=== PATIENT | female | born 1935 ===

== ENCOUNTER 2016-10-26 18:49 | Inpatient (IN) | payer MEDICARE, MEDICAID ==
[2016-10-26 18:56] VITALS: BMI 35.2
--- NOTE | 2016-10-26 19:22 | ED PDOC ---
HPI: Chest Pain Time Seen by Provider: 10/26/16 18:57 Chief Complaint (Nursing): Headache History Per: Patient, Family Onset/Duration Of Symptoms: Days (10 days), Gradual Current Symptoms Are (Timing): Still Present Severity: Moderate Quality: Dull Associated Symptoms: denies: Nausea, Dyspnea, Diaphoresis, Syncope Modifying Factors: None Exacerbating Factors: None Alleviating Factors: Other (nitro) Additional History Per: Patient, Family Additional Complaint(s): patient stating she has had headache for over 10 days. Son states they checked BP tonight and it was elevated 185/95 and pulse 112. Patient has taken motrin and tylenol, last doses unknown. also intermittent cp with relief with nitro. no sob. pmd abiodun no head trauma no bv or dv. Past Medical History Reviewed: Historical Data, Nursing Documentation, Vital Signs Vital Signs: Last Vital Signs Temp 99.9 F H 10/26/16 19:02 Pulse 80 10/26/16 19:02 Resp 18 10/26/16 19:02 BP 180/95 H 10/26/16 19:02 Pulse Ox 95 10/26/16 20:01 - Medical History PMH: Anemia, Anxiety, Arthritis, CHF, Depression, Diabetes, Diverticulitis, HTN , Hypercholesterolemia, Osteoporosis, TIA Denies: Chronic Kidney Disease - Family History Family History: States: No Known Family Hx - Living Arrangements Living Arrangements: With Family - Social History Current smoker - smoking cessation education provided: No Alcohol: None - Home Medications Home Medications: Ambulatory Orders Medication Instructions Recorded Alprazolam [Xanax] 0.5 mg PO BID 05/28/14 Atorvastatin [Lipitor] 10 mg PO HS 05/28/14 Meclizine HCl [Antivert] 25 mg PO BID 05/28/14 Metoprolol Tartrate 25 mg PO DAILY 05/28/14 Sitagliptin Phosphate [Januvia] 100 mg PO DAILY 05/28/14 Ferrous Sulfate [Feosol] 324 mg PO BID #0 ect 06/03/14 oxyCODONE/Acetaminophen [Percocet 1 tab PO Q6 PRN #0 tab 06/03/14 5/325 mg Tab] Patient's Own Medication 200 mg PO BID 06/07/14 [Patient's Own Medication] - Allergies Allergies/Adverse Reactions: Allergies Allergy/AdvReac Type Severity Reaction Status Date / Time iodine Allergy RASH Verified 10/26/16 18:55 Review of Systems ROS Statement: Except As Marked, All Systems Reviewed And Found Negative Constitutional: Negative for: Fever, Chills Cardiovascular: Positive for: Chest Pain. Negative for: Palpitations, Edema, Light Headedness Respiratory: Negative for: Cough, Shortness of Breath Gastrointestinal: Negative for: Nausea, Vomiting, Abdominal Pain, Diarrhea Musculoskeletal: Negative for: Neck Pain Skin: Negative for: Rash Neurological: Positive for: Headache. Negative for: Weakness, Numbness, Confusion, Seizures, Altered Mental Status, Dizziness Physical Exam - Reviewed Nursing Documentation Reviewed: Yes Vital Signs Reviewed: Yes - Physical Exam Appears: Positive for: Uncomfortable. Negative for: In Acute Distress Head Exam: Positive for: ATRAUMATIC, NORMAL INSPECTION, NORMOCEPHALIC Eye Exam: Positive for: EOMI, PERRL, Other (small sub conj hemea on the right ) . Negative for: Periorbital swelling, Periorbital tenderness, Conjunctival injection, Scleral icterus Neck: Positive for: Normal, Painless ROM, Supple Cardiovascular/Chest: Positive for: Regular Rate, Rhythm. Negative for: Chest Non Tender, Edema, Gallop, Murmur, Bradycardia, Tachycardia Respiratory: Positive for: Normal Breath Sounds. Negative for: Decreased Breath Sounds, Accessory Muscle Use, Crackles, Rales, Rhonchi, Stridor, Wheezing Gastrointestinal/Abdominal: Positive for: Normal Exam, Bowel Sounds, Soft. Negative for: Tenderness Back: Positive for: Normal Inspection. Negative for: L CVA Tenderness, R CVA Tenderness Extremity: Positive for: Normal ROM. Negative for: Tenderness, Pedal Edema - Laboratory Results Result Diagrams: 10/26/16 19:52 10/26/16 19:52 - ECG ECG: Positive for: Interpreted By Me ECG Rhythm: Positive for: Normal QRS, Normal ST Segment, Sinus Rhythm. Negative for: ST/T Changes Interpretation Of Abn EKG: rate of 61, no evidence of ischemia O2 Sat by Pulse Oximetry: 95 Pulse Ox Interpretation: Normal - Radiology X-Ray: Interpreted by Me X-Ray Interpretation: No Acute Disease - Progress ED Course And Treament: per dr rascon will admit to tele obs. ct head is neg. Re-evaluation Time: 21:37 Condition: Improved Disposition - Clinical Impression Clinical Impression: Acute headache, Chest pain - Patient ED Disposition Is Patient to be Admitted: Yes Counseled Patient/Family Regarding: Studies Performed, Diagnosis - Disposition Disposition Time: 21:37 Condition: GOOD - Pt Status Changed To: Hospital Disposition Of: Observation - POA Present On Arrival: None
[2016-10-26 20:13] LABS: BASO % 0.6 % (0.0-2.0); EOS # 0.1 K/uL (0.0-0.7); HEMATOCRIT 38.4 % (34.0-47.0); LYMPH # 0.9 K/uL (1.0-4.3); LYMPH % 15.6 % (20.0-40.0); MEAN CELL VOLUME 90.8 fl (81.0-99.0); MEAN CORPUSCULAR HEMOGLOBIN 29.1 pg (27.0-31.0); MEAN PLATELET VOLUME 8.4 fl (7.2-11.7); MONO # 0.5 K/uL (0.0-0.8); MONO % 8.8 % (0.0-10.0); NEUT # 4.4 K/uL (1.8-7.0); NRBC % 0.1 % (0.0-0.0); RED CELL DISTRIBUTION WIDTH 14.1 % (11.5-14.5)
[2016-10-26 20:25] LABS: ALKALINE PHOSPHATASE 72 U/L (38-126); ALT/SGPT 28 U/L (9-52); AST/SGOT 37 U/L (14-36); BILIRUBIN,TOTAL 0.6 mg/dl (0.2-1.3); BLOOD UREA NITROGEN 8 mg/dl (7-17); CALCIUM 8.9 mg/dL (8.4-10.2); CARBON DIOXIDE 28 mmol/L (22-30); CHLORIDE 102 mmol/L (98-107); GFR AFRICAN-AMERICAN > 60; GLUCOSE,RANDOM 97 mg/dL (65-105); POTASSIUM 3.4 MMOL/L (3.6-5.0); SODIUM 144 mmol/l (132-148); TOTAL PROTEIN 7.4 G/DL (6.3-8.2)
[2016-10-26 20:39] LABS: PARTIAL THROMBOPLASTIN TIME 29.6 SECONDS (23.3-32.5)
--- NOTE | 2016-10-26 21:12 | CT ---
EXAM: CT Head Without Intravenous Contrast CLINICAL HISTORY: 81 years old, female; Pain; Headache; Headache not specified; Additional info: LNY for 10 days TECHNIQUE: Axial computed tomography images of the head/brain without intravenous contrast. This CT exam was performed using one or more of the following dose reduction techniques: automated exposure control, adjustment of the mA and/or kV according to patient size, and/or use of iterative reconstruction technique. Coronal and sagittal reformatted images were created and reviewed. COMPARISON: No relevant prior studies available. FINDINGS: Brain: [id number] atrophy. No intracranial hemorrhage. No mass. Minimal decreased attenuation within periventricular white matter. No definite edema. Ventricles: No hydrocephalus. Bones/joints: No acute fracture. Soft tissues: Unremarkable. Vasculature: Minimal atherosclerotic disease of intracranial arteries. Sinuses: No acute sinusitis. Mastoid air cells: No mastoid effusion. Orbits: Unremarkable as visualized. IMPRESSION: 1. Nonspecific white matter changes. Acute infarction may be CT occult within first 24 hours. If a focal deficit persists, consider followup CT or MRI for further evaluation. 2. Incidental/non-acute findings are described above.
[2016-10-27 07:11] LABS: BASO # 0.1 K/uL (0.0-0.2); BASO % 0.9 % (0.0-2.0); EOS # 0.1 K/uL (0.0-0.7); EOS % 1.2 % (0.0-4.0); HEMATOCRIT 40.7 % (34.0-47.0); LYMPH # 1.2 K/uL (1.0-4.3); LYMPH % 16.7 % (20.0-40.0); MEAN CELL VOLUME 90.6 fl (81.0-99.0); MEAN CORPUSCULAR HEMOGLOBIN 29.2 pg (27.0-31.0); MEAN CORPUSCULAR HGB CONC 32.3 g/dL (33.0-37.0); MEAN PLATELET VOLUME 8.4 fl (7.2-11.7); MONO # 0.7 K/uL (0.0-0.8); MONO % 9.6 % (0.0-10.0); NEUT # 5.2 K/uL (1.8-7.0); NEUT % 71.6 % (50.0-75.0); WHITE BLOOD COUNT 7.3 K/uL (4.8-10.8)
[2016-10-27 07:18] LABS: ALKALINE PHOSPHATASE 79 U/L (38-126); ALT/SGPT 31 U/L (9-52); AST/SGOT 45 U/L (14-36); BILIRUBIN,TOTAL 0.8 mg/dl (0.2-1.3); BLOOD UREA NITROGEN 8 mg/dl (7-17); CALCIUM 9.1 mg/dL (8.4-10.2); CARBON DIOXIDE 34 mmol/L (22-30); CHLORIDE 100 mmol/L (98-107); CHOLESTEROL 225 mg/dL (0-199); GFR AFRICAN-AMERICAN > 60; GLUCOSE,RANDOM 114 mg/dL (65-105); POTASSIUM 3.3 MMOL/L (3.6-5.0); SODIUM 146 mmol/l (132-148); TOTAL PROTEIN 8.1 G/DL (6.3-8.2)
[2016-10-27 07:48] LABS: THYROID STIMULATING HORMONE 1.91 mIU/ML (0.46-4.68)
[2016-10-27 08:13] LABS: T4 10.4 ug/dl (5.5-11.0)
[2016-10-27] MEDS: Acetaminophen-Codeine 300/30 mg Tab PO PRN ×2 (08:16→23:56)
[2016-10-27] MEDS: Enoxaparin 40 mg Syringe SC SCH (08:16)
[2016-10-27] MEDS: Potassium Chloride 20 mEq ER Tab PO ONE ×2 (10:00)
--- NOTE | 2016-10-27 12:32 | RAD ---
HISTORY: Chest pain COMPARISON: 06/01/2014 FINDINGS: LUNGS: The lungs are well inflated. There is moderate pulmonary venous congestion. PLEURA: No significant pleural effusion identified, no pneumothorax apparent. CARDIOVASCULAR: There is persistent moderate cardiomegaly. OSSEOUS STRUCTURES: No significant abnormalities. VISUALIZED UPPER ABDOMEN: Normal. OTHER FINDINGS: None. IMPRESSION: Moderate cardiomegaly and pulmonary venous congestion. No active pulmonary disease.
--- NOTE | 2016-10-27 14:17 | CP.PCM.HP ---
History of Present Illness - History of Present Illness History of Present Illness: CC: Headache. 81 y/o F brought to ER [facility] to be evaluated for intractable Headache, onset 2 days COATER SLATE. taking Motrin, Tylenol with non relief. Pt came to ED c/o of increased headache on DOA, pain of dull quality, moderated intensity 4:10 associated to Chest pain left side,, pressure type, intermittent relief with NTG, dizziness. Worsening symptoms: Increased BP 180/95 TMAx: 99.9 HR: 80. Pt denied: Diaphoresis, LOC, change in mental status, syncope, head trauma, legs edema, numbness, focal weakness, chills, abdominal pain, n/v/d, urinary symptoms, SOB, cough, sick contact, recent travel. PMHx: HTN, Dyslipidemia, DMII, O/A Knees, Chronic back pain (Upper and lower back), CHF, COPD, dizziness, Osteoporosis, Diverticulitis, Depression, Anxiety, Insomnia, Hx TIA, Hx CVA, PNA. CT head: Negative, suggested MRI or CT if focal deficit persist. CXR: Cardiomegaly, Pulmonary venous congestion, no active pulmonary disease. Present on Admission - Present on Admission Any Indicators Present on Admission: No Review of Systems - Constitutional Constitutional: Fever (Low grade), Headache - EENT Eyes: Other (negative) Ears: Other (negative) Nose/Mouth/Throat: Other (negative) - Cardiovascular Cardiovascular: Chest Pain - Respiratory Respiratory: Other (negative) - Gastrointestinal Gastrointestinal: Other (negative) - Genitourinary Genitourinary: Other (negative) - Musculoskeletal Musculoskeletal: Arthralgias, Back Pain Additional comments: knees pain - Integumentary Integumentary: Other (negative) - Neurological Neurological: Dizziness, Headaches - Psychiatric Psychiatric: Abnormal Sleep Pattern, Anxiety, Depression - Endocrine Endocrine: Other (negative) - Hematologic/Lymphatic Hematologic: Other (negative) Past Patient History - Infectious Disease Hx of Infectious Diseases: None - Tetanus Immunizations Tetanus Immunization: Unknown - Past Medical History & Family History Past Medical History?: Yes Pertinent Family History: Unknown - Past Social History Smoking Status: Former Smoker Alcohol: None Drugs: Denies Home Situation {Lives}: With Family - CARDIAC Hx Cardiac Disorders: Yes Hx Congestive Heart Failure: Yes Hx Hypertension: Yes - PULMONARY Hx Respiratory Disorders: Yes Hx Chronic Obstructive Pulmonary Disease (COPD): Yes - NEUROLOGICAL Hx Neurological Disorder: Yes Hx Dizziness: Yes Hx Transient Ischemic Attacks (TIA): Yes - HEENT Hx HEENT Problems: No - RENAL Hx Chronic Kidney Disease: No - ENDOCRINE/METABOLIC Hx Endocrine Disorders: Yes Hx Diabetes Mellitus Type 2: Yes - HEMATOLOGICAL/ONCOLOGICAL Hx Blood Disorders: Yes Hx Anemia: Yes - INTEGUMENTARY Hx Dermatological Problems: No - MUSCULOSKELETAL/RHEUMATOLOGICAL Hx Musculoskeletal Disorders: Yes Hx Arthritis: Yes Hx Back Pain: Yes Hx Falls: No Hx Osteoarthritis: Yes - GASTROINTESTINAL Hx Gastrointestinal Disorders: Yes Hx Diverticulitis: Yes - GENITOURINARY/GYNECOLOGICAL Hx Genitourinary Disorders: No - PSYCHIATRIC Hx Psychophysiologic Disorder: Yes Hx Anxiety: Yes Hx Depression: Yes Hx Substance Use: No - SURGICAL HISTORY Hx Surgeries: Yes Hx Herniorrhaphy: Yes - ANESTHESIA Hx Anesthesia: Yes Hx Anesthesia Reactions: No Hx Malignant Hyperthermia: No Meds Home Medications: Home Medication List Medication Instructions Recorded Confirmed Type Aspirin [Adult Low Dose Aspirin EC] 81 mg PO DAILY #30 tablet.dr 10/28/16 Rx Atorvastatin [Lipitor] 20 mg PO DAILY #30 tab 10/28/16 Rx Allergies/Adverse Reactions: Allergies Allergy/AdvReac Type Severity Reaction Status Date / Time iodine Allergy RASH Verified 10/26/16 18:55 Physical Exam - Constitutional Appears: No Acute Distress, Chronically Ill - Head Exam Head Exam: NORMAL INSPECTION - Eye Exam Eye Exam: PERRL - ENT Exam ENT Exam: Normal Oropharynx - Neck Exam Neck exam: Positive for: Normal Inspection - Respiratory Exam Respiratory Exam: NORMAL BREATHING PATTERN - Cardiovascular Exam Cardiovascular Exam: REGULAR RHYTHM, Systolic Murmur (1/6 LSB Ao) Additional comments: Tenderness over pressure lower LSB - GI/Abdominal Exam GI & Abdominal Exam: Normal Bowel Sounds, Soft - Extremities Exam Extremities exam: Positive for: tenderness ( L > R knee). Negative for: pedal edema - Back Exam Back exam: tenderness (L-S) - Neurological Exam Neurological exam: Alert, Oriented x3 Additional comments: Follows commands. - Psychiatric Exam Psychiatric exam: Anxious, Depressed - Skin Skin Exam: Warm Results - Vital Signs Recent Vital Signs: Last Vital Signs Temp 98.5 F 10/27/16 12:37 Pulse 73 10/27/16 12:37 Resp 18 10/27/16 12:37 BP 134/74 10/27/16 12:37 Pulse Ox 96 10/27/16 12:37 reviewed Bharti - Labs Result Diagrams: 10/27/16 06:30 10/27/16 06:30 Labs: Laboratory Results - last 24 hr 10/27/16 10/27/16 06:30 11:06 WBC 7.3 RBC 4.49 Hgb 13.1 Hct 40.7 MCV 90.6 MCH 29.2 MCHC 32.3 L RDW 14.0 Plt Count 166 MPV 8.4 Neut % (Auto) 71.6 Lymph % (Auto) 16.7 L [place] % (Auto) 9.6 Eos % (Auto) 1.2 Baso % (Auto) 0.9 Neut # 5.2 Lymph # 1.2 [place] # 0.7 Eos # 0.1 Baso # 0.1 Sodium 146 Potassium 3.3 L Chloride 100 Carbon Dioxide 34 H Anion Gap 15 BUN 8 Creatinine 0.5 L Est GFR ( Amer) > 60 Est GFR (Non-Af Amer) > 60 POC Glucose (mg/dL) 98 Random Glucose 114 H Calcium 9.1 Total Bilirubin 0.8 AST 45 H D ALT 31 Alkaline Phosphatase 79 Troponin I < 0.0120 Total Protein 8.1 Albumin 4.0 Globulin 4.1 H Albumin/Globulin Ratio 1.0 Triglycerides 131 Cholesterol 225 H LDL Cholesterol Direct 131 H HDL Cholesterol 57 Thyroxine (T4) 10.4 TSH 3rd Generation 1.91 reviewed Bharti - Imaging and Cardiology Chest x-ray Status: Report reviewed by me (Bharti) CT scan - head Status: Report reviewed by me (Bharti) Assessment & Plan (1) Acute headache Status: Acute (2) Chest pain Status: Acute (3) Hypertension Status: Chronic Priority: Medium (4) Type 2 diabetes mellitus Status: Chronic Priority: Medium (5) Osteoarthritis Status: Chronic Priority: High (6) Dyslipidemia Status: Acute (7) Anxiety Status: Chronic Priority: Medium (8) Depression Status: Chronic Priority: Medium (9) History of CVA (cerebrovascular accident) Status: Chronic Priority: Low (10) Hx of TIA (transient ischemic attack) and stroke Status: Chronic Priority: Low (11) Generalized weakness Status: Chronic Priority: Medium - Assessment and Plan (Free Text) Plan: Continue Lovenox. Antivert, Lopressor, Lipitor, Tylenol with Co, f/u Echo, Cardiology consult. - Date & Time Date: 10/27/16 Time: 12:00
--- NOTE | 2016-10-27 17:14 | CARD ---
APPROVED REPORT EXAM: Two-dimensional and M-mode echocardiogram with Doppler and color Doppler. Other Information Quality : AverageRhythm : Atrial Fibrillation INDICATION Chest Pain 2D DIMENSIONS IVSd0.99 (0.7-1.1cm)LVDd4.09 (3.9-5.9cm) LVOT Diameter2.12 (1.8-2.4cm)PWd0.85 (0.7-1.1cm) IVSs1.84 (0.8-1.2cm)LVDs2.35 (2.5-4.0cm) FS (%) 42.6 %PWs1.37 (0.8-1.2cm) M-Mode DIMENSIONS Left Atrium (MM)4.05 (2.5-4.0cm)Aortic Root2.38 (2.2-3.7cm) Aortic Cusp Exc.1.50 (1.5-2.0cm) Mitral Valve MV E Snrqrzsf345.5cm/sMV DECEL [id number] A Yizqsfnj726.4cm/s MV TVZ94jeN/A ratio1.2MVA (PHT)2.98cm2 TDI E/Lateral E'0.0E/Medial E'0.0 Tricuspid Valve TR Peak [id number]/sRAP [id number] Peak Gr.41mmHg [id number] LEFT VENTRICLE The left ventricle is normal size. There is normal left ventricular wall thickness. The left ventricular function is normal. The left ventricular ejection fraction is - 70%. There is normal LV segmental wall motion. The left ventricular diastolic function is normal. No left ventricle thrombus noted on this study. There is no ventricular septal defect visualized. There is no left ventricular aneurysm. There is no mass noted in the left ventricle. RIGHT VENTRICLE The right ventricle is normal size. There is normal right ventricular wall thickness. The right ventricular systolic function is normal. ATRIA The left atrium is mildly dilated. There is no thrombus suspected in the left atrium. The right atrium size is normal. The interatrial septum is intact with no evidence for an atrial septal defect. AORTIC VALVE The aortic valve is normal in structure and function. No aortic regurgitation is present. There is no aortic valvular stenosis. MITRAL VALVE Mitral annular calcification is moderate. The mitral valve leaflets are thickened. There is no evidence of mitral valve prolapse. There is no mitral valve stenosis. Mitral regurgitation is mild to moderate. There is diastolic turbulance accross the MV. TRICUSPID VALVE The tricuspid valve is normal in structure and function. There is moderate tricuspid regurgitation. Right ventricular systolic pressure is estimated at 52 mmHg. There is no tricuspid valve prolapse or vegetation. There is no tricuspid valve stenosis. PULMONIC VALVE The pulmonic valve is not well visualized. There is no pulmonic valvular regurgitation. GREAT VESSELS The aortic root is normal in size. The IVC was not well visualized. PERICARDIAL EFFUSION small anterior echo free space There is no pleural effusion. <Conclusion> The left ventricle is normal in size and wall thickness. The left ventricular function is normal. The left ventricular ejection fraction is - 70%. The left atrium is mildly dilated. The mitral valve is thickened but not stenotic and the is moderate MAC. The aortic and tricuspid valves are normal. The is mild to moderate mitral regurgitation and moderate tricuspid regurgitation.
--- NOTE | 2016-10-27 18:29 | CARD ---
APPROVED REPORT EKG Measurement Heart [id number] <Conclusion> Sinus rhythm with premature supraventricular complexes Otherwise normal ECG
--- NOTE | 2016-10-27 18:35 | CARD ---
APPROVED REPORT EKG Measurement Heart [id number] <Conclusion> Sinus rhythm with premature atrial contractions Nonspecific ST and T wave abnormality Prolonged QT Abnormal ECG artefact present
--- NOTE | 2016-10-27 18:56 | CP.PCM.CON ---
History of Present Illness - History of Present Illness History of Present Illness: I was asked to see patient by Dr. Granado. Patient is a 81 year old female with a history of HTN, hypercholesterolemia, who presents with headache. The patient states symptoms began about 2 days ago. She was noted to have elevated blood pressure. At rest she developed chest pain which is left sided. She denies dyspnea. She walks with a cane. Review of Systems - Constitutional Constitutional: absent: As Per HPI, Anorexia, Chills, Daytime Sleepiness, Excessive Sweating, Fatigue, Fever, Frequent Falls, Headache, Increased Appetite , Lethargy, Malaise, Night Sweats, Snoring, Sleep Apnea, Weight Gain, Weight Loss, Weakness, Other - EENT Eyes: absent: As Per HPI, Blind Spots, Blurred Vision, Change in Vision, Decreased Night Vision, Diplopia, Discharge, Dry Eye, Exophthalmos, Floaters, Irritation, Itchy Eyes, Loss of Peripheral Vision, Pain, Photophobia, Requires Corrective Lenses, Sees Flashes, Spots in Vision, Tunnel Vision, Other Visual Disturbances, Loss of Vision, Other Nose/Mouth/Throat: absent: As Per HPI, Epistaxis, Nasal Congestion, Nasal Discharge, Nasal Obstruction, Nasal Trauma, Nose Pain, Post Nasal Drip, Sinus Pain, Sinus Pressure, Bleeding Gums, Change in Voice, Dental Pain, Dry Mouth, Dysphagia, Halitosis, Hoarsness, Lip Swelling, Mouth Lesions, Mouth Pain, Odynophagia, Sore Throat, Throat Swelling, Tongue Swelling, Facial Pain, Neck Pain, Neck Mass, Other - Cardiovascular Cardiovascular: Chest Pain - Respiratory Respiratory: absent: As Per HPI, Cough, Dyspnea, Hemoptysis, Dyspnea on Exertion , Wheezing, Snoring, Stridor, Pain on Inspiration, Chest Congestion, Excessive Mucous Production, Change in Mucous Color, Pain with Coughing, Other - Gastrointestinal Gastrointestinal: absent: As Per HPI, Abdominal Pain, Belching, Bloating, Change in Bowel Habits, Change in Stool Character, Coffee Ground Emesis, Constipation, Cramping, Diarrhea, Dyspepsia, Dysphagia, Early Satiety, Excessive Flatus, Fecal Incontinence, Heartburn, Hematemesis, Hematochezia, Loose Stools, Melena, Nausea, Odynophagia, Temesmus, Vomiting, Other - Genitourinary Genitourinary: absent: As Per HPI, Change in Urinary Stream, Difficulty Urinating, Dysuria, Flank Pain, Hematuria, Pyuria, Nocturia, Urinary Incontinence, Urinary Frequency, Urinary Hesitance, Urinary Urgency, Voiding Freq/Small Amts, Freq UTI, Hx Renal/Bladder Calculi, Hx /Renal Surgery, Bladder Distension, Other - Musculoskeletal Musculoskeletal: absent: As Per HPI, Abnormal Gait, Arthralgias, Atrophy, Back Pain, Deformity, Joint Swelling, Limited Range of Motion, Loss of Height, Muscle Cramps, Muscle Weakness, Myalgias, Neck Pain, Numbness, Radiating Pain into Limb, Stiffness, Tingling, Other - Integumentary Integumentary: absent: As Per HPI, Acne, Alopecia, Bleeding Lesions, Change in Hair, Change in Nails, Change in Pigmentation, Changing Lesions, Dry Skin, Erythema, Furuncle, Hirsutism, Lesions, New Lesions, Non-Healing Lesions, Photosensitivity, Pruritus, Rash, Skin Pain, Skin Ulcer, Sores, Striae, Swelling , Unusual Bruising, Wounds, Jaundice, Other - Neurological Neurological: absent: As Per HPI, Abnormal Gait, Abnormal Hearing, Abnormal Movements, Abnormal Speech, Behavioral Changes, Burning Sensations, Confusion, Convulsions, Disequilibrium, Dizziness, Numbness, Focal Weakness, Frequent Falls , Headaches, Lack of Coordination, Loss of Vision, Memory Loss, Paresthesias, Radicular Pain, Restless Legs, Sensory Deficit, Syncope, Tingling, Tremor, Vertigo, Weakness, Other Visual Disturbances, Other - Psychiatric Psychiatric: absent: As Per HPI, Abnormal Sleep Pattern, Anhedonia, Anxiety, Auditory Hallucinations, Behavioral Changes, Change in Appetite, Change in Libido, Confusion, Depression, Difficulty Concentrating, Hallucinations, Homicidal Ideation, Hopelessness, Irritability, Memory Loss, Mood Swings, Panic Attacks, Paranoia, Suicidal Ideation, Visual Hallucinations, Tactile Hallucinations, Other - Endocrine Endocrine: absent: As Per HPI, Change in Body Appearance, Change in Libido, Cold Intolorance, Deepening of Voice, Excessive Sweating, Fatigue, Flushing, Heat Intolorance, Increase in Ring/Shoe/Hat Size, Palpitations, Polydipsia, Polyphagia, Polyuria, Other - Hematologic/Lymphatic Hematologic: absent: As Per HPI, Easy Bleeding, Easy Bruising, Lymphadenopathy, Other Past Patient History - Infectious Disease Hx of Infectious Diseases: None - Tetanus Immunizations Tetanus Immunization: Unknown - Past Medical History & Family History Past Medical History?: Yes - Past Social History Smoking Status: Former Smoker Alcohol: None Drugs: Denies Home Situation {Lives}: With Family - CARDIAC Hx Cardiac Disorders: Yes Hx Congestive Heart Failure: Yes Hx Hypertension: Yes - PULMONARY Hx Respiratory Disorders: Yes Hx Chronic Obstructive Pulmonary Disease (COPD): Yes - NEUROLOGICAL Hx Neurological Disorder: Yes Hx Dizziness: Yes Hx Transient Ischemic Attacks (TIA): Yes - HEENT Hx HEENT Problems: No - RENAL Hx Chronic Kidney Disease: No - ENDOCRINE/METABOLIC Hx Endocrine Disorders: Yes Hx Diabetes Mellitus Type 2: Yes - HEMATOLOGICAL/ONCOLOGICAL Hx Blood Disorders: Yes Hx Anemia: Yes - INTEGUMENTARY Hx Dermatological Problems: No - MUSCULOSKELETAL/RHEUMATOLOGICAL Hx Musculoskeletal Disorders: Yes Hx Arthritis: Yes Hx Back Pain: Yes Hx Falls: No Hx Osteoarthritis: Yes - GASTROINTESTINAL Hx Gastrointestinal Disorders: Yes Hx Diverticulitis: Yes - GENITOURINARY/GYNECOLOGICAL Hx Genitourinary Disorders: No - PSYCHIATRIC Hx Psychophysiologic Disorder: Yes Hx Anxiety: Yes Hx Depression: Yes Hx Substance Use: No - SURGICAL HISTORY Hx Surgeries: Yes Hx Herniorrhaphy: Yes - ANESTHESIA Hx Anesthesia: Yes Hx Anesthesia Reactions: No Hx Malignant Hyperthermia: No Meds Allergies/Adverse Reactions: Allergies Allergy/AdvReac Type Severity Reaction Status Date / Time iodine Allergy RASH Verified 10/26/16 18:55 - Medications Medications: Current Medications Acetaminophen/Codeine Phosphate (Tylenol/Codeine 300 Mg/30 Mg) 1 tab PO Q4 PRN PRN Reason: Pain, moderate (4-7) Last Admin: 10/27/16 08:16 Dose: 1 tab Alprazolam (Xanax) 0.25 mg PO [facility] Stop: 11/03/16 22:01 Amlodipine Besylate (Norvasc) 10 mg PO DAILY [facility] Atorvastatin Calcium (Lipitor) 10 mg PO HS [facility] Enoxaparin Sodium (Lovenox) 40 mg SC DAILY [facility] PRN Reason: Protocol Last Admin: 10/27/16 08:16 Dose: 40 mg Ferrous Sulfate (Feosol) 325 mg PO BID [facility] Last Admin: 10/27/16 17:30 Dose: 325 mg Meclizine HCl (Antivert) 25 mg PO BID [facility] Last Admin: 10/27/16 17:30 Dose: 25 mg Metoprolol Tartrate (Lopressor) 25 mg PO DAILY [facility] Last Admin: 10/27/16 08:08 Dose: 25 mg Ondansetron HCl (Zofran Inj) 4 mg IVP Q4 PRN PRN Reason: Nausea/Vomiting Last Admin: 10/27/16 10:13 Dose: 4 mg Sitagliptin Phosphate (Januvia) 100 mg PO DAILY [facility] Last Admin: 10/27/16 09:40 Dose: 100 mg Physical Exam - Constitutional Appears: Non-toxic - Head Exam Head Exam: NORMAL INSPECTION - Eye Exam Eye Exam: Normal appearance - ENT Exam ENT Exam: Mucous Membranes Moist - Neck Exam Neck exam: Positive for: Full Rom - Respiratory Exam Respiratory Exam: NORMAL BREATHING PATTERN - Cardiovascular Exam Cardiovascular Exam: REGULAR RHYTHM - GI/Abdominal Exam GI & Abdominal Exam: Normal Bowel Sounds - Rectal Exam Rectal Exam: Deferred - Extremities Exam Extremities exam: Negative for: pedal edema - Back Exam Back exam: NORMAL INSPECTION - Neurological Exam Neurological exam: Alert, Oriented x3 - Psychiatric Exam Psychiatric exam: Normal Affect - Skin Skin Exam: Normal Color Results - Vital Signs Recent Vital Signs: Last Vital Signs Temp 98.2 F 10/27/16 16:00 Pulse 75 10/27/16 16:00 Resp 20 10/27/16 16:00 BP 121/62 10/27/16 16:00 Pulse Ox 98 10/27/16 16:00 - Labs Result Diagrams: 10/27/16 06:30 10/27/16 06:30 Labs: Laboratory Results - last 24 hr 10/27/16 16:14 POC Glucose (mg/dL) 89 - EKG Data EKG Interpreted by: Myself EKG shows normal: Sinus rhythm Assessment & Plan (1) Chest pain Assessment and Plan: I recommend serial cardiac enzymes. I reviewed the echocardiogram. There is normal left ventricular function and no evidence of wall motion abnormalities. Patient will benefit from conitnued therapy. add aspirin. If enzymes negative will recommend outpatient stress test. Status: Acute (2) Hypertension Assessment and Plan: blood pressure control Status: Chronic Priority: Medium
[2016-10-28] MEDS: Enoxaparin 40 mg Syringe SC SCH (09:50)
[2016-10-28] MEDS: Acetaminophen-Codeine 300/30 mg Tab PO PRN (10:27)
[2016-10-28 11:56] VITALS: RESP 18
--- NOTE | 2016-10-28 14:41 | CP.PCM.PN ---
Subjective - Date & Time of Evaluation Date of Evaluation: 10/28/16 Time of Evaluation: 11:30 - Subjective Subjective: F/U Acute Headache/ CP. Pt doing well, no CP, no SOB. Objective - Vital Signs/Intake and Output Vital Signs (last 24 hours): Temp Pulse Resp BP Pulse Ox 98.4 F 72 18 109/58 L 96 10/28/16 11:55 10/28/16 11:55 10/28/16 11:55 10/28/16 11:55 10/28/16 11:55 - Medications Medications: Current Medications Acetaminophen/Codeine Phosphate (Tylenol/Codeine 300 Mg/30 Mg) 1 tab PO Q4 PRN PRN Reason: Pain, moderate (4-7) Last Admin: 10/28/16 10:27 Dose: 1 tab Alprazolam (Xanax) 0.25 mg PO HS [facility] Stop: 11/03/16 22:01 Atorvastatin Calcium (Lipitor) 10 mg PO [facility] Last Admin: 10/27/16 21:49 Dose: 10 mg Enoxaparin Sodium (Lovenox) 40 mg SC DAILY [facility] PRN Reason: Protocol Last Admin: 10/28/16 09:50 Dose: 40 mg Ferrous Sulfate (Feosol) 325 mg PO BID [facility] Last Admin: 10/28/16 09:50 Dose: 325 mg Meclizine HCl (Antivert) 25 mg PO BID [facility] Last Admin: 10/28/16 09:50 Dose: 25 mg Metoprolol Tartrate (Lopressor) 25 mg PO DAILY [facility] Last Admin: 10/28/16 09:50 Dose: 25 mg Ondansetron HCl (Zofran Inj) 4 mg IVP Q4 PRN PRN Reason: Nausea/Vomiting Last Admin: 10/27/16 10:13 Dose: 4 mg Sitagliptin Phosphate (Januvia) 100 mg PO DAILY [facility] Last Admin: 10/28/16 09:50 Dose: 100 mg - Labs Labs: PT 12.0 SECONDS (9.6-11.2) H 10/26/16 19:52 INR 1.15 (0.92-1.08) H 10/26/16 19:52 APTT 29.6 SECONDS (23.3-32.5) 10/26/16 19:52 - Constitutional Appears: No Acute Distress, Chronically Ill - Head Exam Head Exam: NORMAL INSPECTION - Eye Exam Eye Exam: PERRL - ENT Exam ENT Exam: Normal Oropharynx - Neck Exam Neck Exam: Normal Inspection - Respiratory Exam Respiratory Exam: NORMAL BREATHING PATTERN - Cardiovascular Exam Cardiovascular Exam: REGULAR RHYTHM, Murmur (systolic 1/6 LSB Ao) - GI/Abdominal Exam GI & Abdominal Exam: Soft, Normal Bowel Sounds - Extremities Exam Extremities Exam: Tenderness (L>R knee). absent: Pedal Edema - Back Exam Back Exam: tenderness (L-S) - Neurological Exam Neurological Exam: Alert, Oriented x3 - Psychiatric Exam Psychiatric exam: Anxious, Depressed - Skin Skin Exam: Warm Assessment and Plan (1) Acute headache Status: Acute (2) Chest pain Assessment & Plan: Non Cardiac. Status: Acute (3) Hypertension Status: Chronic (4) Type 2 diabetes mellitus Status: Chronic (5) Osteoarthritis Status: Chronic (6) Dyslipidemia Status: Acute (7) Anxiety Status: Chronic (8) Depression Status: Chronic (9) History of CVA (cerebrovascular accident) Status: Chronic (10) Hx of TIA (transient ischemic attack) and stroke Status: Chronic (11) Generalized weakness Status: Chronic - Assessment and Plan (Free Text) Plan: BP stable, Cardiology consult appreciated, suggested stress test as out-patient , Pt improved and stable to be discharged, see instruction medication sheet, f/ u in my office in one week,.
--- NOTE | 2016-10-28 14:56 | PQF GENQUE ---
Dr. Granado, Etiology of the Chest Pain: if known? OR: Unable to determine? Cardiology consult: presents with headache. The patient states symptoms began about 2 days ago. She was noted to have elevated blood pressure. At rest she developed chest pain which is left sided. Impression: Chest pain: I recommend serial cardiac enzymes. I reviewed the echocardiogram. There is normal left ventricular function and no evidence of wall motion abnormalities. Patient will benefit from continued therapy. add aspirin. If enzymes negative will recommend outpatient stress test. Status: Acute trop x 4: negative This form is a permanent part of the medical record Clarification of your documentation is requested to better reflect the severity of illness and intensity of treatment of your patient. Indicators present [] Specify: [] [] Specify: [] [] Specify: [] [] Specify: [] Location in the medical record that reflects the above clinical findings: [] Treatment Provided: [] PHYSICIAN'S RESPONSE Based on your medical judgment of the clinical indicators outlined above please clarify the following: [] Practitioner response [] If unable to determine, please check the box, sign and date. Present On Admission (POA) Indicator: [] Present at the time of admission [] Not present at the time of admission [] Clinically Undetermined In responding to this query, please exercise your independent professional judgment. The fact that a question is asked does not imply that any particular answer is desired or expected. Thank you for your clarification on this documentation. If you have any questions please call. * Thank you, Melissa Louis RN BSN ext. #[phone] MTDD
[2016-10-28 16:16] VITALS: BP 148/77; PULSE 93; TEMP 98.1; O2SAT 98
== END 2016-10-28 18:40 | disposition home or self-care (01) | DRG 103 ==
LOC: H.ER 18:49 → H.ERHOLD 22:22 → H.TEL 10-27 03:17 → OBSVTOIN 10-27 15:01
PROVIDERS: ADMIT Internal Medicine Pulmonary Disease; ATTEND Internal Medicine Pulmonary Disease
DX: R51 Headache (principal); K57.92 Diverticulitis of intestine, part unspecified, without perforation or abscess without bleeding; R07.89 Other chest pain; I11.0 Hypertensive heart disease with heart failure; I50.9 Heart failure, unspecified; J44.9 Chronic obstructive pulmonary disease, unspecified; E11.9 Type 2 diabetes mellitus without complications; D64.9 Anemia, unspecified; F32.9 Major depressive disorder, single episode, unspecified; M17.0 Bilateral primary osteoarthritis of knee; G89.29 Other chronic pain; M54.5 Low back pain; M81.0 Age-related osteoporosis without current pathological fracture; E78.5 Hyperlipidemia, unspecified; F41.8 Other specified anxiety disorders; E78.00 Pure hypercholesterolemia, unspecified; G47.00 Insomnia, unspecified; Z79.82 Long term (current) use of aspirin; Z86.73 Personal history of transient ischemic attack (TIA), and cerebral infarction without residual deficits; Z87.891 Personal history of nicotine dependence; Z91.041 Radiographic dye allergy status

== ENCOUNTER 2016-12-15 22:03 | Inpatient (IN) | payer MEDICARE, MEDICAID ==
[2016-12-15 22:04] VITALS: BMI 35.2
[2016-12-15 22:56] LABS: BASO # 0.1 K/uL (0.0-0.2); BASO % 0.7 % (0.0-2.0); EOS # 0.1 K/uL (0.0-0.7); EOS % 1.3 % (0.0-4.0); HEMATOCRIT 29.9 % (34.0-47.0); LYMPH # 1.4 K/uL (1.0-4.3); LYMPH % 20.4 % (20.0-40.0); MEAN CELL VOLUME 89.7 fl (81.0-99.0); MEAN CORPUSCULAR HEMOGLOBIN 30.1 pg (27.0-31.0); MEAN CORPUSCULAR HGB CONC 33.6 g/dL (33.0-37.0); MEAN PLATELET VOLUME 9.3 fl (7.2-11.7); MONO # 0.7 K/uL (0.0-0.8); MONO % 9.8 % (0.0-10.0); NEUT # 4.6 K/uL (1.8-7.0); NEUT % 67.8 % (50.0-75.0); NRBC % 0.1 % (0.0-0.0); RED CELL DISTRIBUTION WIDTH 14.5 % (11.5-14.5); WHITE BLOOD COUNT 6.9 K/uL (4.8-10.8)
--- NOTE | 2016-12-15 23:09 | ED PDOC ---
HPI: General Adult Time Seen by Provider: 12/15/16 22:25 Chief Complaint (Nursing): Abnormal Skin Integrity Chief Complaint (Provider): black stools History Per: Patient, Family (son ) History/Exam Limitations: no limitations Onset/Duration Of Symptoms: Days (3) Have you had recent travel within the past 21 days to any of the following countries: [place], [place], [place] or [place]?: No Current Symptoms Are (Timing): Still Present Additional Complaint(s): 81yo female with PMHx including GI bleed and HTN (on aspirin according to son) presents to the ED with c/o black stools x 3 days. Patient did not tell son until today and when he heard he brought patient to ED. Denies abdominal pain, chest pain, SOB, weakness, or any other medical complaints. Past Medical History Reviewed: Historical Data, Nursing Documentation, Vital Signs Vital Signs: Last Vital Signs Temp 99.9 F H 12/15/16 22:08 Pulse 114 H 12/15/16 22:08 Resp 20 12/15/16 22:08 BP 141/73 12/15/16 22:08 Pulse Ox 96 12/15/16 23:14 - Medical History PMH: Anemia, Anxiety, Arthritis, CHF, COPD, Depression, Diabetes, Diverticulitis , HTN, Hypercholesterolemia, Osteoporosis, TIA Denies: Chronic Kidney Disease Other PMH: GI bleed - Surgical History Surgical History: No Surg Hx - Family History Family History: States: No Known Family Hx - Home Medications Home Medications: Ambulatory Orders Medication Instructions Recorded Meclizine HCl [Antivert] 25 mg PO BID 05/28/14 Metoprolol Tartrate 25 mg PO DAILY 05/28/14 Sitagliptin Phosphate [Januvia] 100 mg PO DAILY 05/28/14 Ferrous Sulfate [Feosol] 324 mg PO BID #0 ect 06/03/14 Patient's Own Medication 200 mg PO BID 06/07/14 Alprazolam [Xanax] 0.5 mg PO HS 10/26/16 Acetaminophen with Codeine 1 tab PO HS 10/27/16 [Tylenol with Codeine #3 Tablet] Aspirin [Adult Low Dose Aspirin EC] 81 mg PO DAILY #30 tablet. 10/28/16 Atorvastatin [Lipitor] 20 mg PO DAILY #30 tab 10/28/16 - Allergies Allergies/Adverse Reactions: Allergies Allergy/AdvReac Type Severity Reaction Status Date / Time iodine Allergy RASH Verified 10/26/16 18:55 Review of Systems ROS Statement: Except As Marked, All Systems Reviewed And Found Negative Constitutional: Negative for: Weakness Cardiovascular: Negative for: Chest Pain Respiratory: Negative for: Shortness of Breath Gastrointestinal: Positive for: Other (black stools ). Negative for: Abdominal Pain Physical Exam - Reviewed Nursing Documentation Reviewed: Yes Vital Signs Reviewed: Yes - Physical Exam Appears: Positive for: Well, No Acute Distress Head Exam: Positive for: ATRAUMATIC, NORMAL INSPECTION, NORMOCEPHALIC Skin: Positive for: Normal Color, Warm, Dry Eye Exam: Positive for: Normal appearance, EOMI, PERRL ENT: Positive for: Normal ENT Inspection Neck: Positive for: Normal, Painless ROM, Supple Cardiovascular/Chest: Positive for: Regular Rate, Rhythm. Negative for: Murmur , Tachycardia Respiratory: Positive for: Normal Breath Sounds. Negative for: Wheezing, Respiratory Distress Gastrointestinal/Abdominal: Positive for: Normal Exam, Soft. Negative for: Tenderness Back: Positive for: Normal Inspection. Negative for: L CVA Tenderness, R CVA Tenderness Rectal: Positive for: Other (chaperoned by YOBANI Stein, black tarry stool streaked with red blood ) Extremity: Positive for: Normal ROM. Negative for: Deformity, Swelling Neurologic/Psych: Positive for: Alert, Oriented. Negative for: Motor/Sensory Deficits - Laboratory Results Result Diagrams: 12/15/16 22:52 12/15/16 22:52 - ECG O2 Sat by Pulse Oximetry: 96 Pulse Ox Interpretation: Normal (RA) Medical Decision Making Medical Decision Makin: Impression: GI bleed Plan: Type and screen CMP, CBC, Lipase CXR Protonix 40mg IVP UA reassess 2330: Spoke with Dr. Granado who agrees with admission. Will admit to [facility] for GIB. Scribe Attestation: Documented by Sharlene Thompson acting as a scribe for Reid Brown MD. Provider Scribe Attestation: All medical record entries made by the Scribe were at my direction and personally dictated by me. I have reviewed the chart and agree that the record accurately reflects my personal performance of the history, physical exam, medical decision making, and the department course for this patient. I have also personally directed, reviewed, and agree with the discharge instructions and disposition. Disposition - Clinical Impression Clinical Impression: GI bleed - Patient ED Disposition Is Patient to be Admitted: Yes Discussed With : Jesús Granado - Disposition Disposition Time: 23:40 Condition: STABLE
[2016-12-15 23:21] LABS: ALB/GLOB RATIO 1.2 (1.0-2.1); ALKALINE PHOSPHATASE 71 U/L (38-126); ALT/SGPT 25 U/L (9-52); AST/SGOT 36 U/L (14-36); BILIRUBIN,TOTAL 0.3 mg/dl (0.2-1.3); BLOOD UREA NITROGEN 16 mg/dl (7-17); CALCIUM 9.2 mg/dL (8.4-10.2); CARBON DIOXIDE 27 mmol/L (22-30); CHLORIDE 105 mmol/L (98-107); GFR AFRICAN-AMERICAN > 60; GLUCOSE,RANDOM 140 mg/dL (65-105); LIPASE 89 U/L (23-300); POTASSIUM 3.1 MMOL/L (3.6-5.0); SODIUM 143 mmol/l (132-148); TOTAL PROTEIN 7.4 G/DL (6.3-8.2)
[2016-12-15] MEDS ORDERED: Potassium Chloride 20 mEq ER Tab PO ONE (23:37)
[2016-12-15 23:44] LABS: RBC URINE 6 /hpf (0-3); URINE BACTERIA RARE (<OCC); URINE BILIRUBIN NEGATIVE (NEGATIVE); URINE BLOOD MODERATE (NEGATIVE); URINE COLOR YELLOW (YELLOW); URINE GLUCOSE (UA) NEG (Normal); URINE KETONE NEGATIVE (NEGATIVE); URINE LEUKOCYTE ESTERASE TRACE Leu/uL (Negative); URINE PROTEIN NEGATIVE (NEGATIVE); URINE UROBILINOGEN 0.2-1.0 mg/dL (0.2-1.0); WBC URINE 2 /hpf (0-5)
[2016-12-16] MEDS ORDERED: Potassium Chloride 20 mEq ER Tab PO ONE (00:25)
[2016-12-16 06:50] LABS: MEAN CELL VOLUME 89.3 fl (81.0-99.0); MEAN CORPUSCULAR HEMOGLOBIN 29.6 pg (27.0-31.0); MEAN CORPUSCULAR HGB CONC 33.1 g/dL (33.0-37.0); RED CELL DISTRIBUTION WIDTH 14.7 % (11.5-14.5); WHITE BLOOD COUNT 5.3 K/uL (4.8-10.8)
[2016-12-16 06:56] LABS: IRON 20 ug/dL (37-170)
[2016-12-16 06:58] LABS: ALB/GLOB RATIO 1.2 (1.0-2.1); ALKALINE PHOSPHATASE 58 U/L (38-126); ALT/SGPT 25 U/L (9-52); AST/SGOT 28 U/L (14-36); BILIRUBIN,TOTAL 0.2 mg/dl (0.2-1.3); BLOOD UREA NITROGEN 16 mg/dl (7-17); CALCIUM 8.7 mg/dL (8.4-10.2); CARBON DIOXIDE 29 mmol/L (22-30); CHLORIDE 108 mmol/L (98-107); CHOLESTEROL 133 mg/dL (0-199); GFR AFRICAN-AMERICAN > 60; GLUCOSE,RANDOM 103 mg/dL (65-105); POTASSIUM 3.6 MMOL/L (3.6-5.0); SODIUM 146 mmol/l (132-148); TOTAL PROTEIN 6.2 G/DL (6.3-8.2)
[2016-12-16] MEDS: Dextrose 5%/0.45% NS 1,000 ML IV SCH ×3 (06:58→21:29)
[2016-12-16] MEDS: Insulin Regular 100 units/ml SC SCH ×4 (07:00→23:01)
[2016-12-16 07:08] LABS: T4 8.99 ug/dl (5.5-11.0)
[2016-12-16 07:22] LABS: THYROID STIMULATING HORMONE 1.18 mIU/ML (0.46-4.68)
[2016-12-16 08:44] LABS: RETIC% 1.5 % (0.5-1.5)
--- NOTE | 2016-12-16 13:50 | RAD ---
PROCEDURE: CHEST RADIOGRAPH, 1 VIEW HISTORY: gi bleed COMPARISON: None available. FINDINGS: LUNGS: Clear. PLEURA: No pneumothorax or pleural fluid seen. CARDIOVASCULAR: Normal. OSSEOUS STRUCTURES: No significant abnormalities. VISUALIZED UPPER ABDOMEN: Normal. OTHER FINDINGS: None. IMPRESSION: No active disease.
[2016-12-16] MEDS ORDERED: Potassium Chloride 20 mEq/15 ml LIQ UD PO ONE (14:28)
--- NOTE | 2016-12-16 18:58 | CP.PCM.HP ---
History of Present Illness - History of Present Illness History of Present Illness: CC: Melanotic stool. 81 y/o F, brought to [facility] [place] to be evaluated for Melanotic stool that begins 3 days [employer] with no relief. Pt is well known from my office and states that was taking 2 Advil at night every day for 2 yrs without telling me. She mention that due to increased L-S, R-L knee pain 4 days prior to admission she took Ibuprofen high doses from her daughter. Hx of admission on 05/28/14 for GI bleeding, CT Abd/Pelv showed: Nodular liver, fatty infiltration and probable Hepatic Cirrhosis, on 05/29/14 Pt had Endoscopy and Colonoscopy showing: Gastritis, Duodenitis, Colon Polyps, Internal and external hemorrhoids. Pt denied: Fever, chills, n/v/d, abdominal pain, bright red blood from rectum, weakness, CP, SOB, sick contact, recent travel. PMHx: Diverticulitis, COPD, CHF, HTN, DMII, Dyslipidemia, Chronic back pain, Osteoporosis, Depression, Anxiety, Insomnia, Hx TIA, CVA, PNA. CXR shows: No active disease. Present on Admission - Present on Admission Any Indicators Present on Admission: No Review of Systems - Constitutional Constitutional: Other (negative) - EENT Eyes: Other (negative) Ears: Other (negative) Nose/Mouth/Throat: Other (negative) - Cardiovascular Cardiovascular: Other (negative) - Respiratory Respiratory: Other (negative) - Gastrointestinal Gastrointestinal: Melena - Genitourinary Genitourinary: Other (negative) - Musculoskeletal Musculoskeletal: Arthralgias, Back Pain, Other (knees pain) - Integumentary Integumentary: Other (negative) - Neurological Neurological: Other (negative) - Psychiatric Psychiatric: Anxiety, Depression - Endocrine Endocrine: Other (negative) - Hematologic/Lymphatic Hematologic: Other (negative) Past Patient History - Infectious Disease Hx of Infectious Diseases: None - Tetanus Immunizations Tetanus Immunization: Unknown - Past Medical History & Family History Past Medical History?: Yes Pertinent Family History: Unknown - Past Social History Smoking Status: Former Smoker Alcohol: None Drugs: Denies Home Situation {Lives}: With Family - CARDIAC Hx Cardiac Disorders: Yes Hx Congestive Heart Failure: Yes Hx Hypertension: Yes Hx Pacemaker: No - PULMONARY Hx Respiratory Disorders: Yes Hx Chronic Obstructive Pulmonary Disease (COPD): Yes - NEUROLOGICAL Hx Neurological Disorder: Yes Hx Transient Ischemic Attacks (TIA): Yes - HEENT Hx HEENT Problems: No - RENAL Hx Chronic Kidney Disease: No - ENDOCRINE/METABOLIC Hx Endocrine Disorders: Yes Hx Diabetes Mellitus Type 2: Yes - HEMATOLOGICAL/ONCOLOGICAL Hx Blood Disorders: Yes Hx AIDS: No Hx Anemia: Yes Hx Human Immunodeficiency Virus (HIV): No - INTEGUMENTARY Hx Dermatological Problems: No - MUSCULOSKELETAL/RHEUMATOLOGICAL Hx Musculoskeletal Disorders: Yes Hx Arthritis: Yes Hx Back Pain: Yes Hx Falls: No Hx Osteoporosis: Yes - GASTROINTESTINAL Hx Gastrointestinal Disorders: Yes Hx Diverticulitis: Yes - GENITOURINARY/GYNECOLOGICAL Hx Genitourinary Disorders: No - PSYCHIATRIC Hx Psychophysiologic Disorder: Yes Hx Anxiety: Yes Hx Depression: Yes Hx Substance Use: No - SURGICAL HISTORY Hx Surgeries: Yes Hx Herniorrhaphy: Yes - ANESTHESIA Hx Anesthesia: Yes Hx Anesthesia Reactions: No Hx Malignant Hyperthermia: No Meds Allergies/Adverse Reactions: Allergies Allergy/AdvReac Type Severity Reaction Status Date / Time iodine Allergy RASH Verified 10/26/16 18:55 Physical Exam - Constitutional Appears: No Acute Distress, Chronically Ill - Head Exam Head Exam: NORMAL INSPECTION - Eye Exam Eye Exam: PERRL - ENT Exam ENT Exam: Normal Oropharynx - Neck Exam Neck exam: Positive for: Normal Inspection - Respiratory Exam Respiratory Exam: NORMAL BREATHING PATTERN - Cardiovascular Exam Cardiovascular Exam: REGULAR RHYTHM, Systolic Murmur (1/6 LSB Ao) - GI/Abdominal Exam GI & Abdominal Exam: Normal Bowel Sounds, Soft. absent: Guarding, Rebound - Extremities Exam Extremities exam: Positive for: tenderness (R-L knee) - Back Exam Back exam: tenderness (L-S) - Neurological Exam Neurological exam: Alert, Oriented x3 Additional comments: No focal motor sensory deficit. - Psychiatric Exam Psychiatric exam: Anxious, Depressed - Skin Skin Exam: Warm Results - Vital Signs Recent Vital Signs: Last Vital Signs Temp 97.5 F L 12/16/16 17:00 Pulse 72 12/16/16 17:15 Resp 20 12/16/16 17:00 BP 154/73 H 12/16/16 17:15 Pulse Ox 99 12/16/16 17:00 reviewed Bharti - Labs Result Diagrams: 12/16/16 06:10 12/16/16 06:10 Labs: Laboratory Results - last 24 hr 12/16/16 16:59 POC Glucose (mg/dL) 98 reviewed J.P. - Imaging and Cardiology Chest x-ray Status: Report reviewed by me (Bharti) Assessment & Plan (1) GI bleed Status: Acute Priority: High (2) Hypertension Status: Chronic Priority: Medium (3) Type 2 diabetes mellitus Status: Chronic Priority: Medium (4) Lumbago Status: Chronic Priority: Medium (5) Dyslipidemia Status: Chronic (6) Depression Status: Chronic Priority: Medium (7) Anxiety Status: Chronic Priority: Medium (8) Knee osteoarthritis Status: Chronic Priority: Medium - Assessment and Plan (Free Text) Plan: Protonic IV, transfuse 1 PRBC, F/U GI consult, EGD in AM. - Date & Time Date: 12/16/16 Time: 11:30
[2016-12-16] MEDS ORDERED: HYDROmorphone 0.5 mg/0.5 ml ISec IVP PRN (22:16)
[2016-12-17] MEDS: Insulin Regular 100 units/ml SC SCH ×4 (06:20→22:17)
[2016-12-17 06:27] LABS: HEMATOCRIT 31.2 % (34.0-47.0); MEAN CELL VOLUME 90.1 fl (81.0-99.0); MEAN CORPUSCULAR HEMOGLOBIN 29.1 pg (27.0-31.0); MEAN CORPUSCULAR HGB CONC 32.3 g/dL (33.0-37.0); RED CELL DISTRIBUTION WIDTH 15.4 % (11.5-14.5); WHITE BLOOD COUNT 7.7 K/uL (4.8-10.8)
[2016-12-17 06:47] LABS: BLOOD UREA NITROGEN 11 mg/dl (7-17); CALCIUM 8.8 mg/dL (8.4-10.2); CARBON DIOXIDE 30 mmol/L (22-30); CHLORIDE 104 mmol/L (98-107); GFR AFRICAN-AMERICAN > 60; GLUCOSE,RANDOM 129 mg/dL (65-105); SODIUM 142 mmol/l (132-148)
--- NOTE | 2016-12-17 08:55 | PQF GENQUE ---
This form is a permanent part of the medical record 12/17/16 Dr. Granado Would you please clarify if there is an associated diagnosis to go along with the low H&H. A patient who is on ferrous sulfate at home is admitted with melanotic stools. Taking advil at night for 2 years. H&H 05/22.9-> 8.6/. Iron low 20, % saturation low 6, Ferritin 8.7 ( female >50yrs old should be 11.1-264.). Received 1 unit of PRBC. Normal findings: Retic count, MCV, MCH, TIBC, B12. Clarification of your documentation is requested to better reflect the severity of illness and intensity of treatment of your patient. PHYSICIAN'S RESPONSE Based on your medical judgment of the clinical indicators outlined above please clarify the following: [] Practitioner response [] If unable to determine, please check the box, sign and date. Present On Admission (POA) Indicator: [] Present at the time of admission [] Not present at the time of admission [] Clinically Undetermined In responding to this query, please exercise your independent professional judgment. The fact that a question is asked does not imply that any particular answer is desired or expected. Thank you for your clarification on this documentation. If you have any questions please call:extension [phone] * Thank you, Chrissy Sanon RN CD[facility]
--- NOTE | 2016-12-17 09:06 | PQF CHF ---
This form is a permanent part of the medical record 12/17/16 , Documentation in the H&P that the patient has a history of CHF. Medication includes Lopressor. Would you please clarify the TYPE of CHF if known . Clarification of your documentation is requested to better reflect the severity of illness and intensity of treatment of your patient. Indicators present [x] Diagnosis of history of CHF [] BNP > 200 [] Imaging Finding of Pulmonary Edema /Pleural Effusions [] Fluid/Volume Overload [] Pitting edema [] Ejection Fraction < 40% (Indicative of Systolic Heart Failure) [x] Ejection Fraction > 40% (Indicative of Diastolic Heart Failure) Echo 10/27/16 [] Dyspnea / Orthopenea / Paroxysmal Nocturnal Dyspnea [] Other: Location in the medical record that reflects the above clinical findings: [] Treatment Provided: [x] Lopressor PHYSICIAN'S RESPONSE Based on your medical judgment of the clinical indicators outlined above, are you treating this patient for a known or suspected: [] Acute CHF [] Systolic [] Diastolic [] Combined [] Chronic CHF [] Systolic [] Diastolic [] Combined [] Acute on Chronic CHF []Systolic [] Diastolic [] Combined [] CHF due hypertension [] Acute systolic []Chronic systolic [] Acute/ chronic systolic [] Other, please indicate: [] [] If Unable to Determine, please check the box, sign and date. Present On Admission (POA) Indicator: [] Present at the time of admission [] Not present at the time of admission [] Clinically Undetermined In responding to this query, please exercise your independent professional judgment. The fact that a question is asked does not imply that any particular answer is desired or expected. Thank you for your clarification on this documentation. If you have any questions please call:extension [phone] or [phone] Medical Records Dept * Thank you, Chrissy Sanon RN CDMP [facility]
[2016-12-17] MEDS ORDERED: Lactated Ringer's 500 ML IV ONE (12:37)
[2016-12-17] MEDS ORDERED: Propofol 10 mg/ml Inj (20 ML) ONE (13:06)
--- NOTE | 2016-12-17 14:07 | CON ---
DATE: 12/17/2016 REFERRING PHYSICIAN: Dr. Granado. REASON FOR CONSULTATION: Melena, anemia. HISTORY OF PRESENT ILLNESS: This is a very kit 81-year-old female with history of COPD, diverticu litis, CHF, hypertension, diabetes, hyperlipidemia, ____ insomnia, TIA, CVA, pneumonia who comes in with melenic stools for the past couple of days. Has been taking Advil and ibuprofen for the past cou ple of weeks daily for some knee pain. Currently, the patient is lying in bed, comfortable, no appar ent distress. PAST MEDICAL HISTORY: As above. PAST SURGICAL HISTORY: As above. MEDICATIONS: Have been reviewed. REVIEW OF SYSTEMS: All systems have been reviewed and negative apart from the HPI. PHYSICAL EXAMINATION: VITAL SIGNS: Here in the hospital are grossly unremarkable. GENERAL: Pleasant elderly-appearing female lying in bed, comfortable, no apparent distress. HEAD: Normocephalic, atraumatic. EYES: Pupils equally reactive bilaterally. No conjunctival pallor or icterus. NECK: Supple, normal range of motion, no lymphadenopathy. LUNGS: Coarse breath sounds bilaterally. HEART: S1, S2, regular rhythm, no murmurs. ABDOMEN: Soft, nontender, bowel sounds present. No rebound, no guarding. RECTAL: Deferred. EXTREMITIES: Pulses present bilaterally. SKIN: Warm, dry and intact. NEUROLOGIC: Alert and oriented x 3. LABORATORY DATA: Labs reviewed. WBC ____ hemoglobin ____ platelet count is 167. CAT scan shows __ __ cirrhosis. ASSESSMENT AND PLAN: This is an 81-year-old female with melena likely secondary to NSAIDs. Plan for endoscopy. Thank you for the consult. Candido Galvez MD, PhD cc:Jesús Granado MD [id number] TT: 12/17/2016 14:06:33 Confirmation # [id number] Dictation # [id number] danette
[2016-12-17 17:28] LABS: FOLATE 8.3 ng/mL
--- NOTE | 2016-12-17 18:04 | CP.PCM.PN ---
Subjective - Date & Time of Evaluation Date of Evaluation: 12/17/16 Time of Evaluation: 11:20 - Subjective Subjective: F/U GI Bleeding. Pt with no c/o of abdominal pain, no nausea. Objective - Vital Signs/Intake and Output Vital Signs (last 24 hours): Temp Pulse Resp BP Pulse Ox 99 F 91 H 20 115/69 95 12/17/16 16:10 12/17/16 16:25 12/17/16 16:10 12/17/16 16:25 12/17/16 16:10 Intake and Output: 12/17/16 12/17/16 06:59 18:59 Intake Total 120 Balance 120 - Medications Medications: Current Medications Insulin Human Regular (Humulin R) 0 units SC ACCU-CHECK [facility] PRN Reason: Protocol Last Admin: 12/17/16 16:30 Dose: Not Given Metoprolol Tartrate (Lopressor) 25 mg PO BID [facility] Last Admin: 12/17/16 16:25 Dose: 25 mg Morphine Sulfate (Morphine) 2 mg IVP Q4 PRN PRN Reason: Pain, severe (8-10) Ondansetron HCl (Zofran Inj) 4 mg IVP Q4 PRN PRN Reason: Nausea/Vomiting Last Admin: 12/17/16 00:37 Dose: 4 mg Pantoprazole Sodium (Protonix Inj) 40 mg IV BID [facility] Last Admin: 12/17/16 16:24 Dose: 40 mg - Labs Labs: 12/17/16 05:50 12/17/16 05:50 - Constitutional Appears: No Acute Distress, Chronically Ill - Head Exam Head Exam: NORMAL INSPECTION - Eye Exam Eye Exam: PERRL - ENT Exam ENT Exam: Normal Oropharynx - Neck Exam Neck Exam: Normal Inspection - Respiratory Exam Respiratory Exam: NORMAL BREATHING PATTERN - Cardiovascular Exam Cardiovascular Exam: REGULAR RHYTHM, Murmur (systolic 1/6 LSB Ao) - GI/Abdominal Exam GI & Abdominal Exam: Soft, Normal Bowel Sounds - Extremities Exam Extremities Exam: Tenderness (R-L knee) - Back Exam Back Exam: tenderness (L-S) - Neurological Exam Neurological Exam: Alert, Oriented x3 Additional comments: No focal motor sensory deficit. - Psychiatric Exam Psychiatric exam: Anxious, Depressed - Skin Skin Exam: Warm Assessment and Plan (1) GI bleed Status: Acute (2) Hypertension Status: Chronic (3) Type 2 diabetes mellitus Status: Chronic (4) Lumbago Status: Chronic (5) Dyslipidemia Status: Chronic (6) Depression Status: Chronic (7) Anxiety Status: Chronic (8) Knee osteoarthritis Status: Chronic - Assessment and Plan (Free Text) Plan: For Endoscopy today.
--- NOTE | 2016-12-17 18:53 | CARD ---
APPROVED REPORT EKG Measurement Heart [id number] <Conclusion> Sinus rhythm with marked sinus arrhythmia Otherwise normal ECG
--- NOTE | 2016-12-17 18:54 | CARD ---
APPROVED REPORT EKG Measurement Heart [id number] [id number] <Conclusion> Sinus rhythm with occasional premature ventricular complexes and premature atrial complexes Nonspecific ST abnormality Abnormal ECG
[2016-12-18] MEDS: Insulin Regular 100 units/ml SC SCH ×2 (06:30→12:08)
[2016-12-18 07:55] VITALS: RESP 18
[2016-12-18 12:34] VITALS: BP 146/74; PULSE 97; TEMP 98.6; O2SAT 97
--- NOTE | 2016-12-18 16:28 | CP.PCM.PN ---
Subjective - Date & Time of Evaluation Date of Evaluation: 12/18/16 - Subjective Subjective: F/u Gastric Ulcer. Pt with no c/o, no abdominal pain. Objective - Vital Signs/Intake and Output Vital Signs (last 24 hours): Temp Pulse Resp BP Pulse Ox 98.6 F 97 H 18 146/74 97 12/18/16 12:33 12/18/16 12:33 12/18/16 12:33 12/18/16 12:33 12/18/16 12:33 - Medications Medications: Current Medications Acetaminophen (Tylenol 325mg Tab) 650 mg PO Q4 PRN PRN Reason: Pain, Mild (1-3) Last Admin: 12/18/16 12:20 Dose: 650 mg Insulin Human Regular (Humulin R) 0 units SC ACCU-CHECK [facility] PRN Reason: Protocol Last Admin: 12/18/16 12:08 Dose: Not Given Metoprolol Tartrate (Lopressor) 25 mg PO BID [facility] Last Admin: 12/18/16 08:54 Dose: 25 mg Morphine Sulfate (Morphine) 2 mg IVP Q4 PRN PRN Reason: Pain, severe (8-10) Ondansetron HCl (Zofran Inj) 4 mg IVP Q4 PRN PRN Reason: Nausea/Vomiting Last Admin: 12/17/16 00:37 Dose: 4 mg Pantoprazole Sodium (Protonix Inj) 40 mg IV BID [facility] Last Admin: 12/18/16 08:52 Dose: 40 mg - Labs Labs: 12/17/16 05:50 12/17/16 05:50 - Constitutional Appears: No Acute Distress - Head Exam Head Exam: NORMAL INSPECTION - Eye Exam Eye Exam: PERRL - ENT Exam ENT Exam: Normal Oropharynx - Neck Exam Neck Exam: Normal Inspection - Respiratory Exam Respiratory Exam: NORMAL BREATHING PATTERN - Cardiovascular Exam Cardiovascular Exam: REGULAR RHYTHM, Murmur (systolic 1/6 LSB Ao.) - GI/Abdominal Exam GI & Abdominal Exam: Soft, Normal Bowel Sounds - Extremities Exam Extremities Exam: Tenderness (R-L knee.) - Back Exam Back Exam: tenderness (L-S) - Neurological Exam Neurological Exam: Alert, Oriented x3 Additional comments: No focal motor sensory deficit. - Psychiatric Exam Psychiatric exam: Anxious, Depressed Assessment and Plan (1) Gastric ulcer Status: Acute (2) GI bleed Status: Acute (3) Blood loss anemia Status: Acute (4) Hypertension Status: Chronic (5) Type 2 diabetes mellitus Status: Chronic (6) Lumbago Status: Chronic (7) Dyslipidemia Status: Chronic (8) Depression Status: Chronic (9) Anxiety Status: Chronic (10) Knee osteoarthritis Status: Chronic - Assessment and Plan (Free Text) Plan: Pt had EGD with Gastric Ulcer, clear by GI, Improved and stable to be discharged , f/u in my office in one week.
--- NOTE | 2016-12-24 06:46 | PQF CHF ---
This form is a permanent part of the medical record , Documentation in the H&P that the patient has a history of CHF.Medication includes Lopressor. Would you please clarify the TYPE of CHF if known Clarification of your documentation is requested to better reflect the severity of illness and intensity of treatment of your patient. Indicators present [x] Diagnosis of a history of CHF [] BNP > 200 [] Imaging Finding of Pulmonary Edema /Pleural Effusions [] Fluid/Volume Overload [] Pitting edema [] Ejection Fraction < 40% (Indicative of Systolic Heart Failure) [x] Ejection Fraction > 40% (Indicative of Diastolic Heart Failure) [] Dyspnea / Orthopenea / Paroxysmal Nocturnal Dyspnea [] Other: Location in the medical record that reflects the above clinical findings: [] Treatment Provided: [] PHYSICIAN'S RESPONSE Based on your medical judgment of the clinical indicators outlined above, are you treating this patient for a known or suspected: [] Acute CHF [] Systolic [] Diastolic [] Combined [] Chronic CHF [] Systolic [] Diastolic [] Combined [] Acute on Chronic CHF []Systolic [] Diastolic [] Combined [] CHF due hypertension [] Acute systolic []Chronic systolic [] Acute/ chronic systolic [] Other, please indicate: [] [] If Unable to Determine, please check the box, sign and date. Present On Admission (POA) Indicator: [] Present at the time of admission [] Not present at the time of admission [] Clinically Undetermined In responding to this query, please exercise your independent professional judgment. The fact that a question is asked does not imply that any particular answer is desired or expected. Thank you for your clarification on this documentation. If you have any questions please call:extension [phone] * Thank you, Chrissy Sanon RN CDMP [facility]
== END 2016-12-18 16:44 | disposition home or self-care (01) | DRG 378 ==
LOC: H.ER 22:03 → H.ERHOLD 23:39 → H.TEL 12-16 01:47 → OBSVTOIN 12-16 14:53
PROVIDERS: ADMIT Internal Medicine Pulmonary Disease; ATTEND Internal Medicine Pulmonary Disease
PROC: 30233N1 Transfusion of Nonautologous Red Blood Cells into Peripheral Vein, Percutaneous Approach (ICD-10-PCS; principal; 2016-12-16)
PROC: 0DB58ZX Excision of Esophagus, Via Natural or Artificial Opening Endoscopic, Diagnostic (ICD-10-PCS; 2016-12-17)
PROC: 0DB68ZX Excision of Stomach, Via Natural or Artificial Opening Endoscopic, Diagnostic (ICD-10-PCS; 2016-12-17)
DX: K92.1 Melena (principal); D62 Acute posthemorrhagic anemia; I50.32 Chronic diastolic (congestive) heart failure; T39.395A Adverse effect of other nonsteroidal anti-inflammatory drugs [NSAID], initial encounter; K25.9 Gastric ulcer, unspecified as acute or chronic, without hemorrhage or perforation; I11.0 Hypertensive heart disease with heart failure; J44.9 Chronic obstructive pulmonary disease, unspecified; E11.9 Type 2 diabetes mellitus without complications; E78.00 Pure hypercholesterolemia, unspecified; M81.0 Age-related osteoporosis without current pathological fracture; E78.5 Hyperlipidemia, unspecified; M17.0 Bilateral primary osteoarthritis of knee; F32.9 Major depressive disorder, single episode, unspecified; G89.29 Other chronic pain; M54.5 Low back pain; F41.8 Other specified anxiety disorders; G47.00 Insomnia, unspecified; Z87.891 Personal history of nicotine dependence; Z79.82 Long term (current) use of aspirin; Z91.041 Radiographic dye allergy status; Z86.73 Personal history of transient ischemic attack (TIA), and cerebral infarction without residual deficits; Z86.010 Personal history of colon polyps; Z87.01 Personal history of pneumonia (recurrent); Y92.9 Unspecified place or not applicable

== ENCOUNTER 2017-04-21 08:01 | Emergency (ER) | payer MEDICARE, MEDICAID ==
[2017-04-21 08:06] VITALS: RESP 18; TEMP 97.8
[2017-04-21 08:07] VITALS: BMI 33.9
--- NOTE | 2017-04-21 08:36 | ED PDOC ---
HPI: Psych/Substance Abuse Time Seen by Provider: 04/21/17 08:11 Chief Complaint (Provider): Anxiety History Per: Patient, Family (Son served as hourly sign language interpreter per patient's request) Onset/Duration Of Symptoms: Days (x 1) Current Symptoms Are (Timing): Still Present Additional Complaint(s): Lottie is an 81 y/o female with a history of diverticulitis, COPD, CHF, HTN, DMII , dyslipidemia, chronic back pain, osteoporosis, depression, anxiety, insomnia, TIA, CVA, and PNA who presents to the ED complaining of her "stomach jumping." Her son, who served as an hourly sign language interpreter, stated that the patient has been feeling anxious since she saw her ill son last night. She complains of a headache, but denies nausea, vomiting, diarrhea, fever, dysuria, constipation, or desire to hurt herself or others. Patient offers no other medical complaints. PMD: Dr. Jesús Granado Past Medical History Reviewed: Historical Data, Nursing Documentation, Vital Signs Vital Signs: Last Vital Signs Temp 97.8 F 04/21/17 08:06 Pulse 109 H 04/21/17 08:06 Resp 18 04/21/17 08:06 BP 146/97 H 04/21/17 08:06 Pulse Ox 99 04/21/17 08:06 - Medical History PMH: Anemia, Anxiety, Arthritis, Back Problems, CHF, COPD, CVA, Depression, Diabetes, Diverticulitis, HTN, Hypercholesterolemia, Osteoporosis, Pneumonia, TIA Denies: HIV, Chronic Kidney Disease Other PMH: dyslipidemia, insomnia - Surgical History Surgical History: Denies: Pacemaker - Family History Family History: States: Unknown Family Hx - Home Medications Home Medications: Ambulatory Orders Medication Instructions Recorded Meclizine HCl [Antivert] 25 mg PO BID 05/28/14 Metoprolol Tartrate 25 mg PO BID 05/28/14 Ferrous Sulfate [Feosol] 324 mg PO BID #0 ect 06/03/14 Alprazolam [Xanax] 0.5 mg PO BID PRN 10/26/16 Acetaminophen with Codeine 1 tab PO HS 10/27/16 [Tylenol with Codeine #3 Tablet] Aspirin [Adult Low Dose Aspirin EC] 81 mg PO DAILY #30 tablet. 10/28/16 Atorvastatin [Lipitor] 20 mg PO DAILY #30 tab 10/28/16 Mupirocin 2% Cream [Bactroban 30 gm TOP BID 12/16/16 Cream] Pantoprazole [Protonix Inj] 40 mg PO DAILY #30 vial 12/18/16 - Allergies Allergies/Adverse Reactions: Allergies Allergy/AdvReac Type Severity Reaction Status Date / Time iodine Allergy RASH Verified 10/26/16 18:55 Review of Systems ROS Statement: Except As Marked, All Systems Reviewed And Found Negative Constitutional: Negative for: Fever Gastrointestinal: Negative for: Nausea, Vomiting, Diarrhea, Constipation Genitourinary Female: Negative for: Dysuria, Frequency, Incontinence, Hematuria Neurological: Positive for: Headache Psych: Positive for: Anxiety Physical Exam - Reviewed Nursing Documentation Reviewed: Yes Vital Signs Reviewed: Yes - Physical Exam Appears: Positive for: Non-toxic, No Acute Distress Head Exam: Positive for: ATRAUMATIC, NORMAL INSPECTION, NORMOCEPHALIC Skin: Positive for: Normal Color, Warm, Dry Eye Exam: Positive for: Normal appearance, EOMI, PERRL. Negative for: Nystagmus ENT: Positive for: Normal ENT Inspection Cardiovascular/Chest: Positive for: Regular Rate, Rhythm Respiratory: Positive for: CNT, Normal Breath Sounds Gastrointestinal/Abdominal: Positive for: Normal Exam, Soft. Negative for: Tenderness Extremity: Positive for: Pedal Edema Neurologic/Psych: Positive for: Alert, Oriented - Laboratory Results Result Diagrams: 04/21/17 08:50 04/21/17 08:50 - ECG O2 Sat by Pulse Oximetry: 99 (NC) Pulse Ox Interpretation: Normal Medical Decision Making Medical Decision Making: Time: 8:32 Initial Impression: Nonspecific complaints, headache, anxiety Initial Plan: --CMP --CBC --Tylenol Time: 10:10 labs reviewed --Potassium repletion Time: 11:23 Patient reports persistent pain. Percocet 1 tab PO ordered pt feels better denies psychiatric complaints/ no SI or HI pt stable for dc home and follow up with pcp. Scribe Attestation: Documented by Michael Nielsen, acting as a scribe for Dr. Keesha Tran. Provider Scribe Attestation: All medical record entries made by the Scribe were at my direction and personally dictated by me. I have reviewed the chart and agree that the record accurately reflects my personal performance of the history, physical exam, medical decision making, and the department course for this patient. I have also personally directed, reviewed, and agree with the discharge instructions and disposition. Disposition - Clinical Impression Clinical Impression: Abdominal pain, Headache - Patient ED Disposition Is Patient to be Admitted: No - Disposition Disposition: Routine/Home Disposition Time: 10:00 Condition: IMPROVED Additional Instructions: follow up with your primary doctor in 1-2 days return to the ED with any worsening or concerning symptoms Instructions: Acute Headache (ED), Abdominal Pain (ED) Forms: [facility] (Argentine) Print Language: CROATIAN
[2017-04-21 09:05] LABS: BASO % 0.5 % (0.0-2.0); EOS # 0.1 K/uL (0.0-0.7); EOS % 1.2 % (0.0-4.0); HEMATOCRIT 35.7 % (34.0-47.0); LYMPH % 16.1 % (20.0-40.0); MEAN CELL VOLUME 83.4 fl (81.0-99.0); MEAN CORPUSCULAR HGB CONC 31.1 g/dL (33.0-37.0); MEAN PLATELET VOLUME 8.8 fl (7.2-11.7); MONO # 0.7 K/uL (0.0-0.8); MONO % 10.6 % (0.0-10.0); NEUT # 4.6 K/uL (1.8-7.0); NEUT % 71.6 % (50.0-75.0); WHITE BLOOD COUNT 6.4 K/uL (4.8-10.8)
[2017-04-21 09:20] LABS: ALB/GLOB RATIO 1.1 (1.0-2.1); ALKALINE PHOSPHATASE 77 U/L (38-126); ALT/SGPT 23 U/L (9-52); AST/SGOT 27 U/L (14-36); BILIRUBIN,TOTAL 0.7 mg/dl (0.2-1.3); BLOOD UREA NITROGEN 10 mg/dl (7-17); CALCIUM 9.3 mg/dL (8.4-10.2); CARBON DIOXIDE 29 mmol/L (22-30); CHLORIDE 104 mmol/L (98-107); GFR AFRICAN-AMERICAN > 60; GLUCOSE,RANDOM 110 mg/dL (65-105); POTASSIUM 3.4 MMOL/L (3.6-5.0); SODIUM 148 mmol/l (132-148); TOTAL PROTEIN 7.7 G/DL (6.3-8.2)
[2017-04-21] MEDS ORDERED: Potassium Chloride 20 mEq ER Tab PO ONE ×2 (10:10→10:15)
[2017-04-21 11:05] VITALS: BP 157/74; PULSE 85
[2017-04-21] MEDS ORDERED: Oxycodone/Acetaminophen 5/325 mg Tab PO ONE (11:18)
[2017-04-21] MEDS ORDERED: Oxycodone/Acetaminophen 5/325 mg Tab ONE (11:22)
[2017-04-21 11:38] VITALS: O2SAT 99
== END 2017-04-21 12:33 | disposition home or self-care (01) ==
LOC: H.ER 08:01
DX: R51 Headache (principal); R10.9 Unspecified abdominal pain

== ENCOUNTER 2017-05-06 16:44 | Inpatient (IN) | payer MEDICAID, MEDICARE ==
[2017-05-06 16:44] VITALS: BMI 33.9
--- NOTE | 2017-05-06 17:23 | ED PDOC ---
HPI: General Adult Time Seen by Provider: 05/06/17 16:53 Chief Complaint (Nursing): Altered Mental Status Chief Complaint (Provider): Weakness History Per: Patient, Family (Son) History/Exam Limitations: no limitations Onset/Duration Of Symptoms: Days (x3) Additional Complaint(s): Lottie Verdin is an 81 year old female with a history of anemia, CHF, COPD, diabetes, hypertension, and high cholesterol that is accompanied by her son and presents to the ED with a chief complaint of weakness that she has been experiencing for the past three days. Patient reports that for the last three days she has also had associated decrease in appetite and cough. Yesterday she states that she had one episode of vomiting but that has resolved. Patient's son states that over the last few months her general health has been declining because her other son has been very sick and is hospitalized, causing her to become extremely depressed. PMD: Dr. Granado Past Medical History Reviewed: Historical Data, Nursing Documentation, Vital Signs Vital Signs: Last Vital Signs Temp 98.4 F 05/06/17 16:51 Pulse 97 H 05/06/17 19:20 Resp 18 05/06/17 19:20 BP 160/67 H 05/06/17 19:21 Pulse Ox 96 05/06/17 19:20 - Medical History PMH: Anemia, Anxiety, Arthritis, Back Problems, CHF, COPD, CVA, Depression, Diabetes, Diverticulitis, HTN, Hypercholesterolemia, Osteoporosis, Pneumonia, TIA Denies: HIV, Chronic Kidney Disease - Surgical History Surgical History: Denies: Pacemaker - Family History Family History: States: Unknown Family Hx - Home Medications Home Medications: Ambulatory Orders Medication Instructions Recorded Albuterol HFA [Ventolin HFA 90 2 puff IH Q4H PRN 05/06/17 mcg/actuation (8 g)] Alprazolam [Xanax] 0.5 mg PO BID PRN 05/06/17 Atorvastatin [Lipitor] 20 mg PO HS 05/06/17 Diclofenac Sodium [Voltaren] 1 appl TOP DAILY PRN 05/06/17 Esomeprazole Magnesium [Nexium] 40 mg PO DAILY 05/06/17 Fluticasone/Salmeterol 250/50 1 puff IH Q12H 05/06/17 [Advair Diskus 250/50] Ketoconazole 2% Shampoo [Nizoral] 1 appl TOP MWF 05/06/17 Meclizine [Meclizine*] 25 mg PO Q8H PRN 05/06/17 Metoprolol Tartrate [Lopressor] 25 mg PO DAILY 05/06/17 Mometasone 0.1% [Elocon Cream] 1 appl TOP DAILY 05/06/17 Mupirocin 2% Ointment [Bactroban 1 appl TOP BID 05/06/17 Ointment] Nitroglycerin [Nitrostat] 0.4 mg SL Q5MIN PRN 05/06/17 Oxycodone HCl/Acetaminophen 1 tab PO Q6H PRN 05/06/17 [Endocet 7.5-325 mg Tablet] SITagliptin [Januvia] 100 mg PO DAILY 05/06/17 Triamcinolone 0.1% [Triamcinolone 1 appl TOP BID 05/06/17 0.1% Cream] Zolpidem [Ambien] 10 mg PO HS PRN 05/06/17 hydrALAZINE [Apresoline] 50 mg PO BID 05/06/17 - Allergies Allergies/Adverse Reactions: Allergies Allergy/AdvReac Type Severity Reaction Status Date / Time iodine Allergy RASH Verified 10/26/16 18:55 Review of Systems ROS Statement: Except As Marked, All Systems Reviewed And Found Negative (and as per HPI) Constitutional: Positive for: Chills, Weakness, Malaise, Other (Loss of appetite ) Cardiovascular: Positive for: Light Headedness. Negative for: Chest Pain Respiratory: Positive for: Cough, Shortness of Breath, Sputum Gastrointestinal: Positive for: Nausea, Vomiting. Negative for: Abdominal Pain Neurological: Positive for: Confusion. Negative for: Headache Physical Exam - Reviewed Nursing Documentation Reviewed: Yes Vital Signs Reviewed: Yes - Physical Exam Appears: Positive for: In Acute Distress (tired and chronically ill-appearing) Head Exam: Positive for: ATRAUMATIC, NORMOCEPHALIC Skin: Positive for: Warm, Dry ENT: Positive for: Pharynx Is (clear), Other (tacky muc membranes) Neck: Positive for: Painless ROM, Supple Cardiovascular/Chest: Positive for: Chest Non Tender, Edema, Irregularly Irregular (regular rate) Respiratory: Positive for: Decreased Breath Sounds (LLL), Rhonchi, Respiratory Distress (mild). Negative for: Accessory Muscle Use Gastrointestinal/Abdominal: Positive for: Soft. Negative for: Tenderness, Mass , Distended, Guarding Back: Positive for: Normal Inspection. Negative for: Decreased ROM Extremity: Positive for: Pedal Edema. Negative for: Deformity Lymphatic: Negative for: Adenopathy Neurologic/Psych: Positive for: Alert. Negative for: Motor/Sensory Deficits - Laboratory Results Result Diagrams: 05/06/17 17:51 05/06/17 18:10 - ECG ECG Rhythm: Positive for: Normal ST Segment, Atrial Fibrillation O2 Sat by Pulse Oximetry: 98 (RA) Pulse Ox Interpretation: Normal - Radiology X-Ray: Interpreted by Me X-Ray Interpretation: Infiltrates (LLL effusion v infiltrate) Medical Decision Making Medical Decision Making: Impression: Weakness, ddx include CHF, Pneumonia, Electrolyte Abnormality, ACS , Depression, Atrial Fibrillation Plan: * Chest X-Ray * EKG * BNP * CMP * CBC * PTT * PTT * Type and Screen * Arterial Blood Gas * Magnesium * Phosphorous * Troponin I * Lipase * Urine dip * Urinalysis * Urine Culture * Blood Culture * Reevaluation Labs demonstrate hypercarbia and elevated probnp. CXR w pneumonia v effusion. Will treat COPD, CHF and pneumonia. MANJIT BORREGO. Scribe Attestation: Documented by Carolynn Leal, acting as a scribe for Yue Ceja MD. Provider Scribe Attestation: All medical record entries made by the Scribe were at my direction and personally dictated by me. I have reviewed the chart and agree that the record accurately reflects my personal performance of the history, physical exam, medical decision making, and the department course for this patient. I have also personally directed, reviewed, and agree with the discharge instructions and disposition. Disposition - Clinical Impression Clinical Impression: Pleural effusion, Pneumonia, COPD exacerbation Counseled Patient/Family Regarding: Studies Performed, Diagnosis - Disposition Disposition Time: 17:00 Condition: GUARDED - Pt Status Changed To: Hospital Disposition Of: Inpatient - Admit Certification Admit to Inpatient:: After my assessment, the patient will require hospitalization for at least two midnights. This is because of the severity of symptoms shown, intensity of services needed, and/or the medical risk in this patient being treated as an outpatient. - POA Present On Arrival: None
[2017-05-06] MEDS ORDERED: Albuterol-Ipratrop 3 mg / 0.5 (3 ml) UD INH STA (17:27)
[2017-05-06 17:28] LABS: ABG ALLEN TEST YES; ARTERIAL BLOOD GAS HCO3 36.6 mmol/L (21-28); ARTERIAL BLOOD GAS PH 7.39 (7.35-7.45); ARTERIAL BLOOD GAS PO2 77 mm/Hg (80-100)
[2017-05-06] MEDS ORDERED: Albuterol-Ipratrop 3 mg / 0.5 (3 ml) UD ONE ×2 (17:52→17:59)
[2017-05-06 17:57] LABS: BASO % 0.5 % (0.0-2.0); EOS % 0.6 % (0.0-4.0); HEMATOCRIT 36.2 % (34.0-47.0); LYMPH % 12.9 % (20.0-40.0); MEAN CELL VOLUME 84.5 fl (81.0-99.0); MEAN CORPUSCULAR HEMOGLOBIN 26.1 pg (27.0-31.0); MEAN CORPUSCULAR HGB CONC 30.9 g/dL (33.0-37.0); MEAN PLATELET VOLUME 8.1 fl (7.2-11.7); MONO # 0.9 K/uL (0.0-0.8); NEUT # 5.9 K/uL (1.8-7.0); RED CELL DISTRIBUTION WIDTH 17.6 % (11.5-14.5); WHITE BLOOD COUNT 7.8 K/uL (4.8-10.8)
[2017-05-06 18:05] LABS: PARTIAL THROMBOPLASTIN TIME 33.8 Seconds (25.6-37.1)
[2017-05-06] MEDS ORDERED: levoFLOXacin 750 mg in D5W 150 ML BAG IVPB STA (18:09)
[2017-05-06] MEDS ORDERED: levoFLOXacin 750 mg in D5W 750 MG/150 ML BAG IVPB STA (18:23)
[2017-05-06 18:46] LABS: ALB/GLOB RATIO 1.1 (1.0-2.1); ALKALINE PHOSPHATASE 78 U/L (38-126); ALT/SGPT 25 U/L (9-52); AST/SGOT 33 U/L (14-36); BILIRUBIN,TOTAL 0.5 mg/dl (0.2-1.3); BLOOD UREA NITROGEN 11 mg/dl (7-17); CALCIUM 8.9 mg/dL (8.4-10.2); CARBON DIOXIDE 37 mmol/L (22-30); CHLORIDE 94 mmol/L (98-107); GFR AFRICAN-AMERICAN > 60; GLUCOSE,RANDOM 116 mg/dL (65-105); LIPASE 45 U/L (23-300); MAGNESIUM 1.9 MG/DL (1.6-2.3); PHOSPHOROUS 3.5 mg/dl (2.5-4.5); SODIUM 142 mmol/l (132-148); TOTAL PROTEIN 7.9 G/DL (6.3-8.2)
[2017-05-06 19:00] LABS: POTASSIUM 3.4 MMOL/L (3.6-5.0)
[2017-05-06] MEDS ORDERED: levoFLOXacin 750 mg in D5W 750 MG/150 ML BAG IVPB ONE (19:16)
[2017-05-06] MEDS ORDERED: OXYCODONE HCL PO PRN (22:15)
[2017-05-06] MEDS ORDERED: ACETAMINOPHEN PO PRN (22:15)
[2017-05-06] MEDS ORDERED: Potassium Chloride 20 mEq ER Tab PO ONE (22:25)
[2017-05-06] MEDS ORDERED: Pneumococcal 23-Valent Vaccine IM ONE (23:14)
[2017-05-07] MEDS ORDERED: OXYCODONE HCL PO PRN (00:01)
[2017-05-07] MEDS ORDERED: ACETAMINOPHEN PO PRN (00:01)
[2017-05-07] MEDS ORDERED: methylPREDNISolone 30 MG in Sodium Chloride 0.9% 50 ML IVPB SCH (01:00)
[2017-05-07 01:57] LABS: RBC URINE 6 /hpf (0-3); URINE BACTERIA MOD (<OCC); URINE BILIRUBIN NEGATIVE (NEGATIVE); URINE BLOOD SMALL (NEGATIVE); URINE COLOR YELLOW (YELLOW); URINE GLUCOSE (UA) NEG (Normal); URINE KETONE NEGATIVE (NEGATIVE); URINE LEUKOCYTE ESTERASE SMALL Leu/uL (Negative); URINE PROTEIN 30 mg/dL (NEGATIVE); URINE UROBILINOGEN 0.2-1.0 mg/dL (0.2-1.0); WBC URINE 2 /hpf (0-5)
--- NOTE | 2017-05-07 06:34 | CARD ---
APPROVED REPORT EKG Measurement Heart [id number] [place] 160P [id number] <Conclusion> Sinus rhythm with premature atrial complexes Otherwise normal ECG
[2017-05-07] MEDS ORDERED: Oxycodone/Acetaminophen 5/325 mg Tab PO PRN (06:45)
[2017-05-07 07:26] LABS: HEMATOCRIT 33.9 % (34.0-47.0); MEAN CELL VOLUME 82.6 fl (81.0-99.0); MEAN CORPUSCULAR HEMOGLOBIN 26.6 pg (27.0-31.0); MEAN CORPUSCULAR HGB CONC 32.2 g/dL (33.0-37.0); RED CELL DISTRIBUTION WIDTH 17.5 % (11.5-14.5); WHITE BLOOD COUNT 5.6 K/uL (4.8-10.8)
[2017-05-07 07:34] LABS: ALB/GLOB RATIO 1.1 (1.0-2.1); ALKALINE PHOSPHATASE 68 U/L (38-126); ALT/SGPT 28 U/L (9-52); AST/SGOT 29 U/L (14-36); BILIRUBIN,TOTAL 0.5 mg/dl (0.2-1.3); BLOOD UREA NITROGEN 16 mg/dl (7-17); CALCIUM 8.8 mg/dL (8.4-10.2); CHLORIDE 89 mmol/L (98-107); CHOLESTEROL 165 mg/dL (0-199); GFR AFRICAN-AMERICAN > 60; GLUCOSE,RANDOM 120 mg/dL (65-105); SODIUM 143 mmol/l (132-148); TOTAL PROTEIN 7.1 G/DL (6.3-8.2)
[2017-05-07 07:45] LABS: CARBON DIOXIDE 42 mmol/L (22-30)
[2017-05-07 08:03] LABS: THYROID STIMULATING HORMONE 0.18 mIU/ML (0.46-4.68)
[2017-05-07] MEDS: Insulin Regular 100 units/ml SC SCH ×4 (08:34→21:32)
[2017-05-07] MEDS: Potassium Chloride 20 mEq ER Tab PO SCH (08:35)
[2017-05-07] MEDS: Enoxaparin 40 mg Syringe SC SCH (08:37)
[2017-05-07] MEDS ORDERED: levoFLOXacin 750 mg in D5W 150 ML BAG IVPB SCH (09:00)
[2017-05-07] MEDS ORDERED: Cefepime 1 GM in Sodium Chloride 0.9% 100 ML IVPB SCH (09:00)
[2017-05-07] MEDS: MethylPREDNISolone 40 mg Vial IVP SCH ×2 (10:04→17:23)
--- NOTE | 2017-05-07 10:46 | RAD ---
HISTORY: sob COMPARISON: 12/15/2016 FINDINGS: LUNGS: Bilateral lower lobe subsegmental atelectasis is noted, a portion which is probably related to small bilateral effusions. No focal infiltrate. PLEURA: Mild bilateral pleural effusions, greater on the left. CARDIOVASCULAR: Mild vascular congestion is not excluded. Heart is enlarged OSSEOUS STRUCTURES: No significant abnormalities. VISUALIZED UPPER ABDOMEN: Normal. OTHER FINDINGS: None. IMPRESSION: Bilateral pleural effusions, greater on the left. Mild bilateral subsegmental atelectasis. Cardiomegaly.
[2017-05-07] MEDS: Cefepime 1 GM in Sodium Chloride 0.9% 100 ML IVPB SCH ×2 (12:28→20:32)
--- NOTE | 2017-05-07 14:19 | CP.PCM.HP ---
History of Present Illness - History of Present Illness History of Present Illness: CC: Generalized Weakness. 81 y/o F, Well known in my office with multiple chronic medical condition, brought by EMS to [facility], for evaluation due to Generalized Weakness x 3 days [employer] with no relief. As per son, Pt with weaknesses associated to chills, moderate SOB, [place], occasional cough non productive, non bloody, AMS. Worsening symptoms: C/O of mild abdominal discomfort with one episode of vomiting that subsided prior to admission, loss of appetite, severe depression. Aggravated factor: unable to ambulate. No report of: Fever, n/d, CP, palpitations, LOC, syncope, numbness, sick contact, recent travel. CXR showed: B/L Pleural effusion L > R, b/l subsegmental atelectasis. EKG: Sinus rhythm with PAC. Present on Admission - Present on Admission Any Indicators Present on Admission: No Review of Systems - Review of Systems Systems not reviewed;Unavailable: Acuity of Condition, Altered Mental Status - Constitutional Constitutional: Chills, Malaise, Weakness Past Patient History - Infectious Disease Hx of Infectious Diseases: None - Tetanus Immunizations Tetanus Immunization: Unknown - Past Medical History & Family History Past Medical History?: Yes Pertinent Family History: Unknown - Past Social History Smoking Status: Former Smoker Alcohol: None Drugs: Denies Home Situation {Lives}: With Family - CARDIAC Hx Cardiac Disorders: Yes Hx Congestive Heart Failure: Yes Hx Hypercholesterolemia: Yes Hx Hypertension: Yes Hx Pacemaker: No - PULMONARY Hx Respiratory Disorders: Yes Hx Chronic Obstructive Pulmonary Disease (COPD): Yes Hx Pneumonia: Yes - NEUROLOGICAL Hx Neurological Disorder: Yes HX Cerebrovascular Accident: Yes Hx Transient Ischemic Attacks (TIA): Yes - HEENT Hx HEENT Problems: No - RENAL Hx Chronic Kidney Disease: No - ENDOCRINE/METABOLIC Hx Endocrine Disorders: Yes Hx Diabetes Mellitus Type 2: Yes - HEMATOLOGICAL/ONCOLOGICAL Hx Blood Disorders: Yes Hx Anemia: Yes Hx Human Immunodeficiency Virus (HIV): No - INTEGUMENTARY Hx Dermatological Problems: No - MUSCULOSKELETAL/RHEUMATOLOGICAL Hx Musculoskeletal Disorders: Yes Hx Arthritis: Yes Hx Falls: Yes Hx Osteoporosis: Yes - GASTROINTESTINAL Hx Gastrointestinal Disorders: Yes Hx Diverticulitis: Yes - GENITOURINARY/GYNECOLOGICAL Hx Genitourinary Disorders: No - PSYCHIATRIC Hx Psychophysiologic Disorder: Yes Hx Anxiety: Yes Hx Depression: Yes Hx Substance Use: No - SURGICAL HISTORY Hx Surgeries: Yes Hx Herniorrhaphy: Yes - ANESTHESIA Hx Anesthesia: Yes Hx Anesthesia Reactions: No Hx Malignant Hyperthermia: No Meds Home Medications: Home Medication List Medication Instructions Recorded Confirmed Type Acetaminophen [Tylenol 325mg tab] 650 mg PO Q4 PRN tab 05/12/17 Rx Apixaban [Eliquis] 2.5 mg PO BID tab 05/12/17 Rx Furosemide [Lasix] 20 mg PO BID #60 tablet 05/12/17 Rx Insulin Human Regular [HumuLIN R] 0 units SC ACHS ml 05/12/17 Rx Ipratropium 0.02% [Atrovent] 0.5 mg IH RQ6 neb 05/12/17 Rx Levalbuterol [Xopenex] 0.63 mg INH RQ8 PRN neb 05/12/17 Rx Metoprolol Tartrate [Lopressor] 50 mg PO Q12 tab 05/12/17 Rx Potassium Chloride [K-Dur 20 mEq 20 meq PO DAILY tab 05/12/17 Rx ER Tab] Zolpidem [Ambien] 5 mg PO HS PRN tab 05/12/17 Rx diltiaZEM [Cardizem] 60 mg PO Q8 tab 05/12/17 Rx hydrALAZINE [Apresoline] 25 mg PO BID tab 05/12/17 Rx predniSONE [predniSONE Tab] 5 mg PO DAILY #90 tab 05/12/17 Rx Allergies/Adverse Reactions: Allergies Allergy/AdvReac Type Severity Reaction Status Date / Time iodine Allergy RASH Verified 10/26/16 18:55 Physical Exam - Constitutional Appears: Chronically Ill - Head Exam Head Exam: NORMAL INSPECTION - Eye Exam Eye Exam: PERRL - ENT Exam ENT Exam: Normal Exam - Neck Exam Neck exam: Positive for: Normal Inspection - Respiratory Exam Respiratory Exam: Decreased Breath Sounds (at bases), Rhonchi - Cardiovascular Exam Cardiovascular Exam: Irregular Rhythm, Systolic Murmur (1/6 LSB Ao.) - GI/Abdominal Exam GI & Abdominal Exam: Normal Bowel Sounds, Soft - Back Exam Additional comments: Sacral pressure ulcer stage1, POA - Neurological Exam Additional comments: Awake, confused, disoriented, follows simple commands. generalized weakness, no gross motor sensory deficit. - Psychiatric Exam Psychiatric exam: Anxious, Depressed - Skin Skin Exam: Warm Results - Vital Signs Recent Vital Signs: Last Vital Signs Temp 98.9 F 05/07/17 12:18 Pulse 104 H 05/07/17 12:18 Resp 18 05/07/17 12:18 BP 132/71 05/07/17 12:18 Pulse Ox 95 05/07/17 12:18 reviewed Bharti - Labs Result Diagrams: 05/09/17 04:20 05/09/17 04:20 Labs: Laboratory Results - last 24 hr 05/06/17 05/06/17 05/06/17 16:56 17:20 17:51 WBC 7.8 RBC 4.28 Hgb 11.2 L Hct 36.2 MCV 84.5 MCH 26.1 L MCHC 30.9 L RDW 17.6 H Plt Count 197 MPV 8.1 Neut % (Auto) 75.0 Lymph % (Auto) 12.9 L [place] % (Auto) 11.0 H Eos % (Auto) 0.6 Baso % (Auto) 0.5 Neut # 5.9 Lymph # 1.0 [place] # 0.9 H Eos # 0.0 Baso # 0.0 PT INR APTT pCO2 72 H* pO2 77 L HCO3 36.6 H ABG pH 7.39 ABG Total CO2 45.8 H ABG O2 Saturation 99.1 H ABG Base Excess 15.0 H Fred Test Yes ABG Potassium 3.4 L A-a O2 Difference 4.0 Sodium 136.0 Chloride 99.0 Glucose 122 H Lactate 0.7 FiO2 24.0 Crit Value Called To chaparrita Ceja md Crit Value Called By 302 Crit Value Read Back Y Blood Gas Notified Time 1727 Potassium Carbon Dioxide Anion Gap BUN Creatinine Est GFR ( Amer) Est GFR (Non-Af Amer) POC Glucose (mg/dL) 122 H Random Glucose Calcium Phosphorus Magnesium Total Bilirubin AST ALT Alkaline Phosphatase Troponin I NT-Pro-B Natriuret Pep Total Protein Albumin Globulin Albumin/Globulin Ratio Triglycerides Cholesterol LDL Cholesterol Direct HDL Cholesterol Lipase Free T4 TSH 3rd Generation Arterial Blood Potassium 3.4 L Urine Color Urine Clarity Urine pH Ur Specific [place] Urine Protein Urine Glucose (UA) Urine Ketones Urine Blood Urine Nitrate Urine Bilirubin Urine Urobilinogen Ur Leukocyte Esterase Urine RBC (Auto) Urine Microscopic WBC Ur Squamous Epith Cells Amorphous Sediment Urine Bacteria Blood Type Antibody Screen BBK History Checked 05/06/17 05/06/17 05/06/17 17:51 18:10 19:20 WBC RBC Hgb Hct MCV MCH MCHC RDW Plt Count MPV Neut % (Auto) Lymph % (Auto) [place] % (Auto) Eos % (Auto) Baso % (Auto) Neut # Lymph # [place] # Eos # Baso # PT 11.3 INR 1.0 APTT 33.8 pCO2 pO2 HCO3 ABG pH ABG Total CO2 ABG O2 Saturation ABG Base Excess Fred Test ABG Potassium A-a O2 Difference Sodium 142 Chloride 94 L Glucose Lactate FiO2 Crit Value Called To Crit Value Called By Crit Value Read Back Blood Gas Notified Time Potassium 3.4 L Carbon Dioxide 37 H Anion Gap 14 BUN 11 Creatinine 0.6 L Est GFR ( Amer) > 60 Est GFR (Non-Af Amer) > 60 POC Glucose (mg/dL) Random Glucose 116 H Calcium 8.9 Phosphorus 3.5 Magnesium 1.9 Total Bilirubin 0.5 AST 33 ALT 25 Alkaline Phosphatase 78 Troponin I < 0.0120 NT-Pro-B Natriuret Pep 2050 H Total Protein 7.9 Albumin 4.1 Globulin 3.8 Albumin/Globulin Ratio 1.1 Triglycerides Cholesterol LDL Cholesterol Direct HDL Cholesterol Lipase 45 Free T4 TSH 3rd Generation Arterial Blood Potassium Urine Color Urine Clarity Urine pH Ur Specific [place] Urine Protein Urine Glucose (UA) Urine Ketones Urine Blood Urine Nitrate Urine Bilirubin Urine Urobilinogen Ur Leukocyte Esterase Urine RBC (Auto) Urine Microscopic WBC Ur Squamous Epith Cells Amorphous Sediment Urine Bacteria Blood Type O POSITIVE Antibody Screen Negative BBK History Checked Patient has bt 05/06/17 05/06/17 05/07/17 20:00 21:39 03:50 WBC RBC Hgb Hct MCV MCH MCHC RDW Plt Count MPV Neut % (Auto) Lymph % (Auto) [place] % (Auto) Eos % (Auto) Baso % (Auto) Neut # Lymph # [place] # Eos # Baso # PT INR APTT pCO2 pO2 HCO3 ABG pH ABG Total CO2 ABG O2 Saturation ABG Base Excess Fred Test ABG Potassium A-a O2 Difference Sodium Chloride Glucose Lactate FiO2 Crit Value Called To Crit Value Called By Crit Value Read Back Blood Gas Notified Time Potassium Carbon Dioxide Anion Gap BUN Creatinine Est GFR ( Amer) Est GFR (Non-Af Amer) POC Glucose (mg/dL) 127 H Random Glucose Calcium Phosphorus Magnesium Total Bilirubin AST ALT Alkaline Phosphatase Troponin I 0.0160 NT-Pro-B Natriuret Pep Total Protein Albumin Globulin Albumin/Globulin Ratio Triglycerides Cholesterol LDL Cholesterol Direct HDL Cholesterol Lipase Free T4 TSH 3rd Generation Arterial Blood Potassium Urine Color Yellow Urine Clarity Turbid Urine pH 6.0 Ur Specific [place] 1.006 Urine Protein 30 Urine Glucose (UA) Neg Urine Ketones Negative Urine Blood Small Urine Nitrate Negative Urine Bilirubin Negative Urine Urobilinogen 0.2-1.0 Ur Leukocyte Esterase Small Urine RBC (Auto) 6 H Urine Microscopic WBC 2 Ur Squamous Epith Cells 6 H Amorphous Sediment Rare H Urine Bacteria Mod H Blood Type Antibody Screen BBK History Checked 05/07/17 05/07/17 05/07/17 05:32 06:00 06:00 WBC 5.6 RBC 4.10 Hgb 10.9 L Hct 33.9 L MCV 82.6 MCH 26.6 L MCHC 32.2 L RDW 17.5 H Plt Count 180 MPV Neut % (Auto) Lymph % (Auto) [place] % (Auto) Eos % (Auto) Baso % (Auto) Neut # Lymph # [place] # Eos # Baso # PT INR APTT pCO2 pO2 HCO3 ABG pH ABG Total CO2 ABG O2 Saturation ABG Base Excess Fred Test ABG Potassium A-a O2 Difference Sodium 143 Chloride 89 L Glucose Lactate FiO2 Crit Value Called To Crit Value Called By Crit Value Read Back Blood Gas Notified Time Potassium 3.0 L Carbon Dioxide 42 H* Anion Gap 15 BUN 16 Creatinine 0.7 Est GFR ( Amer) > 60 Est GFR (Non-Af Amer) > 60 POC Glucose (mg/dL) 124 H Random Glucose 120 H Calcium 8.8 Phosphorus Magnesium Total Bilirubin 0.5 AST 29 ALT 28 Alkaline Phosphatase 68 Troponin I NT-Pro-B Natriuret Pep Total Protein 7.1 Albumin 3.6 Globulin 3.4 Albumin/Globulin Ratio 1.1 Triglycerides 74 D Cholesterol 165 LDL Cholesterol Direct 77 HDL Cholesterol 62 Lipase Free T4 TSH 3rd Generation 0.18 L Arterial Blood Potassium Urine Color Urine Clarity Urine pH Ur Specific [place] Urine Protein Urine Glucose (UA) Urine Ketones Urine Blood Urine Nitrate Urine Bilirubin Urine Urobilinogen Ur Leukocyte Esterase Urine RBC (Auto) Urine Microscopic WBC Ur Squamous Epith Cells Amorphous Sediment Urine Bacteria Blood Type Antibody Screen BBK History Checked 05/07/17 05/07/17 05/07/17 06:00 06:00 12:20 WBC RBC Hgb Hct MCV MCH MCHC RDW Plt Count MPV Neut % (Auto) Lymph % (Auto) [place] % (Auto) Eos % (Auto) Baso % (Auto) Neut # Lymph # [place] # Eos # Baso # PT INR APTT pCO2 pO2 HCO3 ABG pH ABG Total CO2 ABG O2 Saturation ABG Base Excess Fred Test ABG Potassium A-a O2 Difference Sodium Chloride Glucose Lactate FiO2 Crit Value Called To Crit Value Called By Crit Value Read Back Blood Gas Notified Time Potassium Carbon Dioxide Anion Gap BUN Creatinine Est GFR ( Amer) Est GFR (Non-Af Amer) POC Glucose (mg/dL) Random Glucose Calcium Phosphorus Magnesium Total Bilirubin AST ALT Alkaline Phosphatase Troponin I 0.0140 0.0150 NT-Pro-B Natriuret Pep Total Protein Albumin Globulin Albumin/Globulin Ratio Triglycerides Cholesterol LDL Cholesterol Direct HDL Cholesterol Lipase Free T4 1.20 TSH 3rd Generation Arterial Blood Potassium Urine Color Urine Clarity Urine pH Ur Specific [place] Urine Protein Urine Glucose (UA) Urine Ketones Urine Blood Urine Nitrate Urine Bilirubin Urine Urobilinogen Ur Leukocyte Esterase Urine RBC (Auto) Urine Microscopic WBC Ur Squamous Epith Cells Amorphous Sediment Urine Bacteria Blood Type Antibody Screen BBK History Checked reviewed J.P. - EKG Data EKG comments: reviewed J.P. - Imaging and Cardiology Chest x-ray Status: Report reviewed by me (Bharti) Assessment & Plan (1) COPD exacerbation Status: Resolved Priority: High (2) Change in mental status Status: Acute (3) Cardiac arrhythmia Status: Deleted (4) Pleural effusion Status: Deleted Priority: High (5) Dyslipidemia Status: Chronic (6) Generalized weakness Status: Acute Priority: Medium (7) Hypertension Status: Chronic Priority: Medium (8) Lumbago Status: Chronic Priority: Medium (9) Type 2 diabetes mellitus Status: Chronic Priority: Medium (10) Anxiety Status: Chronic Priority: Medium (11) Depression Status: Chronic Priority: Medium (12) History of CVA (cerebrovascular accident) Status: Acute Priority: Low - Assessment and Plan (Free Text) Plan: CT Chest, Carotid & Vert. U-S, Echo, f/u Blood and U C-S, Levaquin, Rocephin, Solu Medrol , Duoneb, Lasix and rest of medications, PT, OT eval. Psychiatric consult, Cardiology consult. - Date & Time Date: 05/07/17 Time: 13:10
[2017-05-07] MEDS: Albuterol-Ipratrop 3 mg / 0.5 (3 ml) UD INH SCH (19:28)
[2017-05-07] MEDS ORDERED: Metoprolol 1 mg/ml Inj IVP ONE (21:21)
--- NOTE | 2017-05-08 00:14 | CP.PCM.CON ---
History of Present Illness - History of Present Illness History of Present Illness: Consultation requested for evauation of CHF/SOB/Tachycardia HPI: Past Patient History - Infectious Disease Hx of Infectious Diseases: None - Tetanus Immunizations Tetanus Immunization: Unknown - Past Medical History & Family History Past Medical History?: Yes - Past Social History Smoking Status: Former Smoker Alcohol: None Drugs: Denies Home Situation {Lives}: With Family - CARDIAC Hx Cardiac Disorders: Yes Hx Congestive Heart Failure: Yes Hx Hypercholesterolemia: Yes Hx Hypertension: Yes Hx Pacemaker: No - PULMONARY Hx Respiratory Disorders: Yes Hx Chronic Obstructive Pulmonary Disease (COPD): Yes Hx Pneumonia: Yes - NEUROLOGICAL Hx Neurological Disorder: Yes HX Cerebrovascular Accident: Yes Hx Transient Ischemic Attacks (TIA): Yes - HEENT Hx HEENT Problems: No - RENAL Hx Chronic Kidney Disease: No - ENDOCRINE/METABOLIC Hx Endocrine Disorders: Yes Hx Diabetes Mellitus Type 2: Yes - HEMATOLOGICAL/ONCOLOGICAL Hx Blood Disorders: Yes Hx Anemia: Yes Hx Human Immunodeficiency Virus (HIV): No - INTEGUMENTARY Hx Dermatological Problems: No - MUSCULOSKELETAL/RHEUMATOLOGICAL Hx Musculoskeletal Disorders: Yes Hx Arthritis: Yes Hx Falls: Yes Hx Osteoporosis: Yes - GASTROINTESTINAL Hx Gastrointestinal Disorders: Yes Hx Diverticulitis: Yes - GENITOURINARY/GYNECOLOGICAL Hx Genitourinary Disorders: No - PSYCHIATRIC Hx Psychophysiologic Disorder: Yes Hx Anxiety: Yes Hx Depression: Yes Hx Substance Use: No - SURGICAL HISTORY Hx Surgeries: Yes Hx Herniorrhaphy: Yes - ANESTHESIA Hx Anesthesia: Yes Hx Anesthesia Reactions: No Hx Malignant Hyperthermia: No Meds Allergies/Adverse Reactions: Allergies Allergy/AdvReac Type Severity Reaction Status Date / Time iodine Allergy RASH Verified 10/26/16 18:55 - Medications Medications: Current Medications Albuterol/Ipratropium (Duoneb 3 Mg/0.5 Mg (3 Ml) Ud) 3 ml INH RQ6 [facility] Last Admin: 05/07/17 19:28 Dose: 3 ml Alprazolam (Xanax) 0.5 mg PO BID PRN PRN Reason: Anxiety Last Admin: 05/07/17 17:32 Dose: 0.5 mg Atorvastatin Calcium (Lipitor) 20 mg PO HS [facility] Last Admin: 05/07/17 21:30 Dose: 20 mg Enoxaparin Sodium (Lovenox) 40 mg SC DAILY [facility] PRN Reason: Protocol Last Admin: 05/07/17 08:37 Dose: 40 mg Furosemide (Lasix) 20 mg IVP Q12 [facility] Last Admin: 05/07/17 20:34 Dose: 20 mg Hydralazine HCl (Apresoline) 25 mg PO BID [facility] Last Admin: 05/07/17 17:21 Dose: 25 mg Cefepime HCl 1 gm/ Sodium (Chloride) 100 mls @ 100 mls/hr IVPB Q12 [facility] PRN Reason: Protocol Last Admin: 05/07/17 20:32 Dose: 100 mls/hr Levofloxacin/Dextrose (Levaquin 750mg) 750 mg in 150 mls @ 100 mls/hr IVPB QAM [facility] Last Admin: 05/07/17 08:35 Dose: 100 mls/hr Insulin Human Regular (Humulin R) 0 units SC ACHS [facility] PRN Reason: Protocol Last Admin: 05/07/17 21:32 Dose: Not Given Meclizine HCl (Antivert) 25 mg PO Q8H PRN PRN Reason: Dizziness Methylprednisolone (Solu-Medrol) 30 mg IVP Q8 [facility] Last Admin: 05/07/17 17:23 Dose: 30 mg Metoprolol Tartrate (Lopressor) 25 mg PO DAILY [facility] Last Admin: 05/07/17 08:36 Dose: 25 mg Nitroglycerin (Nitrostat Sl Tab) 0.4 mg SL Q5MIN PRN PRN Reason: chest pain Oxycodone/Acetaminophen (Percocet 5/325 Mg Tab) 1 tab PO Q4 PRN PRN Reason: Pain, severe (8-10) Stop: 05/10/17 06:46 Pantoprazole Sodium (Protonix Inj) 40 mg IVP DAILY [facility] Potassium Chloride (K-Dur 20 Meq Er Tab) 20 meq PO DAILY [facility] Last Admin: 05/07/17 08:35 Dose: 20 meq Sitagliptin Phosphate (Januvia) 100 mg PO DAILY [facility] Last Admin: 05/07/17 08:34 Dose: 100 mg Zolpidem Tartrate (Ambien) 5 mg PO HS PRN PRN Reason: Insomnia Results - Vital Signs Recent Vital Signs: Last Vital Signs Temp 98.5 F 05/07/17 19:46 Pulse 145 H 05/07/17 22:37 Resp 18 05/07/17 22:37 BP 113/65 05/07/17 22:37 Pulse Ox 95 05/07/17 22:37 - Labs Result Diagrams: 05/07/17 06:00 05/07/17 06:00 Labs: Laboratory Results - last 24 hr 05/06/17 05/06/17 05/06/17 16:56 20:00 21:39 WBC RBC Hgb Hct MCV MCH MCHC RDW Plt Count Sodium Potassium Chloride Carbon Dioxide Anion Gap BUN Creatinine Est GFR ( Amer) Est GFR (Non-Af Amer) POC Glucose (mg/dL) 122 H 127 H Random Glucose Calcium Total Bilirubin AST ALT Alkaline Phosphatase Troponin I Total Protein Albumin Globulin Albumin/Globulin Ratio Triglycerides Cholesterol LDL Cholesterol Direct HDL Cholesterol Free T4 TSH 3rd Generation Urine Color Yellow Urine Clarity Turbid Urine pH 6.0 Ur Specific [place] 1.006 Urine Protein 30 Urine Glucose (UA) Neg Urine Ketones Negative Urine Blood Small Urine Nitrate Negative Urine Bilirubin Negative Urine Urobilinogen 0.2-1.0 Ur Leukocyte Esterase Small Urine RBC (Auto) 6 H Urine Microscopic WBC 2 Ur Squamous Epith Cells 6 H Amorphous Sediment Rare H Urine Bacteria Mod H 05/07/17 05/07/17 05/07/17 03:50 05:32 06:00 WBC 5.6 RBC 4.10 Hgb 10.9 L Hct 33.9 L MCV 82.6 MCH 26.6 L MCHC 32.2 L RDW 17.5 H Plt Count 180 Sodium Potassium Chloride Carbon Dioxide Anion Gap BUN Creatinine Est GFR ( Amer) Est GFR (Non-Af Amer) POC Glucose (mg/dL) 124 H Random Glucose Calcium Total Bilirubin AST ALT Alkaline Phosphatase Troponin I 0.0160 Total Protein Albumin Globulin Albumin/Globulin Ratio Triglycerides Cholesterol LDL Cholesterol Direct HDL Cholesterol Free T4 TSH 3rd Generation Urine Color Urine Clarity Urine pH Ur Specific [place] Urine Protein Urine Glucose (UA) Urine Ketones Urine Blood Urine Nitrate Urine Bilirubin Urine Urobilinogen Ur Leukocyte Esterase Urine RBC (Auto) Urine Microscopic WBC Ur Squamous Epith Cells Amorphous Sediment Urine Bacteria 05/07/17 05/07/17 05/07/17 06:00 06:00 06:00 WBC RBC Hgb Hct MCV MCH MCHC RDW Plt Count Sodium 143 Potassium 3.0 L Chloride 89 L Carbon Dioxide 42 H* Anion Gap 15 BUN 16 Creatinine 0.7 Est GFR ( Amer) > 60 Est GFR (Non-Af Amer) > 60 POC Glucose (mg/dL) Random Glucose 120 H Calcium 8.8 Total Bilirubin 0.5 AST 29 ALT 28 Alkaline Phosphatase 68 Troponin I 0.0140 Total Protein 7.1 Albumin 3.6 Globulin 3.4 Albumin/Globulin Ratio 1.1 Triglycerides 74 D Cholesterol 165 LDL Cholesterol Direct 77 HDL Cholesterol 62 Free T4 1.20 TSH 3rd Generation 0.18 L Urine Color Urine Clarity Urine pH Ur Specific [place] Urine Protein Urine Glucose (UA) Urine Ketones Urine Blood Urine Nitrate Urine Bilirubin Urine Urobilinogen Ur Leukocyte Esterase Urine RBC (Auto) Urine Microscopic WBC Ur Squamous Epith Cells Amorphous Sediment Urine Bacteria 05/07/17 05/07/17 05/07/17 10:56 12:20 16:49 WBC RBC Hgb Hct MCV MCH MCHC RDW Plt Count Sodium Potassium Chloride Carbon Dioxide Anion Gap BUN Creatinine Est GFR ( Amer) Est GFR (Non-Af Amer) POC Glucose (mg/dL) 118 H 141 H Random Glucose Calcium Total Bilirubin AST ALT Alkaline Phosphatase Troponin I 0.0150 Total Protein Albumin Globulin Albumin/Globulin Ratio Triglycerides Cholesterol LDL Cholesterol Direct HDL Cholesterol Free T4 TSH 3rd Generation Urine Color Urine Clarity Urine pH Ur Specific [place] Urine Protein Urine Glucose (UA) Urine Ketones Urine Blood Urine Nitrate Urine Bilirubin Urine Urobilinogen Ur Leukocyte Esterase Urine RBC (Auto) Urine Microscopic WBC Ur Squamous Epith Cells Amorphous Sediment Urine Bacteria 05/07/17 21:28 WBC RBC Hgb Hct MCV MCH MCHC RDW Plt Count Sodium Potassium Chloride Carbon Dioxide Anion Gap BUN Creatinine Est GFR ( Amer) Est GFR (Non-Af Amer) POC Glucose (mg/dL) 140 H Random Glucose Calcium Total Bilirubin AST ALT Alkaline Phosphatase Troponin I Total Protein Albumin Globulin Albumin/Globulin Ratio Triglycerides Cholesterol LDL Cholesterol Direct HDL Cholesterol Free T4 TSH 3rd Generation Urine Color Urine Clarity Urine pH Ur Specific [place] Urine Protein Urine Glucose (UA) Urine Ketones Urine Blood Urine Nitrate Urine Bilirubin Urine Urobilinogen Ur Leukocyte Esterase Urine RBC (Auto) Urine Microscopic WBC Ur Squamous Epith Cells Amorphous Sediment Urine Bacteria
[2017-05-08] MEDS: MethylPREDNISolone 40 mg Vial IVP SCH ×3 (00:49→17:32)
[2017-05-08] MEDS: Albuterol-Ipratrop 3 mg / 0.5 (3 ml) UD INH SCH ×3 (01:03→13:52)
[2017-05-08] MEDS: Insulin Regular 100 units/ml SC SCH ×4 (08:14→22:10)
[2017-05-08] MEDS: Potassium Chloride 20 mEq ER Tab PO SCH (08:14)
[2017-05-08] MEDS: Enoxaparin 40 mg Syringe SC SCH (08:17)
[2017-05-08] MEDS: Cefepime 1 GM in Sodium Chloride 0.9% 100 ML IVPB SCH (08:18)
--- NOTE | 2017-05-08 10:48 | US ---
PROCEDURE: Duplex ultrasound of the carotid and vertebral arteries. HISTORY: HTN COMPARISON: None available. TECHNIQUE: Grayscale and duplex Doppler evaluation of the cervical carotid and vertebral arteries were performed. The common carotid, carotid bifurcations and cervical ICA and proximal ECA were evaluated. The vertebral arteries were evaluated for gross patency and direction. FINDINGS: RIGHT CAROTID ARTERIES: Common Carotid Artery: Mild intimal thickening and minor plaque. Maximal flow velocity of 119 cm/s. Carotid Bifurcation: Mild bulb plaque. Internal Carotid Artery:Mild plaque and tortuosity Maximal flow velocity of 178 cm/s. End-diastolic velocity 34 centimeters/second. External Carotid Artery (proximal branches): Plaque is appreciated. Maximal flow velocity of 210 cm/s. ICA/CCA Ratio: 1.5 LEFT CAROTID ARTERIES: Common Carotid Artery: Mild intimal thickening and minor plaque. Maximal flow velocity of 108 cm/s. Carotid Bifurcation: Mild bulb plaque. Internal Carotid Artery:Mild tortuosity and mild plaque. Maximal flow velocity of 109 cm/s. External Carotid Artery (proximal branches): Mild plaque. Maximal flow velocity of 122 cm/s. ICA/CCA Ratio: 1.1 VERTEBRAL ARTERIES: Right Vertebral Artery: Patent. Antegrade flow. Left Vertebral Artery: Patent. Antegrade flow. OTHER FINDINGS: No abnormal extrinsic compression is noted upon the carotid bifurcation vessels. IMPRESSION: Mild bilateral bulb plaque and proximal bifurcation vessel plaque. Torturous ICA vessels bilaterally. Peak systolic velocity elevation in the proximal right ICA may be related to the tortuosity, however utilizing peak systolic velocity, end-diastolic velocity, and velocity ratio of the ICA to CCA, there is a less than 50 percent luminal narrowing. If there is strong clinical concern, MRI and/or CTA could be obtained. Otherwise ultrasound follow-up should be obtained. No velocity elevation in the left ICA to suggest stenosis.
--- NOTE | 2017-05-08 11:54 | CT ---
PROCEDURE: CT Chest without contrast HISTORY: COPD exacerbation. B/L Pleural effusion. COMPARISON: CT scan 2012. Chest x-ray 05/06/2017 TECHNIQUE: Contiguous axial images were obtained through the chest without intravenous contrast enhancement. Sagittal and coronal reconstructions were performed. Radiation dose (DLP): 856 mGy-cm. This CT exam was performed using one or more of the following dose reduction techniques: Automated exposure control, adjustment of the mA and/or kV according to patient size, and/or use of iterative reconstruction technique. FINDINGS: LUNGS: Mild to moderate left lower lobe subsegmental atelectasis is noted, a portion of which is possibly related to left pleural effusion. Some mild amounts of mucus plugging extending from the left lower lobe bronchi are not excluded. Milder subsegmental atelectasis is seen at the right lung base, also probably related to compressive atelectasis and right pleural effusion. Mild interstitial changes and interstitial thickening elsewhere in the aerated portions of the lung with minor scarring seen in the lingula and right middle mild subsegmental atelectasis also seen in the right middle lobe and minor scarring seen in the lingula. Lobe MEDIASTINUM: Moderate atherosclerotic change of the aorta without intramural hematoma seen on this noncontrast exam. Mildly prominent pulmonary arteries which may suggest an element of pulmonary artery hypertension. Heart is enlarged. Visualized thoracic inlet is unremarkable. No mediastinal adenopathy or axillary adenopathy is seen. No pericardial effusion is noted. PLEURA: Bilateral pleural effusions with compressive atelectasis once again noted. Effusion is slightly greater on the right. BONES: Moderate degenerative changes in the spine without compression fracture. Mild scoliosis. No obvious rib fractures. No lytic process. UPPER ABDOMEN: Images of the upper abdomen are limited by the contrast. Small hiatal hernia is appreciated. Adrenal glands are normal in size. Spleen is normal in size. Liver has some mild undulation of the contour. Appearance on this noncontrast exam is probably unchanged from prior CT scan of the abdomen from 2014. Small parenchymal calcification in the left kidney is stable. OTHER FINDINGS: None. IMPRESSION: Bilateral pleural effusions and probable compressive atelectasis at both lung bases. There is mild interstitial thickening with a portion possibly related to residual vascular congestion. Cardiomegaly. No pericardial effusion. No obvious adenopathy.
--- NOTE | 2017-05-08 14:41 | CP.PCM.PN ---
Subjective - Subjective Subjective: confused, refused AGB yesterday, Patient stated She would not use BIPAP Objective - Vital Signs/Intake and Output Vital Signs (last 24 hours): Temp Pulse Resp BP Pulse Ox 98.1 F 92 H 20 112/70 93 L 05/08/17 12:00 05/08/17 12:00 05/08/17 12:00 05/08/17 12:00 05/08/17 12:00 Intake and Output: 05/08/17 05/08/17 06:59 18:59 Intake Total 820 Output Total 1100 Balance -280 - Medications Medications: Current Medications Acetaminophen (Tylenol 325mg Tab) 650 mg PO Q4 PRN PRN Reason: Fever >100.4 F Last Admin: 05/08/17 10:24 Dose: 650 mg Alprazolam (Xanax) 0.5 mg PO BID PRN PRN Reason: Anxiety Last Admin: 05/08/17 08:33 Dose: 0.5 mg Atorvastatin Calcium (Lipitor) 20 mg PO HS [facility] Last Admin: 05/07/17 21:30 Dose: 20 mg Enoxaparin Sodium (Lovenox) 40 mg SC DAILY [facility] PRN Reason: Protocol Last Admin: 05/08/17 08:17 Dose: 40 mg Furosemide (Lasix) 20 mg IVP Q12 [facility] Last Admin: 05/08/17 10:20 Dose: 20 mg Hydralazine HCl (Apresoline) 25 mg PO BID [facility] Last Admin: 05/08/17 08:13 Dose: 25 mg Insulin Human Regular (Humulin R) 0 units SC ACHS [facility] PRN Reason: Protocol Last Admin: 05/08/17 13:23 Dose: Not Given Ipratropium [place] (Atrovent) 0.5 mg IH RQ6 [facility] Levalbuterol HCl (Xopenex) 0.63 mg INH RQ8 PRN PRN Reason: Shortness of Breath Meclizine HCl (Antivert) 25 mg PO Q8H PRN PRN Reason: Dizziness Methylprednisolone (Solu-Medrol) 30 mg IVP Q8 [facility] Last Admin: 05/08/17 08:19 Dose: 30 mg Metoprolol Tartrate (Lopressor) 25 mg PO Q12 [facility] Last Admin: 05/08/17 08:15 Dose: 25 mg Nitroglycerin (Nitrostat Sl Tab) 0.4 mg SL Q5MIN PRN PRN Reason: chest pain Oxycodone/Acetaminophen (Percocet 5/325 Mg Tab) 1 tab PO Q4 PRN PRN Reason: Pain, severe (8-10) Stop: 05/10/17 06:46 Pantoprazole Sodium (Protonix Inj) 40 mg IVP DAILY [facility] Last Admin: 05/08/17 08:19 Dose: 40 mg Potassium Chloride (K-Dur 20 Meq Er Tab) 20 meq PO DAILY [facility] Last Admin: 05/08/17 08:14 Dose: 20 meq Sitagliptin Phosphate (Januvia) 100 mg PO DAILY [facility] Last Admin: 05/08/17 08:14 Dose: 100 mg Zolpidem Tartrate (Ambien) 5 mg PO HS PRN PRN Reason: Insomnia Last Admin: 05/08/17 00:47 Dose: 5 mg - Labs Labs: 05/07/17 06:00 05/07/17 06:00 PT 11.3 Seconds (9.8-13.1) 05/06/17 17:51 INR 1.0 (0.9-1.2) 05/06/17 17:51 APTT 33.8 Seconds (25.6-37.1) 05/06/17 17:51 - Constitutional Appears: Chronically Ill - Head Exam Head Exam: NORMAL INSPECTION - Eye Exam Eye Exam: PERRL - ENT Exam ENT Exam: Normal Exam - Neck Exam Neck Exam: Normal Inspection - Respiratory Exam Respiratory Exam: Decreased Breath Sounds (at bases), Rhonchi (few at bases) - Cardiovascular Exam Cardiovascular Exam: Tachycardia, Irregular Rhythm - GI/Abdominal Exam GI & Abdominal Exam: Soft, Normal Bowel Sounds - Extremities Exam Extremities Exam: Normal Inspection - Back Exam Back Exam: tenderness Additional comments: Sacral pressure ulcer stage 1. POA - Neurological Exam Additional comments: Confused , incoeherent , on AFib RVR , CT Chest no PNA , DC Antibiotics , DC DuoNeb , add Xopenex , Atrovent , f/u Pulverizer Feeder - Psychiatric Exam Psychiatric exam: Anxious, Depressed - Skin Skin Exam: Warm Assessment and Plan (1) COPD exacerbation Status: Resolved (2) Change in mental status Status: Acute (3) Cardiac arrhythmia Status: Deleted (4) Pleural effusion Status: Deleted (5) Dyslipidemia Status: Chronic (6) Generalized weakness Status: Acute (7) Hypertension Status: Chronic (8) Lumbago Status: Chronic (9) Type 2 diabetes mellitus Status: Chronic (10) Anxiety Status: Chronic (11) Depression Status: Chronic (12) History of CVA (cerebrovascular accident) Status: Acute - Assessment and Plan (Free Text) Plan: ABG done ,PH 7.61, PCO2 48 , PO2 49 O2 sat 89.9 on RA , DC Antibiotic , CT Chest no PNA, , DC DuoNeb , add Xopenex , Atrovent , O2 sat NC 2L/m 91% , close f/u, f/u Cardiology.
[2017-05-08 14:51] LABS: ABG ALLEN TEST YES; ARTERIAL BLOOD GAS HCO3 43.3 mmol/L (21-28); ARTERIAL BLOOD GAS O2 CAPACITY 16.2 mL/dL (16-24); ARTERIAL BLOOD GAS O2 CONTENT 14.6 ML/dL (15-23); ARTERIAL BLOOD GAS PH 7.61 (7.35-7.45); ARTERIAL BLOOD GAS PO2 49 mm/Hg (80-100); ARTERIAL BLOOD HGB O2 SAT 87.3 % (95.0-98.0); CARBOXYHEMOGLOBIN 1.3 % (0.5-1.5); HHB 9.8 % (0.0-5.0); METHEMOGLOBIN 1.5 % (0.0-3.0)
[2017-05-08] MEDS ORDERED: diltiaZEM 100 mg Vial ( ADD-VANTAGE ) IV ONE (15:36)
[2017-05-08 15:47] LABS: BASO % 0.1 % (0.0-2.0); HEMATOCRIT 36.7 % (34.0-47.0); LYMPH # 0.6 K/uL (1.0-4.3); LYMPH % 7.5 % (20.0-40.0); MEAN CELL VOLUME 81.8 fl (81.0-99.0); MEAN CORPUSCULAR HEMOGLOBIN 26.3 pg (27.0-31.0); MEAN CORPUSCULAR HGB CONC 32.1 g/dL (33.0-37.0); MEAN PLATELET VOLUME 8.4 fl (7.2-11.7); MONO # 0.8 K/uL (0.0-0.8); MONO % 8.8 % (0.0-10.0); NEUT # 7.1 K/uL (1.8-7.0); NEUT % 83.6 % (50.0-75.0); NRBC % 0.1 % (0.0-0.0); PLATELET COUNT 215 K/uL (130-400); RED CELL DISTRIBUTION WIDTH 17.6 % (11.5-14.5); WHITE BLOOD COUNT 8.5 K/uL (4.8-10.8)
[2017-05-08 16:10] LABS: ALB/GLOB RATIO 1.1 (1.0-2.1); ALKALINE PHOSPHATASE 63 U/L (38-126); ALT/SGPT 26 U/L (9-52); AST/SGOT 43 U/L (14-36); BILIRUBIN,TOTAL 0.7 mg/dl (0.2-1.3); BLOOD UREA NITROGEN 31 mg/dl (7-17); CALCIUM 8.4 mg/dL (8.4-10.2); CARBON DIOXIDE 39 mmol/L (22-30); CHLORIDE 90 mmol/L (98-107); GFR AFRICAN-AMERICAN > 60; GLUCOSE,RANDOM 135 mg/dL (65-105); MAGNESIUM 1.6 MG/DL (1.6-2.3); PHOSPHOROUS 3.5 mg/dl (2.5-4.5); SODIUM 141 mmol/l (132-148); TOTAL PROTEIN 6.9 G/DL (6.3-8.2)
[2017-05-08 16:18] LABS: POTASSIUM 2.9 MMOL/L (3.6-5.0)
[2017-05-08] MEDS ORDERED: Potassium Chloride 20 mEq ER Tab PO ONE ×2 (16:24→18:37)
--- NOTE | 2017-05-08 16:30 | PCM.RRT ---
<Eliazar Cunha - Last Filed: 05/08/17 16:30> SENIOR SPECIALIST Nurse Assessment - Situation Location: [address] [place] [address] Room Number: 401-1 SENIOR SPECIALIST Reason for Call: Tachycardia SENIOR SPECIALIST Called By: RN - IV IV Inserted during SENIOR SPECIALIST?: No - Respiratory Oxygen Delivery Method: Nasal Cannula Received Nebulizer Treatments: No Was the Patient Ventilated with Bag/Mask 100% O2?: No Secretions Suctioned?: No Was the Patient Intubated?: No Was the Patient Placed on a Ventilator?: No - Medication Medications Administered During SENIOR SPECIALIST: Cardizem 2.5mg IVP x 2doses - Diagnostic Test Ordered EKG: No Chest X-Ray: No CT Scan: No - Stat Labs Ordered SENIOR SPECIALIST Stat Labs Ordered: CBC, BMP, TROPONIN CPR started during SENIOR SPECIALIST?: No - Vital Signs Vital Signs: Rapid Response Vital Sign Blood Pressure 88/51 Pulse Rate 150 Respiratory Rate 22 Temperature 98.1 F Oxygen Saturation 93 - Time SENIOR SPECIALIST Ended Time SENIOR SPECIALIST Ended: 15:40 - Vital Signs at end of SENIOR SPECIALIST Vital Signs at end of SENIOR SPECIALIST: Rapid Response End Vital Sign Blood Pressure 106/53 Pulse Rate 125 Respiratory Rate 22 Temperature 98.1 F O2 Sat by Pulse Oximetry 95 - Recommendations SENIOR SPECIALIST Level of Care Recommendations: Remain in current setting <Gloria Swanson - Last Filed: 05/08/17 18:48> SENIOR SPECIALIST Nurse Assessment - Vital Signs Vital Signs: Rapid Response Vital Sign Blood Pressure 88/51 Pulse Rate 150 Respiratory Rate 22 Temperature 98.1 F Oxygen Saturation 93 - Vital Signs at end of SENIOR SPECIALIST Vital Signs at end of SENIOR SPECIALIST: Rapid Response End Vital Sign Blood Pressure 106/53 Pulse Rate 125 Respiratory Rate 22 Temperature 98.1 F O2 Sat by Pulse Oximetry 95 Attending/Attestation - Attestation I have personally seen and examined this patient.: Yes I have fully participated in the care of the patient.: Yes I have reviewed all pertinent clinical information, including history, physical exam and plan: Yes Notes (Text): SENIOR SPECIALIST called bec of tachycardia Rapid A Fib on monitor confirmed on EKG Rate 150's Pt is alert however disoriented and confused , oriented only to place Denies CP nor SOB no abd pain Son Chintan was at bedside- pt's surrogate decision maker BP 106/53 sat 95% on 2 liters A/P: Atrial Fibrillation with RVR Hypokalemia - Cardizem 5 mg IV given, start Cardizem drip at 5 mg/hr - Increase metoprolol to 50mg q 12 - Oxygen per NC -Tylenol 650 mg stat for fever -replace Potassium , KCL runs - CBC, CMP, TSH, PT, PTT, Trop, Lactic acid Dr Granado - pt's PMD notified , noted ABG result and placed pt on Oxygen - Dr Rosales pt's Cardio notified of event, case discussed - recommended to start Heparin drip for A Fib and poss PE
[2017-05-08 16:40] LABS: PARTIAL THROMBOPLASTIN TIME 31.9 Seconds (25.6-37.1)
[2017-05-08] MEDS: Heparin 25,000units in D5W 25,000 UNITS/250 ML BAG IV SCH (17:10)
[2017-05-08 17:20] LABS: NEUTROPHIL 80 % (42-75); TOTAL CELLS COUNTED 100
[2017-05-08] MEDS: Potassium CL 10mEq/100ml 100 ML IVPB SCH ×4 (17:45→22:09)
[2017-05-08] MEDS: Ipratropium 0.02% Inhal Soln (0.5 mg/2.5 ml) UD IH SCH (20:13)
[2017-05-08] MEDS ORDERED: Cefepime IV 1 gm in Dextrose 1 GM/50 ML BAG IVPB SCH (21:00)
--- NOTE | 2017-05-08 23:57 | CP.PCM.PN ---
<Rik Rosales - Last Filed: 05/08/17 23:57> Objective - Vital Signs/Intake and Output Vital Signs (last 24 hours): Temp Pulse Resp BP Pulse Ox 97.3 F L 112 H 16 90/65 L 93 L 05/08/17 20:38 05/08/17 22:08 05/08/17 20:38 05/08/17 22:08 05/08/17 20:38 Intake and Output: 05/08/17 05/09/17 18:59 06:59 Intake Total 2170 Output Total 2300 Balance -130 - Medications Medications: Current Medications Acetaminophen (Tylenol 325mg Tab) 650 mg PO Q4 PRN PRN Reason: Fever >100.4 F Last Admin: 05/08/17 10:24 Dose: 650 mg Alprazolam (Xanax) 0.5 mg PO BID PRN PRN Reason: Anxiety Last Admin: 05/08/17 08:33 Dose: 0.5 mg Atorvastatin Calcium (Lipitor) 20 mg PO HS [facility] Last Admin: 05/08/17 22:08 Dose: 20 mg Furosemide (Lasix) 20 mg IVP Q12 [facility] Last Admin: 05/08/17 21:45 Dose: Not Given Hydralazine HCl (Apresoline) 25 mg PO BID [facility] Last Admin: 05/08/17 17:21 Dose: Not Given Diltiazem HCl 100 mg/ Sodium (Chloride) 100 mls @ 5 mls/hr IV .Q20H ONE; 5 MG/ HR PRN Reason: Protocol Stop: 05/09/17 11:30 Last Admin: 05/08/17 15:46 Dose: 5 mls/hr Heparin Sodium/Dextrose (Heparin 25,000 Units/250ml In D5w) 25,000 units in 250 mls @ 0 mls/hr IV .Q0M [facility]; Per Protocol PRN Reason: Protocol Last Admin: 05/08/17 17:10 Dose: 14 mls/hr Insulin Human Regular (Humulin R) 0 units SC ACHS [facility] PRN Reason: Protocol Last Admin: 05/08/17 22:10 Dose: Not Given Ipratropium [place] (Atrovent) 0.5 mg IH RQ6 [facility] Last Admin: 05/08/17 20:13 Dose: Not Given Levalbuterol HCl (Xopenex) 0.63 mg INH RQ8 PRN PRN Reason: Shortness of Breath Meclizine HCl (Antivert) 25 mg PO Q8H PRN PRN Reason: Dizziness Methylprednisolone (Solu-Medrol) 30 mg IVP Q8 [facility] Last Admin: 05/08/17 17:32 Dose: 30 mg Metoprolol Tartrate (Lopressor) 50 mg PO Q12 [facility] Last Admin: 05/08/17 22:08 Dose: Not Given Nitroglycerin (Nitrostat Sl Tab) 0.4 mg SL Q5MIN PRN PRN Reason: chest pain Oxycodone/Acetaminophen (Percocet 5/325 Mg Tab) 1 tab PO Q4 PRN PRN Reason: Pain, severe (8-10) Stop: 05/10/17 06:46 Pantoprazole Sodium (Protonix Inj) 40 mg IVP DAILY [facility] Last Admin: 05/08/17 08:19 Dose: 40 mg Potassium Chloride (K-Dur 20 Meq Er Tab) 20 meq PO DAILY [facility] Last Admin: 05/08/17 08:14 Dose: 20 meq Sitagliptin Phosphate (Januvia) 100 mg PO DAILY [facility] Last Admin: 05/08/17 08:14 Dose: 100 mg Zolpidem Tartrate (Ambien) 5 mg PO HS PRN PRN Reason: Insomnia Last Admin: 05/08/17 21:28 Dose: 5 mg - Labs Labs: 05/08/17 15:35 05/08/17 15:35 PT 14.7 Seconds (9.8-13.1) H 05/08/17 16:00 INR 1.3 (0.9-1.2) H 05/08/17 16:00 APTT 31.9 Seconds (25.6-37.1) 05/08/17 16:00 <Jesús Granado - Last Filed: 05/10/17 12:50> Objective - Vital Signs/Intake and Output Vital Signs (last 24 hours): Temp Pulse Resp BP Pulse Ox 97.9 F 83 18 107/58 L 95 05/10/17 12:40 05/10/17 12:40 05/10/17 12:40 05/10/17 12:40 05/10/17 12:40 Intake and Output: 05/10/17 05/10/17 06:59 18:59 Intake Total 360 Output Total 400 Balance -40 - Medications Medications: Current Medications Acetaminophen (Tylenol 325mg Tab) 650 mg PO Q4 PRN PRN Reason: Fever >100.4 F Last Admin: 05/08/17 10:24 Dose: 650 mg Alprazolam (Xanax) 0.5 mg PO BID PRN PRN Reason: Anxiety Last Admin: 05/08/17 08:33 Dose: 0.5 mg Atorvastatin Calcium (Lipitor) 20 mg PO HS [facility] Last Admin: 05/09/17 22:01 Dose: 20 mg Diltiazem HCl (Cardizem) 60 mg PO Q8 [facility] Last Admin: 05/10/17 12:35 Dose: 60 mg Enoxaparin Sodium (Lovenox) 80 mg SC Q12 [facility] PRN Reason: Protocol Last Admin: 05/10/17 08:44 Dose: 80 mg Furosemide (Lasix) 20 mg IVP Q12 [facility] Last Admin: 05/10/17 09:37 Dose: 20 mg Hydralazine HCl (Apresoline) 25 mg PO BID [facility] Last Admin: 05/10/17 08:45 Dose: 25 mg Ceftriaxone Sodium (Rocephin Iv 1 Gm Duplex) 50 mls @ 50 mls/hr IVPB DAILY [facility] PRN Reason: Protocol Last Admin: 05/10/17 10:54 Dose: 50 mls/hr Insulin Human Regular (Humulin R) 0 units SC ACHS [facility] PRN Reason: Protocol Last Admin: 05/10/17 12:29 Dose: 1 u Ipratropium [place] (Atrovent) 0.5 mg IH RQ6 [facility] Last Admin: 05/10/17 07:27 Dose: 0.5 mg Levalbuterol HCl (Xopenex) 0.63 mg INH RQ8 PRN PRN Reason: Shortness of Breath Last Admin: 05/10/17 07:27 Dose: 0.63 mg Meclizine HCl (Antivert) 25 mg PO Q8H PRN PRN Reason: Dizziness Methylprednisolone (Solu-Medrol) 30 mg IVP Q8 [facility] Last Admin: 05/10/17 08:46 Dose: 30 mg Metoprolol Tartrate (Lopressor) 50 mg PO Q12 [facility] Last Admin: 05/10/17 09:39 Dose: 50 mg Nitroglycerin (Nitrostat Sl Tab) 0.4 mg SL Q5MIN PRN PRN Reason: chest pain Pantoprazole Sodium (Protonix Inj) 40 mg IVP DAILY [facility] Last Admin: 05/10/17 08:48 Dose: 40 mg Potassium Chloride (K-Dur 20 Meq Er Tab) 20 meq PO DAILY [facility] Last Admin: 05/10/17 08:46 Dose: 20 meq Sitagliptin Phosphate (Januvia) 100 mg PO DAILY [facility] Last Admin: 05/10/17 08:45 Dose: 100 mg Zolpidem Tartrate (Ambien) 5 mg PO HS PRN PRN Reason: Insomnia Last Admin: 05/09/17 23:48 Dose: 5 mg - Labs Labs: 05/09/17 04:20 05/09/17 04:20 PT 14.7 Seconds (9.8-13.1) H 05/08/17 16:00 INR 1.3 (0.9-1.2) H 05/08/17 16:00 APTT 123.8 Seconds (25.6-37.1) H* D 05/09/17 16:44 Assessment and Plan (1) COPD exacerbation Status: Acute (2) Change in mental status Status: Acute (3) Atrial fibrillation with RVR Status: Acute (4) Dyslipidemia Status: Chronic (5) Generalized weakness Status: Chronic (6) Hypertension Status: Chronic (7) Lumbago Status: Chronic (8) Type 2 diabetes mellitus Status: Chronic (9) Anxiety Status: Chronic (10) Depression Status: Chronic (11) History of CVA (cerebrovascular accident) Status: Chronic
[2017-05-09] MEDS: Ipratropium 0.02% Inhal Soln (0.5 mg/2.5 ml) UD IH SCH ×4 (01:09→19:00)
[2017-05-09] MEDS: Heparin 25,000units in D5W 25,000 UNITS/250 ML BAG IV SCH ×2 (01:53→07:32)
[2017-05-09] MEDS: MethylPREDNISolone 40 mg Vial IVP SCH ×3 (01:55→18:37)
[2017-05-09 05:28] LABS: MEAN CELL VOLUME 82.5 fl (81.0-99.0); MEAN CORPUSCULAR HEMOGLOBIN 25.9 pg (27.0-31.0); MEAN CORPUSCULAR HGB CONC 31.4 g/dL (33.0-37.0); RED CELL DISTRIBUTION WIDTH 17.2 % (11.5-14.5); WHITE BLOOD COUNT 10.9 K/uL (4.8-10.8)
[2017-05-09 05:43] LABS: BLOOD UREA NITROGEN 34 mg/dl (7-17); CALCIUM 8.4 mg/dL (8.4-10.2); CARBON DIOXIDE 39 mmol/L (22-30); CHLORIDE 92 mmol/L (98-107); GFR AFRICAN-AMERICAN > 60; GLUCOSE,RANDOM 140 mg/dL (65-105); POTASSIUM 3.5 MMOL/L (3.6-5.0); SODIUM 141 mmol/l (132-148)
[2017-05-09] MEDS: Insulin Regular 100 units/ml SC SCH ×4 (08:48→21:41)
[2017-05-09] MEDS: Potassium Chloride 20 mEq ER Tab PO SCH (08:49)
--- NOTE | 2017-05-09 09:35 | CARD ---
APPROVED REPORT EXAM: Two-dimensional and M-mode echocardiogram with Doppler and color Doppler. Other Information Quality : Technically LimitedLimitedRhythm : Technically limited study due to patient was uncooperative INDICATION Hypertension/HCVD 2D DIMENSIONS Left Atrium (2D)4.71 (1.6-4.0cm)IVSd1.23 (0.7-1.1cm) Aortic Root (2D)2.39 (2.0-3.7cm)LVDd4.39 (3.9-5.9cm) LVOT Diameter1.67 (1.8-2.4cm)PWd0.65 (0.7-1.1cm) IVSs1.26 (0.8-1.2cm)LVDs2.54 (2.5-4.0cm) FS (%) 42.1 %PWs1.33 (0.8-1.2cm) M-Mode DIMENSIONS Left Atrium (MM)4.76 (2.5-4.0cm)IVSd0.94 (0.7-1.1cm) Aortic Root3.17 (2.2-3.7cm)LVDd4.53 (4.0-5.6cm) Aortic Cusp Exc.1.47 (1.5-2.0cm)PWd1.10 (0.7-1.1cm) IVSs1.28 cmFS (%) 38 % LVDs2.83 (2.0-3.8cm)PWs1.66 cm Aortic Valve AoV Peak Quywckos239.7cm/sAoV VTI43.2cmAO Peak GR.18mmHg LVOT Peak Haapofox132.9cm/sLVOT VTI24.54cmAO Mean GR.10mmHg HELENA (VMAX)0.32gg8WYH (VTI)0.69cm2 Mitral Valve MV E Phgwxuid35.1cm/sMV DECEL [id number] A Bqdxcqps216.4cm/s MV VJG38ohJ/A ratio0.7MVA (PHT)2.39cm2 TDI E/Lateral E'0.0E/Medial E'0.0 Pulmonary Valve PV Peak Vnikoeum837.6cm/s Tricuspid Valve TR Peak Slwuahyn634cp/sRAP QYLQBZRF10eePbIM Peak Gr.36mmHg KLHE03ouBu LEFT VENTRICLE The left ventricle is normal size. There is normal left ventricular wall thickness. The left ventricular function is normal. The left ventricular ejection fraction is 60-65% There is normal LV segmental wall motion. Transmitral Doppler flow pattern is Grade II-pseudonormal filling dynamics. No left ventricle thrombus noted on this study. There is no ventricular septal defect visualized. There is no left ventricular aneurysm. There is no mass noted in the left ventricle. RIGHT VENTRICLE The right ventricle is normal size. There is normal right ventricular wall thickness. The right ventricular systolic function is normal. ATRIA The left atrium size is normal. The right atrium size is normal. The interatrial septum is intact with no evidence for an atrial septal defect. AORTIC VALVE The aortic valve is moderately calcified. No aortic regurgitation is present. There is mild valvular aortic stenosis. Calculated aortic valve area is 1.3 cm2 with maximum pressure gradient of 17 mmHg and mean pressure gradient of 9 mmHg. There is no aortic valvular vegetation. MITRAL VALVE Mitral annular calcification is mild to moderate. The mitral valve leaflets are calcified. There is no evidence of mitral valve prolapse. There is no mitral valve stenosis. Mitral regurgitation is mild. TRICUSPID VALVE The tricuspid valve is normal in structure and function. There is moderate tricuspid regurgitation. Right ventricular systolic pressure is estimated at 30-40 mmHg. There is no tricuspid valve prolapse or vegetation. There is no tricuspid valve stenosis. PULMONIC VALVE The pulmonary valve is normal in structure and function. There is no pulmonic valvular regurgitation. There is no pulmonic valvular stenosis. GREAT VESSELS The aortic root is normal in size. The ascending aorta is normal in size. The IVC is normal in size and collapses >50% with inspiration. PERICARDIAL EFFUSION The pericardium appears normal. There is a pleural effusion present <Conclusion> Normal LV Function Mild Aortic Stenosis HELENA 1.3 cm2 Mild Mitral Regurgitation Mitral Annular Calcification Calcified Mitral Valve Pleural Effusion
--- NOTE | 2017-05-09 10:46 | CARD ---
APPROVED REPORT EKG Measurement Heart [id number] <Conclusion> Atrial fibrillation with rapid ventricular response with premature ventricular or aberrantly conducted complexes Nonspecific T wave abnormality Abnormal ECG
[2017-05-09] MEDS: cefTRIAXone IV 1 gm in Dextros 50 ML IVPB SCH (11:00)
--- NOTE | 2017-05-09 11:02 | CARD ---
APPROVED REPORT EKG Measurement Heart [id number] <Conclusion> Atrial fibrillation Abnormal ECG
--- NOTE | 2017-05-09 14:25 | CP.PCM.PN ---
Subjective - Date & Time of Evaluation Date of Evaluation: 05/09/17 Time of Evaluation: 13:00 - Subjective Subjective: F/u COPD Exacerbation. Pt confused, incoherent , no respiratory distress , on NC Objective - Vital Signs/Intake and Output Vital Signs (last 24 hours): Temp Pulse Resp BP Pulse Ox 97.6 F 128 H 20 112/53 L 95 05/09/17 12:43 05/09/17 12:43 05/09/17 12:43 05/09/17 12:43 05/09/17 12:43 Intake and Output: 05/09/17 05/09/17 06:59 18:59 Intake Total 250 250 Balance 250 250 - Medications Medications: Current Medications Acetaminophen (Tylenol 325mg Tab) 650 mg PO Q4 PRN PRN Reason: Fever >100.4 F Last Admin: 05/08/17 10:24 Dose: 650 mg Alprazolam (Xanax) 0.5 mg PO BID PRN PRN Reason: Anxiety Last Admin: 05/08/17 08:33 Dose: 0.5 mg Atorvastatin Calcium (Lipitor) 20 mg PO HS [facility] Last Admin: 05/08/17 22:08 Dose: 20 mg Furosemide (Lasix) 20 mg IVP Q12 [facility] Last Admin: 05/08/17 21:45 Dose: Not Given Hydralazine HCl (Apresoline) 25 mg PO BID [facility] Last Admin: 05/09/17 08:47 Dose: 25 mg Ceftriaxone Sodium (Rocephin Iv 1 Gm Duplex) 50 mls @ 50 mls/hr IVPB DAILY [facility] PRN Reason: Protocol Diltiazem HCl 100 mg/ Sodium (Chloride) 100 mls @ 5 mls/hr IV .Q20H ONE; 5 MG/ HR PRN Reason: Protocol Stop: 05/10/17 11:30 Last Admin: 05/09/17 11:30 Dose: 5 mls/hr Heparin Sodium/Dextrose (Heparin 25,000 Units/250ml In D5w) 25,000 units in 250 mls @ 0 mls/hr IV .Q0M [facility]; Per Protocol PRN Reason: Protocol Insulin Human Regular (Humulin R) 0 units SC ACHS [facility] PRN Reason: Protocol Last Admin: 05/09/17 08:48 Dose: Not Given Ipratropium [place] (Atrovent) 0.5 mg IH RQ6 [facility] Last Admin: 05/09/17 13:06 Dose: 0.5 mg Levalbuterol HCl (Xopenex) 0.63 mg INH RQ8 PRN PRN Reason: Shortness of Breath Meclizine HCl (Antivert) 25 mg PO Q8H PRN PRN Reason: Dizziness Methylprednisolone (Solu-Medrol) 30 mg IVP Q8 [facility] Last Admin: 05/09/17 08:50 Dose: 30 mg Metoprolol Tartrate (Lopressor) 50 mg PO Q12 [facility] Last Admin: 05/09/17 08:49 Dose: Not Given Nitroglycerin (Nitrostat Sl Tab) 0.4 mg SL Q5MIN PRN PRN Reason: chest pain Oxycodone/Acetaminophen (Percocet 5/325 Mg Tab) 1 tab PO Q4 PRN PRN Reason: Pain, severe (8-10) Stop: 05/10/17 06:46 Pantoprazole Sodium (Protonix Inj) 40 mg IVP DAILY [facility] Last Admin: 05/09/17 08:49 Dose: 40 mg Potassium Chloride (K-Dur 20 Meq Er Tab) 20 meq PO DAILY [facility] Last Admin: 05/09/17 08:49 Dose: 20 meq Sitagliptin Phosphate (Januvia) 100 mg PO DAILY [facility] Last Admin: 05/09/17 08:48 Dose: 100 mg Zolpidem Tartrate (Ambien) 5 mg PO HS PRN PRN Reason: Insomnia Last Admin: 05/08/17 21:28 Dose: 5 mg - Labs Labs: 05/09/17 04:20 05/09/17 04:20 PT 14.7 Seconds (9.8-13.1) H 05/08/17 16:00 INR 1.3 (0.9-1.2) H 05/08/17 16:00 APTT 81.6 Seconds (25.6-37.1) H D 05/09/17 04:20 - Constitutional Appears: No Acute Distress, Chronically Ill - Head Exam Head Exam: NORMAL INSPECTION - Eye Exam Eye Exam: PERRL - ENT Exam ENT Exam: Normal Exam - Neck Exam Neck Exam: Normal Inspection - Respiratory Exam Respiratory Exam: Decreased Breath Sounds (at bases), Rhonchi (scattered b/l) - Cardiovascular Exam Cardiovascular Exam: Irregular Rhythm - GI/Abdominal Exam GI & Abdominal Exam: Soft, Normal Bowel Sounds - Extremities Exam Extremities Exam: Normal Inspection - Back Exam Additional comments: Sacral pressure ulcer stage 1. POA - Neurological Exam Neurological Exam: Awake Additional comments: Confused , Incoherent. generalized weakness , no focal motor/sensory deficit. - Psychiatric Exam Psychiatric exam: Anxious, Depressed - Skin Skin Exam: Warm Assessment and Plan (1) COPD exacerbation Status: Resolved (2) Change in mental status Status: Acute (3) Atrial fibrillation with RVR Status: Resolved (4) Dyslipidemia Status: Chronic (5) Generalized weakness Status: Acute (6) Hypertension Status: Chronic (7) Lumbago Status: Chronic (8) Type 2 diabetes mellitus Status: Chronic (9) Anxiety Status: Chronic (10) Depression Status: Chronic (11) History of CVA (cerebrovascular accident) Status: Acute - Assessment and Plan (Free Text) Plan: Pt confused, incoherent, had [employer] SITE 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 f/u [facility] Lung Scan.
--- NOTE | 2017-05-09 15:33 | NM ---
COMPARISON: May 08, 2017. CT thorax TECHNIQUE: 36.7 mCi technetium 99-m DTPA aerosol. 4.6 mCI technetium 99-m MAA administered intravenously. FINDINGS: VENTILATION COMPONENT: Heterogeneous ventilation consistent with findings on recent CT scan, particularly at the lung bases. Retention of radionuclide in the tracheobronchial tree and ingestion of radionuclide in the stomach, incidental findings PERFUSION COMPONENT: Patchy diminished perfusion at the lung bases consistent with findings on recent CT scan. IMPRESSION: Low probability ventilation perfusion scan for pulmonary embolism.
[2017-05-09] MEDS ORDERED: Heparin 25,000units in D5W 25,000 UNITS/250 ML BAG IV SCH ×2 (16:15→18:45)
[2017-05-09] MEDS: Enoxaparin 80 mg Syringe SC SCH (22:02)
[2017-05-10] MEDS: Levalbuterol 0.63 MG/3 ML Inhal Soln UD INH PRN ×3 (00:59→19:43)
[2017-05-10] MEDS: Ipratropium 0.02% Inhal Soln (0.5 mg/2.5 ml) UD IH SCH ×4 (00:59→19:41)
--- NOTE | 2017-05-10 01:04 | CP.PCM.PN ---
Subjective - Date & Time of Evaluation Date of Evaluation: 05/09/17 Time of Evaluation: 14:00 Objective - Vital Signs/Intake and Output Vital Signs (last 24 hours): Temp Pulse Resp BP Pulse Ox 99.3 F 88 20 104/62 95 05/10/17 00:11 05/10/17 00:11 05/10/17 00:11 05/10/17 00:11 05/10/17 00:11 Intake and Output: 05/09/17 05/10/17 18:59 06:59 Intake Total 1340 Output Total 800 Balance 540 - Medications Medications: Current Medications Acetaminophen (Tylenol 325mg Tab) 650 mg PO Q4 PRN PRN Reason: Fever >100.4 F Last Admin: 05/08/17 10:24 Dose: 650 mg Alprazolam (Xanax) 0.5 mg PO BID PRN PRN Reason: Anxiety Last Admin: 05/08/17 08:33 Dose: 0.5 mg Atorvastatin Calcium (Lipitor) 20 mg PO HS [facility] Last Admin: 05/09/17 22:01 Dose: 20 mg Enoxaparin Sodium (Lovenox) 80 mg SC Q12 [facility] PRN Reason: Protocol Last Admin: 05/09/17 22:02 Dose: 80 mg Furosemide (Lasix) 20 mg IVP Q12 [facility] Last Admin: 05/09/17 22:01 Dose: 20 mg Hydralazine HCl (Apresoline) 25 mg PO BID [facility] Last Admin: 05/09/17 18:26 Dose: Not Given Ceftriaxone Sodium (Rocephin Iv 1 Gm Duplex) 50 mls @ 50 mls/hr IVPB DAILY [facility] PRN Reason: Protocol Last Admin: 05/09/17 11:00 Dose: 50 mls/hr Insulin Human Regular (Humulin R) 0 units SC ACHS [facility] PRN Reason: Protocol Last Admin: 05/09/17 21:41 Dose: Not Given Ipratropium [place] (Atrovent) 0.5 mg IH RQ6 [facility] Last Admin: 05/10/17 00:59 Dose: 0.5 mg Levalbuterol HCl (Xopenex) 0.63 mg INH RQ8 PRN PRN Reason: Shortness of Breath Last Admin: 05/10/17 00:59 Dose: 0.63 mg Meclizine HCl (Antivert) 25 mg PO Q8H PRN PRN Reason: Dizziness Methylprednisolone (Solu-Medrol) 30 mg IVP Q8 [facility] Last Admin: 05/09/17 18:37 Dose: 30 mg Metoprolol Tartrate (Lopressor) 50 mg PO Q12 [facility] Last Admin: 05/09/17 22:00 Dose: 50 mg Nitroglycerin (Nitrostat Sl Tab) 0.4 mg SL Q5MIN PRN PRN Reason: chest pain Oxycodone/Acetaminophen (Percocet 5/325 Mg Tab) 1 tab PO Q4 PRN PRN Reason: Pain, severe (8-10) Stop: 05/10/17 06:46 Pantoprazole Sodium (Protonix Inj) 40 mg IVP DAILY [facility] Last Admin: 05/09/17 08:49 Dose: 40 mg Potassium Chloride (K-Dur 20 Meq Er Tab) 20 meq PO DAILY [facility] Last Admin: 05/09/17 08:49 Dose: 20 meq Sitagliptin Phosphate (Januvia) 100 mg PO DAILY [facility] Last Admin: 05/09/17 08:48 Dose: 100 mg Zolpidem Tartrate (Ambien) 5 mg PO HS PRN PRN Reason: Insomnia Last Admin: 05/09/17 23:48 Dose: 5 mg - Labs Labs: 05/09/17 04:20 05/09/17 04:20 PT 14.7 Seconds (9.8-13.1) H 05/08/17 16:00 INR 1.3 (0.9-1.2) H 05/08/17 16:00 APTT 123.8 Seconds (25.6-37.1) H* D 05/09/17 16:44 - Constitutional Appears: Well - Head Exam Head Exam: ATRAUMATIC, NORMAL INSPECTION, NORMOCEPHALIC - Eye Exam Eye Exam: EOMI, Normal appearance, PERRL Pupil Exam: NORMAL ACCOMODATION, PERRL - ENT Exam ENT Exam: Mucous Membranes Moist, Normal Exam - Neck Exam Neck Exam: Full ROM, Normal Inspection. absent: Lymphadenopathy - Respiratory Exam Respiratory Exam: Clear to Ausculation Bilateral, NORMAL BREATHING PATTERN - Cardiovascular Exam Cardiovascular Exam: REGULAR RHYTHM, +S1, +S2. absent: Murmur - GI/Abdominal Exam GI & Abdominal Exam: Soft, Normal Bowel Sounds. absent: Tenderness - Rectal Exam Rectal Exam: NORMAL INSPECTION - Exam Exam: Circumcision, NORMAL INSPECTION External exam: NORMAL EXTERNAL EXAM Speculum exam: NORMAL SPECULUM EXAM Bimanual exam: NORMAL BIMANUAL EXAM - Extremities Exam Extremities Exam: Full ROM, Normal Capillary Refill, Normal Inspection. absent : Joint Swelling, Pedal Edema - Back Exam Back Exam: NORMAL INSPECTION - Neurological Exam Neurological Exam: Alert, Awake, CN II-XII Intact, Normal Gait, Oriented x3 - Psychiatric Exam Psychiatric exam: Normal Affect, Normal Mood - Skin Skin Exam: Dry, Intact, Normal Color, Warm Assessment and Plan (1) Atrial fibrillation with RVR Status: Acute (2) COPD exacerbation Status: Acute (3) Change in mental status Status: Acute (4) Chest pain Status: Acute (5) Dyslipidemia Status: Chronic (6) Generalized weakness Status: Chronic (7) Hypertension Status: Chronic (8) Type 2 diabetes mellitus Status: Chronic
[2017-05-10] MEDS: MethylPREDNISolone 40 mg Vial IVP SCH ×3 (01:45→17:00)
[2017-05-10] MEDS: Insulin Regular 100 units/ml SC SCH ×4 (07:28→22:14)
[2017-05-10] MEDS: Enoxaparin 80 mg Syringe SC SCH (08:44)
[2017-05-10] MEDS: Potassium Chloride 20 mEq ER Tab PO SCH (08:46)
[2017-05-10] MEDS: cefTRIAXone IV 1 gm in Dextros 50 ML IVPB SCH (10:54)
--- NOTE | 2017-05-10 12:52 | CP.PCM.PN ---
Subjective - Date & Time of Evaluation Date of Evaluation: 05/10/17 Time of Evaluation: 11:30 - Subjective Subjective: F/U COPD Exacerbation. Pt confused, incoherent, no A/D. Objective - Vital Signs/Intake and Output Vital Signs (last 24 hours): Temp Pulse Resp BP Pulse Ox 97.9 F 83 18 107/58 L 95 05/10/17 12:40 05/10/17 12:40 05/10/17 12:40 05/10/17 12:40 05/10/17 12:40 Intake and Output: 05/10/17 05/10/17 06:59 18:59 Intake Total 360 Output Total 400 Balance -40 - Medications Medications: Current Medications Acetaminophen (Tylenol 325mg Tab) 650 mg PO Q4 PRN PRN Reason: Fever >100.4 F Last Admin: 05/08/17 10:24 Dose: 650 mg Alprazolam (Xanax) 0.5 mg PO BID PRN PRN Reason: Anxiety Last Admin: 05/08/17 08:33 Dose: 0.5 mg Atorvastatin Calcium (Lipitor) 20 mg PO HS [facility] Last Admin: 05/09/17 22:01 Dose: 20 mg Diltiazem HCl (Cardizem) 60 mg PO Q8 [facility] Last Admin: 05/10/17 12:35 Dose: 60 mg Furosemide (Lasix) 20 mg IVP Q12 [facility] Last Admin: 05/10/17 09:37 Dose: 20 mg Hydralazine HCl (Apresoline) 25 mg PO BID [facility] Last Admin: 05/10/17 08:45 Dose: 25 mg Ceftriaxone Sodium (Rocephin Iv 1 Gm Duplex) 50 mls @ 50 mls/hr IVPB DAILY [facility] PRN Reason: Protocol Last Admin: 05/10/17 10:54 Dose: 50 mls/hr Insulin Human Regular (Humulin R) 0 units SC ACHS [facility] PRN Reason: Protocol Last Admin: 05/10/17 12:29 Dose: 1 u Ipratropium [place] (Atrovent) 0.5 mg IH RQ6 [facility] Last Admin: 05/10/17 07:27 Dose: 0.5 mg Levalbuterol HCl (Xopenex) 0.63 mg INH RQ8 PRN PRN Reason: Shortness of Breath Last Admin: 05/10/17 07:27 Dose: 0.63 mg Meclizine HCl (Antivert) 25 mg PO Q8H PRN PRN Reason: Dizziness Methylprednisolone (Solu-Medrol) 30 mg IVP Q8 [facility] Last Admin: 05/10/17 08:46 Dose: 30 mg Metoprolol Tartrate (Lopressor) 50 mg PO Q12 [facility] Last Admin: 05/10/17 09:39 Dose: 50 mg Nitroglycerin (Nitrostat Sl Tab) 0.4 mg SL Q5MIN PRN PRN Reason: chest pain Pantoprazole Sodium (Protonix Inj) 40 mg IVP DAILY [facility] Last Admin: 05/10/17 08:48 Dose: 40 mg Potassium Chloride (K-Dur 20 Meq Er Tab) 20 meq PO DAILY [facility] Last Admin: 05/10/17 08:46 Dose: 20 meq Sitagliptin Phosphate (Januvia) 100 mg PO DAILY [facility] Last Admin: 05/10/17 08:45 Dose: 100 mg Zolpidem Tartrate (Ambien) 5 mg PO HS PRN PRN Reason: Insomnia Last Admin: 05/09/17 23:48 Dose: 5 mg - Labs Labs: 05/09/17 04:20 05/09/17 04:20 PT 14.7 Seconds (9.8-13.1) H 05/08/17 16:00 INR 1.3 (0.9-1.2) H 05/08/17 16:00 APTT 123.8 Seconds (25.6-37.1) H* D 05/09/17 16:44 - Constitutional Appears: No Acute Distress, Chronically Ill - Head Exam Head Exam: NORMAL INSPECTION - Eye Exam Eye Exam: PERRL - ENT Exam ENT Exam: Normal Exam - Neck Exam Neck Exam: Normal Inspection - Respiratory Exam Respiratory Exam: Decreased Breath Sounds (at bases), Rhonchi (scattered b/l) - Cardiovascular Exam Cardiovascular Exam: Irregular Rhythm - GI/Abdominal Exam GI & Abdominal Exam: Soft, Normal Bowel Sounds - Extremities Exam Extremities Exam: Normal Inspection - Back Exam Additional comments: Sacral pressure ulcer stage 1. POA - Neurological Exam Neurological Exam: Awake Additional comments: Confused, forgetful, generalized weakness, no focal motor/sensory deficit. - Psychiatric Exam Psychiatric exam: Anxious, Depressed - Skin Skin Exam: Warm Assessment and Plan (1) COPD exacerbation Status: Resolved (2) Change in mental status Status: Acute (3) Atrial fibrillation with RVR Status: Resolved (4) Dyslipidemia Status: Chronic (5) Generalized weakness Status: Acute (6) Hypertension Status: Chronic (7) Lumbago Status: Chronic (8) Type 2 diabetes mellitus Status: Chronic (9) Anxiety Status: Chronic (10) Depression Status: Chronic (11) History of CVA (cerebrovascular accident) Status: Acute - Assessment and Plan (Free Text) Plan: A Fib rate better controlled, HR 100-105, Heparin drip and Cardizem drip were DC , on Lovenox, Cardizem 60 po q 8, Lopressor 50 po bid, Lasix 20 IV, Rocephin, continue rest of Tx.
[2017-05-11] MEDS: MethylPREDNISolone 40 mg Vial IVP SCH ×3 (00:40→16:51)
[2017-05-11] MEDS: Ipratropium 0.02% Inhal Soln (0.5 mg/2.5 ml) UD IH SCH ×4 (02:05→19:12)
[2017-05-11] MEDS: Insulin Regular 100 units/ml SC SCH ×4 (06:57→21:23)
[2017-05-11] MEDS: cefTRIAXone IV 1 gm in Dextros 50 ML IVPB SCH (08:39)
--- NOTE | 2017-05-11 13:21 | CP.PCM.PN ---
Subjective - Date & Time of Evaluation Date of Evaluation: 05/11/17 Time of Evaluation: 10:40 - Subjective Subjective: F/U COPD Exacerbation. Pt awake, o A/D, confused, calm, answer simple questions. Objective - Vital Signs/Intake and Output Vital Signs (last 24 hours): Temp Pulse Resp BP Pulse Ox 97.9 F 77 20 113/68 95 05/11/17 11:56 05/11/17 11:56 05/11/17 11:56 05/11/17 11:56 05/11/17 11:56 Intake and Output: 05/11/17 05/11/17 06:59 18:59 Intake Total 200 Output Total 1150 Balance -950 - Medications Medications: Current Medications Acetaminophen (Tylenol 325mg Tab) 650 mg PO Q4 PRN PRN Reason: Fever >100.4 F Last Admin: 05/10/17 16:58 Dose: 650 mg Alprazolam (Xanax) 0.5 mg PO BID PRN PRN Reason: Anxiety Last Admin: 05/08/17 08:33 Dose: 0.5 mg Apixaban (Eliquis) 2.5 mg PO BID [facility] PRN Reason: Protocol Last Admin: 05/10/17 16:46 Dose: 2.5 mg Atorvastatin Calcium (Lipitor) 20 mg PO HS [facility] Last Admin: 05/10/17 22:18 Dose: 20 mg Diltiazem HCl (Cardizem) 60 mg PO Q8 [facility] Last Admin: 05/11/17 00:42 Dose: 60 mg Furosemide (Lasix) 20 mg IVP Q12 [facility] Last Admin: 05/10/17 22:11 Dose: 20 mg Hydralazine HCl (Apresoline) 25 mg PO BID [facility] Last Admin: 05/11/17 08:40 Dose: 25 mg Ceftriaxone Sodium (Rocephin Iv 1 Gm Duplex) 50 mls @ 50 mls/hr IVPB DAILY [facility] PRN Reason: Protocol Last Admin: 05/11/17 08:39 Dose: 50 mls/hr Insulin Human Regular (Humulin R) 0 units SC ACHS [facility] PRN Reason: Protocol Last Admin: 05/11/17 06:57 Dose: 1 u Ipratropium [place] (Atrovent) 0.5 mg IH RQ6 [facility] Last Admin: 05/11/17 07:15 Dose: 0.5 mg Levalbuterol HCl (Xopenex) 0.63 mg INH RQ8 PRN PRN Reason: Shortness of Breath Last Admin: 05/10/17 19:43 Dose: 0.63 mg Meclizine HCl (Antivert) 25 mg PO Q8H PRN PRN Reason: Dizziness Methylprednisolone (Solu-Medrol) 30 mg IVP Q8 [facility] Last Admin: 05/11/17 00:40 Dose: 30 mg Metoprolol Tartrate (Lopressor) 50 mg PO Q12 [facility] Last Admin: 05/10/17 22:17 Dose: 50 mg Nitroglycerin (Nitrostat Sl Tab) 0.4 mg SL Q5MIN PRN PRN Reason: chest pain Pantoprazole Sodium (Protonix Inj) 40 mg IVP DAILY [facility] Last Admin: 05/11/17 08:39 Dose: 40 mg Potassium Chloride (K-Dur 20 Meq Er Tab) 20 meq PO DAILY [facility] Last Admin: 05/10/17 08:46 Dose: 20 meq Sitagliptin Phosphate (Januvia) 100 mg PO DAILY [facility] Last Admin: 05/10/17 08:45 Dose: 100 mg Zolpidem Tartrate (Ambien) 5 mg PO HS PRN PRN Reason: Insomnia Last Admin: 05/11/17 00:42 Dose: 5 mg - Labs Labs: 05/09/17 04:20 05/09/17 04:20 PT 14.7 Seconds (9.8-13.1) H 05/08/17 16:00 INR 1.3 (0.9-1.2) H 05/08/17 16:00 APTT 123.8 Seconds (25.6-37.1) H* D 05/09/17 16:44 - Constitutional Appears: No Acute Distress, Chronically Ill - Head Exam Head Exam: NORMAL INSPECTION - Eye Exam Eye Exam: PERRL - ENT Exam ENT Exam: Normal Exam - Neck Exam Neck Exam: Normal Inspection - Respiratory Exam Respiratory Exam: Decreased Breath Sounds (at bases), Rhonchi (scattered b/l) - Cardiovascular Exam Cardiovascular Exam: REGULAR RHYTHM - GI/Abdominal Exam GI & Abdominal Exam: Soft, Normal Bowel Sounds - Extremities Exam Extremities Exam: Normal Inspection - Back Exam Additional comments: Sacral pressure ulcer stage 1. POA - Neurological Exam Neurological Exam: Awake Additional comments: Confused, forgetful, generalized weakness, no focal motor/sensory deficit - Psychiatric Exam Psychiatric exam: Anxious, Depressed - Skin Skin Exam: Warm Assessment and Plan (1) COPD exacerbation Status: Resolved (2) Change in mental status Status: Acute (3) Atrial fibrillation with RVR Status: Resolved (4) A-fib Status: Acute (5) Dyslipidemia Status: Chronic (6) Generalized weakness Status: Acute (7) Hypertension Status: Chronic (8) Lumbago Status: Chronic (9) Type 2 diabetes mellitus Status: Chronic (10) Anxiety Status: Chronic (11) Depression Status: Chronic (12) History of CVA (cerebrovascular accident) Status: Acute - Assessment and Plan (Free Text) Plan: Pt was seen by PT recommended COLBY, continue current medications, f/u with Social Service for COLBY.
[2017-05-11] MEDS: Potassium Chloride 20 mEq ER Tab PO SCH (14:15)
[2017-05-12] MEDS: MethylPREDNISolone 40 mg Vial IVP SCH ×2 (02:04→09:12)
[2017-05-12] MEDS: Insulin Regular 100 units/ml SC SCH ×3 (06:54→16:09)
[2017-05-12] MEDS: Ipratropium 0.02% Inhal Soln (0.5 mg/2.5 ml) UD IH SCH ×2 (07:30→13:12)
[2017-05-12] MEDS: cefTRIAXone IV 1 gm in Dextros 50 ML IVPB SCH (09:11)
[2017-05-12] MEDS: Potassium Chloride 20 mEq ER Tab PO SCH (09:15)
--- NOTE | 2017-05-12 15:40 | CP.PCM.PN ---
Subjective - Date & Time of Evaluation Date of Evaluation: 05/12/17 Time of Evaluation: 11:10 - Subjective Subjective: F/U COPD Exacerbation Awake , confused , N/C , no AD, no SOB Objective - Vital Signs/Intake and Output Vital Signs (last 24 hours): Temp Pulse Resp BP Pulse Ox 99.2 F 68 20 103/53 L 94 L 05/12/17 12:44 05/12/17 12:44 05/12/17 12:44 05/12/17 12:44 05/12/17 12:44 - Medications Medications: Current Medications Acetaminophen (Tylenol 325mg Tab) 650 mg PO Q4 PRN PRN Reason: Fever >100.4 F Last Admin: 05/10/17 16:58 Dose: 650 mg Alprazolam (Xanax) 0.5 mg PO BID PRN PRN Reason: Anxiety Last Admin: 05/08/17 08:33 Dose: 0.5 mg Apixaban (Eliquis) 2.5 mg PO BID [facility] PRN Reason: Protocol Last Admin: 05/12/17 09:14 Dose: 2.5 mg Atorvastatin Calcium (Lipitor) 20 mg PO HS [facility] Last Admin: 05/11/17 21:20 Dose: 20 mg Diltiazem HCl (Cardizem) 60 mg PO Q8 [facility] Last Admin: 05/12/17 09:14 Dose: 60 mg Furosemide (Lasix) 20 mg IVP Q12 [facility] Last Admin: 05/12/17 09:23 Dose: 20 mg Hydralazine HCl (Apresoline) 25 mg PO BID [facility] Last Admin: 05/12/17 09:14 Dose: 25 mg Ceftriaxone Sodium (Rocephin Iv 1 Gm Duplex) 50 mls @ 50 mls/hr IVPB DAILY [facility] PRN Reason: Protocol Last Admin: 05/12/17 09:11 Dose: 50 mls/hr Insulin Human Regular (Humulin R) 0 units SC ACHS [facility] PRN Reason: Protocol Last Admin: 05/12/17 06:54 Dose: 1 u Ipratropium [place] (Atrovent) 0.5 mg IH RQ6 [facility] Last Admin: 05/12/17 13:12 Dose: 0.5 mg Levalbuterol HCl (Xopenex) 0.63 mg INH RQ8 PRN PRN Reason: Shortness of Breath Last Admin: 05/10/17 19:43 Dose: 0.63 mg Meclizine HCl (Antivert) 25 mg PO Q8H PRN PRN Reason: Dizziness Methylprednisolone (Solu-Medrol) 30 mg IVP Q8 [facility] Last Admin: 05/12/17 09:12 Dose: 30 mg Metoprolol Tartrate (Lopressor) 50 mg PO Q12 [facility] Last Admin: 05/12/17 09:15 Dose: 50 mg Nitroglycerin (Nitrostat Sl Tab) 0.4 mg SL Q5MIN PRN PRN Reason: chest pain Pantoprazole Sodium (Protonix Inj) 40 mg IVP DAILY [facility] Last Admin: 05/12/17 09:11 Dose: 40 mg Potassium Chloride (K-Dur 20 Meq Er Tab) 20 meq PO DAILY [facility] Last Admin: 05/12/17 09:15 Dose: 20 meq Sitagliptin Phosphate (Januvia) 100 mg PO DAILY [facility] Last Admin: 05/12/17 09:15 Dose: 100 mg Zolpidem Tartrate (Ambien) 5 mg PO HS PRN PRN Reason: Insomnia Last Admin: 05/11/17 22:40 Dose: 5 mg - Labs Labs: 05/09/17 04:20 05/09/17 04:20 PT 14.7 Seconds (9.8-13.1) H 05/08/17 16:00 INR 1.3 (0.9-1.2) H 05/08/17 16:00 APTT 123.8 Seconds (25.6-37.1) H* D 05/09/17 16:44 - Constitutional Appears: No Acute Distress, Chronically Ill - Head Exam Head Exam: NORMAL INSPECTION - Eye Exam Eye Exam: PERRL - ENT Exam ENT Exam: Normal Exam - Neck Exam Neck Exam: Normal Inspection - Respiratory Exam Respiratory Exam: Decreased Breath Sounds (at bases), Rhonchi (few at bases) - Cardiovascular Exam Cardiovascular Exam: Irregular Rhythm - GI/Abdominal Exam GI & Abdominal Exam: Soft, Normal Bowel Sounds - Extremities Exam Extremities Exam: Normal Inspection - Back Exam Additional comments: Sacral pressure ulcer stage 1. POA - Neurological Exam Neurological Exam: Awake Additional comments: Confused, forgetful, generalized weakness, no focal motor/sensory deficit. - Psychiatric Exam Psychiatric exam: Anxious, Depressed - Skin Skin Exam: Warm Assessment and Plan (1) COPD exacerbation Status: Resolved (2) Change in mental status Status: Acute (3) Atrial fibrillation with RVR Status: Resolved (4) A-fib Status: Acute (5) Dyslipidemia Status: Chronic (6) Generalized weakness Assessment & Plan: Acute on chronic Status: Acute (7) Hypertension Status: Chronic (8) Lumbago Status: Chronic (9) Type 2 diabetes mellitus Status: Chronic (10) Anxiety Status: Chronic (11) Depression Status: Chronic (12) History of CVA (cerebrovascular accident) Status: Acute - Assessment and Plan (Free Text) Plan: Improved , Stable to be DD to [facility] , see inst/med sheet , I will follow Patient in this Facility
[2017-05-12 16:34] VITALS: BP 121/60; PULSE 90; RESP 16; TEMP 98.5; O2SAT 98
[2017-05-13] MEDS: Ipratropium 0.02% Inhal Soln (0.5 mg/2.5 ml) UD IH SCH (01:00)
--- NOTE | 2017-05-13 16:20 | PQF PNEUMO ---
Dr. Granado pneumonia was documented. Was this diagnosis ruled in or out? This form is a permanent part of the medical record Clarification of your documentation is requested to better reflect the severity of illness and intensity of treatment of your patient. Indicators present [x] Documented diagnosis of pneumonia [] X-ray findings: [] Positive Sputum cultures [] Cough w/ fever [] Abnormal lungs sounds [] Poor gag reflex [] Speech consults/swallow evaluation [] Vent dependence [] Other: [] Location in the medical record that reflects the above clinical findings: [] Treatment Provided: [] PHYSICIAN'S RESPONSE Based on your medical judgment of the clinical indicators outlined above, are you treating this patient for a known or suspected: [] Aspiration pneumonia [] Community acquired pneumonia [] Ventilator associated pneumonia [] Viral pneumonia [] Bacterial pneumonia Please specify organism: [] [] Other, please indicate [] If Unable to Determine, please check the box, sign and date. Present On Admission (POA) Indicator: [] Present at the time of admission [] Not present at the time of admission [] Clinically Undetermined In responding to this query, please exercise your independent professional judgment. The fact that a question is asked does not imply that any particular answer is desired or expected. Thank you for your clarification on this documentation. If you have any questions please call:[ ] * Thank you, [ ]Rahel QUINTEROS Coder DINORAH
--- NOTE | 2017-05-13 16:27 | PQF SKIN ---
Dr. Granado sacral ulcer stage 1 is documented 05/09 progress note. Please clarify type below. This form is a permanent part of the medical record Clarification of your documentation is requested to better reflect the severity of illness and intensity of treatment of your patient. Indicators present [x] Documentation of skin ulcer [] Skin breakdown [] Skin wounds [] Wound Care consult [] Nursing assessment [] Mobility decreased [] Poor nutrition [] Other: [] Location in the medical record that reflects the above clinical findings: [] Treatment Provided: [] PHYSICIAN'S RESPONSE Based on your medical judgment of the clinical indicators outlined above, are you treating this patient for a known or suspected: Present On Admission [] Skin ulcer NOS Please document site [] [] Yes [] No [] Breakdown, [] Exposed fat layer, [] Necrosis muscle, [] necrosis bone. Please document site [] [] PVD/PAD associated ulcer [] Yes [] No [] Diabetic ulcer Please document site [] [] Yes [] No [] Decubitus ulcer Please document site[] []Yes []No [] Other, please indicate [] [] Yes [] No [] If Unable to Determine, please check the box, sign and date. In responding to this query, please exercise your independent professional judgment. The fact that a question is asked does not imply that any particular answer is desired or expected. Thank you for your clarification on this documentation. If you have any questions please call:[ ] * Thank you, [ ] baggage and mail agent Pressure Ulcer Stage Descriptions *if the ulcer deteriorates during the admission/encounter, report the deepest stage of ulceration Stage I: Intact skin with non-blanchable redness of a localized area usually over a bony prominence; darkly pigmented skin may not have visible blanching Stage II: Partial thickness loss of dermis presenting as a shallow open ulcer with a red pink wound bed, without slough - may also present as an intact or open/ruptured serum filled blister Stage III: Full thickness tissue loss; subcutaneous fat may be visible but bone , tendon or muscle are not exposed. Slough may be present but does not obscur the depth of tissue loss - may include undermining and tunneling Stage IV: Full thickness tissue loss with exposed bone, tendon or muscle - slough eschar may be present on some parts of the wound bed; often includes undermining and tunneling Unstageable: Full thickness tissue loss in which the base of the ulcer is convered by slough and/or eschar *if the "unstageable ulcer" is "staged" during the admission/encounter, report the stage Suspected Deep Tissue Injury: Purple or maroon localized area of discolored intact skin or blood filled blister d/t damage of the underlying soft tissue from pressure and/or sheer. The wound may further evolve and become covered by a thin eschar. Evolution may be rapid exposing additional layers of tissue even with optimal treatment.~~~~~~~~~~~~~~~~~~~~~~~~~~~~~~~~~~~~~~~~~~~~~~~~~~~~~~~~~ ~~~~~~~~~~~~~~~~~~~~~~~~~~~~~~~~~~~~~~~~~~~~~~~~~~~~~~~~~~~~~~~~ CATALINA; 2006 REFERENCE: JORDANA COPELAND
== END 2017-05-12 17:15 | DRG 192 ==
LOC: H.ER 16:44 → H.ERHOLD 19:08 → H.TEL 21:17
PROVIDERS: ADMIT Internal Medicine Pulmonary Disease; ATTEND Internal Medicine Pulmonary Disease
PROC: 3E0234Z Introduction of Serum, Toxoid and Vaccine into Muscle, Percutaneous Approach (ICD-10-PCS; principal; 2017-05-06)
DX: J44.1 Chronic obstructive pulmonary disease with (acute) exacerbation (principal); L89.151 Pressure ulcer of sacral region, stage 1; I48.91 Unspecified atrial fibrillation; I11.0 Hypertensive heart disease with heart failure; I50.9 Heart failure, unspecified; E11.9 Type 2 diabetes mellitus without complications; Z23 Encounter for immunization; Z91.041 Radiographic dye allergy status; E87.6 Hypokalemia; E78.00 Pure hypercholesterolemia, unspecified; F41.9 Anxiety disorder, unspecified; M19.90 Unspecified osteoarthritis, unspecified site; Z86.73 Personal history of transient ischemic attack (TIA), and cerebral infarction without residual deficits; F32.9 Major depressive disorder, single episode, unspecified; M81.0 Age-related osteoporosis without current pathological fracture; E78.5 Hyperlipidemia, unspecified; G89.29 Other chronic pain; R53.1 Weakness

== ENCOUNTER 2017-08-18 06:57 | Inpatient (IN) | payer MEDICARE, MEDICAID ==
[2017-08-18 06:57] VITALS: BMI 33.9
--- NOTE | 2017-08-18 07:26 | ED PDOC ---
HPI: Chest Pain Time Seen by Provider: 08/18/17 07:09 Chief Complaint (Nursing): Chest Pain Chief Complaint (Provider): Chest pain History Per: Patient, Family Onset/Duration Of Symptoms: Hrs (1) Current Symptoms Are (Timing): Still Present Quality: "Pain" Associated Symptoms: Dyspnea Additional History Per: Family Additional Complaint(s): 81yo female with history of COPD, CHF, A-fib, hypertension, presents to ED accompanied by her son via ALS after awakening this morning with chest pain, palpitations and dyspnea. Of note, patient's son recently passed way 2 weeks ago and she reports she "sees him." Patient's other son reports the patient has been depressed and has been non-compliant with her medications including furosemide, dilitazem, and metoprolol. Son reports the patient's legs and feet have been increasingly swollen. The patient denies any flu like symptoms including fever, cough or vomiting. No other complaints. Past Medical History Reviewed: Historical Data, Nursing Documentation, Vital Signs Vital Signs: Last Vital Signs Temp 98.2 F 08/18/17 07:12 Pulse 103 H 08/18/17 08:16 Resp 20 08/18/17 08:16 BP 146/86 08/18/17 08:16 Pulse Ox 94 L 08/18/17 09:27 - Medical History PMH: Anemia, Anxiety, Arthritis, Back Problems, CHF, COPD, CVA, Depression, Diabetes, Diverticulitis, HTN, Hypercholesterolemia, Osteoporosis, Pneumonia, TIA Denies: HIV, Chronic Kidney Disease - Surgical History Surgical History: No Surg Hx Denies: Pacemaker - Family History Family History: States: No Known Family Hx, Unknown Family Hx - Living Arrangements Living Arrangements: Alone (family is nearby) - Social History Current smoker - smoking cessation education provided: No - Home Medications Home Medications: Ambulatory Orders Medication Instructions Recorded Albuterol HFA [Ventolin HFA 90 2 puff IH Q4H PRN 08/18/17 mcg/actuation (8 g)] Alprazolam [Xanax] 0.5 mg PO Q12H PRN 08/18/17 Apixaban [Eliquis] 2.5 mg PO Q12H 08/18/17 Diclofenac Sodium [Voltaren] 1 appl TOP DAILY PRN 08/18/17 Esomeprazole Magnesium [Nexium] 40 mg PO DAILY 08/18/17 Fluticasone/Salmeterol 500/50 1 puff IH Q12H 08/18/17 [Advair Diskus 500/50] Furosemide [Lasix] 20 mg PO BID 08/18/17 Ketoconazole [Nizoral] 1 appl TOP MWF 08/18/17 Meclizine [Meclizine*] 25 mg PO Q8H PRN 08/18/17 Metoprolol Tartrate [Lopressor] 50 mg PO Q12H 08/18/17 Mometasone 0.1% [Elocon Cream] 1 appl TOP HS 08/18/17 Mupirocin 2% Ointment [Bactroban 1 appl TOP BID 08/18/17 Ointment] Oxycodone HCl/Acetaminophen 1 tab PO Q6H PRN 08/18/17 [Percocet 7.5-325 mg Tablet] Potassium Chloride [K-Dur 20 mEq 20 meq PO DAILY 08/18/17 ER Tab] Zolpidem [Ambien] 10 mg PO HS PRN 08/18/17 diltiaZEM [Cardizem] 60 mg PO Q8H 08/18/17 hydrALAZINE [Apresoline] 25 mg PO Q12H 08/18/17 - Allergies Allergies/Adverse Reactions: Allergies Allergy/AdvReac Type Severity Reaction Status Date / Time iodine Allergy RASH Verified 10/26/16 18:55 Review of Systems ROS Statement: Except As Marked, All Systems Reviewed And Found Negative Constitutional: Negative for: Fever Cardiovascular: Positive for: Chest Pain, Palpitations, Other (dyspnea) Respiratory: Negative for: Cough Gastrointestinal: Negative for: Vomiting Neurological: Positive for: Dizziness Psych: Positive for: Anxiety, Depression Physical Exam - Reviewed Nursing Documentation Reviewed: Yes Vital Signs Reviewed: Yes - Physical Exam Appears: Positive for: Non-toxic Head Exam: Positive for: ATRAUMATIC, NORMAL INSPECTION, NORMOCEPHALIC Skin: Positive for: Normal Color, Warm Eye Exam: Positive for: Normal appearance, EOMI, PERRL Neck: Positive for: Supple Cardiovascular/Chest: Positive for: Tachycardia, Irregularly Irregular Respiratory: Positive for: Normal Breath Sounds. Negative for: Respiratory Distress Gastrointestinal/Abdominal: Positive for: Normal Exam, Soft. Negative for: Tenderness Extremity: Positive for: Pedal Edema (3+ edema to bilateral lower extremities with trace erythema to calves and anterior lower legs). Negative for: Deformity Neurologic/Psych: Positive for: Alert, Oriented. Negative for: Motor/Sensory Deficits - Laboratory Results Result Diagrams: 08/18/17 07:45 08/18/17 07:45 - ECG O2 Sat by Pulse Oximetry: 94 Medical Decision Making Medical Decision Making: Impression: Chest pain Plan: -- Patient given 20mg cardizem IV by EMS prior to arrival which slowed RVR. Heart rate here improved but still remains rapid. Blood pressure is sufficient so will give PO cardizem. Patient did not take daily medications, will discuss with Dr. Granado. -- Labs -- Chest x-ray labs reviewed, trop neg. Time: [address] Granado, patient to be admitted for chest pain, atrial fibrillation with RVR, and lower extremity edema. Dr Rosales to consult, aware. Low dose lasix ordered for LE edema, oral diltiazem initiated given mild RVR persisting. Results d/w son\\ Scribe Attestation: Documented by Dorie Luke acting as a scribe for Candido Parisi DO. Provider Attestation: All medical record entries made by the Scribe were at my direction and personally dictated by me. I have reviewed the chart and agree that the record accurately reflects my personal performance of the history, physical exam, medical decision making, and the department course for this patient. I have also personally directed, reviewed, and agree with the discharge instructions and disposition. Disposition - Clinical Impression Clinical Impression: Atrial fibrillation with rapid ventricular response, Lower extremity edema, Chest pain - Patient ED Disposition Is Patient to be Admitted: Yes Counseled Patient/Family Regarding: Studies Performed, Diagnosis, Need For Followup - Disposition Disposition Time: 09:11 Condition: FAIR - Pt Status Changed To: Hospital Disposition Of: Inpatient - Admit Certification Admit to Inpatient:: After my assessment, the patient will require hospitalization for at least two midnights. This is because of the severity of symptoms shown, intensity of services needed, and/or the medical risk in this patient being treated as an outpatient. - POA Present On Arrival: None
[2017-08-18 08:14] LABS: BASO % 0.8 % (0.0-2.0); EOS # 0.1 K/uL (0.0-0.7); EOS % 1.1 % (0.0-4.0); HEMOGLOBIN 10.8 g/dL (12.0-16.0); INR 1.1 (0.9-1.2); LYMPH # 1.1 K/uL (1.0-4.3); MEAN CELL VOLUME 84.3 fl (81.0-99.0); MEAN CORPUSCULAR HEMOGLOBIN 27.1 pg (27.0-31.0); MEAN CORPUSCULAR HGB CONC 32.1 g/dL (33.0-37.0); MEAN PLATELET VOLUME 8.8 fl (7.2-11.7); MONO # 0.6 K/uL (0.0-0.8); MONO % 11.2 % (0.0-10.0); NEUT # 3.4 K/uL (1.8-7.0); NEUT % 65.9 % (50.0-75.0); NRBC % 0.1 % (0.0-0.0); PARTIAL THROMBOPLASTIN TIME 40.9 Seconds (25.6-37.1); RED CELL DISTRIBUTION WIDTH 17.3 % (11.5-14.5); WHITE BLOOD COUNT 5.2 K/uL (4.8-10.8)
[2017-08-18 08:22] LABS: ALBUMIN 3.3 g/dL (3.5-5.0); GFR AFRICAN-AMERICAN > 60; GFR NON-AFRICAN AMERICAN > 60
[2017-08-18 08:26] LABS: ALT/SGPT 21 U/L (9-52); AST/SGOT 25 U/L (14-36); BLOOD UREA NITROGEN 12 mg/dl (7-17)
[2017-08-18 08:34] LABS: B-TYPE NATRIURETIC PEPTIDE 554 pg/ml (0-900)
--- NOTE | 2017-08-18 11:24 | RAD ---
HISTORY: SOB COMPARISON: 05/06/2017 FINDINGS: LUNGS: No active pulmonary disease. PLEURA: Small bilateral pleural effusion. CARDIOVASCULAR: Normal heart size. Mild congestive change. OSSEOUS STRUCTURES: No significant abnormalities. VISUALIZED UPPER ABDOMEN: Normal. OTHER FINDINGS: None. IMPRESSION: Bilateral pleural effusion. Mild congestive change.
[2017-08-18 14:09] LABS: SQUAMOUS EPITHIAL 1 /hpf (0-5); URINE BILIRUBIN NEGATIVE (NEGATIVE); URINE BLOOD SMALL (NEGATIVE); URINE CLARITY SLIGHTY-CLOUDY (Clear); URINE COLOR STRAW (YELLOW); URINE GLUCOSE (UA) NEG (Normal); URINE LEUKOCYTE ESTERASE LARGE Leu/uL (Negative); URINE NITRATE NEGATIVE (NEGATIVE); URINE PROTEIN NEGATIVE (NEGATIVE); URINE UROBILINOGEN 0.2-1.0 mg/dL (0.2-1.0)
[2017-08-18] MEDS ORDERED: Albuterol HFA 90 mcg/actuation (8 g) IH PRN (15:04)
--- NOTE | 2017-08-18 17:05 | US ---
PROCEDURE: Bilateral lower extremity venous duplex Doppler. HISTORY: swelling COMPARISON: None available. TECHNIQUE: Bilateral common femoral, superficial femoral, popliteal and posterior tibial veins were evaluated. Flow was assessed with color Doppler, compressibility, assessment of phasic flow and augmentation response. FINDINGS: COMMON FEMORAL VEIN: Right CFV: Unremarkable. Left CFV: Unremarkable. SUPERFICIAL FEMORAL VEIN: Right SFV: Unremarkable. Left SFV: Unremarkable. POPLITEAL VEIN: Right Popliteal: Unremarkable. Left Popliteal: Unremarkable. POSTERIOR TIBIAL VEIN: Right PTV: Unremarkable. Left PTV: Unremarkable. OTHER FINDINGS: None. IMPRESSION: No evidence of deep venous thrombosis.
[2017-08-18] MEDS: Fluticasone-Salmeterol 500-50mcg Diskus IH SCH ×2 (17:06→21:22)
[2017-08-18] MEDS: Piperacillin/Tazobact 3.375 GM in Sodium Chloride 0.9% 100 ML IVPB SCH ×2 (17:14→21:26)
--- NOTE | 2017-08-18 20:08 | CP.PCM.HP ---
History of Present Illness - History of Present Illness History of Present Illness: F/U Chest pain. 81 y/o F, broght to [facility], [place] by EMS and accompany by her son, to be evaluated for Chest pain, 1 [employer], as per EMS, Pt was A Fib with RVR in the field, HR 190 and was given Cardizem 20 mg with some relief. As per Son, Pt wake up with a sudden onset of Chest Pain on R side of chest, moderate intensity, associated to palpitations and [place], radiating to R arm. Worsening symptoms: As per Son, increased swollen in legs and feet, erythema b/ l. Increased depression 2nd to a her Son recently. Aggravated factor: As per Son, Pt non incompliant with BP medications. Denied: Fever, chills, abdominal pain, n/v/d, urinary symptoms, syncope, cough , sick contact, recent travel out of [facility]. CXR shows: B/L Pleural effusion. Ext U-S: No DVT. Present on Admission - Present on Admission Any Indicators Present on Admission: No Review of Systems - Review of Systems Systems not reviewed;Unavailable: Acuity of Condition, Altered Mental Status Past Patient History - Infectious Disease Hx of Infectious Diseases: None - Tetanus Immunizations Tetanus Immunization: Unknown - Past Medical History & Family History Past Medical History?: Yes Pertinent Family History: Unknown - Past Social History Smoking Status: Former Smoker Alcohol: None Drugs: Denies Home Situation {Lives}: With Family - CARDIAC Hx Cardiac Disorders: Yes Hx Atrial Fibrillation: Yes Hx Congestive Heart Failure: Yes Hx Hypercholesterolemia: Yes Hx Hypertension: Yes Hx Pacemaker: No - PULMONARY Hx Respiratory Disorders: Yes Hx Chronic Obstructive Pulmonary Disease (COPD): Yes Hx Pneumonia: Yes - NEUROLOGICAL Hx Neurological Disorder: Yes HX Cerebrovascular Accident: Yes Hx Transient Ischemic Attacks (TIA): Yes - HEENT Hx HEENT Problems: No - RENAL Hx Chronic Kidney Disease: No - ENDOCRINE/METABOLIC Hx Endocrine Disorders: Yes Hx Diabetes Mellitus Type 2: Yes - HEMATOLOGICAL/ONCOLOGICAL Hx Blood Disorders: Yes Hx AIDS: No Hx Anemia: Yes Hx Human Immunodeficiency Virus (HIV): No - INTEGUMENTARY Hx Dermatological Problems: No - MUSCULOSKELETAL/RHEUMATOLOGICAL Hx Musculoskeletal Disorders: Yes Hx Arthritis: Yes Hx Back Pain: Yes Hx Falls: No Hx Osteoporosis: Yes - GASTROINTESTINAL Hx Gastrointestinal Disorders: Yes Hx Diverticulitis: Yes - GENITOURINARY/GYNECOLOGICAL Hx Genitourinary Disorders: No - PSYCHIATRIC Hx Psychophysiologic Disorder: Yes Hx Anxiety: Yes Hx Depression: Yes Hx Substance Use: No - SURGICAL HISTORY Hx Surgeries: Yes Hx Herniorrhaphy: Yes - ANESTHESIA Hx Anesthesia: Yes Hx Anesthesia Reactions: No Hx Malignant Hyperthermia: No Has any member of the family had a problem w/ anesthesia?: No Meds Allergies/Adverse Reactions: Allergies Allergy/AdvReac Type Severity Reaction Status Date / Time iodine Allergy RASH Verified 10/26/16 18:55 Physical Exam - Constitutional Appears: Chronically Ill - Head Exam Head Exam: NORMAL INSPECTION - Eye Exam Eye Exam: PERRL - ENT Exam ENT Exam: Normal Exam - Neck Exam Neck exam: Positive for: Normal Inspection - Respiratory Exam Respiratory Exam: Decreased Breath Sounds (at bases) - Cardiovascular Exam Cardiovascular Exam: Irregular Rhythm, Systolic Murmur (1/6 LSB Ao) - GI/Abdominal Exam GI & Abdominal Exam: Normal Bowel Sounds, Soft - Extremities Exam Additional comments: Erythema L/E, 2 + pitting edema - Neurological Exam Additional comments: Awake, confused, folows commands, generalized weakness, no gross motor sensory deficit. - Psychiatric Exam Psychiatric exam: Anxious - Skin Skin Exam: Warm Results - Vital Signs Recent Vital Signs: Last Vital Signs Temp 97.4 F L 08/18/17 16:40 Pulse 110 H 08/18/17 17:10 Resp 18 08/18/17 16:40 BP 122/58 L 08/18/17 17:10 Pulse Ox 99 08/18/17 16:40 reviewed J.PRajesh - Labs Result Diagrams: 08/18/17 07:45 08/18/17 07:45 Labs: Laboratory Results - last 24 hr 08/18/17 08/18/17 08/18/17 07:45 07:45 07:45 WBC 5.2 D RBC 4.00 Hgb 10.8 L Hct 33.7 L MCV 84.3 MCH 27.1 MCHC 32.1 L RDW 17.3 H Plt Count 148 MPV 8.8 Neut % (Auto) 65.9 Lymph % (Auto) 21.0 [place] % (Auto) 11.2 H Eos % (Auto) 1.1 Baso % (Auto) 0.8 Neut # 3.4 Lymph # 1.1 [place] # 0.6 Eos # 0.1 Baso # 0.0 PT 12.0 INR 1.1 APTT 40.9 H Sodium 145 Potassium 3.7 Chloride 106 Carbon Dioxide 29 Anion Gap 14 BUN 12 Creatinine 0.6 L Est GFR ( Amer) > 60 Est GFR (Non-Af Amer) > 60 POC Glucose (mg/dL) Random Glucose 95 Calcium 9.0 Total Bilirubin 0.6 AST 25 ALT 21 Alkaline Phosphatase 55 Troponin I 0.0140 NT-Pro-B Natriuret Pep 554 Total Protein 6.7 Albumin 3.3 L Globulin 3.4 Albumin/Globulin Ratio 1.0 Urine Color Urine Clarity Urine pH Ur Specific [place] Urine Protein Urine Glucose (UA) Urine Ketones Urine Blood Urine Nitrate Urine Bilirubin Urine Urobilinogen Ur Leukocyte Esterase Urine RBC (Auto) Urine Microscopic WBC Ur Squamous Epith Cells 08/18/17 08/18/17 08/18/17 13:39 14:39 16:13 WBC RBC Hgb Hct MCV MCH MCHC RDW Plt Count MPV Neut % (Auto) Lymph % (Auto) [place] % (Auto) Eos % (Auto) Baso % (Auto) Neut # Lymph # [place] # Eos # Baso # PT INR APTT Sodium Potassium Chloride Carbon Dioxide Anion Gap BUN Creatinine Est GFR ( Amer) Est GFR (Non-Af Amer) POC Glucose (mg/dL) 87 Random Glucose Calcium Total Bilirubin AST ALT Alkaline Phosphatase Troponin I < 0.0120 NT-Pro-B Natriuret Pep Total Protein Albumin Globulin Albumin/Globulin Ratio Urine Color Straw Urine Clarity Slighty-cloudy Urine pH 7.0 Ur Specific [place] 1.005 Urine Protein Negative Urine Glucose (UA) Neg Urine Ketones Negative Urine Blood Small Urine Nitrate Negative Urine Bilirubin Negative Urine Urobilinogen 0.2-1.0 Ur Leukocyte Esterase Large Urine RBC (Auto) 1 Urine Microscopic WBC 9 H Ur Squamous Epith Cells 1 reviewed J.P. - EKG Data EKG comments: reviewed J.P. - Imaging and Cardiology Chest x-ray Status: Report reviewed by me (Bharti) Venous US Status: Report reviewed by me (RicoPRajesh) Assessment & Plan (1) Chest pain Status: Acute Priority: High (2) Atrial fibrillation with rapid ventricular response Status: Deleted Priority: High (3) Bilateral lower leg cellulitis Status: Acute (4) Pleural effusion Status: Acute (5) Lower extremity edema Status: Acute Priority: Medium (6) Generalized weakness Status: Acute Priority: Medium (7) Hypertension Status: Chronic Priority: Medium (8) Anxiety Status: Chronic Priority: Medium (9) COPD (chronic obstructive pulmonary disease) Status: Chronic (10) Dyslipidemia Status: Chronic (11) Type 2 diabetes mellitus Status: Chronic Priority: Medium (12) History of CVA (cerebrovascular accident) Status: Acute Priority: Low - Assessment and Plan (Free Text) Plan: F/U CT Head, EKG, Blood C-S, continue Zosyn, vanco, Lopressor, Lasix, Cardizem , Advair and rest of Tx, PT,OT eval, Cardiology consult. - Date & Time Date: 08/18/17 Time: 19:30
--- NOTE | 2017-08-19 04:26 | CP.PCM.CON ---
<Willy Barrera - Last Filed: 08/19/17 04:41> History of Present Illness - History of Present Illness History of Present Illness: Cardiology consult note for Dr. Bobby Barrera DO, PGY - 1 Reason For Consult: A Fib with RVR HPI: 81 year old female with a past medical history of COPD, CHF, A-fib, and Hypertension, presented to the emergency room with her son due to sudden onset of chest pain, palpitations, and dyspnea on exertion. JOHANA Daly at bedside providing translation. As per patient's son, patient was not taking her diltiazem, metoprolol, or lasix. However, patient maintains that she has been taking her medications and only missed yesterday's dose. Patient states that she woke up at 5 am and these symptoms started suddenly. She states that she has never had symptoms like this before, but does not recall how she felt at her last visit to this hospital in April, when she was diagnosed with A-Fib. Patient's son recently from cancer (2 weeks ago). ECHO from October 2016 shows EF of 70%. ECHO from April 2017 shows Aortic Stenosis with valve area of 1.3 cm^2, mild MR and MV annular calcification. Patient states she has never had a catheterization or stress test in the past. Past Surgical History: Patient denies Past Medical History: COPD, CHF, A-Fib, Hypertension Allergies: Iodine Social History: Patient denies tobacco, alcohol, illicits Hospitalizations April for A Fib Family History: Hypertension Medications: See MAR Review of Systems: Constitutional: patient denies fever, chills, generalized weakness ENT: patient denies dysphagia, otalgia, hearing deficit, rhinorrhea Eyes: patient denies sudden loss of vision, diplopia, blurred vision MSK: patient denies muscle stiffness, joint pain, extremity cramping Cardio: see hpi Pulm: patient denies cough, hemoptysis, wheeze Gastrointestinal: patient denies loss of appetite, pain, constipation, melena , nausea, vomiting, diarrhea Genitourinary: patient denies burning on urination, urinary frequency, hematuria, urinary urgency Neuro: patient denies paresis, paresthesia, dizziness, headache, numbness , tingling Derm: patient denies skin changes, lesions, nail changes Endo: patient denies intolerance to heat/cold, diaphoresis, night sweats, polydipsia Psych: patient denies anxiety, depression, mood changes Past Patient History - Infectious Disease Hx of Infectious Diseases: None - Tetanus Immunizations Tetanus Immunization: Unknown - Past Medical History & Family History Past Medical History?: Yes - Past Social History Smoking Status: Never Smoked - CARDIAC Hx Cardiac Disorders: Yes Hx Atrial Fibrillation: Yes Hx Congestive Heart Failure: Yes Hx Hypercholesterolemia: Yes Hx Hypertension: Yes Hx Pacemaker: No - PULMONARY Hx Respiratory Disorders: Yes Hx Chronic Obstructive Pulmonary Disease (COPD): Yes Hx Pneumonia: Yes - NEUROLOGICAL Hx Neurological Disorder: Yes HX Cerebrovascular Accident: Yes Hx Transient Ischemic Attacks (TIA): Yes - HEENT Hx HEENT Problems: No - RENAL Hx Chronic Kidney Disease: No - ENDOCRINE/METABOLIC Hx Endocrine Disorders: Yes Hx Diabetes Mellitus Type 2: Yes - HEMATOLOGICAL/ONCOLOGICAL Hx Blood Disorders: Yes Hx AIDS: No Hx Anemia: Yes Hx Human Immunodeficiency Virus (HIV): No - INTEGUMENTARY Hx Dermatological Problems: No - MUSCULOSKELETAL/RHEUMATOLOGICAL Hx Musculoskeletal Disorders: Yes Hx Arthritis: Yes Hx Back Pain: Yes Hx Falls: No Hx Osteoporosis: Yes - GASTROINTESTINAL Hx Gastrointestinal Disorders: Yes Hx Diverticulitis: Yes - GENITOURINARY/GYNECOLOGICAL Hx Genitourinary Disorders: No - PSYCHIATRIC Hx Psychophysiologic Disorder: Yes Hx Anxiety: Yes Hx Depression: Yes Hx Substance Use: No - SURGICAL HISTORY Hx Surgeries: Yes Hx Herniorrhaphy: Yes - ANESTHESIA Hx Anesthesia: Yes Hx Anesthesia Reactions: No Hx Malignant Hyperthermia: No Has any member of the family had a problem w/ anesthesia?: No Meds Allergies/Adverse Reactions: Allergies Allergy/AdvReac Type Severity Reaction Status Date / Time iodine Allergy RASH Verified 10/26/16 18:55 - Medications Medications: Current Medications Albuterol (Ventolin Hfa 90 Mcg/Actuation (8 G)) 2 puff IH Q4H PRN PRN Reason: Shortness of Breath Alprazolam (Xanax) 0.5 mg PO Q12H PRN PRN Reason: Anxiety Apixaban (Eliquis) 2.5 mg PO Q12 [facility] PRN Reason: Protocol Last Admin: 08/18/17 21:23 Dose: 2.5 mg Diltiazem HCl (Cardizem) 60 mg PO Q8 [facility] Last Admin: 08/19/17 02:01 Dose: 60 mg Furosemide (Lasix) 20 mg IVP DAILY [facility] Last Admin: 08/18/17 12:37 Dose: 20 mg Hydralazine HCl (Apresoline) 25 mg PO Q12 [facility] Last Admin: 08/18/17 21:22 Dose: 25 mg Vancomycin HCl 1 gm/ Sodium (Chloride) 250 mls @ 166.667 mls/hr IVPB DAILY [facility] PRN Reason: Protocol Last Admin: 08/18/17 16:00 Dose: 166.667 mls/hr Piperacillin Sod/Tazobactam (Sod 3.375 gm/ Sodium Chloride) 100 mls @ 100 mls/ hr IVPB Q6 [facility] PRN Reason: Protocol Last Admin: 08/18/17 21:26 Dose: 100 mls/hr Metoprolol Tartrate (Lopressor) 50 mg PO Q12 [facility] Last Admin: 08/18/17 21:23 Dose: 50 mg Fluticasone/Salmeterol (Advair Diskus 500/50) 1 puff IH Q12 [facility] Last Admin: 08/18/17 21:22 Dose: 1 puff Physical Exam - Additional Findings Additional findings: Physical Exam: Vital Signs as below Const'l: awake alert & oriented x 4, no acute distress Head/Neck: neck supple, no jvd, trachea midline, carotid midline, no cervical/head mass Eyes: pupils equally reactive to light and accommodation, nonicteric sclera, extraocular intact ENT: auditory acuity grossly intact, throat not congested, no nasal deformity Cardio: tachycardic, irregular rhythm, systolic murmur 2/6 at LSB; no rubs gallops, no carotid bruit, normal s1, s2 Pulm: +Nasal cannula 3L; no accessory muscle use, equal normal breath sounds bilaterally, clear to ausculation bilaterally Abd: soft non tender non-distended, normal bowel sounds x 4 quadrants, no palpable masses Derm: no rashes, no ulcers, no lesions Extr: 2+ pitting edema b/l lower extremities; Left lower extremity more erythematous than right, but bilateral lower extremity erythema, exquisite tenderness on left lower extremity anteriorly, mild tenderness on right lower extremity. no edema, no cyanosis, no calf tenderness, no lesions, no varicosities Neuro: cranial nerves II-XII grossly intact, upper extremity and lower extremity 5/5 muscle strength bilaterally, no loss of sensation in upper extremities, lower extremities bilaterally and core Results - Vital Signs Recent Vital Signs: Last Vital Signs Temp 98.1 F 08/19/17 01:00 Pulse 68 08/19/17 02:01 Resp 18 08/19/17 01:00 BP 103/63 08/19/17 02:01 Pulse Ox 92 L 08/19/17 01:00 - Labs Result Diagrams: 08/18/17 07:45 08/18/17 07:45 Labs: Laboratory Results - last 24 hr 08/18/17 08/18/17 08/18/17 07:45 07:45 07:45 WBC 5.2 D RBC 4.00 Hgb 10.8 L Hct 33.7 L MCV 84.3 MCH 27.1 MCHC 32.1 L RDW 17.3 H Plt Count 148 MPV 8.8 Neut % (Auto) 65.9 Lymph % (Auto) 21.0 Gates % (Auto) 11.2 H Eos % (Auto) 1.1 Baso % (Auto) 0.8 Neut # 3.4 Lymph # 1.1 Gates # 0.6 Eos # 0.1 Baso # 0.0 PT 12.0 INR 1.1 APTT 40.9 H Sodium 145 Potassium 3.7 Chloride 106 Carbon Dioxide 29 Anion Gap 14 BUN 12 Creatinine 0.6 L Est GFR ( Amer) > 60 Est GFR (Non-Af Amer) > 60 POC Glucose (mg/dL) Random Glucose 95 Calcium 9.0 Total Bilirubin 0.6 AST 25 ALT 21 Alkaline Phosphatase 55 Troponin I 0.0140 NT-Pro-B Natriuret Pep 554 Total Protein 6.7 Albumin 3.3 L Globulin 3.4 Albumin/Globulin Ratio 1.0 Urine Color Urine Clarity Urine pH Ur Specific [place] Urine Protein Urine Glucose (UA) Urine Ketones Urine Blood Urine Nitrate Urine Bilirubin Urine Urobilinogen Ur Leukocyte Esterase Urine RBC (Auto) Urine Microscopic WBC Ur Squamous Epith Cells 08/18/17 08/18/17 08/18/17 13:39 14:39 16:13 WBC RBC Hgb Hct MCV MCH MCHC RDW Plt Count MPV Neut % (Auto) Lymph % (Auto) Gates % (Auto) Eos % (Auto) Baso % (Auto) Neut # Lymph # Gates # Eos # Baso # PT INR APTT Sodium Potassium Chloride Carbon Dioxide Anion Gap BUN Creatinine Est GFR ( Amer) Est GFR (Non-Af Amer) POC Glucose (mg/dL) 87 Random Glucose Calcium Total Bilirubin AST ALT Alkaline Phosphatase Troponin I < 0.0120 NT-Pro-B Natriuret Pep Total Protein Albumin Globulin Albumin/Globulin Ratio Urine Color Straw Urine Clarity Slighty-cloudy Urine pH 7.0 Ur Specific [place] 1.005 Urine Protein Negative Urine Glucose (UA) Neg Urine Ketones Negative Urine Blood Small Urine Nitrate Negative Urine Bilirubin Negative Urine Urobilinogen 0.2-1.0 Ur Leukocyte Esterase Large Urine RBC (Auto) 1 Urine Microscopic WBC 9 H Ur Squamous Epith Cells 1 08/18/17 22:08 WBC RBC Hgb Hct MCV MCH MCHC RDW Plt Count MPV Neut % (Auto) Lymph % (Auto) Gates % (Auto) Eos % (Auto) Baso % (Auto) Neut # Lymph # Gates # Eos # Baso # PT INR APTT Sodium Potassium Chloride Carbon Dioxide Anion Gap BUN Creatinine Est GFR ( Amer) Est GFR (Non-Af Amer) POC Glucose (mg/dL) 106 Random Glucose Calcium Total Bilirubin AST ALT Alkaline Phosphatase Troponin I NT-Pro-B Natriuret Pep Total Protein Albumin Globulin Albumin/Globulin Ratio Urine Color Urine Clarity Urine pH Ur Specific [place] Urine Protein Urine Glucose (UA) Urine Ketones Urine Blood Urine Nitrate Urine Bilirubin Urine Urobilinogen Ur Leukocyte Esterase Urine RBC (Auto) Urine Microscopic WBC Ur Squamous Epith Cells Assessment & Plan - Assessment and Plan (Free Text) Assessment: Assessment and Plan 81 year old female presenting with chest pain, palpitations, dyspnea on exertion , and atrial fibrillation with RVR. Past medical history of CHF, Hypertension, A-Fib, and COPD. Initial trope equivocal, second trope negative. EKG shows no ST elevations. Atrial fibrillation with RVR - Continue home Cardizem for rhythm control - Continue home Metoprolol for rate control - Continue home Eliquis for anti-coagulation - Monitor trope and EKG Bilateral Lower Extremity Erythema with Pain - Duplex ultrasound bilateral lower extremities History of CHF - Patient had bilateral lower extremity 2+ pitting edema - Continue home Lasix History of Hypertension - Continue home Hydralazine History of COPD - As per primary team DVT Prophylaxis - Eliquis as above GI Propylaxis - As per primary team <Rik Rosales - Last Filed: 08/22/17 23:30> Results - Vital Signs Recent Vital Signs: Last Vital Signs Temp 97.8 F 08/22/17 15:52 Pulse 65 08/22/17 15:52 Resp 20 08/22/17 15:52 BP 124/67 08/22/17 15:52 Pulse Ox 94 L 08/22/17 15:52 - Labs Result Diagrams: 08/18/17 07:45 08/22/17 15:29 Labs: Laboratory Results - last 24 hr 08/21/17 08/22/17 08/22/17 21:22 05:04 08:30 Sodium 148 Potassium 2.9 L Chloride 105 Carbon Dioxide 34 H Anion Gap 12 BUN 11 Creatinine 0.6 L Est GFR ( Amer) > 60 Est GFR (Non-Af Amer) > 60 POC Glucose (mg/dL) 85 100 Random Glucose 93 Hemoglobin A1c Calcium 9.4 Total Bilirubin 0.7 AST 33 ALT 24 Alkaline Phosphatase 63 Total Protein 7.1 Albumin 3.6 Globulin 3.5 Albumin/Globulin Ratio 1.0 Triglycerides 113 D Cholesterol 204 H LDL Cholesterol Direct 111 HDL Cholesterol 49 Thyroxine (T4) 9.30 TSH 3rd Generation 1.49 08/22/17 08/22/17 08/22/17 08:30 11:16 15:29 Sodium Potassium 3.3 L Chloride Carbon Dioxide Anion Gap BUN Creatinine Est GFR ( Amer) Est GFR (Non-Af Amer) POC Glucose (mg/dL) 102 Random Glucose Hemoglobin A1c 5.8 Calcium Total Bilirubin AST ALT Alkaline Phosphatase Total Protein Albumin Globulin Albumin/Globulin Ratio Triglycerides Cholesterol LDL Cholesterol Direct HDL Cholesterol Thyroxine (T4) TSH 3rd Generation 08/22/17 16:06 Sodium Potassium Chloride Carbon Dioxide Anion Gap BUN Creatinine Est GFR ( Amer) Est GFR (Non-Af Amer) POC Glucose (mg/dL) 91 Random Glucose Hemoglobin A1c Calcium Total Bilirubin AST ALT Alkaline Phosphatase Total Protein Albumin Globulin Albumin/Globulin Ratio Triglycerides Cholesterol LDL Cholesterol Direct HDL Cholesterol Thyroxine (T4) TSH 3rd Generation Attending/Attestation - Attestation I have personally seen and examined this patient.: Yes I have fully participated in the care of the patient.: Yes I have reviewed all pertinent clinical information: Yes
[2017-08-19] MEDS: Piperacillin/Tazobact 3.375 GM in Sodium Chloride 0.9% 100 ML IVPB SCH ×4 (05:18→21:06)
[2017-08-19] MEDS: Fluticasone-Salmeterol 500-50mcg Diskus IH SCH ×2 (09:02→21:08)
--- NOTE | 2017-08-19 10:52 | CT ---
PROCEDURE: CT HEAD WITHOUT CONTRAST. HISTORY: Afib COMPARISON: Made with CT scan brain 10/26/2016. TECHNIQUE: Axial computed tomography images were obtained through the head/brain without intravenous contrast. Radiation dose: Total exam DLP = 840.7 mGy-cm. This CT exam was performed using one or more of the following dose reduction techniques: Automated exposure control, adjustment of the mA and/or kV according to patient size, and/or use of iterative reconstruction technique. FINDINGS: HEMORRHAGE: No acute parenchymal, subarachnoid nor extra-axial hemorrhage. BRAIN: Mild diffuse/ confluent chronic periventricular white matter ischemic changes. Moderate to fairly significant generalized volume loss. VENTRICLES: No obstructive hydrocephalus. CALVARIUM: Unremarkable. PARANASAL SINUSES: Unremarkable as visualized. No significant inflammatory changes. MASTOID AIR CELLS: Unremarkable as visualized. No inflammatory changes. OTHER FINDINGS: None. IMPRESSION: No acute intracranial hemorrhage. Mild chronic periventricular white matter ischemic changes. Moderate to to fairly significant generalized volume loss.
--- NOTE | 2017-08-19 17:17 | CP.PCM.PN ---
Subjective - Date & Time of Evaluation Date of Evaluation: 08/19/17 - Subjective Subjective: F/U CP, Cellulites R-L legs , A Fib RVR No SOB , no CP Objective - Vital Signs/Intake and Output Vital Signs (last 24 hours): Temp Pulse Resp BP Pulse Ox 97.5 F L 68 18 109/61 98 08/19/17 15:48 08/19/17 17:06 08/19/17 15:48 08/19/17 17:06 08/19/17 15:48 - Medications Medications: Current Medications Albuterol (Ventolin Hfa 90 Mcg/Actuation (8 G)) 2 puff IH Q4H PRN PRN Reason: Shortness of Breath Alprazolam (Xanax) 0.5 mg PO Q12H PRN PRN Reason: Anxiety Apixaban (Eliquis) 2.5 mg PO Q12 [facility] PRN Reason: Protocol Last Admin: 08/19/17 09:07 Dose: 2.5 mg Diltiazem HCl (Cardizem) 60 mg PO Q8 [facility] Last Admin: 08/19/17 17:06 Dose: 60 mg Furosemide (Lasix) 20 mg IVP DAILY [facility] Last Admin: 08/19/17 09:07 Dose: 20 mg Hydralazine HCl (Apresoline) 25 mg PO Q12 [facility] Last Admin: 08/19/17 09:08 Dose: 25 mg Vancomycin HCl 1 gm/ Sodium (Chloride) 250 mls @ 166.667 mls/hr IVPB DAILY [facility] PRN Reason: Protocol Last Admin: 08/19/17 09:11 Dose: 166.667 mls/hr Piperacillin Sod/Tazobactam (Sod 3.375 gm/ Sodium Chloride) 100 mls @ 100 mls/ hr IVPB Q6 [facility] PRN Reason: Protocol Last Admin: 08/19/17 17:08 Dose: 100 mls/hr Metoprolol Tartrate (Lopressor) 50 mg PO Q12 [facility] Last Admin: 08/19/17 09:03 Dose: 50 mg Fluticasone/Salmeterol (Advair Diskus 500/50) 1 puff IH Q12 [facility] Last Admin: 08/19/17 09:02 Dose: 1 puff - Labs Labs: 08/18/17 07:45 08/18/17 07:45 PT 12.0 Seconds (9.8-13.1) 08/18/17 07:45 INR 1.1 (0.9-1.2) 08/18/17 07:45 APTT 40.9 Seconds (25.6-37.1) H 08/18/17 07:45 - Constitutional Appears: Chronically Ill - Eye Exam Eye Exam: PERRL - ENT Exam ENT Exam: Normal Exam - Neck Exam Neck Exam: Normal Inspection - Respiratory Exam Respiratory Exam: Decreased Breath Sounds (at bases) - Cardiovascular Exam Cardiovascular Exam: REGULAR RHYTHM, Murmur (systolic 1/6 LSB Ao) - GI/Abdominal Exam GI & Abdominal Exam: Soft, Normal Bowel Sounds - Extremities Exam Additional comments: Erythema R-L legs, 2+pitting edema - Back Exam Back Exam: tenderness (mild) - Neurological Exam Neurological Exam: Awake Additional comments: Confused, follows commands, generalized weakness, no gross motor sensory deficit. - Psychiatric Exam Psychiatric exam: Anxious - Skin Skin Exam: Warm Assessment and Plan (1) Chest pain Status: Acute (2) Atrial fibrillation with RVR Assessment & Plan: resolved Status: Resolved (3) Bilateral lower leg cellulitis Status: Acute (4) Pleural effusion Status: Acute (5) COPD (chronic obstructive pulmonary disease) Status: Chronic (6) Dyslipidemia Status: Chronic (7) Lower extremity edema Status: Acute (8) Generalized weakness Status: Acute (9) History of CVA (cerebrovascular accident) Status: Acute (10) Anxiety Status: Chronic (11) Dyslipidemia Status: Chronic (12) Hypertension Status: Chronic (13) Knee osteoarthritis Status: Chronic (14) Lumbago Status: Chronic (15) Type 2 diabetes mellitus Status: Chronic - Assessment and Plan (Free Text) Plan: EKG RSR , continue Eliquis, Lasix Cardizem , Lopressor , Vanco , Zosyn and rest of treatment
--- NOTE | 2017-08-19 18:06 | CARD ---
APPROVED REPORT EKG Measurement Heart [id number] <Conclusion> Normal sinus rhythm Normal ECG
--- NOTE | 2017-08-19 18:30 | CARD ---
APPROVED REPORT EKG Measurement Heart [id number] <Conclusion> Atrial fibrillation with rapid ventricular response Abnormal ECG
[2017-08-20] MEDS: Piperacillin/Tazobact 3.375 GM in Sodium Chloride 0.9% 100 ML IVPB SCH ×4 (04:02→21:41)
[2017-08-20] MEDS: Fluticasone-Salmeterol 500-50mcg Diskus IH SCH ×2 (08:48→21:36)
--- NOTE | 2017-08-20 14:09 | CP.PCM.PN ---
Subjective - Date & Time of Evaluation Date of Evaluation: 08/20/17 - Subjective Subjective: F/U CP, Cellulitis R-L leg, A Fib RVR No C/P , no SOB , no Palpitations , less pain R L leg Objective - Vital Signs/Intake and Output Vital Signs (last 24 hours): Temp Pulse Resp BP Pulse Ox 98.2 F 62 18 113/66 97 08/20/17 12:56 08/20/17 12:56 08/20/17 12:56 08/20/17 12:56 08/20/17 12:56 - Medications Medications: Current Medications Albuterol (Ventolin Hfa 90 Mcg/Actuation (8 G)) 2 puff IH Q4H PRN PRN Reason: Shortness of Breath Alprazolam (Xanax) 0.5 mg PO Q12H PRN PRN Reason: Anxiety Apixaban (Eliquis) 2.5 mg PO Q12 [facility] PRN Reason: Protocol Last Admin: 08/20/17 08:48 Dose: 2.5 mg Diltiazem HCl (Cardizem) 60 mg PO Q8 [facility] Last Admin: 08/20/17 08:48 Dose: 60 mg Furosemide (Lasix) 20 mg IVP DAILY [facility] Last Admin: 08/20/17 08:52 Dose: 20 mg Hydralazine HCl (Apresoline) 25 mg PO Q12 [facility] Last Admin: 08/20/17 08:49 Dose: 25 mg Vancomycin HCl 1 gm/ Sodium (Chloride) 250 mls @ 166.667 mls/hr IVPB DAILY [facility] PRN Reason: Protocol Last Admin: 08/20/17 09:21 Dose: 166.667 mls/hr Piperacillin Sod/Tazobactam (Sod 3.375 gm/ Sodium Chloride) 100 mls @ 100 mls/ hr IVPB Q6 [facility] PRN Reason: Protocol Last Admin: 08/20/17 08:57 Dose: 100 mls/hr Metoprolol Tartrate (Lopressor) 50 mg PO Q12 [facility] Last Admin: 08/20/17 08:49 Dose: 50 mg Fluticasone/Salmeterol (Advair Diskus 500/50) 1 puff IH Q12 [facility] Last Admin: 08/20/17 08:48 Dose: 1 puff - Labs Labs: 08/18/17 07:45 08/18/17 07:45 PT 12.0 Seconds (9.8-13.1) 08/18/17 07:45 INR 1.1 (0.9-1.2) 08/18/17 07:45 APTT 40.9 Seconds (25.6-37.1) H 08/18/17 07:45 - Constitutional Appears: Chronically Ill - Head Exam Head Exam: NORMAL INSPECTION - Eye Exam Eye Exam: PERRL - ENT Exam ENT Exam: Normal Exam - Neck Exam Neck Exam: Normal Inspection - Respiratory Exam Respiratory Exam: Decreased Breath Sounds (at bases) - Cardiovascular Exam Cardiovascular Exam: REGULAR RHYTHM, Murmur (systolic 1/6 LSB Ao) - GI/Abdominal Exam GI & Abdominal Exam: Soft, Normal Bowel Sounds - Extremities Exam Additional comments: Erythema , tenderness R-L legs, 2+ pitting edema - Back Exam Back Exam: tenderness (mild) - Neurological Exam Neurological Exam: Awake Additional comments: Confused, follows commands, generalized weakness, no gross motor sensory deficit. - Psychiatric Exam Psychiatric exam: Anxious - Skin Skin Exam: Warm Assessment and Plan (1) Bilateral lower leg cellulitis Status: Acute (2) Lower extremity edema Status: Acute (3) COPD (chronic obstructive pulmonary disease) Status: Chronic (4) Afib Status: Acute (5) HTN (hypertension) Status: Acute - Assessment and Plan (Free Text) Plan: Continue Vanco Zosyn, Eliquis , Cardizem ,Lopressor and rest of treatment
[2017-08-21] MEDS: Piperacillin/Tazobact 3.375 GM in Sodium Chloride 0.9% 100 ML IVPB SCH ×4 (04:00→21:13)
[2017-08-21] MEDS: Fluticasone-Salmeterol 500-50mcg Diskus IH SCH ×2 (09:14→21:13)
--- NOTE | 2017-08-21 21:25 | CP.PCM.PN ---
Subjective - Date & Time of Evaluation Date of Evaluation: 08/21/17 - Subjective Subjective: F/U CP, Cellulitis R-L legs, AFib Objective - Vital Signs/Intake and Output Vital Signs (last 24 hours): Temp Pulse Resp BP Pulse Ox 97.5 F L 61 20 114/67 97 08/21/17 19:19 08/21/17 21:14 08/21/17 19:19 08/21/17 21:14 08/21/17 19:19 - Medications Medications: Current Medications Albuterol (Ventolin Hfa 90 Mcg/Actuation (8 G)) 2 puff IH Q4H PRN PRN Reason: Shortness of Breath Apixaban (Eliquis) 2.5 mg PO Q12 [facility] PRN Reason: Protocol Last Admin: 08/21/17 21:15 Dose: 2.5 mg Diltiazem HCl (Cardizem) 60 mg PO Q8 [facility] Last Admin: 08/21/17 16:20 Dose: 60 mg Furosemide (Lasix) 20 mg IVP DAILY [facility] Last Admin: 08/21/17 09:13 Dose: 20 mg Hydralazine HCl (Apresoline) 25 mg PO Q12 [facility] Last Admin: 08/21/17 21:14 Dose: 25 mg Vancomycin HCl 1 gm/ Sodium (Chloride) 250 mls @ 166.667 mls/hr IVPB DAILY [facility] PRN Reason: Protocol Last Admin: 08/21/17 10:57 Dose: 166.667 mls/hr Piperacillin Sod/Tazobactam (Sod 3.375 gm/ Sodium Chloride) 100 mls @ 100 mls/ hr IVPB Q6 [facility] PRN Reason: Protocol Last Admin: 08/21/17 21:13 Dose: 100 mls/hr Metoprolol Tartrate (Lopressor) 50 mg PO Q12 [facility] Last Admin: 08/21/17 21:14 Dose: 50 mg Fluticasone/Salmeterol (Advair Diskus 500/50) 1 puff IH Q12 [facility] Last Admin: 08/21/17 21:13 Dose: 1 puff - Labs Labs: 08/18/17 07:45 08/18/17 07:45 PT 12.0 Seconds (9.8-13.1) 08/18/17 07:45 INR 1.1 (0.9-1.2) 08/18/17 07:45 APTT 40.9 Seconds (25.6-37.1) H 08/18/17 07:45 - Constitutional Appears: Chronically Ill - Head Exam Head Exam: NORMAL INSPECTION - Eye Exam Eye Exam: PERRL - ENT Exam ENT Exam: Normal Exam - Neck Exam Neck Exam: Normal Inspection - Respiratory Exam Respiratory Exam: Decreased Breath Sounds (at bsea) - Cardiovascular Exam Cardiovascular Exam: Murmur (systolic 1/6 LSB Ao) - GI/Abdominal Exam GI & Abdominal Exam: Soft, Normal Bowel Sounds - Extremities Exam Extremities Exam: Pedal Edema (decrease), Tenderness (decreased , redness decreased) - Back Exam Back Exam: tenderness (mild) - Neurological Exam Neurological Exam: Awake Additional comments: Confused, follows commands, generalized weakness, no gross motor sensory defiict - Psychiatric Exam Psychiatric exam: Anxious - Skin Skin Exam: Warm Assessment and Plan (1) Afib Status: Acute (2) Bilateral lower leg cellulitis Status: Acute (3) HTN (hypertension) Status: Acute (4) Lower extremity edema Status: Acute (5) COPD (chronic obstructive pulmonary disease) Status: Chronic - Assessment and Plan (Free Text) Plan: continue Vanco , Zosyn , Eliquis , Lopressor , Cardizem ,Hydralazine and rest of treatment
[2017-08-22] MEDS: Piperacillin/Tazobact 3.375 GM in Sodium Chloride 0.9% 100 ML IVPB SCH ×2 (04:56→11:15)
--- NOTE | 2017-08-22 08:07 | CP.PCM.PN ---
<Willy Barrera - Last Filed: 08/22/17 07:59> Subjective - Date & Time of Evaluation Date of Evaluation: 08/22/17 Time of Evaluation: 07:59 - Subjective Subjective: Cardiology progress note for Dr. Rosales - Willy Barrera DO PGY - 1 Patient seen and examined at bedside. construction secretary at bedside for translation. Per chart review, patient had one bout of hypertension overnight, with blood pressure in the 180s/90s - asked RN about it this morning, she had no report of it. Per chart review, no medications given at that time. Before that, patient's blood pressures have been stable in the 1-teens/60s. Patient herself is resting comfortably in bed and denies chest pain, shortness of breath, nausea, vomiting, and diarrhea. Patient is aware that her son has , but keeps asking me if I have seen him. Objective - Vital Signs/Intake and Output Vital Signs (last 24 hours): Temp Pulse Resp BP Pulse Ox 98.1 F 72 20 180/93 H 93 L 08/22/17 05:32 08/22/17 05:32 08/22/17 05:32 08/22/17 05:32 08/22/17 05:32 - Medications Medications: Current Medications Albuterol (Ventolin Hfa 90 Mcg/Actuation (8 G)) 2 puff IH Q4H PRN PRN Reason: Shortness of Breath Apixaban (Eliquis) 2.5 mg PO Q12 [facility] PRN Reason: Protocol Last Admin: 08/21/17 21:15 Dose: 2.5 mg Diltiazem HCl (Cardizem) 60 mg PO Q8 [facility] Last Admin: 08/22/17 01:20 Dose: 60 mg Furosemide (Lasix) 20 mg IVP DAILY [facility] Last Admin: 08/21/17 09:13 Dose: 20 mg Hydralazine HCl (Apresoline) 25 mg PO Q12 [facility] Last Admin: 08/21/17 21:14 Dose: 25 mg Vancomycin HCl 1 gm/ Sodium (Chloride) 250 mls @ 166.667 mls/hr IVPB DAILY [facility] PRN Reason: Protocol Last Admin: 08/21/17 10:57 Dose: 166.667 mls/hr Piperacillin Sod/Tazobactam (Sod 3.375 gm/ Sodium Chloride) 100 mls @ 100 mls/ hr IVPB Q6 [facility] PRN Reason: Protocol Last Admin: 08/22/17 04:56 Dose: 100 mls/hr Metoprolol Tartrate (Lopressor) 50 mg PO Q12 [facility] Last Admin: 08/21/17 21:14 Dose: 50 mg Fluticasone/Salmeterol (Advair Diskus 500/50) 1 puff IH Q12 [facility] Last Admin: 08/21/17 21:13 Dose: 1 puff - Labs Labs: 08/18/17 07:45 08/18/17 07:45 PT 12.0 Seconds (9.8-13.1) 08/18/17 07:45 INR 1.1 (0.9-1.2) 08/18/17 07:45 APTT 40.9 Seconds (25.6-37.1) H 08/18/17 07:45 - Additional Findings Additional findings: Physical Exam: Vital Signs as below Const'l: awake alert & oriented x 4, no acute distress Head/Neck: neck supple, no jvd, trachea midline, carotid midline, no cervical/head mass Eyes: pupils equally reactive to light and accommodation, nonicteric sclera, extraocular intact ENT: auditory acuity grossly intact, throat not congested, no nasal deformity Cardio: tachycardic, irregular rhythm, systolic murmur 2/6 at LSB; no rubs gallops, no carotid bruit, normal s1, s2 Pulm: +Nasal cannula 3L; no accessory muscle use, equal normal breath sounds bilaterally, clear to ausculation bilaterally Abd: soft non tender non-distended, normal bowel sounds x 4 quadrants, no palpable masses Derm: no rashes, no ulcers, no lesions Extr: 2+ pitting edema b/l lower extremities --> resolved; Left lower extremity more erythematous than right, but bilateral lower extremity erythema, exquisite tenderness on left lower extremity anteriorly, mild tenderness on right lower extremity --> This has more or less resolved - however, there is still tenderness on the left anterior lower extremity and there is mild (10%) erythema bilaterally on lower extremities. no cyanosis, no calf tenderness, no lesions, no varicosities Neuro: cranial nerves II-XII grossly intact, upper extremity and lower extremity 5/5 muscle strength bilaterally, no loss of sensation in upper extremities, lower extremities bilaterally and core Assessment and Plan - Assessment and Plan (Free Text) Assessment: Assessment and Plan: 81 year old female presenting with chest pain, palpitations, dyspnea on exertion , and atrial fibrillation with RVR. Past medical history of CHF, Hypertension, A-Fib, and COPD. Initial and second tropes equivocal, third trope negative. Initial EKG showed A-Fib at [address] elevations. Latest EKG shows NSR at 77 bpm. Atrial fibrillation with RVR, likely triggered by medication non-compliance - Continue home Cardizem for rhythm control - Continue home Metoprolol for rate control - Continue home Eliquis for anti-coagulation - Monitor trope and EKG Bilateral Lower Extremity Erythema with Pain - Erythema has resolved 75%; Left lower extremity still larger than right - Duplex ultrasound bilateral lower extremities - no DVT - Micro negative after 3 days - Patient empirically placed on Vanc/Zosyn History of CHF - Patient had bilateral lower extremity 2+ pitting edema - Continue home Lasix History of Hypertension - Continue home Hydralazine History of COPD - As per primary team DVT Prophylaxis - Eliquis as above GI Propylaxis - As per primary team <Rik Rosales - Last Filed: 08/22/17 23:31> Objective - Vital Signs/Intake and Output Vital Signs (last 24 hours): Temp Pulse Resp BP Pulse Ox 97.8 F 65 20 124/67 94 L 08/22/17 15:52 08/22/17 15:52 08/22/17 15:52 08/22/17 15:52 08/22/17 15:52 - Labs Labs: 08/18/17 07:45 08/22/17 15:29 PT 12.0 Seconds (9.8-13.1) 08/18/17 07:45 INR 1.1 (0.9-1.2) 08/18/17 07:45 APTT 40.9 Seconds (25.6-37.1) H 08/18/17 07:45 Attending/Attestation - Attestation I have personally seen and examined this patient.: Yes I have fully participated in the care of the patient.: Yes I have reviewed all pertinent clinical information, including history, physical exam and plan: Yes
[2017-08-22] MEDS: Fluticasone-Salmeterol 500-50mcg Diskus IH SCH (08:34)
[2017-08-22 09:17] LABS: ALBUMIN 3.6 g/dL (3.5-5.0); ALT/SGPT 24 U/L (9-52); AST/SGOT 33 U/L (14-36); BLOOD UREA NITROGEN 11 mg/dl (7-17); CALCIUM 9.4 mg/dL (8.4-10.2); GFR AFRICAN-AMERICAN > 60; GFR NON-AFRICAN AMERICAN > 60; HDL CHOLESTEROL 49 MG/DL (30-70)
[2017-08-22 09:27] LABS: LDL CHOLESTEROL 111 mg/dL (0-129)
[2017-08-22] MEDS ORDERED: Potassium Chloride 20 mEq/15 ml LIQ UD PO ONE (11:25)
[2017-08-22] MEDS ORDERED: Potassium CL 10 MEQ/50 ML 50 ML IVPB ONE (13:10)
--- NOTE | 2017-08-22 15:25 | CP.PCM.DIS ---
Provider - Provider Date of Admission: 08/18/17 09:24 Attending physician: Jesús rGanado MD Consults: Cardiology. Time Spent in preparation of Discharge (in minutes): 35 Diagnosis - Discharge Diagnosis (1) Afib Status: Acute (2) Bilateral lower leg cellulitis Status: Acute (3) HTN (hypertension) Status: Acute (4) Lower extremity edema Status: Acute Priority: Medium (5) COPD (chronic obstructive pulmonary disease) Status: Chronic Hospital Course - Lab Results Lab Results: Micro Results 08/18/17 14:39 Blood-Venous Blood Culture - Preliminary NO GROWTH AFTER 4 DAYS Most Recent Lab Values WBC 5.2 K/uL (4.8-10.8) D 08/18/17 07:45 RBC 4.00 Mil/uL (3.80-5.20) 08/18/17 07:45 Hgb 10.8 g/dL (12.0-16.0) L 08/18/17 07:45 Hct 33.7 % (34.0-47.0) L 08/18/17 07:45 MCV 84.3 fl (81.0-99.0) 08/18/17 07:45 MCH 27.1 pg (27.0-31.0) 08/18/17 07:45 MCHC 32.1 g/dL (33.0-37.0) L 08/18/17 07:45 RDW 17.3 % (11.5-14.5) H 08/18/17 07:45 Plt Count 148 K/uL (130-400) 08/18/17 07:45 MPV 8.8 fl (7.2-11.7) 08/18/17 07:45 Neut % (Auto) 65.9 % (50.0-75.0) 08/18/17 07:45 Lymph % (Auto) 21.0 % (20.0-40.0) 08/18/17 07:45 Hughes % (Auto) 11.2 % (0.0-10.0) H 08/18/17 07:45 Eos % (Auto) 1.1 % (0.0-4.0) 08/18/17 07:45 Baso % (Auto) 0.8 % (0.0-2.0) 08/18/17 07:45 Neut # 3.4 K/uL (1.8-7.0) 08/18/17 07:45 Lymph # 1.1 K/uL (1.0-4.3) 08/18/17 07:45 Hughes # 0.6 K/uL (0.0-0.8) 08/18/17 07:45 Eos # 0.1 K/uL (0.0-0.7) 08/18/17 07:45 Baso # 0.0 K/uL (0.0-0.2) 08/18/17 07:45 PT 12.0 Seconds (9.8-13.1) 08/18/17 07:45 INR 1.1 (0.9-1.2) 08/18/17 07:45 APTT 40.9 Seconds (25.6-37.1) H 08/18/17 07:45 Sodium 148 mmol/l (132-148) 08/22/17 08:30 Potassium 2.9 MMOL/L (3.6-5.0) L 08/22/17 08:30 Chloride 105 mmol/L (98-107) 08/22/17 08:30 Carbon Dioxide 34 mmol/L (22-30) H 08/22/17 08:30 Anion Gap 12 (10-20) 08/22/17 08:30 BUN 11 mg/dl (7-17) 08/22/17 08:30 Creatinine 0.6 mg/dl (0.7-1.2) L 08/22/17 08:30 Est GFR ( Amer) > 60 08/22/17 08:30 Est GFR (Non-Af Amer) > 60 08/22/17 08:30 POC Glucose (mg/dL) 102 mg/dL (65-110) 08/22/17 11:16 Random Glucose 93 mg/dL (65-105) 08/22/17 08:30 Hemoglobin A1c 5.8 % (4.2-6.5) 08/22/17 08:30 Calcium 9.4 mg/dL (8.4-10.2) 08/22/17 08:30 Total Bilirubin 0.7 mg/dl (0.2-1.3) 08/22/17 08:30 AST 33 U/L (14-36) 08/22/17 08:30 ALT 24 U/L (9-52) 08/22/17 08:30 Alkaline Phosphatase 63 U/L (38-126) 08/22/17 08:30 Troponin I < 0.0120 ng/mL (0.00-0.120) 08/18/17 14:39 NT-Pro-B Natriuret Pep 554 pg/ml (0-900) 08/18/17 07:45 Total Protein 7.1 G/DL (6.3-8.2) 08/22/17 08:30 Albumin 3.6 g/dL (3.5-5.0) 08/22/17 08:30 Globulin 3.5 gm/dL (2.2-3.9) 08/22/17 08:30 Albumin/Globulin Ratio 1.0 (1.0-2.1) 08/22/17 08:30 Triglycerides 113 mg/DL (0-149) D 08/22/17 08:30 Cholesterol 204 mg/dL (0-199) H 08/22/17 08:30 LDL Cholesterol Direct 111 mg/dL (0-129) 08/22/17 08:30 HDL Cholesterol 49 MG/DL (30-70) 08/22/17 08:30 Thyroxine (T4) 9.30 ug/dl (5.5-11.0) 08/22/17 08:30 TSH 3rd Generation 1.49 mIU/ML (0.46-4.68) 08/22/17 08:30 Urine Color Straw (YELLOW) 08/18/17 13:39 Urine Clarity Slighty-cloudy (Clear) 08/18/17 13:39 Urine pH 7.0 (5.0-8.0) 08/18/17 13:39 Ur Specific [place] 1.005 (1.003-1.030) 08/18/17 13:39 Urine Protein Negative mg/dL (NEGATIVE) 08/18/17 13:39 Urine Glucose (UA) Neg mg/dL (Normal) 08/18/17 13:39 Urine Ketones Negative mg/dL (NEGATIVE) 08/18/17 13:39 Urine Blood Small (NEGATIVE) 08/18/17 13:39 Urine Nitrate Negative (NEGATIVE) 08/18/17 13:39 Urine Bilirubin Negative (NEGATIVE) 08/18/17 13:39 Urine Urobilinogen 0.2-1.0 mg/dL (0.2-1.0) 08/18/17 13:39 Ur Leukocyte Esterase Large Haley/uL (Negative) 08/18/17 13:39 Urine RBC (Auto) 1 /hpf (0-3) 08/18/17 13:39 Urine Microscopic WBC 9 /hpf (0-5) H 08/18/17 13:39 Ur Squamous Epith Cells 1 /hpf (0-5) 08/18/17 13:39 - Hospital Course Hospital Course: 81 yr old female AD with Chest pain, palpitations and redness edema R L leg, in ER [facility] Afib with RVR HR 190 , Patient responded to treatment with Cardizem and reverted to RSR , there after on Eiquis ,Lasix , treated for HTN with Lopressor and Hydralazine , Patient was followed by Human Factors Ergonomist and cleared for discharge. Cellulitis R L leg treated with Vanco and Zosyn with improvement,Patient was discharged on Augmentin , Eliquis and rest of medications. Patient was discharged in improved and stable condition, see NICK, f/u my office in one week - Date & Time of H&P Date of H&P: 08/18/17 Time of H&P: 19:30 Discharge Exam - Head Exam Head Exam: NORMAL INSPECTION - Eye Exam Eye Exam: PERRL - ENT Exam ENT Exam: Normal Exam - Neck Exam Neck exam: Normal Inspection - Respiratory Exam Respiratory Exam: Decreased Breath Sounds (at bases) - Cardiovascular Exam Cardiovascular Exam: REGULAR RHYTHM, Systolic Murmur (1/6 LSB Ao) - GI/Abdominal Exam GI & Abdominal Exam: Normal Bowel Sounds, Soft - Extremities Exam Extremities exam: tenderness (knees) Additional comments: legs trace edema, redness minimal almost completely resolved - Back Exam Back exam: tenderness - Psychiatric Exam Psychiatric exam: Anxious - Skin Skin Exam: Warm Discharge Plan - Discharge Medications Prescriptions: Amoxicillin/Clavulanate [Augmentin 875 MG-125 MG] 1 tab PO Q12 #20 tab - Follow Up Plan Condition: FAIR Disposition: HOME/ ROUTINE Patient education suggested?: Yes Instructions: Atrial Fibrillation (DC), Cellulitis (DC) Additional Instructions: Follow up with PMD in one week.
[2017-08-22 15:53] VITALS: PULSE 65; RESP 20; TEMP 97.8; O2SAT 94
[2017-08-22 15:59] VITALS: BP 124/67
[2017-08-22] MEDS ORDERED: Piperacillin/Tazobact 3.375 GM in Sodium Chloride 0.9% 50 ML IVPB SCH (16:00)
--- NOTE | 2017-08-23 14:58 | PQF CHF ---
This form is a permanent part of the medical record DR. WOLF MARTINEZ: PLEASE CONFIRM THE TYPE OF CHF. Clarification of your documentation is requested to better reflect the severity of illness and intensity of treatment of your patient. Indicators present [] Diagnosis of CHF and/or history of CHF [] BNP > 200 [] Imaging Finding of Pulmonary Edema /Pleural Effusions [] Fluid/Volume Overload [] Pitting edema [] Ejection Fraction < 40% (Indicative of Systolic Heart Failure) [] Ejection Fraction > 40% (Indicative of Diastolic Heart Failure) [] Dyspnea / Orthopenea / Paroxysmal Nocturnal Dyspnea [] Other: Location in the medical record that reflects the above clinical findings: [] Treatment Provided: [] PHYSICIAN'S RESPONSE Based on your medical judgment of the clinical indicators outlined above, are you treating this patient for a known or suspected: [] Acute CHF [] Systolic [] Diastolic [] Combined [] Chronic CHF [] Systolic [] Diastolic [] Combined [] Acute on Chronic CHF []Systolic [] Diastolic [] Combined [] CHF due hypertension [] Acute systolic []Chronic systolic [] Acute/ chronic systolic [] Other, please indicate: [] [] If Unable to Determine, please check the box, sign and date. Present On Admission (POA) Indicator: [] Present at the time of admission [] Not present at the time of admission [] Clinically Undetermined In responding to this query, please exercise your independent professional judgment. The fact that a question is asked does not imply that any particular answer is desired or expected. Thank you for your clarification on this documentation. If you have any questions please call:[ ] * Thank you, * MARIANA PADILLA [ [phone] engraved roller inspector DINORAH
== END 2017-08-22 19:15 | disposition home or self-care (01) | DRG 309 ==
LOC: H.ER 06:57 → H.ERHOLD 09:24 → H.TEL 14:17
PROVIDERS: ADMIT Internal Medicine Pulmonary Disease; ATTEND Internal Medicine Pulmonary Disease
DX: I48.91 Unspecified atrial fibrillation (principal); L03.115 Cellulitis of right lower limb; I50.32 Chronic diastolic (congestive) heart failure; I11.0 Hypertensive heart disease with heart failure; D64.9 Anemia, unspecified; E11.9 Type 2 diabetes mellitus without complications; E78.00 Pure hypercholesterolemia, unspecified; L03.116 Cellulitis of left lower limb; J44.9 Chronic obstructive pulmonary disease, unspecified; E78.5 Hyperlipidemia, unspecified; F32.9 Major depressive disorder, single episode, unspecified; M81.0 Age-related osteoporosis without current pathological fracture; Z79.01 Long term (current) use of anticoagulants; Z79.899 Other long term (current) drug therapy; Z86.73 Personal history of transient ischemic attack (TIA), and cerebral infarction without residual deficits; Z87.01 Personal history of pneumonia (recurrent); Z87.891 Personal history of nicotine dependence; Z91.14 Patient's other noncompliance with medication regimen; M19.90 Unspecified osteoarthritis, unspecified site; M54.9 Dorsalgia, unspecified; R00.2 Palpitations; R53.1 Weakness; F41.9 Anxiety disorder, unspecified; I35.0 Nonrheumatic aortic (valve) stenosis

== ENCOUNTER 2017-10-22 12:03 | Inpatient (IN) | payer MEDICARE, MEDICAID ==
[2017-10-22 12:03] VITALS: BMI 33.9
--- NOTE | 2017-10-22 12:28 | ED PDOC ---
HPI: Influenza Time Seen by Provider: 10/22/17 12:24 Chief Complaint: Cough, Cold, Congestion Chief Complaint (Provider): Cough History Per: Patient, Family Exam Limitations: no limitations Onset/Duration Of Symptoms: Days (2) Additional complaint(s):: Pt. with cough, congestion, runny nose, dyspnea, weakness all over. Pt. with no headaches, chest pain. No numbness, tingles, dizziness. Seen by Dr. Granado today and sent to the ED. Started zithromax yesterday. pt. with no nausea, vomit, diarrhea. Past Medical History Reviewed: Nursing Documentation, Vital Signs Vital Signs: Last Vital Signs Temp 98.1 F 10/22/17 12:14 Pulse 66 10/22/17 12:14 Resp 18 10/22/17 12:10 BP 151/76 H 10/22/17 12:14 Pulse Ox 98 10/22/17 12:14 - Medical History PMH: Anemia, Anxiety, Arthritis, Atrial Fibrillation, Back Problems, CHF, COPD, Depression, Diverticulitis, HTN, Hypercholesterolemia, Osteoporosis, Pneumonia Denies: HIV, Chronic Kidney Disease - Surgical History Surgical History: Denies: Pacemaker - Family History Family History: States: Unknown Family Hx - Living Arrangements Living Arrangements: With Family - Home Medications Home Medications: Ambulatory Orders Medication Instructions Recorded Albuterol HFA [Ventolin HFA 90 2 puff IH Q4H PRN 08/18/17 mcg/actuation (8 g)] Alprazolam [Xanax] 0.5 mg PO Q12H PRN 08/18/17 Apixaban [Eliquis] 2.5 mg PO Q12H 08/18/17 Diclofenac Sodium [Voltaren] 1 appl TOP DAILY PRN 08/18/17 Esomeprazole Magnesium [Nexium] 40 mg PO DAILY 08/18/17 Fluticasone/Salmeterol 500/50 1 puff IH Q12H 08/18/17 [Advair Diskus 500/50] Furosemide [Lasix] 20 mg PO BID 08/18/17 Ketoconazole [Nizoral] 1 appl TOP MWF 08/18/17 Meclizine [Meclizine*] 25 mg PO Q8H PRN 08/18/17 Metoprolol Tartrate [Lopressor] 50 mg PO Q12H 08/18/17 Mometasone 0.1% [Elocon Cream] 1 appl TOP HS 08/18/17 Mupirocin 2% Ointment [Bactroban 1 appl TOP BID 08/18/17 Ointment] Oxycodone HCl/Acetaminophen 1 tab PO Q6H PRN 08/18/17 [Percocet 7.5-325 mg Tablet] Potassium Chloride [K-Dur 20 mEq 20 meq PO DAILY 08/18/17 ER Tab] Zolpidem [Ambien] 10 mg PO HS PRN 08/18/17 diltiaZEM [Cardizem] 60 mg PO Q8H 08/18/17 hydrALAZINE [Apresoline] 25 mg PO Q12H 08/18/17 Amoxicillin/Clavulanate [Augmentin 1 tab PO Q12 #20 tab 08/22/17 875 MG-125 MG] - Allergies Allergies/Adverse Reactions: Allergies Allergy/AdvReac Type Severity Reaction Status Date / Time iodine Allergy RASH Verified 10/26/16 18:55 Review of Systems ROS Statement: Except As Marked, All Systems Reviewed And Found Negative Constitutional: Positive for: Fever, Weakness ENT: Positive for: Nose Pain, Nose Discharge, Nose Congestion Respiratory: Positive for: Cough, Shortness of Breath Neurological: Positive for: Weakness Physical Exam - Reviewed Nursing Documentation Reviewed: Yes Vital Signs Reviewed: Yes - Physical Exam Appears: Positive for: Uncomfortable Head Exam: Positive for: ATRAUMATIC, NORMAL INSPECTION, NORMOCEPHALIC Skin: Positive for: Normal Color, Warm, DRY Eye Exam: Positive for: EOMI, Normal appearance, PERRL ENT: Positive for: Nasal Congestion Neck: Positive for: Normal, Painless ROM, Supple Cardiovascular/Chest: Positive for: Regular Rate, Rhythm Respiratory: Positive for: Wheezing (mild b/l) Gastrointestinal/Abdominal: Positive for: Normal Exam, Bowel Sounds, Soft. Negative for: Tenderness Back: Positive for: Normal Inspection. Negative for: L CVA Tenderness, R CVA Tenderness Extremity: Positive for: Normal ROM. Negative for: Tenderness, Pedal Edema Neurologic/Psych: Positive for: Alert, computer field technician II-XII, Oriented. Negative for: Motor/Sensory Deficits - Laboratory Results Result Diagrams: 10/22/17 12:30 10/22/17 12:30 Interpretation Of Abn Labs: 3.3 k, pco2 78, probnp mild elevation - ECG ECG: Positive for: Interpreted By Me, Viewed By Me ECG Rhythm: Positive for: Normal QRS, Normal ST Segment, Sinus Rhythm O2 Sat by Pulse Oximetry: 98 Pulse Ox Interpretation: Normal - Radiology X-Ray: Read By Radiologist X-Ray Interpretation: Other (pulm vasc congestion) - CT Scan/US head Other Rad Studies (CT/US): Read By Radiologist Other Rad Interpretation: no acute - Progress ED Course And Treament: 1425: Stable. Will put on bipap for chf. Improve co2 removal. Lasix, ntg. Pt. on blood thinner, will hold asa. Spoke with Dr. Granado. Wants CT chest and will admit tele. Will give further orders when pt. reaches floor. - Critical Care Total Time (In Min): 30 Documented Critical Care: Time excludes all time spent performint seperately billable procedures Disposition - Clinical Impression Clinical Impression: COPD (chronic obstructive pulmonary disease), CHF (congestive heart failure) - Patient ED Disposition Is Patient to be Admitted: Yes Counseled Patient/Family Regarding: Studies Performed, Diagnosis - Disposition Disposition Time: 14:31 Condition: FAIR - Pt Status Changed To: Hospital Disposition Of: Inpatient - Admit Certification Admit to Inpatient:: After my assessment, the patient will require hospitalization for at least two midnights. This is because of the severity of symptoms shown, intensity of services needed, and/or the medical risk in this patient being treated as an outpatient. - POA Present On Arrival: None
[2017-10-22] MEDS ORDERED: Albuterol-Ipratrop 3 mg / 0.5 (3 ml) UD IH STA (12:40)
[2017-10-22] MEDS ORDERED: Albuterol-Ipratrop 3 mg / 0.5 (3 ml) UD INH STA (12:40)
[2017-10-22] MEDS ORDERED: Sodium Chloride 0.9% 500 ML IV SCH (12:45)
[2017-10-22] MEDS ORDERED: Albuterol-Ipratrop 3 mg / 0.5 (3 ml) UD ONE (12:54)
[2017-10-22 13:06] LABS: EOS # 0.1 K/uL (0.0-0.7); EOS % 1.6 % (0.0-4.0); HEMOGLOBIN 11.3 g/dL (12.0-16.0); LYMPH # 1.1 K/uL (1.0-4.3); LYMPH % 22.5 % (20.0-40.0); MEAN CELL VOLUME 81.2 fl (81.0-99.0); MEAN CORPUSCULAR HEMOGLOBIN 25.1 pg (27.0-31.0); MEAN CORPUSCULAR HGB CONC 30.9 g/dL (33.0-37.0); MEAN PLATELET VOLUME 8.7 fl (7.2-11.7); MONO # 0.5 K/uL (0.0-0.8); MONO % 10.9 % (0.0-10.0); NEUT # 3.2 K/uL (1.8-7.0); NRBC % 0.1 % (0.0-0.0); RBC 4.5 Mil/uL (3.80-5.20)
[2017-10-22 13:13] LABS: INR 1.3 (0.9-1.2); PARTIAL THROMBOPLASTIN TIME 38.7 Seconds (25.6-37.1); PROTHROMBIN TIME 14.7 Seconds (9.8-13.1)
[2017-10-22 13:26] LABS: ABG ALLEN TEST YES; ARTERIAL BLOOD GAS HCO3 39.8 mmol/L (21-28); ARTERIAL BLOOD GAS O2 SAT 99.7 % (95-98); ARTERIAL BLOOD GAS PCO2 78 mm/Hg (35-45); ARTERIAL BLOOD GAS PO2 296 mm/Hg (80-100); ARTERIAL BLOOD GAS TCO2 50.7 mmol/L (22-28)
[2017-10-22 13:42] LABS: B-TYPE NATRIURETIC PEPTIDE 1220 pg/ml (0-900)
[2017-10-22 13:58] LABS: ALBUMIN 3.9 g/dL (3.5-5.0); ALT/SGPT 31 U/L (9-52); AST/SGOT 37 U/L (14-36); BLOOD UREA NITROGEN 13 mg/dl (7-17); CALCIUM 9.1 mg/dL (8.4-10.2); GFR AFRICAN-AMERICAN > 60; GFR NON-AFRICAN AMERICAN > 60
--- NOTE | 2017-10-22 14:01 | RAD ---
HISTORY: Sepsis Patient COMPARISON: Chest radiograph dated 08/18/2017. FINDINGS: LUNGS: Bibasilar atelectasis. Pulmonary vascular congestion. PLEURA: Small left pleural effusion. Trace right pleural effusion. No pneumothorax apparent. CARDIOVASCULAR: Atherosclerotic aortic calcifications. Cardiomediastinal silhouette stably enlarged. OSSEOUS STRUCTURES: Unchanged. VISUALIZED UPPER ABDOMEN: Normal. OTHER FINDINGS: None. IMPRESSION: Pulmonary vascular congestion with small left and trace right pleural effusions.
--- NOTE | 2017-10-22 14:09 | CT ---
PROCEDURE: CT HEAD WITHOUT CONTRAST. HISTORY: headache COMPARISON: Multiple CT scans of the head dating back to 08/15/2009. TECHNIQUE: Axial computed tomography images were obtained through the head/brain without intravenous contrast. Radiation dose: Total exam DLP = 1955.7 mGy-cm. This CT exam was performed using one or more of the following dose reduction techniques: Automated exposure control, adjustment of the mA and/or kV according to patient size, and/or use of iterative reconstruction technique. FINDINGS: HEMORRHAGE: No intracranial hemorrhage. BRAIN: No mass effect or edema. Atrophy. Mild chronic microvascular ischemic changes. VENTRICLES: Prominent. No hydrocephalus. CALVARIUM: Unremarkable. PARANASAL SINUSES: Trace maxillary sinus mucosal thickening. MASTOID AIR CELLS: Unremarkable as visualized. No inflammatory changes. 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 IMPRESSION: No acute intracranial pathology. 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
[2017-10-22] MEDS ORDERED: Potassium Chloride 20 mEq ER Tab PO ONE ×3 (14:22→14:54)
--- NOTE | 2017-10-22 17:24 | CT ---
PROCEDURE: CT Chest without contrast HISTORY: eval of effusions and chf COMPARISON: CT scan of the chest dated 05/08/2017. TECHNIQUE: Contiguous axial images were obtained through the chest without intravenous contrast enhancement. Sagittal and coronal reconstructions were performed. Radiation dose (DLP): 882.2 mGy-cm. This CT exam was performed using one or more of the following dose reduction techniques: Automated exposure control, adjustment of the mA and/or kV according to patient size, and/or use of iterative reconstruction technique. FINDINGS: LUNGS: Interlobular septal thickening. Bilateral lower lobe passive atelectasis. Visualized airway clear. MEDIASTINUM: Aberrant right subclavian artery. Calcific atherosclerosis. No aneurysm. Cardiomegaly. Coronary arterial and valvular calcification Main pulmonary artery unremarkable. No vascular congestion. No lymphadenopathy. PLEURA: Small left and trace right pleural effusion. No pneumothorax. BONES: No fracture. No destructive lesion. UPPER ABDOMEN: Small hiatal hernia. Grossly unremarkable. OTHER FINDINGS: None. IMPRESSION: Pulmonary vascular congestion with small left and trace right pleural effusions.
--- NOTE | 2017-10-23 00:11 | CARD ---
APPROVED REPORT EKG Measurement Heart [id number] <Conclusion> Sinus bradycardia with premature supraventricular complexes Otherwise normal ECG
[2017-10-23] MEDS: Albuterol-Ipratrop 3 mg / 0.5 (3 ml) UD INH SCH ×4 (00:39→11:18)
[2017-10-23 07:15] LABS: HEMOGLOBIN 11.6 g/dL (12.0-16.0); MEAN CELL VOLUME 80.7 fl (81.0-99.0); MEAN CORPUSCULAR HEMOGLOBIN 25.1 pg (27.0-31.0); MEAN CORPUSCULAR HGB CONC 31.1 g/dL (33.0-37.0); RBC 4.62 Mil/uL (3.80-5.20); RED CELL DISTRIBUTION WIDTH 16.4 % (11.5-14.5); WHITE BLOOD COUNT 3.9 K/uL (4.8-10.8)
[2017-10-23 07:37] LABS: LDL CHOLESTEROL 122 mg/dL (0-129)
[2017-10-23 07:41] LABS: ALBUMIN 3.6 g/dL (3.5-5.0); ALT/SGPT 31 U/L (9-52); AST/SGOT 31 U/L (14-36); BLOOD UREA NITROGEN 18 mg/dl (7-17); CALCIUM 9.3 mg/dL (8.4-10.2); GFR AFRICAN-AMERICAN > 60; GFR NON-AFRICAN AMERICAN > 60; HDL CHOLESTEROL 42 MG/DL (30-70)
[2017-10-23 07:47] LABS: INR 1.3 (0.9-1.2); PARTIAL THROMBOPLASTIN TIME 33.5 Seconds (25.6-37.1); PROTHROMBIN TIME 14.8 Seconds (9.8-13.1)
[2017-10-23 07:56] LABS: T3 0.645 nmol/L (1.49-2.60)
[2017-10-23] MEDS: Potassium Chloride 20 mEq ER Tab PO SCH (08:22)
[2017-10-23] MEDS: Pantoprazole 40 mg EC Tab PO SCH (08:23)
[2017-10-23] MEDS ORDERED: Potassium CL 10 MEQ/50 ML 50 ML IVPB SCH (13:00)
[2017-10-23] MEDS: Ipratropium 0.02% Inhal Soln (0.5 mg/2.5 ml) UD IH SCH ×2 (13:23→19:38)
[2017-10-23 13:50] LABS: ABG ALLEN TEST YES; ARTERIAL BLOOD GAS HCO3 42.4 mmol/L (21-28); ARTERIAL BLOOD GAS HEMOGLOBIN 11.6 g/dL (11.7-17.4); ARTERIAL BLOOD GAS O2 CAPACITY 16.1 mL/dL (16-24); ARTERIAL BLOOD GAS O2 CONTENT 15.6 ML/dL (15-23); ARTERIAL BLOOD GAS O2 SAT 97.1 % (95-98); ARTERIAL BLOOD GAS PCO2 45 mm/Hg (35-45); ARTERIAL BLOOD GAS PH 7.62 (7.35-7.45); ARTERIAL BLOOD GAS PO2 67 mm/Hg (80-100); ARTERIAL BLOOD GAS TCO2 47.7 mmol/L (22-28)
--- NOTE | 2017-10-23 14:28 | CP.PCM.HP ---
History of Present Illness - History of Present Illness History of Present Illness: CC: Chest congestion. 82 y/o F, multiple chronic medical condition, well known in my office, brought by EMS to [facility], to be evaluated for chest congestion, associated to moderate difficulty breathing, productive occasional cough with yellowish phlegms, nose congestion, onset 2days [employer]ER[employer]IST, with no relief. 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 Worsening symptoms: EKG showing A Fib with RVR, afebrile while at the ER, pain when coughing with mild to moderate intensity 4:10, generalized weakness. Aggravated factor: Movements/exercise. Pt denied: Chills, headache, syncope, LOC, dizziness, numbness, n/v/d, abdominal pain, urinary symptoms,CP, sick contact, recent travel out of [facility]. CXR and CT Chest showed: Pulmonary vascular congestion with small left and trace R pleural effusions. Head CT: No acute intracranial pathology. Present on Admission - Present on Admission Any Indicators Present on Admission: No Review of Systems - Constitutional Constitutional: Fever (mild), Weakness - EENT Eyes: Other (negative) Ears: Other (negative) Nose/Mouth/Throat: Nasal Congestion - Cardiovascular Cardiovascular: Palpitations (on eval at ED) - Respiratory Respiratory: Cough, Dyspnea, Chest Congestion, Pain with Coughing - Gastrointestinal Gastrointestinal: Other (negative) - Genitourinary Genitourinary: Other (negative) - Musculoskeletal Musculoskeletal: Arthralgias - Integumentary Integumentary: Other (negative) - Neurological Neurological: Weakness - Psychiatric Psychiatric: Anxiety, Depression - Endocrine Endocrine: Other (negative) - Hematologic/Lymphatic Hematologic: Other (negative) Past Patient History - Infectious Disease Hx of Infectious Diseases: None - Tetanus Immunizations Tetanus Immunization: Unknown - Past Medical History & Family History Past Medical History?: Yes Pertinent Family History: Unknown - Past Social History Smoking Status: Former Smoker Alcohol: None Drugs: Denies - CARDIAC Hx Cardiac Disorders: Yes Hx Atrial Fibrillation: Yes Hx Congestive Heart Failure: Yes Hx Hypercholesterolemia: Yes Hx Hypertension: Yes Hx Pacemaker: No - PULMONARY Hx Respiratory Disorders: Yes Hx Chronic Obstructive Pulmonary Disease (COPD): Yes Hx Pneumonia: Yes - NEUROLOGICAL Hx Neurological Disorder: Yes Hx Transient Ischemic Attacks (TIA): Yes - HEENT Hx HEENT Problems: No - RENAL Hx Chronic Kidney Disease: No - ENDOCRINE/METABOLIC Hx Endocrine Disorders: Yes Hx Diabetes Mellitus Type 2: Yes - HEMATOLOGICAL/ONCOLOGICAL Hx Anemia: Yes Hx Human Immunodeficiency Virus (HIV): No - INTEGUMENTARY Hx Dermatological Problems: No - MUSCULOSKELETAL/RHEUMATOLOGICAL Hx Musculoskeletal Disorders: Yes Hx Arthritis: Yes Hx Falls: Yes Hx Osteoporosis: Yes - GASTROINTESTINAL Hx Diverticulitis: Yes - GENITOURINARY/GYNECOLOGICAL Hx Genitourinary Disorders: No - PSYCHIATRIC Hx Psychophysiologic Disorder: Yes Hx Anxiety: Yes Hx Depression: Yes - SURGICAL HISTORY Hx Surgeries: Yes Hx Herniorrhaphy: Yes - ANESTHESIA Hx Anesthesia: Yes Hx Anesthesia Reactions: No Hx Malignant Hyperthermia: No Meds Home Medications: Home Medication List Medication Instructions Recorded Confirmed Type Nitrofurantoin Monohyd/M-Cryst 100 mg PO Q12 #10 capsule 10/28/17 Rx [Nitrofurantoin [place]-Mcr 100 mg] Allergies/Adverse Reactions: Allergies Allergy/AdvReac Type Severity Reaction Status Date / Time iodine Allergy RASH Verified 10/26/16 18:55 Physical Exam - Constitutional Appears: No Acute Distress - Head Exam Head Exam: NORMAL INSPECTION - Eye Exam Eye Exam: PERRL - ENT Exam ENT Exam: Normal Exam - Neck Exam Neck exam: Positive for: Normal Inspection - Respiratory Exam Respiratory Exam: Decreased Breath Sounds (at bases) - Cardiovascular Exam Cardiovascular Exam: REGULAR RHYTHM, Systolic Murmur (1/6 LSB Ao) - GI/Abdominal Exam GI & Abdominal Exam: Normal Bowel Sounds, Soft - Extremities Exam Extremities exam: Positive for: normal inspection - Back Exam Additional comments: Mild erythema on sacrum - Neurological Exam Neurological exam: Alert, Oriented x3 Additional comments: At times confused, generalized weakness. - Psychiatric Exam Psychiatric exam: Anxious, Depressed - Skin Skin Exam: Warm Results - Vital Signs Recent Vital Signs: Last Vital Signs Temp 99.3 F 10/23/17 12:00 Pulse 68 10/23/17 12:00 Resp 18 10/23/17 12:00 BP 124/62 10/23/17 12:00 Pulse Ox 93 L 10/23/17 12:00 cristal Hay - Labs Result Diagrams: 10/23/17 06:55 10/26/17 04:20 Labs: Laboratory Results - last 24 hr 10/23/17 10/23/17 10/23/17 05:42 06:55 06:55 WBC 3.9 L RBC 4.62 Hgb 11.6 L Hct 37.3 MCV 80.7 L MCH 25.1 L MCHC 31.1 L RDW 16.4 H Plt Count 155 PT 14.8 H INR 1.3 H APTT 33.5 D pCO2 pO2 HCO3 ABG pH ABG Total CO2 ABG O2 Saturation ABG O2 Content ABG Base Excess ABG Hemoglobin ABG Carboxyhemoglobin POC ABG HHb (Measured) ABG Methemoglobin ABG O2 Capacity Fred Test A-a O2 Difference Hgb O2 Saturation Liter Flow Vent Mode FiO2 Blood Gas Comments Crit Value Called To Crit Value Called By Crit Value Read Back Blood Gas Notified Time Sodium Potassium Chloride Carbon Dioxide Anion Gap BUN Creatinine Est GFR ( Amer) Est GFR (Non-Af Amer) POC Glucose (mg/dL) 133 H Random Glucose Calcium Total Bilirubin AST ALT Alkaline Phosphatase Total Protein Albumin Globulin Albumin/Globulin Ratio Triglycerides Cholesterol LDL Cholesterol Direct HDL Cholesterol Thyroxine (T4) Total T3 TSH 3rd Generation 10/23/17 10/23/17 10/23/17 06:55 08:41 10:15 WBC RBC Hgb Hct MCV MCH MCHC RDW Plt Count PT INR APTT pCO2 pO2 HCO3 ABG pH ABG Total CO2 ABG O2 Saturation ABG O2 Content ABG Base Excess ABG Hemoglobin ABG Carboxyhemoglobin POC ABG HHb (Measured) ABG Methemoglobin ABG O2 Capacity Fred Test A-a O2 Difference Hgb O2 Saturation Liter Flow Vent Mode FiO2 Blood Gas Comments Crit Value Called To Crit Value Called By Crit Value Read Back Blood Gas Notified Time Sodium 145 Potassium 2.7 L Chloride 93 L Carbon Dioxide 38 H Anion Gap 17 BUN 18 H Creatinine 0.6 L Est GFR ( Amer) > 60 Est GFR (Non-Af Amer) > 60 POC Glucose (mg/dL) 135 H Random Glucose 123 H Calcium 9.3 Total Bilirubin 0.6 AST 31 ALT 31 Alkaline Phosphatase 78 Total Protein 7.1 Albumin 3.6 Globulin 3.5 Albumin/Globulin Ratio 1.0 Triglycerides 88 D Cholesterol 201 H LDL Cholesterol Direct 122 HDL Cholesterol 42 Thyroxine (T4) 9.41 Total T3 0.645 L TSH 3rd Generation 0.13 L 10/23/17 12:25 WBC RBC Hgb Hct MCV MCH MCHC RDW Plt Count PT INR APTT pCO2 45 pO2 67 L HCO3 42.4 H* ABG pH 7.62 H* ABG Total CO2 47.7 H ABG O2 Saturation 97.1 ABG O2 Content 15.6 ABG Base Excess 22.5 H ABG Hemoglobin 11.6 L ABG Carboxyhemoglobin 1.5 POC ABG HHb (Measured) 2.8 ABG Methemoglobin 0.4 ABG O2 Capacity 16.1 Fred Test Yes A-a O2 Difference 105.0 Hgb O2 Saturation 95.2 Liter Flow 3 Vent Mode Nc FiO2 32.0 Blood Gas Comments Nc 3 Crit Value Called To Otto nava r.n. Crit Value Called By Melissa Crit Value Read Back Y Blood Gas Notified Time 1349 Sodium Potassium Chloride Carbon Dioxide Anion Gap BUN Creatinine Est GFR ( Amer) Est GFR (Non-Af Amer) POC Glucose (mg/dL) Random Glucose Calcium Total Bilirubin AST ALT Alkaline Phosphatase Total Protein Albumin Globulin Albumin/Globulin Ratio Triglycerides Cholesterol LDL Cholesterol Direct HDL Cholesterol Thyroxine (T4) Total T3 TSH 3rd Generation reviewed J.P. - EKG Data EKG comments: reviewed J.P. - Imaging and Cardiology Chest x-ray Status: Report reviewed by me (J.P.) CT scan - chest Status: Report reviewed by me (J.P.) CT scan - head Status: Report reviewed by me (J.P.) Assessment & Plan (1) COPD exacerbation Status: Resolved Priority: High (2) Pleural effusion, bilateral Status: Acute Priority: High (3) Atrial fibrillation with RVR Status: Acute Priority: High (4) Hypokalemia Status: Acute Priority: High (5) Hypertension Status: Chronic Priority: Medium (6) Type 2 diabetes mellitus Status: Chronic Priority: Medium (7) Anxiety Status: Chronic Priority: Medium (8) Depression Status: Chronic Priority: Medium - Assessment and Plan (Free Text) Plan: F/U Blood and U C-S, Continue Xopenex Tx, Atrovent, Lasix, Cardizem, Lopressor , Potassium. Cardiology onsult. - Date & Time Date: 10/23/17 Time: 10:40
--- NOTE | 2017-10-23 14:48 | CARD ---
APPROVED REPORT EKG Measurement Heart [id number] <Conclusion> Atrial fibrillation with rapid ventricular response Nonspecific T wave abnormality Abnormal ECG
[2017-10-23] MEDS: Potassium Chloride 20 mEq 100 ML IVPB SCH ×2 (16:35→19:00)
[2017-10-23] MEDS: Levalbuterol 0.63 MG/3 ML Inhal Soln UD INH PRN (19:38)
[2017-10-24] MEDS: Ipratropium 0.02% Inhal Soln (0.5 mg/2.5 ml) UD IH SCH ×4 (01:12→19:03)
[2017-10-24 06:21] LABS: BLOOD UREA NITROGEN 22 mg/dl (7-17); CALCIUM 8.9 mg/dL (8.4-10.2); GFR AFRICAN-AMERICAN > 60; GFR NON-AFRICAN AMERICAN > 60
[2017-10-24] MEDS: Potassium Chloride 20 mEq ER Tab PO SCH ×2 (08:36→16:47)
[2017-10-24] MEDS: Pantoprazole 40 mg EC Tab PO SCH (08:37)
[2017-10-24] MEDS ORDERED: Potassium Chloride 20 mEq 100 ML IVPB SCH (10:00)
--- NOTE | 2017-10-24 15:44 | CON ---
DATE: CARDIOLOGY CONSULTATION HISTORY OF PRESENT ILLNESS: The patient is an 82-year-old female who had history of chronic obstructive lung disease, now presented because of cough, congestion, shortness of breath and runny nose. The patient denies any chest pain upon presentation. SOCIAL HISTORY: The patient is nonsmoker. PAST MEDICAL HISTORY: Chronic obstructive lung disease, history of TIA, history of congestive heart failure, and hyperlipidemia. CURRENT MEDICATIONS: 25 mg twice a day, Atrovent inhaler every 6 hours, Cardizem 60 mg every 8 hours, Eliquis 2.5 mg twice a day, K-Dur 20 mEq twice a day, Lasix 20 mg twice a day, and Lopressor 50 mg twice a day. PHYSICAL EXAMINATION: GENERAL: The patient is an elderly female who does not appeared to be in acute distress. VITAL SIGNS: Blood pressure of 115/55, heart rate of 70, temperature of 99, and respirations of 17. HEENT: Normocephalic. CHEST: Bilateral rhonchi. HEART: S1 and S2 regular and distant. ABDOMEN: Soft. EXTREMITIES: Trace leg edema. LABORATORY DATA: Hemoglobin and hematocrit are 11.6 and 37.3, white count of 3.9, and platelet count of 165,000. SMA-7: Sodium of 144, potassium of 2.9, chloride of 95, CO2 of 37, glucose of 97, BUN of 22, and creatinine of 0.7. ProBNP is 1220. One set of troponin is negative. IMAGING DATA: Chest x-ray revealed cardiomegaly with prominent bronchovascular markings. EKG revealed most likely multifocal atrial tachycardia at a rate of 106. Initial EKG revealed sinus bradycardia at a rate of 58 with APCs. Echocardiography study in October of last year revealed the ejection fraction estimated at 70%, [id number] mitral insufficiency and mild tricuspid insufficiency. EKG in November of 2016, revealed sinus rhythm with APCs. ASSESSMENT: 1. Chronic obstructive lung disease. 2. Consider multifocal atrial tachycardia. 3. Hypokalemia. 4. History of transient ischemic attack. 5. Questionable paroxysmal atrial fibrillation. RECOMMENDATIONS: Continue current hydralazine 25 mg once a day, Cardizem at 60 mg every 8 hours, Eliquis 2.5 mg twice a day, K-Dur 20 mEq twice a day, Lasix 20 mg twice a day, and Lopressor 50 mg twice a day. Continue followup BNP in a.m., I will review the echocardiograph study performed today. Tejinder Valladares MD
--- NOTE | 2017-10-24 19:22 | CP.PCM.PN ---
Subjective - Date & Time of Evaluation Date of Evaluation: 10/24/17 Time of Evaluation: 18:30 - Subjective Subjective: F/U COPD Exacerbation chest congestion improved , less cough , scanty whitish yellowish flegm , no SOB with O2 Objective - Vital Signs/Intake and Output Vital Signs (last 24 hours): Temp Pulse Resp BP Pulse Ox 97.3 F L 72 20 115/68 95 10/24/17 16:11 10/24/17 16:46 10/24/17 16:11 10/24/17 16:46 10/24/17 16:11 Intake and Output: 10/24/17 10/25/17 18:59 06:59 Intake Total 700 Output Total 1 Balance 699 - Medications Medications: Current Medications Alprazolam (Xanax) 0.5 mg PO Q12H PRN PRN Reason: Anxiety Apixaban (Eliquis) 2.5 mg PO Q12H [facility] PRN Reason: Protocol Last Admin: 10/24/17 08:36 Dose: 2.5 mg Diltiazem HCl (Cardizem) 60 mg PO Q8 [facility] Last Admin: 10/24/17 16:46 Dose: 60 mg Furosemide (Lasix) 40 mg IVP DAILY [facility] Last Admin: 10/24/17 08:37 Dose: 40 mg Hydralazine HCl (Apresoline) 25 mg PO Q12 [facility] Last Admin: 10/24/17 08:36 Dose: 25 mg Ipratropium [place] (Atrovent) 0.5 mg IH RQ6 [facility] Last Admin: 10/24/17 19:03 Dose: 0.5 mg Levalbuterol HCl (Xopenex) 0.63 mg INH RQ6 PRN PRN Reason: Shortness of Breath Last Admin: 10/23/17 19:38 Dose: 0.63 mg Metoprolol Tartrate (Lopressor) 50 mg PO Q12H [facility] Last Admin: 10/24/17 08:37 Dose: 50 mg Pantoprazole Sodium (Protonix Ec Tab) 40 mg PO DAILY [facility] Last Admin: 10/24/17 08:37 Dose: 40 mg Potassium Chloride (K-Dur 20 Meq Er Tab) 20 meq PO BID [facility] Last Admin: 10/24/17 16:47 Dose: 20 meq - Labs Labs: 10/23/17 06:55 10/24/17 05:00 PT 14.8 Seconds (9.8-13.1) H 10/23/17 06:55 INR 1.3 (0.9-1.2) H 10/23/17 06:55 APTT 33.5 Seconds (25.6-37.1) D 10/23/17 06:55 - Constitutional Appears: Chronically Ill - Head Exam Head Exam: NORMAL INSPECTION - Eye Exam Eye Exam: PERRL - ENT Exam ENT Exam: Normal Exam - Neck Exam Neck Exam: Normal Inspection - Respiratory Exam Respiratory Exam: Decreased Breath Sounds (at bases), Rhonchi (scattered) - Cardiovascular Exam Cardiovascular Exam: REGULAR RHYTHM, Murmur (systolic 1/6 LSB Ao) - GI/Abdominal Exam GI & Abdominal Exam: Soft, Normal Bowel Sounds - Extremities Exam Extremities Exam: Normal Inspection - Back Exam Back Exam: tenderness Additional comments: mild erythema on sacrum - Neurological Exam Neurological Exam: Alert, Oriented x3 Additional comments: no focal motor/ sensory deficit , generalized weakness. - Psychiatric Exam Psychiatric exam: Anxious, Depressed - Skin Skin Exam: Warm Assessment and Plan (1) COPD exacerbation Status: Resolved (2) Pleural effusion, bilateral Status: Acute (3) Atrial fibrillation with RVR Status: Acute (4) Hypokalemia Status: Acute (5) Hypertension Status: Chronic (6) Type 2 diabetes mellitus Status: Chronic (7) Anxiety Status: Chronic (8) Depression Status: Chronic - Assessment and Plan (Free Text) Plan: continue O2 , Xopenex , Atrovent , Eliquis , Lasix , Metropolol , Hydralazine , Cardizem , K replacement , and rest of treatment , Cardiology consult appreciated , f/u ECHO
--- NOTE | 2017-10-24 20:37 | CARD ---
APPROVED REPORT EXAM: Two-dimensional and M-mode echocardiogram with Doppler and color Doppler. Other Information Quality : GoodRhythm : NSR INDICATION Congestive Heart Failure 2D DIMENSIONS IVSd1.16 (0.7-1.1cm)LVDd3.88 (3.9-5.9cm) LVOT Diameter1.70 (1.8-2.4cm)PWd1.02 (0.7-1.1cm) IVSs1.87 (0.8-1.2cm)LVDs2.35 (2.5-4.0cm) FS (%) 39.5 %PWs1.45 (0.8-1.2cm) M-Mode DIMENSIONS Left Atrium (MM)4.41 (2.5-4.0cm)IVSd0.97 (0.7-1.1cm) Aortic Root2.65 (2.2-3.7cm)LVDd4.50 (4.0-5.6cm) Aortic Cusp Exc.1.32 (1.5-2.0cm)PWd1.24 (0.7-1.1cm) IVSs2.00 cmFS (%) 56 % LVDs1.97 (2.0-3.8cm)PWs1.65 cm Mitral Valve MV E Wfkmokay343.0cm/sMV DECEL [id number] A Ermgqpes002.9cm/s MV CSG64qnB/A ratio1.2MVA (PHT)2.46cm2 TDI Lateral E' Peak V5.87cm/sMedial E' Peak V8.39cm/sE/Lateral E'20.8 E/Medial E'14.5 Pulmonary Valve PV Peak Woajpval589.6cm/s Tricuspid Valve TR Peak Ateqvxwz792vy/sRAP [id number] Peak Gr.35mmHg [id number] LEFT VENTRICLE The left ventricle is normal size. There is normal left ventricular wall thickness. The left ventricular function is normal. The left ventricular ejection fraction is 70% There is normal LV segmental wall motion. Transmitral Doppler flow pattern is Grade II-pseudonormal filling dynamics. No left ventricle thrombus noted on this study. There is no ventricular septal defect visualized. There is no left ventricular aneurysm. There is no mass noted in the left ventricle. RIGHT VENTRICLE The right ventricle is normal size. There is normal right ventricular wall thickness. The right ventricular systolic function is normal. ATRIA The left atrium is mildly dilated. The right atrium size is normal. The interatrial septum is intact with no evidence for an atrial septal defect. AORTIC VALVE The aortic valve is normal in structure. No aortic regurgitation is present. There is no aortic valvular stenosis. There is no aortic valvular vegetation. MITRAL VALVE Mitral annular calcification is moderate to severe. There is no evidence of mitral valve prolapse. There is no mitral valve stenosis. There is no mitral valve regurgitation noted. TRICUSPID VALVE The tricuspid valve is normal in structure. There is moderate to severe tricuspid regurgitation. Right ventricular systolic pressure is estimated at 30-40 mmHg. There is no tricuspid valve prolapse or vegetation. There is no tricuspid valve stenosis. PULMONIC VALVE The pulmonary valve is normal in structure. There is no pulmonic valvular regurgitation. There is no pulmonic valvular stenosis. GREAT VESSELS The aortic root is normal in size. The ascending aorta is normal in size. The IVC is normal in size and collapses >50% with inspiration. PERICARDIAL EFFUSION The pericardium appears normal. There is no pleural effusion. <Conclusion> Normal LV Systolic Function LVEF 70% Grade II Diastolic Dysfunction Mild Left Atrial Enlargement
[2017-10-25] MEDS: Ipratropium 0.02% Inhal Soln (0.5 mg/2.5 ml) UD IH SCH ×2 (01:02→19:21)
[2017-10-25 05:55] LABS: BLOOD UREA NITROGEN 19 mg/dl (7-17); GFR AFRICAN-AMERICAN > 60; GFR NON-AFRICAN AMERICAN > 60
[2017-10-25 05:58] LABS: B-TYPE NATRIURETIC PEPTIDE 600 pg/ml (0-900)
[2017-10-25 06:06] LABS: T4 10.5 ug/dl (5.5-11.0)
[2017-10-25 06:40] LABS: SQUAMOUS EPITHIAL 8 /hpf (0-5); URINE BACTERIA RARE (<OCC); URINE BILIRUBIN NEGATIVE (NEGATIVE); URINE BLOOD SMALL (NEGATIVE); URINE CLARITY CLOUDY (Clear); URINE COLOR YELLOW (YELLOW); URINE GLUCOSE (UA) NEG (Normal); URINE LEUKOCYTE ESTERASE LARGE Leu/uL (Negative); URINE PROTEIN 30 mg/dL (NEGATIVE); URINE UROBILINOGEN 0.2-1.0 mg/dL (0.2-1.0)
[2017-10-25] MEDS: Potassium Chloride 20 mEq ER Tab PO SCH ×2 (10:53→17:41)
[2017-10-25] MEDS: Pantoprazole 40 mg EC Tab PO SCH (10:54)
[2017-10-25] MEDS ORDERED: Potassium Chloride 20 mEq ER Tab PO ONE (15:03)
--- NOTE | 2017-10-25 15:07 | CP.PCM.PN ---
Subjective - Date & Time of Evaluation Date of Evaluation: 10/25/17 Time of Evaluation: 12:00 - Subjective Subjective: F/U COPD Exacerbation. cough improved , no SOB with O2, less chest congestion Objective - Vital Signs/Intake and Output Vital Signs (last 24 hours): Temp Pulse Resp BP Pulse Ox 98.5 F 66 18 123/72 95 10/25/17 12:00 10/25/17 12:00 10/25/17 12:00 10/25/17 12:00 10/25/17 12:00 - Medications Medications: Current Medications Alprazolam (Xanax) 0.5 mg PO Q12H PRN PRN Reason: Anxiety Apixaban (Eliquis) 2.5 mg PO Q12H [facility] PRN Reason: Protocol Last Admin: 10/25/17 10:53 Dose: 2.5 mg Diltiazem HCl (Cardizem) 60 mg PO Q8 [facility]PL[facility] Last Admin: 10/25/17 10:54 Dose: 60 mg Hydralazine HCl (Apresoline) 25 mg PO Q12 [facility]PLAC[facility] BY [facility] Last Admin: 10/25/17 10:54 Dose: 25 mg Ipratropium [place] (Atrovent) 0.5 mg IH RQ6 [facility] Last Admin: 10/25/17 01:02 Dose: 0.5 mg Levalbuterol HCl (Xopenex) 0.63 mg INH RQ6 PRN PRN Reason: Shortness of Breath Last Admin: 10/23/17 19:38 Dose: 0.63 mg Metoprolol Tartrate (Lopressor) 50 mg PO Q12H REPLACED BY [facility] Last Admin: 10/25/17 10:54 Dose: 50 mg Pantoprazole Sodium (Protonix Ec Tab) 40 mg PO DAILY [facility]PLAC[facility] BY [facility] Last Admin: 10/25/17 10:54 Dose: 40 mg Potassium Chloride (K-Dur 20 Meq Er Tab) 20 meq PO BID REPLACED BY [facility] Last Admin: 10/25/17 10:53 Dose: 20 meq - Labs Labs: 10/23/17 06:55 10/25/17 05:15 PT 14.8 Seconds (9.8-13.1) H 10/23/17 06:55 INR 1.3 (0.9-1.2) H 10/23/17 06:55 APTT 33.5 Seconds (25.6-37.1) D 10/23/17 06:55 - Constitutional Appears: No Acute Distress - Head Exam Head Exam: NORMAL INSPECTION - Eye Exam Eye Exam: PERRL - ENT Exam ENT Exam: Normal Exam - Neck Exam Neck Exam: Normal Inspection - Respiratory Exam Respiratory Exam: Decreased Breath Sounds (at bases), Rhonchi (scattered) - Cardiovascular Exam Cardiovascular Exam: REGULAR RHYTHM, Murmur (systolic 1/6 LSB Ao) - GI/Abdominal Exam GI & Abdominal Exam: Soft, Normal Bowel Sounds - Extremities Exam Extremities Exam: Normal Inspection - Back Exam Additional comments: Mild erythema on sacrum - Neurological Exam Neurological Exam: Alert, Oriented x3 Additional comments: No focal motor/sensory deficit, generalized weakness. - Psychiatric Exam Psychiatric exam: Anxious, Depressed - Skin Skin Exam: Warm Assessment and Plan (1) COPD exacerbation Status: Resolved (2) Pleural effusion, bilateral Status: Acute (3) Atrial fibrillation with RVR Status: Acute (4) Hypokalemia Status: Acute (5) Hypertension Status: Chronic (6) Type 2 diabetes mellitus Status: Chronic (7) Anxiety Status: Chronic (8) Depression Status: Chronic - Assessment and Plan (Free Text) Plan: continue Xopenex , Cardizem , Toprol , Hydralazine
--- NOTE | 2017-10-25 19:33 | PN ---
DATE: SUBJECTIVE: The patient denies chest pain. She is experiencing productive cough. PHYSICAL EXAMINATION: VITAL SIGNS: Blood pressure of 123/72, heart rate of 66, temperature of 98.5, and respirations of 18. HEENT: Normocephalic. CHEST: Diffuse bilateral rhonchi. HEART: S1 and S2 regular. EXTREMITIES: Trace leg edema. LABORATORY DATA: SMA-7: Sodium 144, potassium 3, chloride 96, CO2 of 38, glucose 92, BUN 19, creatinine 0.7. Chest CT scan report pulmonary vascular congestion and trace right pleural effusion. Echocardiography study revealed normal left ventricular systolic function, ejection fraction 70%, grade 2 diastolic dysfunction. ASSESSMENT: 1. Exacerbation of chronic obstructive lung disease. 2. Hypokalemia. 3. History of transient ischemic attack. 4. Consider multifocal atrial tachycardia. RECOMMENDATIONS: Continue hydralazine 25 mg twice a day, Cardizem 60 mg every 8 hours, K-Dur 20 mEq p.o. twice a day was increased today. Discontinue IV Lasix. Obtain BMP in a.m. Tejinder Valladares MD
[2017-10-26] MEDS: Ipratropium 0.02% Inhal Soln (0.5 mg/2.5 ml) UD IH SCH ×4 (01:00→19:04)
[2017-10-26] MEDS: Pantoprazole 40 mg EC Tab PO SCH (09:12)
[2017-10-26] MEDS: Potassium Chloride 20 mEq ER Tab PO SCH ×2 (09:12→17:25)
--- NOTE | 2017-10-26 13:26 | CP.PCM.PN ---
Subjective - Date & Time of Evaluation Date of Evaluation: 10/26/17 Time of Evaluation: 08:00 - Subjective Subjective: breathing better , occasional cough , chest congestion improved Objective - Vital Signs/Intake and Output Vital Signs (last 24 hours): Temp Pulse Resp BP Pulse Ox 97.6 F 64 20 111/61 94 L 10/26/17 12:24 10/26/17 12:24 10/26/17 12:24 10/26/17 12:24 10/26/17 12:24 - Medications Medications: Current Medications Alprazolam (Xanax) 0.5 mg PO Q12H PRN PRN Reason: Anxiety Apixaban (Eliquis) 2.5 mg PO Q12H [facility] PRN Reason: Protocol Last Admin: 10/26/17 09:11 Dose: 2.5 mg Diltiazem HCl (Cardizem) 60 mg PO Q8 [facility] Last Admin: 10/26/17 09:11 Dose: 60 mg Hydralazine HCl (Apresoline) 25 mg PO Q12 [facility] Last Admin: 10/26/17 09:11 Dose: 25 mg Ipratropium [place] (Atrovent) 0.5 mg IH RQ6 [facility] Last Admin: 10/26/17 13:24 Dose: 0.5 mg Levalbuterol HCl (Xopenex) 0.63 mg INH RQ6 PRN PRN Reason: Shortness of Breath Last Admin: 10/23/17 19:38 Dose: 0.63 mg Metoprolol Tartrate (Lopressor) 50 mg PO Q12H [facility] Last Admin: 10/26/17 09:12 Dose: 50 mg Pantoprazole Sodium (Protonix Ec Tab) 40 mg PO DAILY [facility] Last Admin: 10/26/17 09:12 Dose: 40 mg Potassium Chloride (K-Dur 20 Meq Er Tab) 20 meq PO BID [facility] Last Admin: 10/26/17 09:12 Dose: 20 meq - Labs Labs: 10/23/17 06:55 10/26/17 04:20 PT 14.8 Seconds (9.8-13.1) H 10/23/17 06:55 INR 1.3 (0.9-1.2) H 10/23/17 06:55 APTT 33.5 Seconds (25.6-37.1) D 10/23/17 06:55 - Constitutional Appears: Chronically Ill - Head Exam Head Exam: NORMAL INSPECTION - Eye Exam Eye Exam: PERRL - ENT Exam ENT Exam: Normal Exam - Neck Exam Neck Exam: Normal Inspection - Respiratory Exam Respiratory Exam: Decreased Breath Sounds (at bases , ), Rhonchi (scattered) - Cardiovascular Exam Cardiovascular Exam: REGULAR RHYTHM - GI/Abdominal Exam GI & Abdominal Exam: Soft, Normal Bowel Sounds - Extremities Exam Extremities Exam: Normal Inspection - Back Exam Additional comments: sacral redness - Neurological Exam Neurological Exam: Alert (no focal/motor snsory deficit , generalized weakness) - Psychiatric Exam Psychiatric exam: Anxious - Skin Skin Exam: Warm Assessment and Plan (1) COPD exacerbation Status: Resolved (2) Pleural effusion, bilateral Status: Acute (3) Atrial fibrillation with RVR Status: Acute (4) Hypokalemia Status: Acute (5) Hypertension Status: Chronic (6) Type 2 diabetes mellitus Status: Chronic (7) Anxiety Status: Chronic (8) Depression Status: Chronic - Assessment and Plan (Free Text) Plan: continue Xopenex , Cardizem , Eliquis , Xanax , Pt recommended TCU , U C-S G (+) cocci
--- NOTE | 2017-10-26 19:21 | PN ---
DATE: SUBJECTIVE: The patient is still experiencing productive cough. She denies chest pain. She is mildly short of breath. PHYSICAL EXAMINATION: VITAL SIGNS: Blood pressure of 111/61, heart rate of 64, temperature of 97.6, and respirations of 20. HEENT: Normocephalic. CHEST: Diffuse bilateral rhonchi. HEART: S1 and S2 regular. ABDOMEN: Soft. EXTREMITIES: Trace leg edema. LABORATORY DATA: Today's blood sugar 111. ASSESSMENT: 1. Exacerbation of chronic obstructive lung disease. 2. Diastolic left ventricular dysfunction. 3. History of transient ischemic attack. 4. Mild hypokalemia. Today's potassium is 3.5, improving from yesterday, which was 3.3. RECOMMENDATIONS: Continue hydralazine 25 mg twice a day, Cardizem 60 mg every 8 hours, Eliquis 2.5 mg twice a day, K-Dur will increase to 20 mEq p.o. b.i.d. today, which given, continue Lopressor 50 mg twice a day, and Xopenex inhaler every 6 hours. Tejinder Valladares MD
[2017-10-27] MEDS: Ipratropium 0.02% Inhal Soln (0.5 mg/2.5 ml) UD IH SCH ×4 (01:07→19:42)
[2017-10-27] MEDS: Potassium Chloride 20 mEq ER Tab PO SCH ×2 (09:43→16:22)
[2017-10-27] MEDS: Pantoprazole 40 mg EC Tab PO SCH (09:43)
[2017-10-27] MEDS: Metoprolol Succinate 25 mg XL Tab PO SCH (10:28)
--- NOTE | 2017-10-27 12:19 | CP.PCM.CON ---
History of Present Illness - History of Present Illness History of Present Illness: Infectious Disease Consultation Note- Asked to see this patient at the request of for VRE in urine cx. HPI- Patient is a 82 year old female with PMH of COPD, diastolic CHF, A-fib, and Hypertension, presented to the emergency room presented due to c/o chest congestion , lethargy and SOB. pt. states her cough has been productive of yellow phlegm . pt. states she was on abx as per her PMD prior to being admitted but that had not relieved her symptoms. currently pt. states she feels much better and her breathing is much more comfortable and she wishes to go home soon. I'm asked to see the patient now bc her urine cx grew VRE. she denies any fever or chills, denies any abdominal pain, denies any dysurea, denies any diarrhea. CXR and CT Chest showed: Pulmonary vascular congestion with small left and trace R pleural effusions. Head CT: No acute intracranial pathology as per report. Allergy- no allergy to antibiotics, only allergy to Iodine Review of Systems - Review of Systems Review of Systems: ROS- denies any fever or chills, denies any LYN, + cough with phleghm, chest congestion but improved now, denies any chest pain, denies any abd. pain, denies any nausea or vomiting, denies any dysurea, denies any diarrhea denies any sick contacts denies any recent travel Past Patient History - Infectious Disease Hx of Infectious Diseases: None - Tetanus Immunizations Tetanus Immunization: Unknown - Past Medical History & Family History Past Medical History?: Yes - Past Social History Smoking Status: Former Smoker Alcohol: None Drugs: Denies Home Situation {Lives}: With Family - CARDIAC Hx Cardiac Disorders: Yes Hx Atrial Fibrillation: Yes Hx Congestive Heart Failure: Yes Hx Hypercholesterolemia: Yes Hx Hypertension: Yes Hx Pacemaker: No - PULMONARY Hx Respiratory Disorders: Yes Hx Chronic Obstructive Pulmonary Disease (COPD): Yes Hx Pneumonia: Yes - NEUROLOGICAL Hx Neurological Disorder: Yes Hx Transient Ischemic Attacks (TIA): Yes - HEENT Hx HEENT Problems: No - RENAL Hx Chronic Kidney Disease: No - ENDOCRINE/METABOLIC Hx Endocrine Disorders: Yes Hx Diabetes Mellitus Type 2: Yes - HEMATOLOGICAL/ONCOLOGICAL Hx Anemia: Yes - INTEGUMENTARY Hx Dermatological Problems: No - MUSCULOSKELETAL/RHEUMATOLOGICAL Hx Musculoskeletal Disorders: Yes Hx Arthritis: Yes Hx Falls: Yes Hx Osteoporosis: Yes - GASTROINTESTINAL Hx Diverticulitis: Yes - GENITOURINARY/GYNECOLOGICAL Hx Genitourinary Disorders: No - PSYCHIATRIC Hx Psychophysiologic Disorder: Yes Hx Anxiety: Yes Hx Depression: Yes - SURGICAL HISTORY Hx Surgeries: Yes Hx Herniorrhaphy: Yes - ANESTHESIA Hx Anesthesia: Yes Hx Anesthesia Reactions: No Hx Malignant Hyperthermia: No Meds Allergies/Adverse Reactions: Allergies Allergy/AdvReac Type Severity Reaction Status Date / Time iodine Allergy RASH Verified 10/26/16 18:55 - Medications Medications: Current Medications Alprazolam (Xanax) 0.5 mg PO Q12H PRN PRN Reason: Anxiety Apixaban (Eliquis) 2.5 mg PO Q12H [facility] PRN Reason: Protocol Last Admin: 10/27/17 09:43 Dose: 2.5 mg Diltiazem HCl (Cardizem) 60 mg PO Q8 [facility] Last Admin: 10/27/17 09:43 Dose: 60 mg Hydralazine HCl (Apresoline) 25 mg PO Q12 [facility] Last Admin: 10/27/17 09:42 Dose: 25 mg Ipratropium [place] (Atrovent) 0.5 mg IH RQ6 [facility] Last Admin: 10/27/17 07:17 Dose: 0.5 mg Levalbuterol HCl (Xopenex) 0.63 mg INH RQ6 PRN PRN Reason: Shortness of Breath Last Admin: 10/23/17 19:38 Dose: 0.63 mg Metoprolol Succinate (Toprol Xl) 25 mg PO DAILY [facility] Last Admin: 10/27/17 10:28 Dose: 25 mg Pantoprazole Sodium (Protonix Ec Tab) 40 mg PO DAILY [facility] Last Admin: 10/27/17 09:43 Dose: 40 mg Potassium Chloride (K-Dur 20 Meq Er Tab) 20 meq PO BID [facility] Last Admin: 10/27/17 09:43 Dose: 20 meq Physical Exam - Constitutional Appears: No Acute Distress - Head Exam Head Exam: ATRAUMATIC - Eye Exam Eye Exam: EOMI, PERRL - ENT Exam ENT Exam: Normal Oropharynx - Neck Exam Neck exam: Positive for: Full Rom - Respiratory Exam Respiratory Exam: NORMAL BREATHING PATTERN Additional comments: no wheezing slightly reduced breath sounds at bases - Cardiovascular Exam Cardiovascular Exam: RRR, +S1, +S2 - GI/Abdominal Exam GI & Abdominal Exam: Normal Bowel Sounds, Soft Additional comments: NT, ND - Extremities Exam Extremities exam: Positive for: normal inspection - Neurological Exam Neurological exam: Alert, Oriented x3 Results - Vital Signs Recent Vital Signs: Last Vital Signs Temp 98.2 F 10/27/17 08:00 Pulse 68 10/27/17 10:28 Resp 20 10/27/17 08:00 BP 124/67 10/27/17 10:28 Pulse Ox 95 10/27/17 08:00 - Labs Result Diagrams: 10/23/17 06:55 10/26/17 04:20 Labs: Laboratory Results - last 24 hr 10/26/17 10/26/17 10/27/17 15:32 21:32 05:11 POC Glucose (mg/dL) 100 83 86 10/27/17 10:51 POC Glucose (mg/dL) 138 H Laboratory Results - last 72 hr 10/24/17 10/24/17 10/25/17 16:26 21:11 05:15 Sodium 144 Potassium 3.0 L Chloride 96 L Carbon Dioxide 38 H Anion Gap 13 BUN 19 H Creatinine 0.7 Est GFR ( Amer) > 60 Est GFR (Non-Af Amer) > 60 POC Glucose (mg/dL) 85 160 H Random Glucose 92 Calcium 9.0 Magnesium 1.8 NT-Pro-B Natriuret Pep 600 Thyroxine (T4) 10.5 Total T3 0.890 L TSH 3rd Generation 1.51 Urine Color Urine Clarity Urine pH Ur Specific [place] Urine Protein Urine Glucose (UA) Urine Ketones Urine Blood Urine Nitrate Urine Bilirubin Urine Urobilinogen Ur Leukocyte Esterase Urine RBC (Auto) Urine Microscopic WBC Ur Squamous Epith Cells Urine Bacteria 10/25/17 10/25/17 10/25/17 05:58 06:20 11:33 Sodium Potassium Chloride Carbon Dioxide Anion Gap BUN Creatinine Est GFR ( Amer) Est GFR (Non-Af Amer) POC Glucose (mg/dL) 79 99 Random Glucose Calcium Magnesium NT-Pro-B Natriuret Pep Thyroxine (T4) Total T3 TSH 3rd Generation Urine Color Yellow Urine Clarity Cloudy Urine pH 8.0 Ur Specific [place] 1.018 Urine Protein 30 Urine Glucose (UA) Neg Urine Ketones Negative Urine Blood Small Urine Nitrate Negative Urine Bilirubin Negative Urine Urobilinogen 0.2-1.0 Ur Leukocyte Esterase Large Urine RBC (Auto) 5 H Urine Microscopic WBC 10 H Ur Squamous Epith Cells 8 H Urine Bacteria Rare 10/25/17 10/25/17 10/26/17 15:32 22:00 04:20 Sodium Potassium 3.5 L Chloride Carbon Dioxide Anion Gap BUN Creatinine Est GFR ( Amer) Est GFR (Non-Af Amer) POC Glucose (mg/dL) 93 119 H Random Glucose Calcium Magnesium NT-Pro-B Natriuret Pep Thyroxine (T4) Total T3 TSH 3rd Generation Urine Color Urine Clarity Urine pH Ur Specific [place] Urine Protein Urine Glucose (UA) Urine Ketones Urine Blood Urine Nitrate Urine Bilirubin Urine Urobilinogen Ur Leukocyte Esterase Urine RBC (Auto) Urine Microscopic WBC Ur Squamous Epith Cells Urine Bacteria 10/26/17 10/26/17 10/26/17 05:22 10:59 15:32 Sodium Potassium Chloride Carbon Dioxide Anion Gap BUN Creatinine Est GFR ( Amer) Est GFR (Non-Af Amer) POC Glucose (mg/dL) 78 111 H 100 Random Glucose Calcium Magnesium NT-Pro-B Natriuret Pep Thyroxine (T4) Total T3 TSH 3rd Generation Urine Color Urine Clarity Urine pH Ur Specific [place] Urine Protein Urine Glucose (UA) Urine Ketones Urine Blood Urine Nitrate Urine Bilirubin Urine Urobilinogen Ur Leukocyte Esterase Urine RBC (Auto) Urine Microscopic WBC Ur Squamous Epith Cells Urine Bacteria 10/26/17 10/27/17 10/27/17 21:32 05:11 10:51 Sodium Potassium Chloride Carbon Dioxide Anion Gap BUN Creatinine Est GFR ( Amer) Est GFR (Non-Af Amer) POC Glucose (mg/dL) 83 86 138 H Random Glucose Calcium Magnesium NT-Pro-B Natriuret Pep Thyroxine (T4) Total T3 TSH 3rd Generation Urine Color Urine Clarity Urine pH Ur Specific [place] Urine Protein Urine Glucose (UA) Urine Ketones Urine Blood Urine Nitrate Urine Bilirubin Urine Urobilinogen Ur Leukocyte Esterase Urine RBC (Auto) Urine Microscopic WBC Ur Squamous Epith Cells Urine Bacteria Microbiology 10/22/17 12:30 Blood Blood Culture - Final NO GROWTH AFTER 5 DAYS 10/22/17 12:30 Blood Gram Stain - Final TEST NOT PERFORMED 10/22/17 12:30 Blood Blood Culture - Final NO GROWTH AFTER 5 DAYS 10/22/17 12:30 Blood Gram Stain - Final TEST NOT PERFORMED 10/25/17 06:20 Urine,Clean Catch Urine Culture - Final Enterococcus Faecalis Accession No. : [id number] Patient Name / ID : EMBER CORDOVA / [id number] Exam Date : 10/22/2017 16:29:43 ( Approved ) Study Comment : Sex / Age : F / 82Y Creator : Melchor Jonas MD Dictator : Melchor Jonas MD Reclamation Furnace Operator : Die Trimmer : Melchor Jonas MD Approver2 : Report Date : 10/22/2017 17:23:18 My Comment : PROCEDURE: CT Chest without contrast HISTORY: eval of effusions and chf COMPARISON: CT scan of the chest dated 05/08/2017. TECHNIQUE: Contiguous axial images were obtained through the chest without intravenous contrast enhancement. Sagittal and coronal reconstructions were performed. Radiation dose (DLP): 882.2 mGy-cm. This CT exam was performed using one or more of the following dose reduction techniques: Automated exposure control, adjustment of the mA and/or kV according to patient size, and/or use of iterative reconstruction technique. FINDINGS: LUNGS: Interlobular septal thickening. Bilateral lower lobe passive atelectasis. Visualized airway clear. MEDIASTINUM: Aberrant right subclavian artery. Calcific atherosclerosis. No aneurysm. Cardiomegaly. Coronary arterial and valvular calcification Main pulmonary artery unremarkable. No vascular congestion. No lymphadenopathy. PLEURA: Small left and trace right pleural effusion. No pneumothorax. BONES: No fracture. No destructive lesion. UPPER ABDOMEN: Small hiatal hernia. Grossly unremarkable. OTHER FINDINGS: None. IMPRESSION: Pulmonary vascular congestion with small left and trace right pleural effusions. Assessment & Plan (1) Pleural effusion, bilateral Status: Acute Priority: High (2) CHF (congestive heart failure) Status: Acute (3) VRE (vancomycin resistant enterococcus) culture positive Status: Acute - Assessment and Plan (Free Text) Assessment: A/P- 82 year old female with CHF, COPD, a.fib admitetd with cough and congestion, nu UTI symptoms but found to have VRE in urine cx and UA large LE. afebrile no elevation of wbc. VRE in urine cx could be colonizer specially since pt. has been on recent antibiotics. VRE UTI is nosocomial infection and usually as a result of instrumentation solis cath and can be colonizer in most asymptomatic patient. However, since this patient is elderly with multiple comorbidities advise to treat with oral nitrofurantoin 100 mg BID for 5 days ( VRE was sensitive to this ). copd and pulmonary management as per pt's PMD. advise to avoid unnecessary solis catheterizations . all above d/w patient and she verbalizes full understanding of all above. Thank you fro allowing me to take part in the care of this patient.
--- NOTE | 2017-10-27 14:21 | CP.PCM.CON ---
History of Present Illness - History of Present Illness History of Present Illness: Reason For Consult: A Fib with RVR HPI: 81 year old female with a past medical history of COPD, diastolic CHF, A-fib, and Hypertension, presented to the emergency room presented due to c/o chest congestion , lethargy and SOB. on presentation to the ED she was noted to be afib w/ RVR ECHO from October 2016 shows EF of 70%. ECHO from April 2017 shows Aortic Stenosis with valve area of 1.3 cm^2, mild MR and MV annular calcification. Patient states she has never had a catheterization or stress test in the past. Past Surgical History: Patient denies Past Medical History: COPD, CHF, A-Fib, Hypertension Allergies: Iodine Social History: Patient denies tobacco, alcohol, illicits Hospitalizations April for A Fib Family History: Hypertension Medications: See MAR Review of Systems: Constitutional: patient denies fever, chills, generalized weakness ENT: patient denies dysphagia, otalgia, hearing deficit, rhinorrhea Eyes: patient denies sudden loss of vision, diplopia, blurred vision MSK: patient denies muscle stiffness, joint pain, extremity cramping Cardio: see hpi Pulm: patient denies cough, hemoptysis, wheeze Gastrointestinal: patient denies loss of appetite, pain, constipation, melena , nausea, vomiting, diarrhea Genitourinary: patient denies burning on urination, urinary frequency, hematuria, urinary urgency Neuro: patient denies paresis, paresthesia, dizziness, headache, numbness , tingling Derm: patient denies skin changes, lesions, nail changes Endo: patient denies intolerance to heat/cold, diaphoresis, night sweats, polydipsia Psych: patient denies anxiety, depression, mood changes Review of Systems - Review of Systems Systems not reviewed;Unavailable: Acuity of Condition - Constitutional Constitutional: As Per HPI - EENT Eyes: As Per HPI Ears: As Per HPI Nose/Mouth/Throat: As Per HPI - Breasts Breasts: As Per HPI - Cardiovascular Cardiovascular: As Per HPI - Respiratory Respiratory: As Per HPI - Gastrointestinal Gastrointestinal: As Per HPI - Genitourinary Genitourinary: As Per HPI - Reproductive: Female Reproductive:Female: As Per HPI - Menstruation Menstruation: As Per HPI - Musculoskeletal Musculoskeletal: As Per HPI - Integumentary Integumentary: As Per HPI - Neurological Neurological: As Per HPI - Psychiatric Psychiatric: As Per HPI - Endocrine Endocrine: As Per HPI - Hematologic/Lymphatic Hematologic: As Per HPI Past Patient History - Infectious Disease Hx of Infectious Diseases: None - Tetanus Immunizations Tetanus Immunization: Unknown - Past Medical History & Family History Past Medical History?: Yes - Past Social History Smoking Status: Former Smoker Alcohol: None Drugs: Denies - CARDIAC Hx Cardiac Disorders: Yes Hx Atrial Fibrillation: Yes Hx Congestive Heart Failure: Yes Hx Hypercholesterolemia: Yes Hx Hypertension: Yes Hx Pacemaker: No - PULMONARY Hx Respiratory Disorders: Yes Hx Chronic Obstructive Pulmonary Disease (COPD): Yes Hx Pneumonia: Yes - NEUROLOGICAL Hx Neurological Disorder: Yes Hx Transient Ischemic Attacks (TIA): Yes - HEENT Hx HEENT Problems: No - RENAL Hx Chronic Kidney Disease: No - ENDOCRINE/METABOLIC Hx Endocrine Disorders: Yes Hx Diabetes Mellitus Type 2: Yes - HEMATOLOGICAL/ONCOLOGICAL Hx Anemia: Yes Hx Human Immunodeficiency Virus (HIV): No - INTEGUMENTARY Hx Dermatological Problems: No - MUSCULOSKELETAL/RHEUMATOLOGICAL Hx Musculoskeletal Disorders: Yes Hx Arthritis: Yes Hx Falls: Yes Hx Osteoporosis: Yes - GASTROINTESTINAL Hx Diverticulitis: Yes - GENITOURINARY/GYNECOLOGICAL Hx Genitourinary Disorders: No - PSYCHIATRIC Hx Psychophysiologic Disorder: Yes Hx Anxiety: Yes Hx Depression: Yes - SURGICAL HISTORY Hx Surgeries: Yes Hx Herniorrhaphy: Yes - ANESTHESIA Hx Anesthesia: Yes Hx Anesthesia Reactions: No Hx Malignant Hyperthermia: No Meds Allergies/Adverse Reactions: Allergies Allergy/AdvReac Type Severity Reaction Status Date / Time iodine Allergy RASH Verified 10/26/16 18:55 - Medications Medications: Current Medications Alprazolam (Xanax) 0.5 mg PO Q12H PRN PRN Reason: Anxiety Apixaban (Eliquis) 2.5 mg PO Q12H [facility] PRN Reason: Protocol Last Admin: 10/27/17 09:43 Dose: 2.5 mg Diltiazem HCl (Cardizem) 60 mg PO Q8 [facility] Last Admin: 10/27/17 09:43 Dose: 60 mg Hydralazine HCl (Apresoline) 25 mg PO Q12 [facility] Last Admin: 10/27/17 09:42 Dose: 25 mg Ipratropium [place] (Atrovent) 0.5 mg IH RQ6 [facility] Last Admin: 10/27/17 13:51 Dose: 0.5 mg Levalbuterol HCl (Xopenex) 0.63 mg INH RQ6 PRN PRN Reason: Shortness of Breath Last Admin: 10/23/17 19:38 Dose: 0.63 mg Metoprolol Succinate (Toprol Xl) 25 mg PO DAILY [facility] Last Admin: 10/27/17 10:28 Dose: 25 mg Pantoprazole Sodium (Protonix Ec Tab) 40 mg PO DAILY [facility] Last Admin: 10/27/17 09:43 Dose: 40 mg Potassium Chloride (K-Dur 20 Meq Er Tab) 20 meq PO BID [facility] Last Admin: 10/27/17 09:43 Dose: 20 meq Physical Exam - Constitutional Appears: Well - Head Exam Head Exam: ATRAUMATIC, NORMAL INSPECTION, NORMOCEPHALIC - Eye Exam Eye Exam: EOMI, Normal appearance, PERRL Pupil Exam: NORMAL ACCOMODATION, PERRL - ENT Exam ENT Exam: Mucous Membranes Moist, Normal Exam - Neck Exam Neck exam: Positive for: Normal Inspection - Respiratory Exam Respiratory Exam: Decreased Breath Sounds, Rhonchi, NORMAL BREATHING PATTERN - Cardiovascular Exam Cardiovascular Exam: Irregular Rhythm, +S1, +S2, Systolic Murmur - GI/Abdominal Exam GI & Abdominal Exam: Normal Bowel Sounds, Soft. absent: Tenderness - Extremities Exam Extremities exam: Positive for: normal inspection - Back Exam Back exam: NORMAL INSPECTION - Neurological Exam Neurological exam: Alert, CN II-XII Intact, Oriented x3, Reflexes Normal - Psychiatric Exam Psychiatric exam: Normal Affect, Normal Mood - Skin Skin Exam: Dry, Intact, Normal Color, Warm Results - Vital Signs Recent Vital Signs: Last Vital Signs Temp 98.3 F 10/27/17 12:00 Pulse 84 10/27/17 12:00 Resp 20 10/27/17 12:00 BP 116/68 10/27/17 12:00 Pulse Ox 94 L 10/27/17 12:00 - Labs Result Diagrams: 10/23/17 06:55 10/26/17 04:20 Labs: Laboratory Results - last 24 hr 10/26/17 10/26/17 10/27/17 15:32 21:32 05:11 POC Glucose (mg/dL) 100 83 86 10/27/17 10:51 POC Glucose (mg/dL) 138 H Assessment & Plan (1) Atrial fibrillation with RVR Assessment and Plan: HR controlled on BB and CCB cont eliquis Status: Acute Priority: High (2) CHF (congestive heart failure) Assessment and Plan: diastolic CHF BNP trending down Intermittent lasix prn cont bb , hydralazine echo reviewed Status: Acute (3) Pleural effusion, bilateral Status: Acute Priority: High (4) COPD (chronic obstructive pulmonary disease) Status: Chronic (5) Generalized weakness Status: Acute Priority: Medium (6) HTN (hypertension) Status: Acute (7) Dyslipidemia Status: Chronic
--- NOTE | 2017-10-27 17:11 | CP.PCM.PN ---
Subjective - Date & Time of Evaluation Date of Evaluation: 10/27/17 Time of Evaluation: 10:00 - Subjective Subjective: F/U COPD no AD , breathing better , occasional cough Objective - Vital Signs/Intake and Output Vital Signs (last 24 hours): Temp Pulse Resp BP Pulse Ox 98.3 F 77 16 128/71 93 L 10/27/17 16:11 10/27/17 16:21 10/27/17 16:11 10/27/17 16:21 10/27/17 16:11 - Medications Medications: Current Medications Alprazolam (Xanax) 0.5 mg PO Q12H PRN PRN Reason: Anxiety Apixaban (Eliquis) 2.5 mg PO Q12H [facility] PRN Reason: Protocol Last Admin: 10/27/17 09:43 Dose: 2.5 mg Diltiazem HCl (Cardizem) 60 mg PO Q8 [facility] Last Admin: 10/27/17 16:21 Dose: 60 mg Hydralazine HCl (Apresoline) 25 mg PO Q12 [facility] Last Admin: 10/27/17 09:42 Dose: 25 mg Ipratropium [place] (Atrovent) 0.5 mg IH RQ6 [facility] Last Admin: 10/27/17 13:51 Dose: 0.5 mg Levalbuterol HCl (Xopenex) 0.63 mg INH RQ6 PRN PRN Reason: Shortness of Breath Last Admin: 10/23/17 19:38 Dose: 0.63 mg Metoprolol Succinate (Toprol Xl) 25 mg PO DAILY [facility] Last Admin: 10/27/17 10:28 Dose: 25 mg Nitrofurantoin [place]roc[place] (Macrobid) 100 mg PO Q12 [facility] PRN Reason: Protocol Pantoprazole Sodium (Protonix Ec Tab) 40 mg PO DAILY [facility] Last Admin: 10/27/17 09:43 Dose: 40 mg Potassium Chloride (K-Dur 20 Meq Er Tab) 20 meq PO BID [facility] Last Admin: 10/27/17 16:22 Dose: 20 meq - Labs Labs: 10/23/17 06:55 10/26/17 04:20 PT 14.8 Seconds (9.8-13.1) H 10/23/17 06:55 INR 1.3 (0.9-1.2) H 10/23/17 06:55 APTT 33.5 Seconds (25.6-37.1) D 10/23/17 06:55 - Constitutional Appears: No Acute Distress - Head Exam Head Exam: NORMAL INSPECTION - Eye Exam Eye Exam: PERRL - ENT Exam ENT Exam: Normal Exam - Neck Exam Neck Exam: Normal Inspection - Respiratory Exam Respiratory Exam: Decreased Breath Sounds (at bases), Rhonchi (scattered) - Cardiovascular Exam Cardiovascular Exam: REGULAR RHYTHM, Murmur (systolic 1/5 LSB Ao) - GI/Abdominal Exam GI & Abdominal Exam: Soft, Normal Bowel Sounds - Extremities Exam Extremities Exam: Tenderness (knees) - Back Exam Back Exam: tenderness Additional comments: Sacrum erythema. - Neurological Exam Neurological Exam: Alert, Oriented x3 Additional comments: No focal motor/sensory deficit, generalized weakness - Psychiatric Exam Psychiatric exam: Anxious, Depressed - Skin Skin Exam: Warm Assessment and Plan (1) COPD exacerbation Status: Resolved (2) Pleural effusion, bilateral Status: Acute (3) Atrial fibrillation with RVR Status: Acute (4) Hypokalemia Status: Acute (5) Hypertension Status: Chronic (6) Type 2 diabetes mellitus Status: Chronic (7) Anxiety Status: Chronic (8) Depression Status: Chronic (9) VRE (vancomycin resistant enterococcus) culture positive Assessment & Plan: UTI Status: Acute - Assessment and Plan (Free Text) Plan: ID consult, Patient will be transferred to Private room for contact precautions , PT recommended COLBY , on hold now for UTI VRE , continue rest of treatment
[2017-10-27] MEDS: Levalbuterol 0.63 MG/3 ML Inhal Soln UD INH PRN (19:42)
[2017-10-28] MEDS: Ipratropium 0.02% Inhal Soln (0.5 mg/2.5 ml) UD IH SCH ×3 (01:00→13:28)
[2017-10-28] MEDS: Levalbuterol 0.63 MG/3 ML Inhal Soln UD INH PRN ×2 (07:48→13:28)
[2017-10-28] MEDS: Potassium Chloride 20 mEq ER Tab PO SCH ×2 (09:53→16:57)
[2017-10-28] MEDS: Metoprolol Succinate 25 mg XL Tab PO SCH (09:54)
[2017-10-28] MEDS: Pantoprazole 40 mg EC Tab PO SCH (09:54)
--- NOTE | 2017-10-28 15:22 | CP.PCM.PN ---
Subjective - Date & Time of Evaluation Date of Evaluation: 10/28/17 Time of Evaluation: 15:21 - Subjective Subjective: feeling fine , denies any complaints Objective - Vital Signs/Intake and Output Vital Signs (last 24 hours): Temp Pulse Resp BP Pulse Ox 98.5 F 80 20 117/67 96 10/28/17 12:00 10/28/17 12:00 10/28/17 12:00 10/28/17 12:00 10/28/17 12:00 - Medications Medications: Current Medications Alprazolam (Xanax) 0.5 mg PO Q12H PRN PRN Reason: Anxiety Apixaban (Eliquis) 2.5 mg PO Q12H [facility] PRN Reason: Protocol Last Admin: 10/28/17 09:52 Dose: 2.5 mg Diltiazem HCl (Cardizem) 60 mg PO Q8 [facility] Last Admin: 10/28/17 09:52 Dose: 60 mg Hydralazine HCl (Apresoline) 25 mg PO Q12 [facility] Last Admin: 10/28/17 11:02 Dose: 25 mg Ipratropium [place] (Atrovent) 0.5 mg IH RQ6 [facility] Last Admin: 10/28/17 13:28 Dose: 0.5 mg Levalbuterol HCl (Xopenex) 0.63 mg INH RQ6 PRN PRN Reason: Shortness of Breath Last Admin: 10/28/17 13:28 Dose: 0.63 mg Metoprolol Succinate (Toprol Xl) 25 mg PO DAILY [facility] Last Admin: 10/28/17 09:54 Dose: 25 mg Nitrofurantoin Macrocrystals (Macrobid) 100 mg PO Q12 [facility] PRN Reason: Protocol Last Admin: 10/28/17 09:54 Dose: 100 mg Pantoprazole Sodium (Protonix Ec Tab) 40 mg PO DAILY [facility] Last Admin: 10/28/17 09:54 Dose: 40 mg Potassium Chloride (K-Dur 20 Meq Er Tab) 20 meq PO BID [facility] Last Admin: 10/28/17 09:53 Dose: 20 meq - Labs Labs: 10/23/17 06:55 10/26/17 04:20 PT 14.8 Seconds (9.8-13.1) H 10/23/17 06:55 INR 1.3 (0.9-1.2) H 10/23/17 06:55 APTT 33.5 Seconds (25.6-37.1) D 10/23/17 06:55 - Constitutional Appears: Well - Head Exam Head Exam: ATRAUMATIC, NORMAL INSPECTION, NORMOCEPHALIC - Eye Exam Eye Exam: EOMI, Normal appearance, PERRL Pupil Exam: NORMAL ACCOMODATION, PERRL - ENT Exam ENT Exam: Mucous Membranes Moist, Normal Exam - Neck Exam Neck Exam: Full ROM, Normal Inspection. absent: Lymphadenopathy - Respiratory Exam Respiratory Exam: Clear to Ausculation Bilateral, NORMAL BREATHING PATTERN - Cardiovascular Exam Cardiovascular Exam: Irregular Rhythm, +S1, +S2, Murmur - GI/Abdominal Exam GI & Abdominal Exam: Soft, Normal Bowel Sounds. absent: Tenderness - Extremities Exam Extremities Exam: Full ROM, Normal Capillary Refill, Normal Inspection. absent : Joint Swelling, Pedal Edema - Back Exam Back Exam: NORMAL INSPECTION - Neurological Exam Neurological Exam: Alert, Awake, CN II-XII Intact, Normal Gait, Oriented x3 - Psychiatric Exam Psychiatric exam: Normal Affect, Normal Mood - Skin Skin Exam: Dry, Intact, Normal Color, Warm Assessment and Plan (1) Atrial fibrillation with RVR Assessment & Plan: cont BB and CCB cont eliquis Status: Acute (2) CHF (congestive heart failure) Assessment & Plan: diastolic prn lasix bp control Status: Acute (3) Pleural effusion, bilateral Status: Acute (4) COPD (chronic obstructive pulmonary disease) Status: Chronic (5) Generalized weakness Status: Acute (6) HTN (hypertension) Status: Acute (7) Dyslipidemia Status: Chronic
[2017-10-28 15:42] VITALS: BP 145/77; PULSE 82; RESP 18; TEMP 98.1; O2SAT 93
--- NOTE | 2017-10-28 16:33 | CP.PCM.PN ---
Objective - Vital Signs/Intake and Output Vital Signs (last 24 hours): Temp Pulse Resp BP Pulse Ox 98.1 F 82 18 145/77 93 L 10/28/17 15:41 10/28/17 15:41 10/28/17 15:41 10/28/17 15:41 10/28/17 15:41 - Medications Medications: Current Medications Alprazolam (Xanax) 0.5 mg PO Q12H PRN PRN Reason: Anxiety Apixaban (Eliquis) 2.5 mg PO Q12H [facility] PRN Reason: Protocol Last Admin: 10/28/17 09:52 Dose: 2.5 mg Diltiazem HCl (Cardizem) 60 mg PO Q8 [facility] Last Admin: 10/28/17 09:52 Dose: 60 mg Hydralazine HCl (Apresoline) 25 mg PO Q12 [facility] Last Admin: 10/28/17 11:02 Dose: 25 mg Ipratropium [place] (Atrovent) 0.5 mg IH RQ6 [facility] Last Admin: 10/28/17 13:28 Dose: 0.5 mg Levalbuterol HCl (Xopenex) 0.63 mg INH RQ6 PRN PRN Reason: Shortness of Breath Last Admin: 10/28/17 13:28 Dose: 0.63 mg Metoprolol Succinate (Toprol Xl) 25 mg PO DAILY [facility] Last Admin: 10/28/17 09:54 Dose: 25 mg Nitrofurantoin Macrocrystals (Macrobid) 100 mg PO Q12 [facility] PRN Reason: Protocol Last Admin: 10/28/17 09:54 Dose: 100 mg Pantoprazole Sodium (Protonix Ec Tab) 40 mg PO DAILY [facility] Last Admin: 10/28/17 09:54 Dose: 40 mg Potassium Chloride (K-Dur 20 Meq Er Tab) 20 meq PO BID [facility] Last Admin: 10/28/17 09:53 Dose: 20 meq - Labs Labs: 10/23/17 06:55 10/26/17 04:20 PT 14.8 Seconds (9.8-13.1) H 10/23/17 06:55 INR 1.3 (0.9-1.2) H 10/23/17 06:55 APTT 33.5 Seconds (25.6-37.1) D 10/23/17 06:55 Assessment and Plan (1) COPD exacerbation Status: Resolved (2) Pleural effusion, bilateral Status: Acute (3) Atrial fibrillation with RVR Status: Acute (4) Hypokalemia Status: Acute (5) Hypertension Status: Chronic (6) Type 2 diabetes mellitus Status: Chronic (7) Anxiety Status: Chronic (8) Depression Status: Chronic (9) VRE (vancomycin resistant enterococcus) culture positive Status: Acute
--- NOTE | 2017-10-28 16:51 | CP.PCM.DIS ---
Provider - Provider Date of Admission: 10/22/17 14:30 Attending physician: Jesús Granado MD Diagnosis - Discharge Diagnosis (1) Pleural effusion, bilateral Status: Acute Priority: High (2) Atrial fibrillation with RVR Status: Acute Priority: High (3) Hypokalemia Status: Acute Priority: High (4) Hypertension Status: Chronic Priority: Medium (5) Type 2 diabetes mellitus Status: Chronic Priority: Medium (6) Anxiety Status: Chronic Priority: Medium (7) Depression Status: Chronic Priority: Medium (8) VRE (vancomycin resistant enterococcus) culture positive Status: Acute Hospital Course - Lab Results Lab Results: Micro Results 10/22/17 12:30 Blood Blood Culture - Final NO GROWTH AFTER 5 DAYS 10/22/17 12:30 Blood Gram Stain - Final TEST NOT PERFORMED 10/22/17 12:30 Blood Blood Culture - Final NO GROWTH AFTER 5 DAYS 10/22/17 12:30 Blood Gram Stain - Final TEST NOT PERFORMED 10/25/17 06:20 Urine,Clean Catch Urine Culture - Final Enterococcus Faecalis Most Recent Lab Values WBC 3.9 K/uL (4.8-10.8) L 10/23/17 06:55 RBC 4.62 Mil/uL (3.80-5.20) 10/23/17 06:55 Hgb 11.6 g/dL (12.0-16.0) L 10/23/17 06:55 Hct 37.3 % (34.0-47.0) 10/23/17 06:55 MCV 80.7 fl (81.0-99.0) L 10/23/17 06:55 MCH 25.1 pg (27.0-31.0) L 10/23/17 06:55 MCHC 31.1 g/dL (33.0-37.0) L 10/23/17 06:55 RDW 16.4 % (11.5-14.5) H 10/23/17 06:55 Plt Count 155 K/uL (130-400) 10/23/17 06:55 MPV 8.7 fl (7.2-11.7) 10/22/17 12:30 Neut % (Auto) 64.0 % (50.0-75.0) 10/22/17 12:30 Lymph % (Auto) 22.5 % (20.0-40.0) 10/22/17 12:30 [place] % (Auto) 10.9 % (0.0-10.0) H 10/22/17 12:30 Eos % (Auto) 1.6 % (0.0-4.0) 10/22/17 12:30 Baso % (Auto) 1.0 % (0.0-2.0) 10/22/17 12:30 Neut # (Auto) 3.2 K/uL (1.8-7.0) 10/22/17 12:30 Lymph # (Auto) 1.1 K/uL (1.0-4.3) 10/22/17 12:30 [place] # (Auto) 0.5 K/uL (0.0-0.8) 10/22/17 12:30 Eos # (Auto) 0.1 K/uL (0.0-0.7) 10/22/17 12:30 Baso # (Auto) 0.0 K/uL (0.0-0.2) 10/22/17 12:30 PT 14.8 Seconds (9.8-13.1) H 10/23/17 06:55 INR 1.3 (0.9-1.2) H 10/23/17 06:55 APTT 33.5 Seconds (25.6-37.1) D 10/23/17 06:55 pCO2 45 mm/Hg (35-45) 10/23/17 12:25 pO2 67 mm/Hg (80-100) L 10/23/17 12:25 HCO3 42.4 mmol/L (21-28) H* 10/23/17 12:25 ABG pH 7.62 (7.35-7.45) H* 10/23/17 12:25 ABG Total CO2 47.7 mmol/L (22-28) H 10/23/17 12:25 ABG O2 Saturation 97.1 % (95-98) 10/23/17 12:25 ABG O2 Content 15.6 ML/dL (15-23) 10/23/17 12:25 ABG Base Excess 22.5 mmol/L (-2.0-3.0) H 10/23/17 12:25 ABG Hemoglobin 11.6 g/dL (11.7-17.4) L 10/23/17 12:25 ABG Carboxyhemoglobin 1.5 % (0.5-1.5) 10/23/17 12:25 POC ABG HHb (Measured) 2.8 % (0.0-5.0) 10/23/17 12:25 ABG Methemoglobin 0.4 % (0.0-3.0) 10/23/17 12:25 ABG O2 Capacity 16.1 mL/dL (16-24) 10/23/17 12:25 Fred Test Yes 10/23/17 12:25 ABG Potassium 2.7 mmol/L (3.6-5.2) L 10/22/17 13:15 A-a O2 Difference 105.0 mm/Hg 10/23/17 12:25 Hgb O2 Saturation 95.2 % (95.0-98.0) 10/23/17 12:25 Sodium 142.0 mmol/L (132-148) 10/22/17 13:15 Chloride 101.0 mmol/L (98-107) 10/22/17 13:15 Glucose 110 mg/dL (65-105) H 10/22/17 13:15 Lactate 0.6 mmol/L (0.7-2.1) L 10/22/17 13:15 Liter Flow 3 10/23/17 12:25 Vent Mode Nc 10/23/17 12:25 FiO2 32.0 % 10/23/17 12:25 Blood Gas Comments Nc 3 10/23/17 12:25 Crit Value Called To Otto nava r.n. 10/23/17 12:25 Crit Value Called By Melissa 10/23/17 12:25 Crit Value Read Back Y 10/23/17 12:25 Blood Gas Notified Time 1349 10/23/17 12:25 Sodium 144 mmol/l (132-148) 10/25/17 05:15 Potassium 3.5 MMOL/L (3.6-5.0) L 10/26/17 04:20 Chloride 96 mmol/L (98-107) L 10/25/17 05:15 Carbon Dioxide 38 mmol/L (22-30) H 10/25/17 05:15 Anion Gap 13 (10-20) 10/25/17 05:15 BUN 19 mg/dl (7-17) H 10/25/17 05:15 Creatinine 0.7 mg/dl (0.7-1.2) 10/25/17 05:15 Est GFR ( Amer) > 60 10/25/17 05:15 Est GFR (Non-Af Amer) > 60 10/25/17 05:15 POC Glucose (mg/dL) 156 mg/dL (65-110) H 10/28/17 16:02 Random Glucose 92 mg/dL (65-105) 10/25/17 05:15 Hemoglobin A1c 5.9 % (4.2-6.5) 10/23/17 06:55 Calcium 9.0 mg/dL (8.4-10.2) 10/25/17 05:15 Phosphorus 3.1 mg/dl (2.5-4.5) 10/22/17 12:30 Magnesium 1.8 MG/DL (1.6-2.3) 10/25/17 05:15 Total Bilirubin 0.6 mg/dl (0.2-1.3) 10/23/17 06:55 AST 31 U/L (14-36) 10/23/17 06:55 ALT 31 U/L (9-52) 10/23/17 06:55 Alkaline Phosphatase 78 U/L (38-126) 10/23/17 06:55 Troponin I < 0.0120 ng/mL (0.00-0.120) 10/22/17 12:30 NT-Pro-B Natriuret Pep 600 pg/ml (0-900) 10/25/17 05:15 Total Protein 7.1 G/DL (6.3-8.2) 10/23/17 06:55 Albumin 3.6 g/dL (3.5-5.0) 10/23/17 06:55 Globulin 3.5 gm/dL (2.2-3.9) 10/23/17 06:55 Albumin/Globulin Ratio 1.0 (1.0-2.1) 10/23/17 06:55 Triglycerides 88 mg/DL (0-149) D 10/23/17 06:55 Cholesterol 201 mg/dL (0-199) H 10/23/17 06:55 LDL Cholesterol Direct 122 mg/dL (0-129) 10/23/17 06:55 HDL Cholesterol 42 MG/DL (30-70) 10/23/17 06:55 Thyroxine (T4) 10.5 ug/dl (5.5-11.0) 10/25/17 05:15 Total T3 0.890 nmol/L (1.49-2.60) L 10/25/17 05:15 TSH 3rd Generation 1.51 mIU/ML (0.46-4.68) 10/25/17 05:15 Arterial Blood Potassium 2.7 mmol/L (3.6-5.2) L 10/22/17 13:15 Urine Color Yellow (YELLOW) 10/25/17 06:20 Urine Clarity Cloudy (Clear) 10/25/17 06:20 Urine pH 8.0 (5.0-8.0) 10/25/17 06:20 Ur Specific [place] 1.018 (1.003-1.030) 10/25/17 06:20 Urine Protein 30 mg/dL (NEGATIVE) 10/25/17 06:20 Urine Glucose (UA) Neg mg/dL (Normal) 10/25/17 06:20 Urine Ketones Negative mg/dL (NEGATIVE) 10/25/17 06:20 Urine Blood Small (NEGATIVE) 10/25/17 06:20 Urine Nitrate Negative (NEGATIVE) 10/25/17 06:20 Urine Bilirubin Negative (NEGATIVE) 10/25/17 06:20 Urine Urobilinogen 0.2-1.0 mg/dL (0.2-1.0) 10/25/17 06:20 Ur Leukocyte Esterase Large [place]/uL (Negative) 10/25/17 06:20 Urine RBC (Auto) 5 /hpf (0-3) H 10/25/17 06:20 Urine Microscopic WBC 10 /hpf (0-5) H 10/25/17 06:20 Ur Squamous Epith Cells 8 /hpf (0-5) H 10/25/17 06:20 Urine Bacteria Rare (<OCC) 10/25/17 06:20 Influenza Typ A,B (EIA) Negative for flu a/b (NEGATIVE) 10/22/17 12:30 Discharge Exam - Head Exam Head Exam: ATRAUMATIC, NORMAL INSPECTION, NORMOCEPHALIC Discharge Plan - Discharge Medications Prescriptions: Nitrofurantoin Monohyd/M-Cryst [Nitrofurantoin [place]-Mcr 100 mg] 100 mg PO Q12 # 10 capsule - Follow Up Plan Condition: FAIR Disposition: HOME/ ROUTINE Instructions: Heart Failure, Adult (DC), Exacerbation of COPD Additional Instructions: will visit patient at home in 1 week Referrals: Rik Rosales MD [Staff Provider] - Jesús Granado MD [Staff Provider] -
== END 2017-10-28 18:17 | disposition home or self-care (01) | DRG 191 ==
LOC: H.ER 12:03 → H.ERHOLD 14:30 → H.TEL 18:06
PROVIDERS: ADMIT Internal Medicine Pulmonary Disease; ATTEND Internal Medicine Pulmonary Disease
DX: J44.1 Chronic obstructive pulmonary disease with (acute) exacerbation (principal); I50.32 Chronic diastolic (congestive) heart failure; N39.0 Urinary tract infection, site not specified; I35.0 Nonrheumatic aortic (valve) stenosis; I11.0 Hypertensive heart disease with heart failure; I48.91 Unspecified atrial fibrillation; F32.9 Major depressive disorder, single episode, unspecified; F41.9 Anxiety disorder, unspecified; B95.2 Enterococcus as the cause of diseases classified elsewhere; Z16.21 Resistance to vancomycin; E87.6 Hypokalemia; Z86.73 Personal history of transient ischemic attack (TIA), and cerebral infarction without residual deficits; Z87.891 Personal history of nicotine dependence; M81.0 Age-related osteoporosis without current pathological fracture; E11.9 Type 2 diabetes mellitus without complications; E78.00 Pure hypercholesterolemia, unspecified; E78.5 Hyperlipidemia, unspecified; Z91.041 Radiographic dye allergy status

== ENCOUNTER 2018-01-17 04:44 | Inpatient (IN) | payer MEDICARE, MEDICAID ==
[2018-01-17] MEDS ORDERED: Albuterol-Ipratrop 3 mg / 0.5 (3 ml) UD INH STA (05:25)
--- NOTE | 2018-01-17 05:56 | ED PDOC ---
HPI: SOB/CHF/COPD Time Seen by Provider: 01/17/18 04:56 Chief Complaint (Nursing): Cough, Cold, Congestion Chief Complaint (Provider): Cough, Cold, Congestion History Per: Patient History/Exam Limitations: no limitations Onset/Duration Of Symptoms: Days (x 4) Current Symptoms Are (Timing): Still Present Additional Complaint(s): 82 year old female with a history of CHF, COPD, HTN, DM, A-Fib, dyslipidemia and arthritis presents to the ED with shortness of breath associated with cough for the last 4 days. Patient reports 911 was called for her 4 days ago and she or one of her family members decline for patient to be brought to the ED. Son reports she has gotten increasingly weak and has a poor appetite. They are uncertain if she had a fever. PMD: Dr. Granado Past Medical History Reviewed: Historical Data, Nursing Documentation, Vital Signs Vital Signs: Last Vital Signs Temp 98.5 F 01/17/18 23:49 Pulse 83 01/17/18 23:49 Resp 18 01/17/18 23:49 BP 147/76 01/18/18 00:22 Pulse Ox 96 01/17/18 23:49 - Medical History PMH: Anemia, Anxiety, Arthritis, Atrial Fibrillation, Back Problems, CHF, COPD, CVA, Depression, Diabetes, Diverticulitis, HTN, Hypercholesterolemia, Osteoporosis, Pneumonia, TIA Denies: HIV, Chronic Kidney Disease - Surgical History Surgical History: No Surg Hx Denies: Pacemaker - Family History Family History: States: Unknown Family Hx - Social History Current smoker - smoking cessation education provided: No Alcohol: None Drugs: Denies - Home Medications Home Medications: Ambulatory Orders Medication Instructions Recorded Apixaban [Eliquis] 2.5 mg PO BID 01/17/18 Esomeprazole Magnesium [Nexium 40 mg PO DAILY 01/17/18 24Hr] Meclizine [Meclizine*] 25 mg PO TID PRN 01/17/18 Metoprolol Tartrate [Lopressor] 50 mg PO Q12 01/17/18 diltiaZEM [Cardizem] 60 mg PO Q8 01/17/18 hydrALAZINE [Apresoline] 25 mg PO BID 01/17/18 - Allergies Allergies/Adverse Reactions: Allergies Allergy/AdvReac Type Severity Reaction Status Date / Time iodine Allergy RASH Verified 10/26/16 18:55 Review of Systems ROS Statement: Except As Marked, All Systems Reviewed And Found Negative Constitutional: Positive for: Weakness Respiratory: Positive for: Cough, Shortness of Breath Physical Exam - Reviewed Nursing Documentation Reviewed: Yes Vital Signs Reviewed: Yes - Physical Exam Appears: Positive for: Non-toxic, No Acute Distress Head Exam: Positive for: ATRAUMATIC, NORMAL INSPECTION, NORMOCEPHALIC Skin: Positive for: Normal Color, Warm, Dry Eye Exam: Positive for: EOMI, Normal appearance, PERRL Neck: Positive for: Normal, Painless ROM, Supple Cardiovascular/Chest: Positive for: Regular Rate, Rhythm. Negative for: Murmur Respiratory: Positive for: Respiratory Distress (mild) Gastrointestinal/Abdominal: Positive for: Normal Exam, Soft. Negative for: Tenderness Extremity: Positive for: Normal ROM, Pedal Edema (+1 edema to lower extremities) . Negative for: Deformity Neurologic/Psych: Positive for: Alert, Oriented. Negative for: Motor/Sensory Deficits - Laboratory Results Result Diagrams: 01/17/18 05:30 01/17/18 05:30 - ECG O2 Sat by Pulse Oximetry: 100 (RA) Pulse Ox Interpretation: Normal Medical Decision Making Medical Decision Makin:09 Impression: sob in setting of known CHF and COPD Initial Plan: --EKG --BNP --CMP --Lactic acid --Troponin I --CBC --PTT --Prothrombin time --CXR --Glucose POC --Duoneb 9 ml INH --SOLU-medrol 125 mg IVP --Blood cx --Peak flow pre/post Time: 06:37 --Levaquin 500 mg --Lasix 20 mg IV --CXR shows cardiomegaly. --Labs reviewed and revealed no clinically significant abnormalities with the exception of elevated pro-BNP levels (2400 H) Patient will be placed on observation status due to CHF and COPD exacerbation. Discussed case with Dr. Granado who accepted. ---- Scribe Attestation: Documented by Stephy Lazo, acting as a scribe for Mahad Alvarado MD Provider Scribe Attestation: All medical record entries made by the Scribe were at my direction and personally dictated by me. I have reviewed the chart and agree that the record accurately reflects my personal performance of the history, physical exam, medical decision making, and the department course for this patient. I have also personally directed, reviewed, and agree with the discharge instructions and disposition. Disposition - Clinical Impression Clinical Impression: CHF (congestive heart failure), COPD (chronic obstructive pulmonary disease) - Patient ED Disposition Is Patient to be Admitted: Yes - Disposition Disposition: Routine/Home Disposition Time: 06:37 Condition: FAIR - Pt Status Changed To: Hospital Disposition Of: Observation
[2018-01-17] MEDS ORDERED: Albuterol-Ipratrop 3 mg / 0.5 (3 ml) UD ONE ×2 (06:03→06:08)
[2018-01-17 06:27] LABS: ALBUMIN 3.9 g/dL (3.5-5.0); ALT/SGPT 16 U/L (9-52); AST/SGOT 34 U/L (14-36); BLOOD UREA NITROGEN 15 mg/dl (7-17); CALCIUM 9.1 mg/dL (8.4-10.2); GFR AFRICAN-AMERICAN > 60; GFR NON-AFRICAN AMERICAN > 60
[2018-01-17 06:32] LABS: INR 1.4 (0.9-1.2); PROTHROMBIN TIME 15.2 Seconds (9.8-13.1)
[2018-01-17 06:33] LABS: PARTIAL THROMBOPLASTIN TIME 39.1 Seconds (25.6-37.1)
[2018-01-17 06:35] LABS: BASO % 0.4 % (0.0-2.0); EOS # 0.1 K/uL (0.0-0.7); LYMPH % 10.7 % (20.0-40.0); MEAN CELL VOLUME 82.6 fl (81.0-99.0); MEAN CORPUSCULAR HEMOGLOBIN 26.5 pg (27.0-31.0); MEAN CORPUSCULAR HGB CONC 32.1 g/dL (33.0-37.0); MONO # 0.7 K/uL (0.0-0.8); MONO % 7.6 % (0.0-10.0); NEUT # 7.2 K/uL (1.8-7.0); NEUT % 80.3 % (50.0-75.0); NRBC % 0.1 % (0.0-0.0); RBC 4.15 Mil/uL (3.80-5.20); RED CELL DISTRIBUTION WIDTH 17.7 % (11.5-14.5)
[2018-01-17] MEDS ORDERED: levoFLOXacin 500 mg in D5W 500 MG/100 ML BAG IVPB STA (06:37)
[2018-01-17 06:39] LABS: B-TYPE NATRIURETIC PEPTIDE 2400 pg/ml (0-900)
[2018-01-17] MEDS ORDERED: levoFLOXacin 500 mg in D5W 500 MG/100 ML BAG IVPB ONE (07:15)
--- NOTE | 2018-01-17 10:44 | RAD ---
HISTORY: sob COMPARISON: Frontal chest 10/04/2017. FINDINGS: LUNGS: The bilateral hemidiaphragms are silhouetted. Bilateral airspace disease is suggested with limited bilateral pleural effusions present. Trace fluid is seen in the minor fissure. Cardiac silhouette is stable with mild pulmonary vascular congestion. No pneumothorax bilaterally. PLEURA: As above. CARDIOVASCULAR: As above. OSSEOUS STRUCTURES: No significant abnormalities. VISUALIZED UPPER ABDOMEN: Normal. OTHER FINDINGS: None. IMPRESSION: Bilateral airspace disease and mild pleural effusions are noted in the interval with mild CHF suspected. Continued clinical and radiographic monitor advised.
[2018-01-17] MEDS ORDERED: Sodium Chloride 3% for Inhalation 4 ML VIAL.NEB IH PRN (12:02)
--- NOTE | 2018-01-17 12:03 | CARD ---
APPROVED REPORT EKG Measurement Heart [id number] <Conclusion> Normal sinus rhythm Normal ECG
[2018-01-17 12:14] VITALS: BMI 29.7
--- NOTE | 2018-01-17 14:20 | CP.PCM.HP ---
History of Present Illness - History of Present Illness History of Present Illness: 82 years old female chief complaint short of breath associated with cough for the last 4 days prior to admission, 911 was called 4 days PT ,but once there They declined for patient to be brought to the ER. Patient also increasingly weak and with poor appetite in the past 4 days. No history of syncope, LOC, palpitations, chest pain, Initial EKG RSR, after admission patient developed A. fib with RVR, treated with Cardizem p.o. and heart rate improved with heart rate A. fib 100 to 110, patient is on Eliquis for paroxysmal A. fib Echocardiogram September 2017 LV function normal, LVEF 70 % Past medical history: Diastolic CHF , HTN , A Fib , COPD, CVA , TIA ,DM, Pneumonia, Lumbago ,O/A R L knee Present on Admission - Present on Admission Any Indicators Present on Admission: No Review of Systems - Review of Systems Review of Systems: Patient with slow mentation, forgetful Past Patient History - Infectious Disease Hx of Infectious Diseases: None - Tetanus Immunizations Tetanus Immunization: Unknown - Past Medical History & Family History Past Medical History?: Yes - Past Social History Smoking Status: Former Smoker Alcohol: None Home Situation {Lives}: With Family - CARDIAC Hx Cardiac Disorders: Yes Hx Congestive Heart Failure: Yes Hx Hypercholesterolemia: Yes Hx Hypertension: Yes - PULMONARY Hx Respiratory Disorders: Yes Hx Chronic Obstructive Pulmonary Disease (COPD): Yes Hx Pneumonia: Yes - NEUROLOGICAL Hx Neurological Disorder: No Hx Transient Ischemic Attacks (TIA): Yes - HEENT Hx HEENT Problems: No Other/Comment: Hx of R Paroitid tumor - RENAL Hx Chronic Kidney Disease: No - ENDOCRINE/METABOLIC Hx Endocrine Disorders: Yes Hx Diabetes Mellitus Type 2: Yes - HEMATOLOGICAL/ONCOLOGICAL Hx Blood Disorders: No Hx AIDS: No Hx Human Immunodeficiency Virus (HIV): No - INTEGUMENTARY Hx Dermatological Problems: Yes Hx Cellulitis: Yes - MUSCULOSKELETAL/RHEUMATOLOGICAL Hx Musculoskeletal Disorders: Yes Hx Arthritis: Yes Hx Back Pain: Yes Hx Falls: No Hx Osteoporosis: Yes Other/Comment: O/A R L knee - GASTROINTESTINAL Hx Gastrointestinal Disorders: Yes Hx Diverticulitis: Yes - GENITOURINARY/GYNECOLOGICAL Hx Genitourinary Disorders: No - PSYCHIATRIC Hx Psychophysiologic Disorder: Yes Hx Anxiety: Yes Hx Depression: Yes Hx Substance Use: No - SURGICAL HISTORY Hx Surgeries: Yes Hx Herniorrhaphy: Yes - ANESTHESIA Hx Anesthesia: Yes Hx Anesthesia Reactions: No Hx Malignant Hyperthermia: No Meds Allergies/Adverse Reactions: Allergies Allergy/AdvReac Type Severity Reaction Status Date / Time iodine Allergy RASH Verified 10/26/16 18:55 Physical Exam - Constitutional Appears: Chronically Ill - Head Exam Head Exam: NORMAL INSPECTION - Eye Exam Eye Exam: PERRL - ENT Exam ENT Exam: Normal Exam - Neck Exam Neck exam: Positive for: Normal Inspection - Respiratory Exam Respiratory Exam: Decreased Breath Sounds, Rales (at bases) - Cardiovascular Exam Cardiovascular Exam: Irregular Rhythm - GI/Abdominal Exam GI & Abdominal Exam: Normal Bowel Sounds, Soft - Extremities Exam Extremities exam: Positive for: pedal edema (leg edema) Additional comments: tenderness R L knee - Back Exam Back exam: tenderness - Neurological Exam Neurological exam: CN II-XII Intact Additional comments: awake , slow mentation , forgetful , generalized weakness , no focal motor/ sensory deficit - Psychiatric Exam Psychiatric exam: Normal Mood - Skin Skin Exam: Warm Results - Vital Signs Recent Vital Signs: Last Vital Signs Temp 98.1 F 01/17/18 12:28 Pulse 82 01/17/18 12:28 Resp 18 01/17/18 12:28 BP 133/75 01/17/18 12:28 Pulse Ox 94 L 01/17/18 12:28 - Labs Result Diagrams: 01/21/18 05:30 01/21/18 13:25 Labs: Laboratory Results - last 24 hr 01/17/18 01/17/18 01/17/18 05:05 05:30 05:30 WBC 9.0 D RBC 4.15 Hgb 11.0 L Hct 34.3 MCV 82.6 MCH 26.5 L MCHC 32.1 L RDW 17.7 H Plt Count 213 MPV 9.0 Neut % (Auto) 80.3 H Lymph % (Auto) 10.7 L [place] % (Auto) 7.6 Eos % (Auto) 1.0 Baso % (Auto) 0.4 Neut # (Auto) 7.2 H Lymph # (Auto) 1.0 [place] # (Auto) 0.7 Eos # (Auto) 0.1 Baso # (Auto) 0.0 PT INR APTT Sodium 142 Potassium 4.2 Chloride 102 Carbon Dioxide 31 H Anion Gap 13 BUN 15 Creatinine 0.5 L Est GFR ( Amer) > 60 Est GFR (Non-Af Amer) > 60 POC Glucose (mg/dL) 107 Random Glucose 122 H Lactic Acid Calcium 9.1 Total Bilirubin 0.8 AST 34 ALT 16 Alkaline Phosphatase 80 Troponin I < 0.0120 NT-Pro-B Natriuret Pep 2400 H Total Protein 7.7 Albumin 3.9 Globulin 3.8 Albumin/Globulin Ratio 1.0 01/17/18 01/17/18 01/17/18 05:30 05:40 08:02 WBC RBC Hgb Hct MCV MCH MCHC RDW Plt Count MPV Neut % (Auto) Lymph % (Auto) [place] % (Auto) Eos % (Auto) Baso % (Auto) Neut # (Auto) Lymph # (Auto) [place] # (Auto) Eos # (Auto) Baso # (Auto) PT 15.2 H INR 1.4 H APTT 39.1 H Sodium Potassium Chloride Carbon Dioxide Anion Gap BUN Creatinine Est GFR ( Amer) Est GFR (Non-Af Amer) POC Glucose (mg/dL) 122 H Random Glucose Lactic Acid 0.8 Calcium Total Bilirubin AST ALT Alkaline Phosphatase Troponin I NT-Pro-B Natriuret Pep Total Protein Albumin Globulin Albumin/Globulin Ratio 01/17/18 11:29 WBC RBC Hgb Hct MCV MCH MCHC RDW Plt Count MPV Neut % (Auto) Lymph % (Auto) [place] % (Auto) Eos % (Auto) Baso % (Auto) Neut # (Auto) Lymph # (Auto) [place] # (Auto) Eos # (Auto) Baso # (Auto) PT INR APTT Sodium Potassium Chloride Carbon Dioxide Anion Gap BUN Creatinine Est GFR ( Amer) Est GFR (Non-Af Amer) POC Glucose (mg/dL) 124 H Random Glucose Lactic Acid Calcium Total Bilirubin AST ALT Alkaline Phosphatase Troponin I NT-Pro-B Natriuret Pep Total Protein Albumin Globulin Albumin/Globulin Ratio Assessment & Plan (1) Diastolic CHF Assessment and Plan: Acute on Chronic Status: Acute (2) Atrial fibrillation with RVR Status: Acute (3) Pleural effusion due to CHF (congestive heart failure) Status: Acute (4) COPD (chronic obstructive pulmonary disease) Status: Acute (5) HTN (hypertension) Status: Chronic Priority: High (6) Lumbago Status: Chronic (7) Osteoarthritis of knees, bilateral Status: Acute (8) Knee osteoarthritis Status: Chronic Priority: Medium (9) Parotid tumor Status: Chronic - Assessment and Plan (Free Text) Plan: Lasix , Lopressor , Eliquis, monitor pleural effusions improvement with Lasix , if not may need IR Thoracentesis ,continue rest of treatment, f/u Cardiology consult. - Date & Time Date: 01/17/18 Time: 12:20
--- NOTE | 2018-01-17 16:45 | CT ---
PROCEDURE: CT HEAD WITHOUT CONTRAST. HISTORY: AMS COMPARISON: Comparison made with prior CT scan brain 10/22/2017 TECHNIQUE: Contiguous helical/ transaxial computed tomography images were obtained through the head/brain without intravenous contrast. Radiation dose: Total exam DLP = 1164.62 MGy-cm. This CT exam was performed using one or more of the following dose reduction techniques: Automated exposure control, adjustment of the mA and/or kV according to patient size, and/or use of iterative reconstruction technique. FINDINGS: HEMORRHAGE: No acute parenchymal, subarachnoid or extra-axial hemorrhage. BRAIN: Mild chronic periventricular white matter ischemic changes seen extending peripherally into the deep white matter both cerebral hemispheres. There may also be a few bilateral tiny chronic appearing lacunar type infarcts Moderate generalized volume loss. No obvious parenchymal nor extra-axial mass or collection seen on this noncontrast exam VENTRICLES: No obstructive hydrocephalus CALVARIUM: No acute calvarial fractures. PARANASAL SINUSES: Unremarkable as visualized. No significant inflammatory changes. MASTOID AIR CELLS: Complete opacification left mastoid air complex new since prior OTHER FINDINGS: The right parotid gland including the previously noted and described approximately 2.5 x 2.1 x 1.8 cm right parotid mass imaged on this exam due to differences in slice placement and patient positioning. . Clinical correlation recommended. . ENT consultation is recommended for further evaluation of this lesion to exclude parotid gland parotid neoplasm. Orbits and contents unremarkable. IMPRESSION: Study no acute intracranial hemorrhage. Mild chronic white matter ischemic changes. Moderate generalized volume loss. The right parotid gland including the previously noted and described approximately 2.5 x 2.1 x 1.8 cm right parotid mass imaged on this exam due to differences in slice placement and patient positioning. . Clinical correlation recommended. . ENT consultation is recommended for further evaluation of this lesion to exclude parotid gland parotid neoplasm. Complete opacification left mastoid air complex.
[2018-01-17] MEDS ORDERED: MethylPREDNISolone 40 mg Vial IVP SCH (17:00)
[2018-01-17] MEDS ORDERED: methylPREDNISolone 40 MG in Sodium Chloride 0.9% 50 ML IV SCH (17:00)
--- NOTE | 2018-01-17 17:21 | CT ---
PROCEDURE: CT chest dated 01/17/2018. HISTORY: Cough, wheezing congestion COMPARISON: Comparison made with chest radiograph 01/17/[address] chest 10/22/2017. TECHNIQUE: Contiguous helical/transaxial images were obtained through the chest without intravenous contrast enhancement. Sagittal and coronal reconstructions were performed. Radiation dose (DLP): 621.29 mGy-cm. This CT exam was performed using one or more of the following dose reduction techniques: Automated exposure control, adjustment of the mA and/or kV according to patient size, and/or use of iterative reconstruction technique. . FINDINGS: LUNGS: Moderately large right and moderate size left-sided effusions are present with bibasilar atelectasis. Increased since prior study. Interlobular septal thickening consistent with pulmonary edema/CHF. MEDIASTINUM: Heart is enlarged. No significant pericardial effusion. The ascending thoracic aorta measures approximately 3.615 and descending thoracic aorta measures approximately 2.5 cm. Pulmonary trunk measures approximately 3 point 3 6 cm; rule out underlying mild pulmonary arterial hypertension. . There are a few small nonspecific mediastinal lymph nodes. Evaluation for hilar adenopathy is limited due to the lack of circulating intravenous contrast material. Central airways midline and patent. No large central endoluminal lesions. There is a hiatal hernia with wall thickening of the distal esophagus -EG junction and to a lesser degree the distal half of the esophagus. . Rule out gastritis or other intrinsic wall lesion. PLEURA: As above. No pneumothorax. BONES: Mild multilevel degenerative spondylosis of the thoracic spine. No acute compression fractures no retropulsed fragments. UPPER ABDOMEN: Pancreas appears atrophic and fatty replaced. . Grossly unremarkable. OTHER FINDINGS: None. IMPRESSION: Moderately large right and moderate size left-sided effusions and bilateral lower lobe atelectasis increased from prior study. Interlobular septal thickening. Findings consistent with pulmonary edema/CHF. Cardiomegaly.
[2018-01-17] MEDS: Albuterol-Ipratrop 3 mg / 0.5 (3 ml) UD INH SCH (19:34)
[2018-01-18 05:27] LABS: HEMOGLOBIN 11.6 g/dL (12.0-16.0); MEAN CELL VOLUME 82.2 fl (81.0-99.0); MEAN CORPUSCULAR HEMOGLOBIN 26.5 pg (27.0-31.0); MEAN CORPUSCULAR HGB CONC 32.2 g/dL (33.0-37.0); RBC 4.39 Mil/uL (3.80-5.20); RED CELL DISTRIBUTION WIDTH 17.5 % (11.5-14.5); WHITE BLOOD COUNT 6.6 K/uL (4.8-10.8)
[2018-01-18 05:52] LABS: INR 1.6 (0.9-1.2); PARTIAL THROMBOPLASTIN TIME 36.8 Seconds (25.6-37.1); PROTHROMBIN TIME 17.7 Seconds (9.8-13.1)
[2018-01-18 06:24] LABS: ALBUMIN 3.9 g/dL (3.5-5.0); ALT/SGPT 24 U/L (9-52); AST/SGOT 20 U/L (14-36); BLOOD UREA NITROGEN 19 mg/dl (7-17); CALCIUM 9.3 mg/dL (8.4-10.2); GFR AFRICAN-AMERICAN > 60; GFR NON-AFRICAN AMERICAN > 60
--- NOTE | 2018-01-18 06:36 | CP.PCM.CON ---
History of Present Illness - History of Present Illness History of Present Illness: consultation for CHF exacerbation / hx of Afib and diastolic CHF HPI: Review of Systems - Review of Systems Systems not reviewed;Unavailable: Acuity of Condition - Constitutional Constitutional: As Per HPI - EENT Eyes: As Per HPI Ears: As Per HPI Nose/Mouth/Throat: As Per HPI - Breasts Breasts: As Per HPI - Cardiovascular Cardiovascular: As Per HPI - Respiratory Respiratory: As Per HPI - Gastrointestinal Gastrointestinal: As Per HPI - Genitourinary Genitourinary: As Per HPI - Reproductive: Female Reproductive:Female: As Per HPI - Menstruation Menstruation: As Per HPI - Musculoskeletal Musculoskeletal: As Per HPI - Integumentary Integumentary: As Per HPI - Neurological Neurological: As Per HPI - Psychiatric Psychiatric: As Per HPI - Endocrine Endocrine: As Per HPI - Hematologic/Lymphatic Hematologic: As Per HPI Past Patient History - Infectious Disease Hx of Infectious Diseases: None - Tetanus Immunizations Tetanus Immunization: Unknown - Past Medical History & Family History Past Medical History?: Yes - Past Social History Alcohol: None Drugs: Denies - CARDIAC Hx Atrial Fibrillation: Yes Hx Congestive Heart Failure: Yes Hx Hypercholesterolemia: Yes Hx Hypertension: Yes Hx Pacemaker: No - PULMONARY Hx Chronic Obstructive Pulmonary Disease (COPD): Yes Hx Pneumonia: Yes - NEUROLOGICAL Hx Transient Ischemic Attacks (TIA): Yes - HEENT Hx HEENT Problems: No - RENAL Hx Chronic Kidney Disease: No - ENDOCRINE/METABOLIC Hx Endocrine Disorders: Yes Hx Diabetes Mellitus Type 2: Yes - HEMATOLOGICAL/ONCOLOGICAL Hx Anemia: Yes Hx Human Immunodeficiency Virus (HIV): No - INTEGUMENTARY Hx Dermatological Problems: Yes Hx Cellulitis: Yes - MUSCULOSKELETAL/RHEUMATOLOGICAL Hx Arthritis: Yes Hx Osteoporosis: Yes - GASTROINTESTINAL Hx Diverticulitis: Yes - GENITOURINARY/GYNECOLOGICAL Hx Genitourinary Disorders: No - PSYCHIATRIC Hx Anxiety: Yes Hx Depression: Yes - SURGICAL HISTORY Hx Surgeries: Yes Hx Herniorrhaphy: Yes - ANESTHESIA Hx Anesthesia: Yes Hx Anesthesia Reactions: No Hx Malignant Hyperthermia: No Meds Allergies/Adverse Reactions: Allergies Allergy/AdvReac Type Severity Reaction Status Date / Time iodine Allergy RASH Verified 10/26/16 18:55 - Medications Medications: Current Medications Albuterol/Ipratropium (Duoneb 3 Mg/0.5 Mg (3 Ml) Ud) 3 ml INH RTID [facility] Last Admin: 01/17/18 19:34 Dose: 3 ml Apixaban (Eliquis) 5 mg PO BID [facility] PRN Reason: Protocol Last Admin: 01/17/18 18:11 Dose: 5 mg Furosemide (Lasix) 40 mg IVP Q12 [facility] Last Admin: 01/18/18 00:22 Dose: 40 mg Meclizine HCl (Antivert) 25 mg PO TID PRN PRN Reason: Dizziness Methylprednisolone (Solu-Medrol) 30 mg IVP Q12 [facility] Metoprolol Tartrate (Lopressor) 50 mg PO Q12 [facility] Last Admin: 01/17/18 20:36 Dose: 50 mg Physical Exam - Constitutional Appears: Well - Head Exam Head Exam: ATRAUMATIC, NORMAL INSPECTION, NORMOCEPHALIC - Eye Exam Eye Exam: EOMI, Normal appearance, PERRL Pupil Exam: NORMAL ACCOMODATION, PERRL - ENT Exam ENT Exam: Mucous Membranes Moist, Normal Exam - Neck Exam Neck exam: Positive for: Normal Inspection - Respiratory Exam Respiratory Exam: Clear to Auscultation Bilateral, Rales, NORMAL BREATHING PATTERN - Cardiovascular Exam Cardiovascular Exam: Irregular Rhythm, RRR, +S1, +S2, Systolic Murmur - GI/Abdominal Exam GI & Abdominal Exam: Normal Bowel Sounds, Soft. absent: Tenderness - Extremities Exam Extremities exam: Positive for: normal inspection - Back Exam Back exam: NORMAL INSPECTION - Neurological Exam Neurological exam: Alert, CN II-XII Intact, Normal Gait, Oriented x3, Reflexes Normal - Psychiatric Exam Psychiatric exam: Normal Affect, Normal Mood - Skin Skin Exam: Dry, Intact, Normal Color, Warm Results - Vital Signs Recent Vital Signs: Last Vital Signs Temp 97.7 F 01/18/18 05:03 Pulse 79 01/18/18 05:03 Resp 18 01/18/18 05:03 BP 150/79 01/18/18 05:03 Pulse Ox 94 L 01/18/18 05:03 - Labs Result Diagrams: 01/18/18 04:20 01/18/18 04:20 Labs: Laboratory Results - last 24 hr 01/17/18 01/17/18 01/17/18 05:30 05:30 08:02 WBC 9.0 D RBC 4.15 Hgb 11.0 L Hct 34.3 MCV 82.6 MCH 26.5 L MCHC 32.1 L RDW 17.7 H Plt Count 213 MPV 9.0 Neut % (Auto) 80.3 H Lymph % (Auto) 10.7 L [place] % (Auto) 7.6 Eos % (Auto) 1.0 Baso % (Auto) 0.4 Neut # (Auto) 7.2 H Lymph # (Auto) 1.0 Ceiba # (Auto) 0.7 Eos # (Auto) 0.1 Baso # (Auto) 0.0 PT INR APTT Sodium Potassium Chloride Carbon Dioxide Anion Gap BUN Creatinine Est GFR ( Amer) Est GFR (Non-Af Amer) POC Glucose (mg/dL) 122 H Random Glucose Hemoglobin A1c Calcium Total Bilirubin AST ALT Alkaline Phosphatase Troponin I < 0.0120 NT-Pro-B Natriuret Pep 2400 H Total Protein Albumin Globulin Albumin/Globulin Ratio 01/17/18 01/17/18 01/17/18 11:29 13:52 15:58 WBC RBC Hgb Hct MCV MCH MCHC RDW Plt Count MPV Neut % (Auto) Lymph % (Auto) [place] % (Auto) Eos % (Auto) Baso % (Auto) Neut # (Auto) Lymph # (Auto) [place] # (Auto) Eos # (Auto) Baso # (Auto) PT INR APTT Sodium Potassium Chloride Carbon Dioxide Anion Gap BUN Creatinine Est GFR ( Amer) Est GFR (Non-Af Amer) POC Glucose (mg/dL) 124 H 140 H Random Glucose Hemoglobin A1c 5.5 Calcium Total Bilirubin AST ALT Alkaline Phosphatase Troponin I NT-Pro-B Natriuret Pep Total Protein Albumin Globulin Albumin/Globulin Ratio 01/17/18 01/18/18 01/18/18 21:30 04:20 04:20 WBC 6.6 RBC 4.39 Hgb 11.6 L Hct 36.0 MCV 82.2 MCH 26.5 L MCHC 32.2 L RDW 17.5 H Plt Count 205 MPV Neut % (Auto) Lymph % (Auto) [place] % (Auto) Eos % (Auto) Baso % (Auto) Neut # (Auto) Lymph # (Auto) [place] # (Auto) Eos # (Auto) Baso # (Auto) PT INR APTT Sodium 147 Potassium 3.3 L Chloride 98 Carbon Dioxide 37 H Anion Gap 15 BUN 19 H Creatinine 0.7 Est GFR ( Amer) > 60 Est GFR (Non-Af Amer) > 60 POC Glucose (mg/dL) 138 H Random Glucose 132 H Hemoglobin A1c Calcium 9.3 Total Bilirubin 0.8 AST 20 ALT 24 Alkaline Phosphatase 83 Troponin I < 0.0120 NT-Pro-B Natriuret Pep Total Protein 7.6 Albumin 3.9 Globulin 3.8 Albumin/Globulin Ratio 1.0 01/18/18 01/18/18 04:20 05:08 WBC RBC Hgb Hct MCV MCH MCHC RDW Plt Count MPV Neut % (Auto) Lymph % (Auto) [place] % (Auto) Eos % (Auto) Baso % (Auto) Neut # (Auto) Lymph # (Auto) [place] # (Auto) Eos # (Auto) Baso # (Auto) PT 17.7 H INR 1.6 H APTT 36.8 Sodium Potassium Chloride Carbon Dioxide Anion Gap BUN Creatinine Est GFR ( Amer) Est GFR (Non-Af Amer) POC Glucose (mg/dL) 133 H Random Glucose Hemoglobin A1c Calcium Total Bilirubin AST ALT Alkaline Phosphatase Troponin I NT-Pro-B Natriuret Pep Total Protein Albumin Globulin Albumin/Globulin Ratio Assessment & Plan (1) CHF (congestive heart failure) Status: Acute (2) COPD (chronic obstructive pulmonary disease) Status: Chronic (3) Afib Status: Acute (4) Generalized weakness Status: Acute Priority: Medium (5) HTN (hypertension) Status: Acute
[2018-01-18] MEDS: Albuterol-Ipratrop 3 mg / 0.5 (3 ml) UD INH SCH (07:29)
[2018-01-18] MEDS: MethylPREDNISolone 40 mg Vial IVP SCH ×2 (08:46→21:08)
[2018-01-18] MEDS: Potassium Chloride 20 mEq ER Tab PO ONE ×2 (08:53→09:05)
[2018-01-18] MEDS ORDERED: methylPREDNISolone 30 MG in Sodium Chloride 0.9% 50 ML IV SCH (09:00)
--- NOTE | 2018-01-18 11:03 | CARD ---
APPROVED REPORT EKG Measurement Heart [id number] <Conclusion> Atrial fibrillation Abnormal ECG
--- NOTE | 2018-01-18 12:12 | CP.PCM.PN ---
Subjective - Date & Time of Evaluation Date of Evaluation: 01/18/18 Time of Evaluation: 10:00 - Subjective Subjective: F/U CHF Confused, no SOB, no CP. Objective - Vital Signs/Intake and Output Vital Signs (last 24 hours): Temp Pulse Resp BP Pulse Ox 98.3 F 113 H 20 105/78 95 01/18/18 08:00 01/18/18 09:00 01/18/18 08:00 01/18/18 08:45 01/18/18 08:00 - Medications Medications: Current Medications Acetaminophen (Tylenol 325mg Tab) 650 mg PO Q4 PRN PRN Reason: pain Last Admin: 01/18/18 08:52 Dose: 650 mg Apixaban (Eliquis) 5 mg PO BID [facility] PRN Reason: Protocol Last Admin: 01/18/18 08:44 Dose: 5 mg Furosemide (Lasix) 40 mg IVP Q12 [facility] Last Admin: 01/18/18 08:45 Dose: 40 mg Levalbuterol HCl (Xopenex) 0.63 mg INH RQ6 [facility] Meclizine HCl (Antivert) 25 mg PO TID PRN PRN Reason: Dizziness Methylprednisolone (Solu-Medrol) 30 mg IVP Q12 [facility] Last Admin: 01/18/18 08:46 Dose: 30 mg Metoprolol Tartrate (Lopressor) 50 mg PO Q12 [facility] Last Admin: 01/18/18 08:44 Dose: 50 mg - Labs Labs: 01/18/18 04:20 01/18/18 04:20 PT 17.7 Seconds (9.8-13.1) H 01/18/18 04:20 INR 1.6 (0.9-1.2) H 01/18/18 04:20 APTT 36.8 Seconds (25.6-37.1) 01/18/18 04:20 - Constitutional Appears: Chronically Ill - Head Exam Head Exam: NORMAL INSPECTION - Eye Exam Eye Exam: PERRL - ENT Exam ENT Exam: Normal Exam - Neck Exam Neck Exam: Normal Inspection - Respiratory Exam Respiratory Exam: Decreased Breath Sounds, Rales (at bases) - Cardiovascular Exam Cardiovascular Exam: Irregular Rhythm - GI/Abdominal Exam GI & Abdominal Exam: Soft, Normal Bowel Sounds - Extremities Exam Extremities Exam: Pedal Edema (legs edema), Tenderness (R-L knee) - Back Exam Back Exam: tenderness - Neurological Exam Neurological Exam: Awake, CN II-XII Intact Additional comments: Slow mentation, forgetful, generalized weakness, no focal motor/sensory deficit. - Psychiatric Exam Psychiatric exam: Normal Mood - Skin Skin Exam: Warm Assessment and Plan (1) Diastolic CHF Status: Acute (2) Atrial fibrillation with RVR Status: Acute (3) Pleural effusion due to CHF (congestive heart failure) Status: Acute (4) COPD (chronic obstructive pulmonary disease) Status: Acute (5) HTN (hypertension) Status: Chronic (6) Lumbago Status: Chronic (7) Osteoarthritis of knees, bilateral Status: Acute (8) Knee osteoarthritis Status: Chronic (9) Parotid tumor Status: Chronic (10) Hypokalemia Status: Acute - Assessment and Plan (Free Text) Plan: K replacement and rest of Tx.
[2018-01-18] MEDS: Levalbuterol 0.63 MG/3 ML Inhal Soln UD INH SCH ×3 (13:24→19:07)
[2018-01-19] MEDS: Levalbuterol 0.63 MG/3 ML Inhal Soln UD INH SCH ×4 (01:00→19:55)
[2018-01-19] MEDS ORDERED: Metoprolol 1 mg/ml Inj IVP ONE (05:04)
[2018-01-19 05:44] LABS: HEMOGLOBIN 12.1 g/dL (12.0-16.0); MEAN CELL VOLUME 82.2 fl (81.0-99.0); MEAN CORPUSCULAR HEMOGLOBIN 26.6 pg (27.0-31.0); MEAN CORPUSCULAR HGB CONC 32.4 g/dL (33.0-37.0); RBC 4.56 Mil/uL (3.80-5.20); RED CELL DISTRIBUTION WIDTH 17.6 % (11.5-14.5); WHITE BLOOD COUNT 7.7 K/uL (4.8-10.8)
[2018-01-19 06:34] LABS: BLOOD UREA NITROGEN 27 mg/dl (7-17); GFR AFRICAN-AMERICAN > 60; GFR NON-AFRICAN AMERICAN > 60
[2018-01-19] MEDS: MethylPREDNISolone 40 mg Vial IVP SCH ×2 (08:57→21:01)
--- NOTE | 2018-01-19 10:32 | CP.PCM.CON ---
History of Present Illness - History of Present Illness History of Present Illness: consult requested due to agitation and anxiety pt is 82 ys old female with out any formal previous psychiatric diagnosis or treatment, pt on evaluation, confused , oriented to person and partially to place, presenting with memory lapses, forgetful , initially stating she lives with her then after few minutes she reported that her , pt reported feeling anxious frequently , with episodes of difficulty to breath, also reported feeling down since her son few months ago, pt denied any changes in sleep or appetite , denied any current suicidal ideation, reporting her mosque would prevent her , however reported she does not care if she does not wake up next morning, she reported her children help her with her instrumental daily activities and that she is able to attend to her own ADLS DENIED PSYCHOTIC SYMPTOMS AND NON ELICITED Past Patient History - Infectious Disease Hx of Infectious Diseases: None - Tetanus Immunizations Tetanus Immunization: Unknown - Past Medical History & Family History Past Medical History?: Yes - Past Social History Smoking Status: Former Smoker Alcohol: None Home Situation {Lives}: With Family - CARDIAC Hx Cardiac Disorders: Yes Hx Congestive Heart Failure: Yes Hx Hypercholesterolemia: Yes Hx Hypertension: Yes - PULMONARY Hx Respiratory Disorders: Yes Hx Chronic Obstructive Pulmonary Disease (COPD): Yes Hx Pneumonia: Yes - NEUROLOGICAL Hx Neurological Disorder: No Hx Transient Ischemic Attacks (TIA): Yes - HEENT Hx HEENT Problems: No Other/Comment: Hx of R Paroitid tumor - RENAL Hx Chronic Kidney Disease: No - ENDOCRINE/METABOLIC Hx Endocrine Disorders: Yes Hx Diabetes Mellitus Type 2: Yes - HEMATOLOGICAL/ONCOLOGICAL Hx Blood Disorders: No Hx AIDS: No Hx Human Immunodeficiency Virus (HIV): No - INTEGUMENTARY Hx Dermatological Problems: Yes Hx Cellulitis: Yes - MUSCULOSKELETAL/RHEUMATOLOGICAL Hx Musculoskeletal Disorders: Yes Hx Arthritis: Yes Hx Back Pain: Yes Hx Falls: No Hx Osteoporosis: Yes Other/Comment: O/A R L knee - GASTROINTESTINAL Hx Gastrointestinal Disorders: Yes Hx Diverticulitis: Yes - GENITOURINARY/GYNECOLOGICAL Hx Genitourinary Disorders: No - PSYCHIATRIC Hx Psychophysiologic Disorder: Yes Hx Anxiety: Yes Hx Depression: Yes Hx Substance Use: No - SURGICAL HISTORY Hx Surgeries: Yes Hx Herniorrhaphy: Yes - ANESTHESIA Hx Anesthesia: Yes Hx Anesthesia Reactions: No Hx Malignant Hyperthermia: No Meds Allergies/Adverse Reactions: Allergies Allergy/AdvReac Type Severity Reaction Status Date / Time iodine Allergy RASH Verified 10/26/16 18:55 - Medications Medications: Current Medications Acetaminophen (Tylenol 325mg Tab) 650 mg PO Q4 PRN PRN Reason: pain Last Admin: 01/18/18 21:04 Dose: 650 mg Apixaban (Eliquis) 5 mg PO BID [facility] PRN Reason: Protocol Last Admin: 01/19/18 08:53 Dose: 5 mg Furosemide (Lasix) 40 mg IVP Q12 [facility] Last Admin: 01/19/18 08:56 Dose: 40 mg Levalbuterol HCl (Xopenex) 0.63 mg INH RQ6 [facility] Last Admin: 01/19/18 08:02 Dose: 0.63 mg Lorazepam (Ativan) 1 mg IVP Q4 PRN PRN Reason: Agitation Last Admin: 01/19/18 00:01 Dose: 1 mg Meclizine HCl (Antivert) 25 mg PO TID PRN PRN Reason: Dizziness Methylprednisolone (Solu-Medrol) 30 mg IVP Q12 [facility] Last Admin: 01/19/18 08:57 Dose: 30 mg Metoprolol Tartrate (Lopressor) 50 mg PO Q12 [facility] Last Admin: 01/19/18 08:56 Dose: 50 mg Physical Exam - Psychiatric Exam Additional comments: PT SEEN IN BED , PRESENTING WITH ANXIOUS MOOD AND AFFECT, COOPERATIVE, SPEECH IS NOT GOAL DIRECTED, THOUGHT FORM TANGENTIAL, DENIED ANY CURRENT SUICIDAL OR HOMICIDAL IDEATION, DENIED PERCEPTUAL DISTURBANCES, NON ELICITED ALERT AWAKE ORIENTED TO PERSON PARTIALY TO PLACE KNOWING SHE IS IN A HOSPITAL Results - Vital Signs Recent Vital Signs: Last Vital Signs Temp 98.4 F 01/19/18 08:14 Pulse 122 H 01/19/18 09:00 Resp 20 01/19/18 08:14 BP 130/91 H 01/19/18 08:56 Pulse Ox 93 L 01/19/18 08:14 - Labs Result Diagrams: 01/19/18 05:33 01/19/18 05:33 Labs: Laboratory Results - last 24 hr 01/18/18 01/18/18 01/18/18 10:55 11:28 15:38 WBC RBC Hgb Hct MCV MCH MCHC RDW Plt Count Sodium Potassium Chloride Carbon Dioxide Anion Gap BUN Creatinine Est GFR ( Amer) Est GFR (Non-Af Amer) POC Glucose (mg/dL) 182 H 146 H Random Glucose Calcium Troponin I < 0.0120 06/27/18 06/28/18 06/28/18 21:10 05:07 05:33 WBC 7.7 RBC 4.56 Hgb 12.1 Hct 37.4 MCV 82.2 MCH 26.6 L MCHC 32.4 L RDW 17.6 H Plt Count 205 Sodium Potassium Chloride Carbon Dioxide Anion Gap BUN Creatinine Est GFR ( Amer) Est GFR (Non-Af Amer) POC Glucose (mg/dL) 117 H 123 H Random Glucose Calcium Troponin I 01/19/18 05:33 WBC RBC Hgb Hct MCV MCH MCHC RDW Plt Count Sodium 145 Potassium 3.0 L Chloride 95 L Carbon Dioxide 37 H Anion Gap 16 BUN 27 H Creatinine 0.7 Est GFR ( Amer) > 60 Est GFR (Non-Af Amer) > 60 POC Glucose (mg/dL) Random Glucose 132 H Calcium 9.0 Troponin I Assessment & Plan - Assessment and Plan (Free Text) 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
--- NOTE | 2018-01-19 13:27 | CP.PCM.PN ---
Subjective - Date & Time of Evaluation Date of Evaluation: 01/19/18 Time of Evaluation: 13:00 - Subjective Subjective: F/U CHF no AD , denies SOB , C/P , confused at times Objective - Vital Signs/Intake and Output Vital Signs (last 24 hours): Temp Pulse Resp BP Pulse Ox 98.2 F 98 H 20 115/79 95 01/19/18 12:37 01/19/18 12:37 01/19/18 12:37 01/19/18 12:37 01/19/18 12:37 - Medications Medications: Current Medications Acetaminophen (Tylenol 325mg Tab) 650 mg PO Q4 PRN PRN Reason: pain Last Admin: 01/18/18 21:04 Dose: 650 mg Apixaban (Eliquis) 5 mg PO BID [facility] PRN Reason: Protocol Last Admin: 01/19/18 08:53 Dose: 5 mg Furosemide (Lasix) 40 mg IVP Q12 [facility] Last Admin: 01/19/18 08:56 Dose: 40 mg Levalbuterol HCl (Xopenex) 0.63 mg INH RQ6 [facility] Last Admin: 01/19/18 08:02 Dose: 0.63 mg Lorazepam (Ativan) 1 mg IVP Q4 PRN PRN Reason: Agitation Last Admin: 01/19/18 00:01 Dose: 1 mg Meclizine HCl (Antivert) 25 mg PO TID PRN PRN Reason: Dizziness Methylprednisolone (Solu-Medrol) 30 mg IVP Q12 [facility] Last Admin: 01/19/18 08:57 Dose: 30 mg Metoprolol Tartrate (Lopressor) 50 mg PO Q12 [facility] Last Admin: 01/19/18 08:56 Dose: 50 mg - Labs Labs: 01/19/18 05:33 01/19/18 05:33 PT 17.7 Seconds (9.8-13.1) H 01/18/18 04:20 INR 1.6 (0.9-1.2) H 01/18/18 04:20 APTT 36.8 Seconds (25.6-37.1) 01/18/18 04:20 - Constitutional Appears: No Acute Distress - Head Exam Head Exam: NORMAL INSPECTION - Eye Exam Eye Exam: PERRL - ENT Exam Additional comments: R parotid tumor - Neck Exam Neck Exam: Normal Inspection - Respiratory Exam Respiratory Exam: Decreased Breath Sounds (at bases) - Cardiovascular Exam Cardiovascular Exam: Irregular Rhythm - GI/Abdominal Exam GI & Abdominal Exam: Soft, Normal Bowel Sounds - Extremities Exam Extremities Exam: Pedal Edema, Tenderness (R L knee) - Back Exam Back Exam: tenderness - Neurological Exam Neurological Exam: Alert (oriented x 2, forgetful , confused at times), CN II -XII Intact Additional comments: generalized weakness , no focal motor , sensory deficit - Psychiatric Exam Psychiatric exam: Anxious - Skin Skin Exam: Warm Assessment and Plan (1) Diastolic CHF Status: Chronic (2) Atrial fibrillation with RVR Status: Acute (3) Pleural effusion due to CHF (congestive heart failure) Status: Deleted (4) COPD (chronic obstructive pulmonary disease) Status: Chronic (5) HTN (hypertension) Status: Chronic (6) Lumbago Status: Chronic (7) Osteoarthritis of knees, bilateral Status: Chronic (8) Knee osteoarthritis Status: Chronic (9) Parotid tumor Status: Chronic (10) Hypokalemia Status: Acute - Assessment and Plan (Free Text) Plan: continue Eliquis , Lopressor , Cardizem , Xopenex , taper Solu Medrol , hold Lasix , K replacement
[2018-01-19] MEDS ORDERED: Potassium Chloride 20 mEq ER Tab PO STA (18:40)
[2018-01-20] MEDS: Levalbuterol 0.63 MG/3 ML Inhal Soln UD INH SCH ×4 (01:18→19:23)
[2018-01-20 06:04] LABS: ALB/GLOB RATIO 1.1 (1.0-2.1); ALBUMIN 3.8 g/dL (3.5-5.0); ALT/SGPT 38 U/L (9-52); AST/SGOT 52 U/L (14-36); BLOOD UREA NITROGEN 36 mg/dl (7-17); CALCIUM 8.8 mg/dL (8.4-10.2); GFR AFRICAN-AMERICAN > 60; GFR NON-AFRICAN AMERICAN 60
[2018-01-20] MEDS: MethylPREDNISolone 40 mg Vial IVP SCH ×2 (09:06→21:11)
[2018-01-20] MEDS ORDERED: Potassium Chloride 20 mEq ER Tab PO ONE ×3 (09:50→23:00)
[2018-01-20] MEDS ORDERED: diltiaZEM 240 mg/24 Hours CD Cap PO SCH (10:00)
[2018-01-20] MEDS: diltiaZEM 180 mg/24 Hours CD Cap PO SCH (14:07)
--- NOTE | 2018-01-20 17:41 | CP.PCM.PN ---
Subjective - Date & Time of Evaluation Date of Evaluation: 01/20/18 Time of Evaluation: 17:00 - Subjective Subjective: F/U CHF no AD , Denies C/P, SOB , confused at times Objective - Vital Signs/Intake and Output Vital Signs (last 24 hours): Temp Pulse Resp BP Pulse Ox 99.0 F 60 17 126/74 95 01/20/18 16:16 01/20/18 16:16 01/20/18 16:16 01/20/18 16:16 01/20/18 16:16 - Medications Medications: Current Medications Acetaminophen (Tylenol 325mg Tab) 650 mg PO Q4 PRN PRN Reason: pain Last Admin: 01/18/18 21:04 Dose: 650 mg Apixaban (Eliquis) 5 mg PO BID LACEY PRN Reason: Protocol Last Admin: 01/20/18 16:30 Dose: 5 mg Diltiazem HCl (Cardizem Cd) 180 mg PO DAILY [facility] Last Admin: 01/20/18 14:07 Dose: 180 mg Docusate Sodium (Colace) 100 mg PO BID LACEY Last Admin: 01/20/18 13:07 Dose: 100 mg Furosemide (Lasix) 40 mg IVP Q12 [facility]Y Last Admin: 01/20/18 09:07 Dose: 40 mg Levalbuterol HCl (Xopenex) 0.63 mg INH RQ6 LACEY Last Admin: 01/20/18 13:11 Dose: 0.63 mg Lorazepam (Ativan) 1 mg IVP Q4 PRN PRN Reason: Agitation Last Admin: 01/20/18 14:25 Dose: 1 mg Meclizine HCl (Antivert) 25 mg PO TID PRN PRN Reason: Dizziness Methylprednisolone (Solu-Medrol) 30 mg IVP Q12 LACEY Last Admin: 01/20/18 09:06 Dose: 30 mg Metoprolol Tartrate (Lopressor) 50 mg PO Q12 LACEY Last Admin: 01/20/18 09:07 Dose: 50 mg Potassium Chloride (K-Dur 20 Meq Er Tab) 20 meq PO ONCE ONE Stop: 01/20/18 23:01 - Labs Labs: 01/19/18 05:33 01/20/18 05:11 PT 17.7 Seconds (9.8-13.1) H 01/18/18 04:20 INR 1.6 (0.9-1.2) H 01/18/18 04:20 APTT 36.8 Seconds (25.6-37.1) 01/18/18 04:20 - Constitutional Appears: No Acute Distress - Head Exam Head Exam: NORMAL INSPECTION - Eye Exam Eye Exam: PERRL - ENT Exam Additional comments: R parotid tumor - Neck Exam Neck Exam: Normal Inspection - Respiratory Exam Respiratory Exam: Decreased Breath Sounds (at bases) - Cardiovascular Exam Cardiovascular Exam: Irregular Rhythm - Extremities Exam Extremities Exam: Pedal Edema, Tenderness (R L Knee) - Back Exam Back Exam: tenderness - Neurological Exam Neurological Exam: Alert (oriented x2, forgetful , ) Additional comments: no focal motor/sensory deficit , generalized weakness Assessment and Plan (1) Diastolic CHF Status: Chronic (2) Atrial fibrillation with RVR Status: Acute (3) Pleural effusion due to CHF (congestive heart failure) Status: Deleted (4) COPD (chronic obstructive pulmonary disease) Status: Chronic (5) HTN (hypertension) Status: Chronic (6) Lumbago Status: Chronic (7) Osteoarthritis of knees, bilateral Status: Chronic (8) Knee osteoarthritis Status: Chronic (9) Parotid tumor Status: Chronic (10) Hypokalemia Status: Acute - Assessment and Plan (Free Text) Plan: continue Eliquis, Lopressor , Cardizem , Xopenex , K 2.9 , K replacement , f/u BMP am , CXR am
[2018-01-21] MEDS: Levalbuterol 0.63 MG/3 ML Inhal Soln UD INH SCH ×4 (01:03→19:10)
[2018-01-21 06:22] LABS: HEMOGLOBIN 12.3 g/dL (12.0-16.0); MEAN CELL VOLUME 82.8 fl (81.0-99.0); MEAN CORPUSCULAR HEMOGLOBIN 26.1 pg (27.0-31.0); MEAN CORPUSCULAR HGB CONC 31.6 g/dL (33.0-37.0); RBC 4.69 Mil/uL (3.80-5.20); RED CELL DISTRIBUTION WIDTH 16.8 % (11.5-14.5); WHITE BLOOD COUNT 7.2 K/uL (4.8-10.8)
[2018-01-21] MEDS: diltiaZEM 180 mg/24 Hours CD Cap PO SCH (10:43)
[2018-01-21] MEDS: MethylPREDNISolone 40 mg Vial IVP SCH (10:44)
--- NOTE | 2018-01-21 13:17 | RAD ---
PROCEDURE: CHEST RADIOGRAPH, 1 VIEW HISTORY: CHF , Pleura effusion COMPARISON: None available. FINDINGS: LUNGS: Clear. PLEURA: No pneumothorax or pleural fluid seen. CARDIOVASCULAR: Normal. OSSEOUS STRUCTURES: No significant abnormalities. VISUALIZED UPPER ABDOMEN: Normal. OTHER FINDINGS: Small bilateral pleural effusion. IMPRESSION: Small bilateral pleural effusion.
[2018-01-21 13:44] LABS: ALB/GLOB RATIO 1.2 (1.0-2.1); ALBUMIN 3.8 g/dL (3.5-5.0); ALT/SGPT 66 U/L (9-52); AST/SGOT 89 U/L (14-36); BLOOD UREA NITROGEN 42 mg/dl (7-17); CALCIUM 8.9 mg/dL (8.4-10.2); GFR AFRICAN-AMERICAN > 60; GFR NON-AFRICAN AMERICAN > 60
[2018-01-21] MEDS ORDERED: Potassium Chloride 20 mEq ER Tab PO SCH (15:30)
[2018-01-21 16:30] VITALS: O2SAT 98
[2018-01-21 17:07] VITALS: BP 141/68; PULSE 93; RESP 20; TEMP 98.3
--- NOTE | 2018-01-21 17:34 | CP.PCM.DIS ---
Provider - Provider Date of Admission: 01/18/18 09:59 Attending physician: Jesús Granado MD Primary care physician: Jesús Granado MD Consults: Cardiology, Wound Care and Cardiology. Time Spent in preparation of Discharge (in minutes): 35 Diagnosis - Discharge Diagnosis (1) Diastolic CHF Status: Chronic Priority: High (2) Atrial fibrillation with RVR Status: Acute (3) Pleural effusion due to CHF (congestive heart failure) Status: Deleted (4) COPD (chronic obstructive pulmonary disease) Status: Chronic Priority: Low (5) HTN (hypertension) Status: Chronic Priority: High (6) Lumbago Status: Chronic (7) Osteoarthritis of knees, bilateral Status: Chronic Priority: Medium (8) Knee osteoarthritis Status: Chronic Priority: Medium (9) Parotid tumor Status: Chronic (10) Hypokalemia Status: Acute Priority: High Hospital Course - Lab Results Lab Results: Micro Results 01/17/18 05:50 Blood-Venous Blood Culture - Preliminary NO GROWTH AFTER 4 DAYS 01/17/18 05:40 Blood-Venous Blood Culture - Preliminary NO GROWTH AFTER 4 DAYS Most Recent Lab Values WBC 7.2 K/uL (4.8-10.8) 01/21/18 05:30 RBC 4.69 Mil/uL (3.80-5.20) 01/21/18 05:30 Hgb 12.3 g/dL (12.0-16.0) 01/21/18 05:30 Hct 38.8 % (34.0-47.0) 01/21/18 05:30 MCV 82.8 fl (81.0-99.0) 01/21/18 05:30 MCH 26.1 pg (27.0-31.0) L 01/21/18 05:30 MCHC 31.6 g/dL (33.0-37.0) L 01/21/18 05:30 RDW 16.8 % (11.5-14.5) H 01/21/18 05:30 Plt Count 184 K/uL (130-400) 01/21/18 05:30 MPV 9.0 fl (7.2-11.7) 01/17/18 05:30 Neut % (Auto) 80.3 % (50.0-75.0) H 01/17/18 05:30 Lymph % (Auto) 10.7 % (20.0-40.0) L 01/17/18 05:30 [place] % (Auto) 7.6 % (0.0-10.0) 01/17/18 05:30 Eos % (Auto) 1.0 % (0.0-4.0) 01/17/18 05:30 Baso % (Auto) 0.4 % (0.0-2.0) 01/17/18 05:30 Neut # (Auto) 7.2 K/uL (1.8-7.0) H 01/17/18 05:30 Lymph # (Auto) 1.0 K/uL (1.0-4.3) 01/17/18 05:30 [place] # (Auto) 0.7 K/uL (0.0-0.8) 01/17/18 05:30 Eos # (Auto) 0.1 K/uL (0.0-0.7) 01/17/18 05:30 Baso # (Auto) 0.0 K/uL (0.0-0.2) 01/17/18 05:30 PT 17.7 Seconds (9.8-13.1) H 01/18/18 04:20 INR 1.6 (0.9-1.2) H 01/18/18 04:20 APTT 36.8 Seconds (25.6-37.1) 01/18/18 04:20 Sodium 148 mmol/l (132-148) 01/21/18 13:25 Potassium 3.4 MMOL/L (3.6-5.0) L 01/21/18 13:25 Chloride 98 mmol/L (98-107) 01/21/18 13:25 Carbon Dioxide 36 mmol/L (22-30) H 01/21/18 13:25 Anion Gap 17 (10-20) 01/21/18 13:25 BUN 42 mg/dl (7-17) H 01/21/18 13:25 Creatinine 0.7 mg/dl (0.7-1.2) 01/21/18 13:25 Est GFR ( Amer) > 60 01/21/18 13:25 Est GFR (Non-Af Amer) > 60 01/21/18 13:25 POC Glucose (mg/dL) 115 mg/dL (65-110) H 01/21/18 11:53 Random Glucose 126 mg/dL (65-105) H 01/21/18 13:25 Hemoglobin A1c 5.5 % (4.2-6.5) 01/17/18 13:52 Lactic Acid 0.8 MMOL/L (0.7-2.1) 01/17/18 05:40 Calcium 8.9 mg/dL (8.4-10.2) 01/21/18 13:25 Total Bilirubin 0.9 mg/dl (0.2-1.3) 01/21/18 13:25 AST 89 U/L (14-36) H D 01/21/18 13:25 ALT 66 U/L (9-52) H D 01/21/18 13:25 Alkaline Phosphatase 73 U/L (38-126) 01/21/18 13:25 Troponin I < 0.0120 ng/mL (0.00-0.120) 01/18/18 11:28 NT-Pro-B Natriuret Pep 2400 pg/ml (0-900) H 01/17/18 05:30 Total Protein 7.0 G/DL (6.3-8.2) 01/21/18 13:25 Albumin 3.8 g/dL (3.5-5.0) 01/21/18 13:25 Globulin 3.2 gm/dL (2.2-3.9) 01/21/18 13:25 Albumin/Globulin Ratio 1.2 (1.0-2.1) 01/21/18 13:25 - Date & Time of H&P Date of H&P: 01/17/18 Time of H&P: 12:20 Discharge Exam - Head Exam Head Exam: NORMAL INSPECTION - Eye Exam Eye Exam: PERRL - ENT Exam Additional comments: R parotoid tumor - Neck Exam Neck exam: Normal Inspection - Respiratory Exam Respiratory Exam: Decreased Breath Sounds (at bases) - Cardiovascular Exam Cardiovascular Exam: Irregular Rhythm - GI/Abdominal Exam GI & Abdominal Exam: Normal Bowel Sounds, Soft - Extremities Exam Extremities exam: pedal edema, tenderness (R/L knee) - Back Exam Back exam: tenderness - Neurological Exam Neurological exam: Alert Additional comments: oriented x 2, forgetful, no focal motor sensory deficit, generalized weakness Discharge Plan - Follow Up Plan Condition: FAIR Disposition: HOME/ ROUTINE Patient education suggested?: Yes Instructions: Heart Failure, Adult (DC) Additional Instructions: per Dr Granado son will make arrangements for house visit by Dr Granado. Referrals: Rik Rosales MD [Staff Provider] - Jesús Granado MD [Primary Care Provider] -
--- NOTE | 2018-02-15 10:21 | PQF ---
PROVIDER RESPONSE TEXT: Patient was admitted for CHF Acute on Chronic diastolic and A Fib RVR , COPD is a 2nd diagnosis, no e xacerbation of COPD REVIEWER QUERY TEXT: COPD Specificity COPD - Chronic Obstructive Pulmonary Disease is documented in the Medical Record. Please specify the associated condition (includes suspected or probable) Such as: -- Bronchitis - acute -- Asthmatic - with /without status asthmaticus -- Exacerbation - acute -- Lower respiratory infection - acute -- Other, please specify The patient's Clinical Indicators include: ER Physician Documentation Report- pt admitted with chf and copd exacerbation. Query created by: Rahel Davis on 01/24/2018 12:34 PM Electronically signed by: Jesús Granado MD 02/15/2018 10:18 AM
== END 2018-01-21 19:40 | disposition home or self-care (01) | DRG 293 ==
LOC: H.ER 04:44 → H.ERHOLD 06:37 → H.TEL 10:19 → OBSVTOIN 01-18 09:59
PROVIDERS: ADMIT Internal Medicine Pulmonary Disease; ATTEND Internal Medicine Pulmonary Disease
DX: I11.0 Hypertensive heart disease with heart failure (principal); I50.33 Acute on chronic diastolic (congestive) heart failure; E87.6 Hypokalemia; E11.9 Type 2 diabetes mellitus without complications; I48.0 Paroxysmal atrial fibrillation; E78.5 Hyperlipidemia, unspecified; M17.0 Bilateral primary osteoarthritis of knee; Z86.73 Personal history of transient ischemic attack (TIA), and cerebral infarction without residual deficits; F32.9 Major depressive disorder, single episode, unspecified; E78.00 Pure hypercholesterolemia, unspecified; M81.0 Age-related osteoporosis without current pathological fracture; Z87.891 Personal history of nicotine dependence; Z63.4 Disappearance and death of family member; Z91.041 Radiographic dye allergy status; G89.29 Other chronic pain; D49.0 Neoplasm of unspecified behavior of digestive system; R53.1 Weakness; F01.50 Vascular dementia, unspecified severity, without behavioral disturbance, psychotic disturbance, mood disturbance, and anxiety; J44.9 Chronic obstructive pulmonary disease, unspecified

== ENCOUNTER 2018-01-22 12:54 | Inpatient (IN) | payer MEDICARE, MEDICAID ==
[2018-01-22 12:55] VITALS: BMI 29.7
[2018-01-22] MEDS ORDERED: Sodium Chloride 0.9% 1,000 ML IV SCH (13:30)
[2018-01-22] MEDS: Sodium Chloride 0.9% 1,000 ML IV SCH ×2 (13:30→14:13)
--- NOTE | 2018-01-22 13:47 | ED PDOC ---
HPI: General Adult Time Seen by Provider: 01/22/18 13:09 Chief Complaint (Nursing): Altered Mental Status Additional Complaint(s): 82 y/o F c PMHx Afib, CHF, COPD p/w altered mental status. Patient was discharged from hospital yesterday. Son states she was in this condition when she left the hospital yesterday. Decreased eating and responsiveness. Otherwise denies pain, fever, vomiting, cough, dyspnea, dysuria, limb paralysis. Past Medical History Vital Signs: Last Vital Signs Temp 98 F 01/22/18 16:48 Pulse 70 01/22/18 16:48 Resp 20 01/22/18 16:48 BP 137/57 L 01/22/18 16:48 Pulse Ox 98 01/22/18 16:48 - Medical History PMH: Anemia, Anxiety, Arthritis, Atrial Fibrillation, Back Problems, CHF, COPD, CVA, Depression, Diabetes, Diverticulitis, HTN, Hypercholesterolemia, Osteoporosis, Pneumonia, TIA Denies: HIV, Chronic Kidney Disease - Surgical History Surgical History: Denies: Pacemaker - Family History Family History: States: Unknown Family Hx - Home Medications Home Medications: Ambulatory Orders Medication Instructions Recorded Apixaban [Eliquis] 2.5 mg PO BID 01/17/18 Esomeprazole Magnesium [Nexium 40 mg PO DAILY 01/17/18 24Hr] Meclizine [Meclizine*] 25 mg PO TID PRN 01/17/18 Metoprolol Tartrate [Lopressor] 50 mg PO Q12 01/17/18 diltiaZEM [Cardizem] 60 mg PO Q8 01/17/18 hydrALAZINE [Apresoline] 25 mg PO BID 01/17/18 - Allergies Allergies/Adverse Reactions: Allergies Allergy/AdvReac Type Severity Reaction Status Date / Time iodine Allergy RASH Verified 10/26/16 18:55 Review of Systems ROS Statement: Except As Marked, All Systems Reviewed And Found Negative Constitutional: Negative for: Fever Gastrointestinal: Negative for: Vomiting Physical Exam - Physical Exam Comments: Gen: NAD Head: NC Eyes: No scleral icterus ENT: Dry MM Neck: Supple Chest: No tenderness CV: Regular rate Lungs: CTA b/l Abd: Soft, NT Back: No CVA tenderness Extremities: No edema Skin: No rash Neuro: Lethargic, no focal deficit - Laboratory Results Result Diagrams: 01/22/18 14:05 01/22/18 14:05 - ECG O2 Sat by Pulse Oximetry: 99 Medical Decision Making Medical Decision Making: EKG Afib, 65 bpm, no ST elevations FINDINGS: LUNGS: No active pulmonary disease. PLEURA: Bilateral pleural effusions, left greater than right.. CARDIOVASCULAR: cardiomegaly. OSSEOUS STRUCTURES: No significant abnormalities. VISUALIZED UPPER ABDOMEN: Normal. OTHER FINDINGS: None. IMPRESSION: Findings compatible with CHF.. UA shows leuks and WBCs. Dr. Granado accepts patient to his service. Disposition - Clinical Impression Clinical Impression: UTI (urinary tract infection), Hypokalemia, Altered mental status - Patient ED Disposition Is Patient to be Admitted: Yes Discussed With : Jesús Granado Doctor Will See Patient In The: Hospital - Disposition Disposition Time: 17:22 Condition: GUARDED - Pt Status Changed To: Hospital Disposition Of: Inpatient - Admit Certification Admit to Inpatient:: After my assessment, the patient will require hospitalization for at least two midnights. This is because of the severity of symptoms shown, intensity of services needed, and/or the medical risk in this patient being treated as an outpatient.
--- NOTE | 2018-01-22 14:07 | RAD ---
HISTORY: ams COMPARISON: No prior. FINDINGS: LUNGS: No active pulmonary disease. PLEURA: Bilateral pleural effusions, left greater than right.. CARDIOVASCULAR: cardiomegaly. OSSEOUS STRUCTURES: No significant abnormalities. VISUALIZED UPPER ABDOMEN: Normal. OTHER FINDINGS: None. IMPRESSION: Findings compatible with CHF..
[2018-01-22 14:11] LABS: BASO % 0.3 % (0.0-2.0); EOS % 0.7 % (0.0-4.0); HEMOGLOBIN 11.1 g/dL (12.0-16.0); LYMPH % 15.5 % (20.0-40.0); MEAN CELL VOLUME 83.1 fl (81.0-99.0); MEAN CORPUSCULAR HEMOGLOBIN 26.1 pg (27.0-31.0); MEAN CORPUSCULAR HGB CONC 31.5 g/dL (33.0-37.0); MEAN PLATELET VOLUME 8.7 fl (7.2-11.7); MONO # 0.7 K/uL (0.0-0.8); MONO % 11.1 % (0.0-10.0); NEUT # 4.8 K/uL (1.8-7.0); NEUT % 72.4 % (50.0-75.0); NRBC % 0.1 % (0.0-0.0); RBC 4.26 Mil/uL (3.80-5.20); RED CELL DISTRIBUTION WIDTH 16.8 % (11.5-14.5); WHITE BLOOD COUNT 6.6 K/uL (4.8-10.8)
[2018-01-22 14:14] LABS: VENOUS BLOOD GAS BASE EXCESS 12.3 mmol/L (0.0-2.0); VENOUS BLOOD GAS PCO2 54 mmHg (40-60); VENOUS BLOOD GAS PO2 48 mm/Hg (30-55); VENOUS BLOOD PH 7.46 (7.32-7.43)
[2018-01-22 14:24] LABS: ALBUMIN 2.9 g/dL (3.5-5.0); ALT/SGPT 54 U/L (9-52); AST/SGOT 48 U/L (14-36); BLOOD UREA NITROGEN 37 mg/dl (7-17); CALCIUM 7.9 mg/dL (8.4-10.2); GFR AFRICAN-AMERICAN > 60; GFR NON-AFRICAN AMERICAN > 60
[2018-01-22 14:34] LABS: INR 1.7 (0.9-1.2); PARTIAL THROMBOPLASTIN TIME 31.9 Seconds (25.6-37.1); PROTHROMBIN TIME 18.6 Seconds (9.8-13.1)
[2018-01-22 17:13] LABS: SQUAMOUS EPITHIAL 5 /hpf (0-5); URINE BILIRUBIN NEGATIVE (NEGATIVE); URINE BLOOD MODERATE (NEGATIVE); URINE CLARITY SLIGHTY-CLOUDY (Clear); URINE COLOR YELLOW (YELLOW); URINE GLUCOSE (UA) NEG (Normal); URINE LEUKOCYTE ESTERASE MOD Leu/uL (Negative); URINE PROTEIN NEGATIVE (NEGATIVE); URINE UROBILINOGEN 0.2-1.0 mg/dL (0.2-1.0)
[2018-01-22] MEDS ORDERED: Potassium Chloride 20 mEq 100 ML IVPB ONE (17:30)
[2018-01-22] MEDS ORDERED: Ciprofloxacin 400mg/200ml D5W 400 MG/200 ML BAG IVPB STA (18:40)
[2018-01-22] MEDS ORDERED: Dextrose 5%/0.9% NS 1,000 ML IV SCH (20:00)
[2018-01-22] MEDS: Potassium CL 10 MEQ/50 ML 50 ML IVPB SCH ×2 (20:42→21:44)
[2018-01-23 05:34] LABS: HEMOGLOBIN 11.8 g/dL (12.0-16.0); MEAN CELL VOLUME 82.7 fl (81.0-99.0); MEAN CORPUSCULAR HEMOGLOBIN 25.8 pg (27.0-31.0); MEAN CORPUSCULAR HGB CONC 31.2 g/dL (33.0-37.0); RBC 4.59 Mil/uL (3.80-5.20); RED CELL DISTRIBUTION WIDTH 16.7 % (11.5-14.5); WHITE BLOOD COUNT 7.2 K/uL (4.8-10.8)
[2018-01-23 06:07] LABS: ALT/SGPT 51 U/L (9-52); AST/SGOT 48 U/L (14-36); BLOOD UREA NITROGEN 28 mg/dl (7-17); CALCIUM 8.2 mg/dL (8.4-10.2); GFR AFRICAN-AMERICAN > 60; GFR NON-AFRICAN AMERICAN > 60
[2018-01-23] MEDS ORDERED: Dextrose 5%/0.45% NS 1,000 ML IV SCH (07:45)
[2018-01-23] MEDS: Pantoprazole 40 mg EC Tab PO SCH (09:57)
[2018-01-23] MEDS ORDERED: Potassium Chloride 20 mEq/15 ml LIQ UD PO ONE (11:49)
--- NOTE | 2018-01-23 13:46 | CP.PCM.PCO ---
Assessment/Plan - Assessment/Plan Assessment (Free Text): Patient evaluated on 01/23/[address] Granado for her mobility limitation due to copd, chf, and general debility. Due to patient's diagnosis patient requires head of bed to be elevated more than 30 degrees most of the time. Furthermore, patient requires positioning of the body in ways not feasible with an ordinary bed. - Consults Consult Orders: Consultations 01/23/18 02:55 Case Management Referral Routine Comment: Physician Instructions: Reason For Exam: Reason for Referral: SHARONA Gomez and hospital bed for home - Problems Patient Problems: Problem List (Active/Current) Problem Status Onset Code Change in mental status Acute R41.82 Hypokalemia Acute E87.6 UTI (urinary tract infection) Acute N39.0
--- NOTE | 2018-01-23 19:57 | CP.PCM.HP ---
History of Present Illness - History of Present Illness History of Present Illness: CC: AMS. 82 y/o F, Multiple chronic medical conditions, including CHF, COPD, [facility] to be evaluated for AMS on 01/21/18, after been discharged from this facility. As per Son, Pt found with altered mentation telling everyone to leave her alone associated to decreased responsiveness. Worsening symptoms: Decreased appetite/eating and drinking, low energy. Pt released from [facility] on 01/20/18 after Tx for Pleural effusion, COPD, A Fib, CHF requiring head of bed to be elevated more than 30 degree most of the time, also requires to sleep in a hospital bed for home due to positioning of the body in way no feasible with an ordinary bed. Aggravated factor: Poor historian, movements/exercise. As per Son: No fever, chills, vomiting, diarrhea, urinary symptoms, CP, numbness, syncope, sick contact. CXR compatible with CHF, no PNA. Present on Admission - Present on Admission Any Indicators Present on Admission: No Review of Systems - Review of Systems Systems not reviewed;Unavailable: Acuity of Condition, Altered Mental Status Past Patient History - Infectious Disease Hx of Infectious Diseases: None - Tetanus Immunizations Tetanus Immunization: Unknown - Past Medical History & Family History Past Medical History?: Yes Pertinent Family History: Unknown - Past Social History Smoking Status: Former Smoker Alcohol: None Drugs: Denies Home Situation {Lives}: With Family - CARDIAC Hx Cardiac Disorders: Yes (AF) Hx Congestive Heart Failure: Yes Hx Hypercholesterolemia: Yes Hx Hypertension: Yes - PULMONARY Hx Chronic Obstructive Pulmonary Disease (COPD): Yes - NEUROLOGICAL HX Cerebrovascular Accident: Yes (and TIA) - HEENT Hx HEENT Problems: No Other/Comment: Hx of R Paroitid tumor - RENAL Hx Chronic Kidney Disease: No - ENDOCRINE/METABOLIC Hx Diabetes Mellitus Type 2: Yes - HEMATOLOGICAL/ONCOLOGICAL Hx AIDS: No Hx Anemia: Yes Hx Human Immunodeficiency Virus (HIV): No - INTEGUMENTARY Hx Dermatological Problems: Yes Hx Cellulitis: Yes - MUSCULOSKELETAL/RHEUMATOLOGICAL Hx Arthritis: Yes - GASTROINTESTINAL Hx Diverticulitis: Yes - GENITOURINARY/GYNECOLOGICAL Hx Genitourinary Disorders: No - PSYCHIATRIC Hx Anxiety: Yes Hx Depression: Yes Hx Substance Use: No - SURGICAL HISTORY Hx Surgeries: Yes Hx Herniorrhaphy: Yes - ANESTHESIA Hx Anesthesia: Yes Hx Anesthesia Reactions: No Hx Malignant Hyperthermia: No Meds Home Medications: Home Medication List Medication Instructions Recorded Confirmed Type Furosemide [Lasix] 20 mg PO DAILY #30 tab 01/24/18 Rx Potassium Chloride 20 meq PO DAILY #20 tab.er.prt 01/24/18 Rx Allergies/Adverse Reactions: Allergies Allergy/AdvReac Type Severity Reaction Status Date / Time iodine Allergy RASH Verified 10/26/16 18:55 Physical Exam - Constitutional Appears: Chronically Ill - Head Exam Head Exam: NORMAL INSPECTION - Eye Exam Eye Exam: PERRL - ENT Exam ENT Exam: Normal Exam - Neck Exam Neck exam: Positive for: Normal Inspection - Respiratory Exam Respiratory Exam: NORMAL BREATHING PATTERN - Cardiovascular Exam Cardiovascular Exam: Irregular Rhythm - GI/Abdominal Exam GI & Abdominal Exam: Normal Bowel Sounds, Soft Additional comments: Fungal rash in the fold, b/l groin with redness/blisters - Extremities Exam Extremities exam: Positive for: tenderness (R-L knee) - Back Exam Back exam: tenderness - Neurological Exam Neurological exam: CN II-XII Intact Additional comments: Awake, confused, disoriented, forgetful,Ox2, follows commands. generalized weakness, no focal motor/sensory deficit. - Skin Skin Exam: Warm Additional comments: see extremities information. Results - Vital Signs Recent Vital Signs: Last Vital Signs Temp 98.2 F 01/23/18 16:56 Pulse 89 01/23/18 16:56 Resp 20 01/23/18 16:56 BP 116/61 01/23/18 16:56 Pulse Ox 98 01/23/18 16:56 reviewed Bharti - Labs Result Diagrams: 01/23/18 05:15 01/24/18 14:59 Labs: Laboratory Results - last 24 hr 01/23/18 01/23/18 01/23/18 05:10 05:15 05:15 WBC 7.2 RBC 4.59 Hgb 11.8 L Hct 38.0 MCV 82.7 MCH 25.8 L MCHC 31.2 L RDW 16.7 H Plt Count 164 Sodium 141 Potassium 3.5 L Chloride 103 Carbon Dioxide 31 H Anion Gap 11 BUN 28 H Creatinine 0.6 L Est GFR ( Amer) > 60 Est GFR (Non-Af Amer) > 60 POC Glucose (mg/dL) 91 Random Glucose 92 Calcium 8.2 L Total Bilirubin 0.7 AST 48 H ALT 51 Alkaline Phosphatase 63 Total Protein 6.1 L Albumin 3.0 L Globulin 3.1 Albumin/Globulin Ratio 1.0 01/23/18 01/23/18 11:10 16:32 WBC RBC Hgb Hct MCV MCH MCHC RDW Plt Count Sodium Potassium Chloride Carbon Dioxide Anion Gap BUN Creatinine Est GFR ( Amer) Est GFR (Non-Af Amer) POC Glucose (mg/dL) 138 H 102 Random Glucose Calcium Total Bilirubin AST ALT Alkaline Phosphatase Total Protein Albumin Globulin Albumin/Globulin Ratio reviewed J.P. - Imaging and Cardiology Chest x-ray Status: Report reviewed by me (Dottie.P.) MRI - head Status: Report reviewed by me (Dottie.P.) Assessment & Plan (1) Change in mental status Status: Acute Priority: High (2) Hypokalemia Status: Acute Priority: High (3) Diastolic CHF Status: Chronic Priority: High (4) Afib Status: Acute Priority: High (5) Dehydration Status: Acute Priority: High (6) Generalized weakness Status: Chronic Priority: High (7) HTN (hypertension) Status: Chronic Priority: Medium (8) Osteoarthritis of knees, bilateral Status: Chronic Priority: Medium (9) COPD (chronic obstructive pulmonary disease) Status: Chronic Priority: Low - Assessment and Plan (Free Text) Plan: Continue Rocephin, Meclizine, Eliquis, Tramadol, Cardizem, Metoprolol, Nystatin and rest of Tx. PT & OT leslie, - Date & Time Date: 01/23/18 Time: 14:00
[2018-01-24] MEDS: Pantoprazole 40 mg EC Tab PO SCH (09:52)
--- NOTE | 2018-01-24 11:11 | MRI ---
PROCEDURE: MRI BRAIN WITHOUT CONTRAST HISTORY: worsening AMS COMPARISON: Noncontrast head CT 01/17/2018 and noncontrast brain MRI 01/07/2011. TECHNIQUE: Multiplanar, multisequence MR images of the brain were obtained without intravenous contrast enhancement. FINDINGS: HEMORRHAGE: None DWI: No evidence of an acute or early subacute infarction. BRAIN PARENCHYMA: Good corticomedullary differentiation is seen. Stable, proportional, diffuse expansion of the ventriculosulcal and cisternal spaces is appreciated with white matter periventricular signal changes with diffuse cerebral atrophy and chronic microangiopathy generally stable in the interval. No suspicious extra-axial fluid collection is identified and the midline brain anatomy appears grossly nonfocal as imaged. There is no mass effect throughout. VENTRICLES: Unremarkable. No hydrocephalus. CRANIUM: Unremarkable. ORBITS: Grossly unremarkable. PARANASAL SINUSES/MASTOIDS: Gross left mastoid effusions reiterated. VASCULAR SYSTEM: Skull base flow voids intact. OTHER FINDINGS: 1.7 cm left neck chronic sebaceous cyst, inspissated. IMPRESSION: Stable age-appropriate age related neuro degenerative findings dating back to prior brain MRI in 2010. No definite acute intracranial findings by standard MRI criteria. Follow-up CT can be utilized as clinically warranted. Stable but prominent left mastoid effusions identified compared prior CT 01/17/2018.
[2018-01-24] MEDS ORDERED: Potassium Chloride 20 mEq ER Tab PO ONE ×2 (12:02→12:17)
--- NOTE | 2018-01-24 14:20 | CP.PCM.PN ---
Subjective - Date & Time of Evaluation Date of Evaluation: 01/24/18 Time of Evaluation: 11:40 - Subjective Subjective: F/U AMS Objective - Vital Signs/Intake and Output Vital Signs (last 24 hours): Temp Pulse Resp BP Pulse Ox 97.5 F L 77 20 105/53 L 96 01/24/18 12:00 01/24/18 12:00 01/24/18 12:00 01/24/18 12:00 01/24/18 12:00 - Medications Medications: Current Medications Acetaminophen (Tylenol 325mg Tab) 650 mg PO Q6 PRN PRN Reason: Pain, Mild (1-3) Last Admin: 01/23/18 12:47 Dose: 650 mg Apixaban (Eliquis) 5 mg PO BID [facility] PRN Reason: Protocol Last Admin: 01/24/18 09:50 Dose: 5 mg Diltiazem HCl (Cardizem) 60 mg PO Q8 [facility] Last Admin: 01/24/18 09:50 Dose: 60 mg Hydralazine HCl (Apresoline) 25 mg PO BID [facility] Last Admin: 01/24/18 09:48 Dose: 25 mg Ceftriaxone Sodium 1 gm/ (Sodium Chloride) 100 mls @ 100 mls/hr IVPB Q24H LACEY PRN Reason: Protocol Last Admin: 01/23/18 21:16 Dose: 100 mls/hr Meclizine HCl (Antivert) 25 mg PO TID PRN PRN Reason: Dizziness Last Admin: 01/23/18 12:47 Dose: 25 mg Metoprolol Tartrate (Lopressor) 50 mg PO Q12 [facility] Last Admin: 01/24/18 09:51 Dose: 50 mg Nystatin (Mycostatin Cream) 1 applic TOP TID [facility] Last Admin: 01/24/18 13:18 Dose: 1 applic Pantoprazole Sodium (Protonix Ec Tab) 40 mg PO DAILY [facility] Last Admin: 01/24/18 09:52 Dose: 40 mg Tramadol HCl (Ultram) 50 mg PO Q8 PRN PRN Reason: Pain, severe (8-10) - Labs Labs: 01/23/18 05:15 01/23/18 05:15 PT 18.6 Seconds (9.8-13.1) H 01/22/18 14:05 INR 1.7 (0.9-1.2) H 01/22/18 14:05 APTT 31.9 Seconds (25.6-37.1) 01/22/18 14:05 Assessment and Plan (1) Change in mental status Status: Acute (2) Hypokalemia Status: Acute (3) Diastolic CHF Status: Chronic (4) Afib Status: Acute (5) Dehydration Status: Acute (6) Generalized weakness Status: Chronic (7) HTN (hypertension) Status: Chronic (8) Osteoarthritis of knees, bilateral Status: Chronic (9) COPD (chronic obstructive pulmonary disease) Status: Chronic
--- NOTE | 2018-01-24 15:25 | CP.PCM.PCO ---
Assessment/Plan - Assessment and Plan (Free Text) Assessment: Patient seen and examined this afternoon with dr rascon Awake and confused. Vital signs stable Patient's labs reviewed, k replaced MRI reviewed with no acute changes. Urine culture negative for uti. DC home today with po k replacement Discussed with CM for home arrangements Meds reconciled with dr rascon
[2018-01-24 15:54] LABS: BLOOD UREA NITROGEN 18 mg/dl (7-17); CALCIUM 8.6 mg/dL (8.4-10.2); GFR AFRICAN-AMERICAN > 60; GFR NON-AFRICAN AMERICAN > 60
[2018-01-24] MEDS ORDERED: Potassium Chloride 20 mEq/15 ml LIQ UD PO ONE (16:30)
--- NOTE | 2018-01-24 16:52 | CP.PCM.DIS ---
Provider - Provider Date of Admission: 01/22/18 17:22 THIS DISCHARGE SUMMERY WAS OPEN BY MISTAKE, THIS IS A REGULAR NOTE ON 01/24/18. Attending physician: Jesús Granado MD Time Spent in preparation of Discharge (in minutes): 15 Diagnosis - Discharge Diagnosis (1) Change in mental status Status: Acute Priority: High (2) Hypokalemia Status: Acute Priority: High (3) Diastolic CHF Status: Chronic Priority: High (4) Afib Status: Acute Priority: High (5) Dehydration Status: Acute Priority: High (6) Generalized weakness Status: Chronic Priority: High (7) HTN (hypertension) Status: Chronic Priority: Medium (8) Osteoarthritis of knees, bilateral Status: Chronic Priority: Medium (9) COPD (chronic obstructive pulmonary disease) Status: Chronic Priority: Low Hospital Course - Lab Results Lab Results: Micro Results 01/22/18 16:56 Urine,Clean Catch Urine Culture - Final No Growth (<1,000 CFU/ML) Most Recent Lab Values WBC 7.2 K/uL (4.8-10.8) 01/23/18 05:15 RBC 4.59 Mil/uL (3.80-5.20) 01/23/18 05:15 Hgb 11.8 g/dL (12.0-16.0) L 01/23/18 05:15 Hct 38.0 % (34.0-47.0) 01/23/18 05:15 MCV 82.7 fl (81.0-99.0) 01/23/18 05:15 MCH 25.8 pg (27.0-31.0) L 01/23/18 05:15 MCHC 31.2 g/dL (33.0-37.0) L 01/23/18 05:15 RDW 16.7 % (11.5-14.5) H 01/23/18 05:15 Plt Count 164 K/uL (130-400) 01/23/18 05:15 MPV 8.7 fl (7.2-11.7) 01/22/18 14:05 Neut % (Auto) 72.4 % (50.0-75.0) 01/22/18 14:05 Lymph % (Auto) 15.5 % (20.0-40.0) L 01/22/18 14:05 [place] % (Auto) 11.1 % (0.0-10.0) H 01/22/18 14:05 Eos % (Auto) 0.7 % (0.0-4.0) 01/22/18 14:05 Baso % (Auto) 0.3 % (0.0-2.0) 01/22/18 14:05 Neut # (Auto) 4.8 K/uL (1.8-7.0) 01/22/18 14:05 Lymph # (Auto) 1.0 K/uL (1.0-4.3) 01/22/18 14:05 [place] # (Auto) 0.7 K/uL (0.0-0.8) 01/22/18 14:05 Eos # (Auto) 0.0 K/uL (0.0-0.7) 01/22/18 14:05 Baso # (Auto) 0.0 K/uL (0.0-0.2) 01/22/18 14:05 PT 18.6 Seconds (9.8-13.1) H 01/22/18 14:05 INR 1.7 (0.9-1.2) H 01/22/18 14:05 APTT 31.9 Seconds (25.6-37.1) 01/22/18 14:05 pO2 48 mm/Hg (30-55) 01/22/18 14:07 VBG pH 7.46 (7.32-7.43) H 01/22/18 14:07 VBG pCO2 54 mmHg (40-60) 01/22/18 14:07 VBG HCO3 34.2 mmol/L 01/22/18 14:07 VBG Total CO2 40.1 mmol/L (22-28) H 01/22/18 14:07 VBG O2 Sat (Calc) 88.2 % (40-65) H 01/22/18 14:07 VBG Base Excess 12.3 mmol/L (0.0-2.0) H 01/22/18 14:07 VBG Potassium 2.8 mmol/L (3.6-5.2) L 01/22/18 14:07 Sodium 144.0 mmol/L (132-148) 01/22/18 14:07 Chloride 107.0 mmol/L (98-107) 01/22/18 14:07 Glucose 108 mg/dL (65-105) H 01/22/18 14:07 Lactate 1.1 mmol/L (0.7-2.1) 01/22/18 14:07 FiO2 21.0 % 01/22/18 14:07 Sodium 141 mmol/l (132-148) 01/24/18 14:59 Potassium 3.2 MMOL/L (3.6-5.0) L 01/24/18 14:59 Chloride 103 mmol/L (98-107) 01/24/18 14:59 Carbon Dioxide 29 mmol/L (22-30) 01/24/18 14:59 Anion Gap 12 (10-20) 01/24/18 14:59 BUN 18 mg/dl (7-17) H 01/24/18 14:59 Creatinine 0.6 mg/dl (0.7-1.2) L 01/24/18 14:59 Est GFR ( Amer) > 60 01/24/18 14:59 Est GFR (Non-Af Amer) > 60 01/24/18 14:59 POC Glucose (mg/dL) 108 mg/dL (65-110) 01/24/18 15:56 Random Glucose 145 mg/dL (65-105) H 01/24/18 14:59 Calcium 8.6 mg/dL (8.4-10.2) 01/24/18 14:59 Total Bilirubin 0.7 mg/dl (0.2-1.3) 01/23/18 05:15 AST 48 U/L (14-36) H 01/23/18 05:15 ALT 51 U/L (9-52) 01/23/18 05:15 Alkaline Phosphatase 63 U/L (38-126) 01/23/18 05:15 Total Protein 6.1 G/DL (6.3-8.2) L 01/23/18 05:15 Albumin 3.0 g/dL (3.5-5.0) L 01/23/18 05:15 Globulin 3.1 gm/dL (2.2-3.9) 01/23/18 05:15 Albumin/Globulin Ratio 1.0 (1.0-2.1) 01/23/18 05:15 Venous Blood Potassium 2.8 mmol/L (3.6-5.2) L 01/22/18 14:07 Urine Color Yellow (YELLOW) 01/22/18 16:56 Urine Clarity Slighty-cloudy (Clear) 01/22/18 16:56 Urine pH 7.0 (5.0-8.0) 01/22/18 16:56 Ur Specific [place] 1.015 (1.003-1.030) 01/22/18 16:56 Urine Protein Negative mg/dL (NEGATIVE) 01/22/18 16:56 Urine Glucose (UA) Neg mg/dL (Normal) 01/22/18 16:56 Urine Ketones Negative mg/dL (NEGATIVE) 01/22/18 16:56 Urine Blood Moderate (NEGATIVE) 01/22/18 16:56 Urine Nitrate Negative (NEGATIVE) 01/22/18 16:56 Urine Bilirubin Negative (NEGATIVE) 01/22/18 16:56 Urine Urobilinogen 0.2-1.0 mg/dL (0.2-1.0) 01/22/18 16:56 Ur Leukocyte Esterase Mod [place]/uL (Negative) 01/22/18 16:56 Urine RBC (Auto) 23 /hpf (0-3) H 01/22/18 16:56 Urine Microscopic WBC 6 /hpf (0-5) H 01/22/18 16:56 Ur Squamous Epith Cells 5 /hpf (0-5) 01/22/18 16:56 Blood Type O POSITIVE 01/22/18 13:22 Antibody Screen Negative 01/22/18 13:22 BBK History Checked Patient has bt 01/22/18 13:22 - Hospital Course Hospital Course: Pt seen at 12:10 pm today 01/25/18. Pt awake, no A/D, smiling, no c/o Plan: Potassium level 3.2 today, K replacement, f/u BMP in AM, continue current Tx. Discharge Exam - Head Exam Head Exam: NORMAL INSPECTION - Eye Exam Eye Exam: PERRL - ENT Exam ENT Exam: Normal Exam - Neck Exam Neck exam: Normal Inspection - Respiratory Exam Respiratory Exam: NORMAL BREATHING PATTERN - Cardiovascular Exam Cardiovascular Exam: Irregular Rhythm - GI/Abdominal Exam GI & Abdominal Exam: Normal Bowel Sounds, Soft Additional comments: Fungal rash in the abdominal fold with redness/blisters - Extremities Exam Extremities exam: tenderness (R-L knee) - Back Exam Back exam: tenderness - Neurological Exam Neurological exam: CN II-XII Intact Additional comments: Awake, confused, forgetful, follows commands, generalized weakness, no focal motor/sensory deficit - Psychiatric Exam Additional comments: Anxious at times. - Skin Skin Exam: Warm Discharge Plan - Discharge Medications Prescriptions: Furosemide [Lasix] 20 mg PO DAILY #30 tab Potassium Chloride 20 meq PO BID #30 tab.er.prt - Follow Up Plan Condition: GUARDED Disposition: HOME/ ROUTINE Instructions: Hypokalemia (DC)
[2018-01-25 05:59] LABS: BLOOD UREA NITROGEN 15 mg/dl (7-17); GFR AFRICAN-AMERICAN > 60; GFR NON-AFRICAN AMERICAN > 60
[2018-01-25] MEDS: Pantoprazole 40 mg EC Tab PO SCH (10:53)
--- NOTE | 2018-01-25 14:54 | CP.PCM.PN ---
Subjective - Date & Time of Evaluation Date of Evaluation: 01/25/18 Time of Evaluation: 12:10 - Subjective Subjective: F/U AMS awake , answer questions , oriented x2 , denies SOB , no cough Objective - Vital Signs/Intake and Output Vital Signs (last 24 hours): Temp Pulse Resp BP Pulse Ox 97.2 F L 62 20 118/70 99 01/25/18 12:00 01/25/18 12:00 01/25/18 12:00 01/25/18 12:00 01/25/18 12:00 - Medications Medications: Current Medications Acetaminophen (Tylenol 325mg Tab) 650 mg PO Q6 PRN PRN Reason: Pain, Mild (1-3) Last Admin: 01/25/18 03:45 Dose: 650 mg Apixaban (Eliquis) 5 mg PO BID [facility] PRN Reason: Protocol Last Admin: 01/25/18 12:59 Dose: 5 mg Diltiazem HCl (Cardizem) 60 mg PO Q8 [facility] Last Admin: 01/25/18 10:50 Dose: 60 mg Hydralazine HCl (Apresoline) 25 mg PO BID [facility] Last Admin: 01/25/18 10:50 Dose: 25 mg Ceftriaxone Sodium 1 gm/ (Sodium Chloride) 100 mls @ 100 mls/hr IVPB Q24H [facility] PRN Reason: Protocol Last Admin: 01/24/18 22:34 Dose: 100 mls/hr Meclizine HCl (Antivert) 25 mg PO TID PRN PRN Reason: Dizziness Last Admin: 01/23/18 12:47 Dose: 25 mg Nystatin (Mycostatin Cream) 1 applic TOP TID [facility] Last Admin: 01/25/18 12:59 Dose: 1 applic Pantoprazole Sodium (Protonix Ec Tab) 40 mg PO DAILY [facility] Last Admin: 01/25/18 10:53 Dose: 40 mg Potassium Chloride (K-Dur 20 Meq Er Tab) 20 meq PO TID [facility] Tramadol HCl (Ultram) 50 mg PO Q8 PRN PRN Reason: Pain, severe (8-10) Last Admin: 01/24/18 22:32 Dose: 50 mg - Labs Labs: 01/23/18 05:15 01/25/18 04:20 PT 18.6 Seconds (9.8-13.1) H 01/22/18 14:05 INR 1.7 (0.9-1.2) H 01/22/18 14:05 APTT 31.9 Seconds (25.6-37.1) 01/22/18 14:05 - Constitutional Appears: Chronically Ill - Head Exam Head Exam: NORMAL INSPECTION - Eye Exam Eye Exam: PERRL - ENT Exam ENT Exam: Normal Exam - Neck Exam Neck Exam: Normal Inspection - Respiratory Exam Respiratory Exam: NORMAL BREATHING PATTERN - Cardiovascular Exam Cardiovascular Exam: Irregular Rhythm - GI/Abdominal Exam GI & Abdominal Exam: Soft, Normal Bowel Sounds Additional comments: Fungal rash in the fold of b/l groin with redness/blisters - Extremities Exam Extremities Exam: Tenderness (R-L knee) - Back Exam Back Exam: tenderness - Neurological Exam Neurological Exam: CN II-XII Intact Additional comments: Confused, forgetful, follows commands, generalized weakness. No focal motor/ sensory deficit. - Skin Skin Exam: Warm Assessment and Plan (1) Change in mental status Status: Acute (2) Hypokalemia Status: Acute (3) Diastolic CHF Status: Chronic (4) Afib Status: Acute (5) Dehydration Status: Acute (6) Generalized weakness Status: Chronic (7) HTN (hypertension) Status: Chronic (8) Osteoarthritis of knees, bilateral Status: Chronic (9) COPD (chronic obstructive pulmonary disease) Status: Chronic - Assessment and Plan (Free Text) Plan: CXR basilar opacities , pleural effusions , f/u CT Chest, Zithromax, Rocephin, K replacement , f/u K in am
[2018-01-25] MEDS: Potassium Chloride 20 mEq ER Tab PO SCH (17:28)
--- NOTE | 2018-01-25 17:43 | RAD ---
PROCEDURE: CHEST RADIOGRAPH, 1 VIEW HISTORY: CHF COMPARISON: 01/22/2018 FINDINGS: LUNGS: Hazy opacity in the lung bases. Vascular congestion essentially unchanged. PLEURA: Small effusions bilaterally. CARDIOVASCULAR: Mildly enlarged cardiomediastinal silhouette, stable. OSSEOUS STRUCTURES: Degenerative changes. VISUALIZED UPPER ABDOMEN: Limited evaluation. OTHER FINDINGS: None. IMPRESSION: Hazy basilar opacities associated with small pleural effusions. Underlying CHF as per history.
[2018-01-25] MEDS: Azithromycin 500 MG in Sodium Chloride 0.9% 250 ML IVPB SCH (22:27)
[2018-01-26] MEDS: Azithromycin 500 MG in Sodium Chloride 0.9% 250 ML IVPB SCH (08:51)
[2018-01-26] MEDS: Potassium Chloride 20 mEq ER Tab PO SCH ×2 (08:52→13:17)
[2018-01-26] MEDS: Pantoprazole 40 mg EC Tab PO SCH (08:58)
--- NOTE | 2018-01-26 09:28 | CT ---
PROCEDURE: CT Chest without contrast HISTORY: CXR results COMPARISON: 01/17/2018 TECHNIQUE: Contiguous axial images were obtained through the chest without intravenous contrast enhancement. Sagittal and coronal reconstructions were performed. Radiation dose (DLP): 480.38 mGy-cm. This CT exam was performed using one or more of the following dose reduction techniques: Automated exposure control, adjustment of the mA and/or kV according to patient size, and/or use of iterative reconstruction technique. FINDINGS: LUNGS: No pulmonary infiltrate. Bilateral lower lobe compressive atelectasis secondary to pleural effusions. MEDIASTINUM: Unremarkable thoracic aorta. No aneurysm. Mild cardiomegaly. Coronary arterial calcification. Mitral annular calcification. No pericardial effusion. Main pulmonary artery unremarkable. No vascular congestion. No lymphadenopathy. Small hiatal hernia. PLEURA: Small bilateral pleural effusion. No pneumothorax. BONES: No fracture. No destructive lesion. UPPER ABDOMEN: Nodular hepatic contour consistent with cirrhosis. OTHER FINDINGS: None. IMPRESSION: Small bilateral pleural effusion with bilateral lower lobe compressive atelectasis. Cardiomegaly. No infiltrate. Small hiatal hernia. Hepatic cirrhosis.
[2018-01-26 10:12] LABS: HEMOGLOBIN 11.3 g/dL (12.0-16.0); MEAN CORPUSCULAR HEMOGLOBIN 26.4 pg (27.0-31.0); MEAN CORPUSCULAR HGB CONC 31.8 g/dL (33.0-37.0); RBC 4.3 Mil/uL (3.80-5.20); RED CELL DISTRIBUTION WIDTH 16.8 % (11.5-14.5); WHITE BLOOD COUNT 9.2 K/uL (4.8-10.8)
[2018-01-26 10:30] LABS: BLOOD UREA NITROGEN 14 mg/dl (7-17); CALCIUM 8.4 mg/dL (8.4-10.2); GFR AFRICAN-AMERICAN > 60; GFR NON-AFRICAN AMERICAN > 60
[2018-01-26] MEDS ORDERED: Potassium Chloride 20 mEq/15 ml LIQ UD PO ONE (14:55)
[2018-01-26] MEDS: Potassium Chloride 20 mEq/15 ml LIQ UD PO SCH (16:05)
--- NOTE | 2018-01-26 17:36 | CP.PCM.PN ---
Subjective - Date & Time of Evaluation Date of Evaluation: 01/26/18 Time of Evaluation: 10:20 - Subjective Subjective: F/U AMS no AD, no SOB, no cough Objective - Vital Signs/Intake and Output Vital Signs (last 24 hours): Temp Pulse Resp BP Pulse Ox 98.3 F 72 18 116/64 97 01/26/18 15:58 01/26/18 16:04 01/26/18 15:58 01/26/18 16:04 01/26/18 15:58 Intake and Output: 01/26/18 01/26/18 06:59 18:59 Intake Total 1250 Balance 1250 - Medications Medications: Current Medications Acetaminophen (Tylenol 325mg Tab) 650 mg PO Q6 PRN PRN Reason: Pain, Mild (1-3) Last Admin: 01/26/18 11:32 Dose: 650 mg Apixaban (Eliquis) 5 mg PO BID [facility] PRN Reason: Protocol Last Admin: 01/26/18 16:04 Dose: 5 mg Diltiazem HCl (Cardizem) 60 mg PO Q8 [facility] Last Admin: 01/26/18 16:04 Dose: 60 mg Hydralazine HCl (Apresoline) 25 mg PO BID [facility] Last Admin: 01/26/18 16:04 Dose: 25 mg Azithromycin 500 mg/ Sodium (Chloride) 250 mls @ 250 mls/hr IVPB DAILY [facility] PRN Reason: Protocol Last Admin: 01/26/18 08:51 Dose: 250 mls/hr Ceftriaxone Sodium 1 gm/ (Sodium Chloride) 100 mls @ 100 mls/hr IVPB DAILY [facility] PRN Reason: Protocol Last Admin: 01/26/18 13:17 Dose: 100 mls/hr Meclizine HCl (Antivert) 25 mg PO TID PRN PRN Reason: Dizziness Last Admin: 01/23/18 12:47 Dose: 25 mg Nystatin (Mycostatin Cream) 1 applic TOP TID [facility] Last Admin: 01/26/18 16:05 Dose: 1 applic Pantoprazole Sodium (Protonix Ec Tab) 40 mg PO DAILY [facility] Last Admin: 01/26/18 08:58 Dose: 40 mg Potassium Chloride (Potassium Chloride Oral Soln) 20 meq PO TID [facility] Last Admin: 01/26/18 16:05 Dose: Not Given Tramadol HCl (Ultram) 50 mg PO Q8 PRN PRN Reason: Pain, severe (8-10) Last Admin: 01/24/18 22:32 Dose: 50 mg - Labs Labs: 01/26/18 09:55 01/26/18 09:55 PT 18.6 Seconds (9.8-13.1) H 01/22/18 14:05 INR 1.7 (0.9-1.2) H 01/22/18 14:05 APTT 31.9 Seconds (25.6-37.1) 01/22/18 14:05 - Constitutional Appears: Chronically Ill - Head Exam Head Exam: NORMAL INSPECTION - Eye Exam Eye Exam: PERRL - ENT Exam ENT Exam: Normal Exam - Neck Exam Neck Exam: Normal Inspection - Respiratory Exam Respiratory Exam: NORMAL BREATHING PATTERN - Cardiovascular Exam Cardiovascular Exam: Irregular Rhythm - GI/Abdominal Exam GI & Abdominal Exam: Soft, Normal Bowel Sounds Additional comments: Fungal rash in the abdominal fold area - Extremities Exam Extremities Exam: Tenderness (R-L knee) - Back Exam Back Exam: tenderness - Neurological Exam Neurological Exam: Awake Additional comments: Confused, forgetful, follows commands, generalized weakness, no focal motor/ sensory deficit. - Psychiatric Exam Psychiatric exam: Anxious - Skin Skin Exam: Warm Assessment and Plan (1) Change in mental status Status: Acute (2) Hypokalemia Status: Acute (3) Diastolic CHF Status: Chronic (4) Afib Status: Acute (5) Dehydration Status: Acute (6) Generalized weakness Status: Chronic (7) HTN (hypertension) Status: Chronic (8) Osteoarthritis of knees, bilateral Status: Chronic (9) COPD (chronic obstructive pulmonary disease) Status: Chronic - Assessment and Plan (Free Text) Plan: CT Chest small Pleural effusions, B/L LL atelectasis , no PNA , Cardiomegaly , HH , Liver Cirrhosis , Hypokalemia 3.3 , off Lasix ,on K replacement 60 meq daily, 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
[2018-01-27 07:50] LABS: BLOOD UREA NITROGEN 10 mg/dl (7-17); CALCIUM 8.8 mg/dL (8.4-10.2); GFR AFRICAN-AMERICAN > 60; GFR NON-AFRICAN AMERICAN > 60
[2018-01-27 08:20] VITALS: RESP 20
[2018-01-27] MEDS: Potassium Chloride 20 mEq/15 ml LIQ UD PO SCH ×3 (09:45→17:47)
[2018-01-27] MEDS: Pantoprazole 40 mg EC Tab PO SCH (09:45)
[2018-01-27] MEDS: Azithromycin 500 MG in Sodium Chloride 0.9% 250 ML IVPB SCH (10:06)
--- NOTE | 2018-01-27 15:38 | CP.PCM.PN ---
Objective - Vital Signs/Intake and Output Vital Signs (last 24 hours): Temp Pulse Resp BP Pulse Ox 98.9 F 87 20 121/68 99 01/27/18 13:04 01/27/18 13:04 01/27/18 13:04 01/27/18 13:04 01/27/18 13:04 - Medications Medications: Current Medications Acetaminophen (Tylenol 325mg Tab) 650 mg PO Q6 PRN PRN Reason: Pain, Mild (1-3) Last Admin: 01/27/18 10:09 Dose: 650 mg Apixaban (Eliquis) 5 mg PO BID [facility] PRN Reason: Protocol Last Admin: 01/27/18 09:46 Dose: 5 mg Diltiazem HCl (Cardizem) 60 mg PO Q8 [facility] Last Admin: 01/27/18 09:45 Dose: 60 mg Hydralazine HCl (Apresoline) 25 mg PO BID [facility] Last Admin: 01/27/18 09:46 Dose: 25 mg Azithromycin 500 mg/ Sodium (Chloride) 250 mls @ 250 mls/hr IVPB DAILY [facility] PRN Reason: Protocol Last Admin: 01/27/18 10:06 Dose: 250 mls/hr Ceftriaxone Sodium 1 gm/ (Sodium Chloride) 100 mls @ 100 mls/hr IVPB DAILY [facility] PRN Reason: Protocol Last Admin: 01/27/18 10:05 Dose: 100 mls/hr Meclizine HCl (Antivert) 25 mg PO TID PRN PRN Reason: Dizziness Last Admin: 01/23/18 12:47 Dose: 25 mg Nystatin (Mycostatin Cream) 1 applic TOP TID [facility] Last Admin: 01/27/18 09:04 Dose: 1 applic Pantoprazole Sodium (Protonix Ec Tab) 40 mg PO DAILY [facility] Last Admin: 01/27/18 09:45 Dose: 40 mg Potassium Chloride (Potassium Chloride Oral Soln) 20 meq PO TID [facility] Last Admin: 01/27/18 09:45 Dose: 20 meq Tramadol HCl (Ultram) 50 mg PO Q8 PRN PRN Reason: Pain, severe (8-10) Last Admin: 01/24/18 22:32 Dose: 50 mg - Labs Labs: 01/26/18 09:55 01/27/18 05:24 PT 18.6 Seconds (9.8-13.1) H 01/22/18 14:05 INR 1.7 (0.9-1.2) H 01/22/18 14:05 APTT 31.9 Seconds (25.6-37.1) 01/22/18 14:05 Assessment and Plan (1) Change in mental status Status: Acute (2) Hypokalemia Status: Acute (3) Diastolic CHF Status: Chronic (4) Afib Status: Acute (5) Dehydration Status: Acute (6) Generalized weakness Status: Chronic (7) HTN (hypertension) Status: Chronic (8) Osteoarthritis of knees, bilateral Status: Chronic (9) COPD (chronic obstructive pulmonary disease) Status: Chronic
[2018-01-27 16:24] VITALS: BP 115/68; PULSE 100; TEMP 97.5; O2SAT 98
--- NOTE | 2018-01-27 18:12 | CP.PCM.CON ---
History of Present Illness - History of Present Illness History of Present Illness: Consultation for evaluation of diuretic therapy with hx of diastolic CHF HPI: Review of Systems - Review of Systems Systems not reviewed;Unavailable: Acuity of Condition - Constitutional Constitutional: As Per HPI - EENT Eyes: As Per HPI Ears: As Per HPI Nose/Mouth/Throat: As Per HPI - Breasts Breasts: As Per HPI - Cardiovascular Cardiovascular: As Per HPI - Respiratory Respiratory: As Per HPI - Gastrointestinal Gastrointestinal: As Per HPI - Genitourinary Genitourinary: As Per HPI - Reproductive: Female Reproductive:Female: As Per HPI - Menstruation Menstruation: As Per HPI - Musculoskeletal Musculoskeletal: As Per HPI - Integumentary Integumentary: As Per HPI - Neurological Neurological: As Per HPI - Psychiatric Psychiatric: As Per HPI - Endocrine Endocrine: As Per HPI - Hematologic/Lymphatic Hematologic: As Per HPI Past Patient History - Infectious Disease Hx of Infectious Diseases: None - Tetanus Immunizations Tetanus Immunization: Unknown - Past Medical History & Family History Past Medical History?: Yes - Past Social History Smoking Status: Former Smoker Alcohol: None Drugs: Denies Home Situation {Lives}: With Family - CARDIAC Hx Cardiac Disorders: Yes (AF) Hx Congestive Heart Failure: Yes Hx Hypercholesterolemia: Yes Hx Hypertension: Yes - PULMONARY Hx Chronic Obstructive Pulmonary Disease (COPD): Yes - NEUROLOGICAL HX Cerebrovascular Accident: Yes (and TIA) - HEENT Hx HEENT Problems: No Other/Comment: Hx of R Paroitid tumor - RENAL Hx Chronic Kidney Disease: No - ENDOCRINE/METABOLIC Hx Diabetes Mellitus Type 2: Yes - HEMATOLOGICAL/ONCOLOGICAL Hx AIDS: No Hx Anemia: Yes Hx Human Immunodeficiency Virus (HIV): No - INTEGUMENTARY Hx Dermatological Problems: Yes Hx Cellulitis: Yes - MUSCULOSKELETAL/RHEUMATOLOGICAL Hx Arthritis: Yes - GASTROINTESTINAL Hx Diverticulitis: Yes - GENITOURINARY/GYNECOLOGICAL Hx Genitourinary Disorders: No - PSYCHIATRIC Hx Anxiety: Yes Hx Depression: Yes Hx Substance Use: No - SURGICAL HISTORY Hx Surgeries: Yes Hx Herniorrhaphy: Yes - ANESTHESIA Hx Anesthesia: Yes Hx Anesthesia Reactions: No Hx Malignant Hyperthermia: No Meds Home Medications: Home Medication List Medication Instructions Recorded Confirmed Type Furosemide [Lasix] 20 mg PO DAILY #30 tab 01/24/18 Rx Potassium Chloride 20 meq PO BID #30 tab.er.prt 01/27/18 Rx Allergies/Adverse Reactions: Allergies Allergy/AdvReac Type Severity Reaction Status Date / Time iodine Allergy RASH Verified 10/26/16 18:55 - Medications Medications: Current Medications Acetaminophen (Tylenol 325mg Tab) 650 mg PO Q6 PRN PRN Reason: Pain, Mild (1-3) Last Admin: 01/27/18 10:09 Dose: 650 mg Apixaban (Eliquis) 5 mg PO BID [facility] PRN Reason: Protocol Last Admin: 01/27/18 17:47 Dose: 5 mg Diltiazem HCl (Cardizem) 60 mg PO Q8 [facility] Last Admin: 01/27/18 17:46 Dose: 60 mg Hydralazine HCl (Apresoline) 25 mg PO BID [facility] Last Admin: 01/27/18 17:47 Dose: 25 mg Azithromycin 500 mg/ Sodium (Chloride) 250 mls @ 250 mls/hr IVPB DAILY [facility] PRN Reason: Protocol Last Admin: 01/27/18 10:06 Dose: 250 mls/hr Ceftriaxone Sodium 1 gm/ (Sodium Chloride) 100 mls @ 100 mls/hr IVPB DAILY [facility] PRN Reason: Protocol Last Admin: 01/27/18 10:05 Dose: 100 mls/hr Meclizine HCl (Antivert) 25 mg PO TID PRN PRN Reason: Dizziness Last Admin: 01/23/18 12:47 Dose: 25 mg Nystatin (Mycostatin Cream) 1 applic TOP TID [facility] Last Admin: 01/27/18 17:46 Dose: 1 applic Pantoprazole Sodium (Protonix Ec Tab) 40 mg PO DAILY [facility] Last Admin: 01/27/18 09:45 Dose: 40 mg Potassium Chloride (Potassium Chloride Oral Soln) 20 meq PO TID [facility] Last Admin: 01/27/18 17:47 Dose: 20 meq Tramadol HCl (Ultram) 50 mg PO Q8 PRN PRN Reason: Pain, severe (8-10) Last Admin: 01/24/18 22:32 Dose: 50 mg Physical Exam - Constitutional Appears: Well - Head Exam Head Exam: ATRAUMATIC, NORMAL INSPECTION, NORMOCEPHALIC - Eye Exam Eye Exam: EOMI, Normal appearance, PERRL Pupil Exam: NORMAL ACCOMODATION, PERRL - ENT Exam ENT Exam: Mucous Membranes Moist, Normal Exam - Neck Exam Neck exam: Positive for: Normal Inspection - Respiratory Exam Respiratory Exam: Clear to Auscultation Bilateral, NORMAL BREATHING PATTERN - Cardiovascular Exam Cardiovascular Exam: REGULAR RHYTHM, RRR, +S1, +S2, Systolic Murmur - GI/Abdominal Exam GI & Abdominal Exam: Normal Bowel Sounds, Soft. absent: Tenderness - Extremities Exam Extremities exam: Positive for: normal inspection - Back Exam Back exam: NORMAL INSPECTION - Neurological Exam Neurological exam: Alert, CN II-XII Intact, Normal Gait, Oriented x3, Reflexes Normal - Psychiatric Exam Psychiatric exam: Normal Affect, Normal Mood - Skin Skin Exam: Dry, Intact, Normal Color, Warm Results - Vital Signs Recent Vital Signs: Last Vital Signs Temp 97.5 F L 01/27/18 16:23 Pulse 100 H 01/27/18 17:47 Resp 20 01/27/18 16:23 BP 115/68 01/27/18 17:47 Pulse Ox 98 01/27/18 16:23 - Labs Result Diagrams: 01/26/18 09:55 01/27/18 05:24 Labs: Laboratory Results - last 24 hr 01/26/18 01/27/18 01/27/18 21:31 05:24 05:34 Sodium 141 Potassium 3.6 Chloride 108 H Carbon Dioxide 24 Anion Gap 13 BUN 10 Creatinine 0.5 L Est GFR ( Amer) > 60 Est GFR (Non-Af Amer) > 60 POC Glucose (mg/dL) 91 84 Random Glucose 86 Calcium 8.8 01/27/18 01/27/18 11:34 16:13 Sodium Potassium Chloride Carbon Dioxide Anion Gap BUN Creatinine Est GFR ( Amer) Est GFR (Non-Af Amer) POC Glucose (mg/dL) 111 H 114 H Random Glucose Calcium Assessment & Plan (1) Dehydration Status: Acute Priority: High (2) Hypokalemia Status: Acute Priority: High (3) Afib Status: Acute Priority: High (4) Diastolic CHF Status: Chronic Priority: High (5) Generalized weakness Status: Chronic Priority: High (6) HTN (hypertension) Status: Chronic Priority: High
--- NOTE | 2018-01-27 18:13 | CP.PCM.PN ---
Subjective - Date & Time of Evaluation Date of Evaluation: 01/27/18 Time of Evaluation: 18:12 - Subjective Subjective: status quo Objective - Vital Signs/Intake and Output Vital Signs (last 24 hours): Temp Pulse Resp BP Pulse Ox 97.5 F L 100 H 20 115/68 98 01/27/18 16:23 01/27/18 17:47 01/27/18 16:23 01/27/18 17:47 01/27/18 16:23 - Medications Medications: Current Medications Acetaminophen (Tylenol 325mg Tab) 650 mg PO Q6 PRN PRN Reason: Pain, Mild (1-3) Last Admin: 01/27/18 10:09 Dose: 650 mg Apixaban (Eliquis) 5 mg PO BID LACEY PRN Reason: Protocol Last Admin: 01/27/18 17:47 Dose: 5 mg Diltiazem HCl (Cardizem) 60 mg PO Q8 [facility] Last Admin: 01/27/18 17:46 Dose: 60 mg Hydralazine HCl (Apresoline) 25 mg PO BID [facility] Last Admin: 01/27/18 17:47 Dose: 25 mg Azithromycin 500 mg/ Sodium (Chloride) 250 mls @ 250 mls/hr IVPB DAILY LACEY PRN Reason: Protocol Last Admin: 01/27/18 10:06 Dose: 250 mls/hr Ceftriaxone Sodium 1 gm/ (Sodium Chloride) 100 mls @ 100 mls/hr IVPB DAILY LACEY PRN Reason: Protocol Last Admin: 01/27/18 10:05 Dose: 100 mls/hr Meclizine HCl (Antivert) 25 mg PO TID PRN PRN Reason: Dizziness Last Admin: 01/23/18 12:47 Dose: 25 mg Nystatin (Mycostatin Cream) 1 applic TOP TID [facility] Last Admin: 01/27/18 17:46 Dose: 1 applic Pantoprazole Sodium (Protonix Ec Tab) 40 mg PO DAILY [facility] Last Admin: 01/27/18 09:45 Dose: 40 mg Potassium Chloride (Potassium Chloride Oral Soln) 20 meq PO TID [facility] Last Admin: 01/27/18 17:47 Dose: 20 meq Tramadol HCl (Ultram) 50 mg PO Q8 PRN PRN Reason: Pain, severe (8-10) Last Admin: 01/24/18 22:32 Dose: 50 mg - Labs Labs: 01/26/18 09:55 01/27/18 05:24 PT 18.6 Seconds (9.8-13.1) H 01/22/18 14:05 INR 1.7 (0.9-1.2) H 01/22/18 14:05 APTT 31.9 Seconds (25.6-37.1) 01/22/18 14:05 - Constitutional Appears: Well - Head Exam Head Exam: ATRAUMATIC, NORMAL INSPECTION, NORMOCEPHALIC - Eye Exam Eye Exam: EOMI, Normal appearance, PERRL Pupil Exam: NORMAL ACCOMODATION, PERRL - ENT Exam ENT Exam: Mucous Membranes Moist, Normal Exam - Neck Exam Neck Exam: Full ROM, Normal Inspection. absent: Lymphadenopathy - Respiratory Exam Respiratory Exam: Clear to Ausculation Bilateral, NORMAL BREATHING PATTERN - Cardiovascular Exam Cardiovascular Exam: REGULAR RHYTHM, +S1, +S2. absent: Murmur - GI/Abdominal Exam GI & Abdominal Exam: Soft, Normal Bowel Sounds. absent: Tenderness - Extremities Exam Extremities Exam: Full ROM, Normal Capillary Refill, Normal Inspection. absent : Joint Swelling, Pedal Edema - Back Exam Back Exam: NORMAL INSPECTION - Neurological Exam Neurological Exam: Alert, Awake, CN II-XII Intact, Normal Gait, Oriented x3 - Psychiatric Exam Psychiatric exam: Normal Affect, Normal Mood - Skin Skin Exam: Dry, Intact, Normal Color, Warm Assessment and Plan (1) Dehydration Status: Acute (2) Hypokalemia Status: Acute (3) Afib Status: Acute (4) Diastolic CHF Status: Chronic (5) Generalized weakness Status: Chronic (6) HTN (hypertension) Status: Chronic
--- NOTE | 2018-01-27 23:25 | CP.PCM.DIS ---
Provider - Provider Date of Admission: 01/22/18 17:22 Attending physician: Jesús Granado MD Consults: Cardiology and Wound Care. Time Spent in preparation of Discharge (in minutes): 35 Diagnosis - Discharge Diagnosis (1) Change in mental status Status: Acute Priority: High (2) Hypokalemia Status: Acute Priority: High (3) Diastolic CHF Status: Chronic Priority: High (4) Afib Status: Acute Priority: High (5) Dehydration Status: Acute Priority: High (6) Generalized weakness Status: Chronic Priority: High (7) HTN (hypertension) Status: Chronic Priority: Medium (8) Osteoarthritis of knees, bilateral Status: Chronic Priority: Medium (9) COPD (chronic obstructive pulmonary disease) Status: Chronic Priority: Low Hospital Course - Lab Results Lab Results: Micro Results 01/22/18 16:56 Urine,Clean Catch Urine Culture - Final No Growth (<1,000 CFU/ML) Most Recent Lab Values WBC 9.2 K/uL (4.8-10.8) 01/26/18 09:55 RBC 4.30 Mil/uL (3.80-5.20) 01/26/18 09:55 Hgb 11.3 g/dL (12.0-16.0) L 01/26/18 09:55 Hct 35.7 % (34.0-47.0) 01/26/18 09:55 MCV 83.0 fl (81.0-99.0) 01/26/18 09:55 MCH 26.4 pg (27.0-31.0) L 01/26/18 09:55 MCHC 31.8 g/dL (33.0-37.0) L 01/26/18 09:55 RDW 16.8 % (11.5-14.5) H 01/26/18 09:55 Plt Count 187 K/uL (130-400) 01/26/18 09:55 MPV 8.7 fl (7.2-11.7) 01/22/18 14:05 Neut % (Auto) 72.4 % (50.0-75.0) 01/22/18 14:05 Lymph % (Auto) 15.5 % (20.0-40.0) L 01/22/18 14:05 [place] % (Auto) 11.1 % (0.0-10.0) H 01/22/18 14:05 Eos % (Auto) 0.7 % (0.0-4.0) 01/22/18 14:05 Baso % (Auto) 0.3 % (0.0-2.0) 01/22/18 14:05 Neut # (Auto) 4.8 K/uL (1.8-7.0) 01/22/18 14:05 Lymph # (Auto) 1.0 K/uL (1.0-4.3) 01/22/18 14:05 [place] # (Auto) 0.7 K/uL (0.0-0.8) 01/22/18 14:05 Eos # (Auto) 0.0 K/uL (0.0-0.7) 01/22/18 14:05 Baso # (Auto) 0.0 K/uL (0.0-0.2) 01/22/18 14:05 PT 18.6 Seconds (9.8-13.1) H 01/22/18 14:05 INR 1.7 (0.9-1.2) H 01/22/18 14:05 APTT 31.9 Seconds (25.6-37.1) 01/22/18 14:05 pO2 48 mm/Hg (30-55) 01/22/18 14:07 VBG pH 7.46 (7.32-7.43) H 01/22/18 14:07 VBG pCO2 54 mmHg (40-60) 01/22/18 14:07 VBG HCO3 34.2 mmol/L 01/22/18 14:07 VBG Total CO2 40.1 mmol/L (22-28) H 01/22/18 14:07 VBG O2 Sat (Calc) 88.2 % (40-65) H 01/22/18 14:07 VBG Base Excess 12.3 mmol/L (0.0-2.0) H 01/22/18 14:07 VBG Potassium 2.8 mmol/L (3.6-5.2) L 01/22/18 14:07 Sodium 144.0 mmol/L (132-148) 01/22/18 14:07 Chloride 107.0 mmol/L (98-107) 01/22/18 14:07 Glucose 108 mg/dL (65-105) H 01/22/18 14:07 Lactate 1.1 mmol/L (0.7-2.1) 01/22/18 14:07 FiO2 21.0 % 01/22/18 14:07 Sodium 141 mmol/l (132-148) 01/27/18 05:24 Potassium 3.6 MMOL/L (3.6-5.0) 01/27/18 05:24 Chloride 108 mmol/L (98-107) H 01/27/18 05:24 Carbon Dioxide 24 mmol/L (22-30) 01/27/18 05:24 Anion Gap 13 (10-20) 01/27/18 05:24 BUN 10 mg/dl (7-17) 01/27/18 05:24 Creatinine 0.5 mg/dl (0.7-1.2) L 01/27/18 05:24 Est GFR ( Amer) > 60 01/27/18 05:24 Est GFR (Non-Af Amer) > 60 01/27/18 05:24 POC Glucose (mg/dL) 114 mg/dL (65-110) H 01/27/18 16:13 Random Glucose 86 mg/dL (65-105) 01/27/18 05:24 Calcium 8.8 mg/dL (8.4-10.2) 01/27/18 05:24 Magnesium 2.1 MG/DL (1.6-2.3) 01/26/18 13:27 Total Bilirubin 0.7 mg/dl (0.2-1.3) 01/23/18 05:15 AST 48 U/L (14-36) H 01/23/18 05:15 ALT 51 U/L (9-52) 01/23/18 05:15 Alkaline Phosphatase 63 U/L (38-126) 01/23/18 05:15 NT-Pro-B Natriuret Pep 560 pg/ml (0-900) 01/26/18 13:27 Total Protein 6.1 G/DL (6.3-8.2) L 01/23/18 05:15 Albumin 3.0 g/dL (3.5-5.0) L 01/23/18 05:15 Globulin 3.1 gm/dL (2.2-3.9) 01/23/18 05:15 Albumin/Globulin Ratio 1.0 (1.0-2.1) 01/23/18 05:15 Venous Blood Potassium 2.8 mmol/L (3.6-5.2) L 01/22/18 14:07 Urine Color Yellow (YELLOW) 01/22/18 16:56 Urine Clarity Slighty-cloudy (Clear) 01/22/18 16:56 Urine pH 7.0 (5.0-8.0) 01/22/18 16:56 Ur Specific [place] 1.015 (1.003-1.030) 01/22/18 16:56 Urine Protein Negative mg/dL (NEGATIVE) 01/22/18 16:56 Urine Glucose (UA) Neg mg/dL (Normal) 01/22/18 16:56 Urine Ketones Negative mg/dL (NEGATIVE) 01/22/18 16:56 Urine Blood Moderate (NEGATIVE) 01/22/18 16:56 Urine Nitrate Negative (NEGATIVE) 01/22/18 16:56 Urine Bilirubin Negative (NEGATIVE) 01/22/18 16:56 Urine Urobilinogen 0.2-1.0 mg/dL (0.2-1.0) 01/22/18 16:56 Ur Leukocyte Esterase Mod [place]/uL (Negative) 01/22/18 16:56 Urine RBC (Auto) 23 /hpf (0-3) H 01/22/18 16:56 Urine Microscopic WBC 6 /hpf (0-5) H 01/22/18 16:56 Ur Squamous Epith Cells 5 /hpf (0-5) 01/22/18 16:56 Blood Type O POSITIVE 01/22/18 13:22 Antibody Screen Negative 01/22/18 13:22 BBK History Checked Patient has bt 01/22/18 13:22 - Date & Time of H&P Date of H&P: 01/23/18 Time of H&P: 14:00 Discharge Exam - Head Exam Head Exam: ATRAUMATIC, NORMAL INSPECTION, NORMOCEPHALIC - Eye Exam Eye Exam: PERRL - ENT Exam ENT Exam: Normal Exam - Neck Exam Neck exam: Normal Inspection - Respiratory Exam Respiratory Exam: NORMAL BREATHING PATTERN - Cardiovascular Exam Cardiovascular Exam: Irregular Rhythm - GI/Abdominal Exam GI & Abdominal Exam: Normal Bowel Sounds, Soft Additional comments: Fungal rash in the abdominal fold area - Extremities Exam Extremities exam: tenderness (R/L knee) - Back Exam Back exam: tenderness - Neurological Exam Additional comments: Awake, confused, forgetful, follows commands, generalized weakness, no focal motor sensory deficit. - Psychiatric Exam Psychiatric exam: Anxious - Skin Skin Exam: Warm Discharge Plan - Discharge Medications Prescriptions: Furosemide [Lasix] 20 mg PO DAILY #30 tab Potassium Chloride 20 meq PO BID #30 tab.er.prt - Follow Up Plan Condition: GUARDED Disposition: HOME/ ROUTINE Patient education suggested?: Yes Instructions: Hypokalemia (DC) Additional Instructions: F/U with PMD in one week.
--- NOTE | 2018-02-15 10:27 | PQF ---
PROVIDER RESPONSE TEXT: Change mental status 2nd to electrolytes/metabolic imbalance, dehydration, Afib, CHF REVIEWER QUERY TEXT: Altered Mental Status - Underlying Cause A mental status change is documented in the Medical Record. Please specify the underlying cause Such as: -- Due to medication -- Cardiac condition -- Electrolyte/metabolic imbalance -- Infectious process -- Neurologic condition -- Psychiatric condition -- Respiratory condition -- Other, please specify The patient's Clinical Indicators include: AMS Query created by: Rahel Davis on 02/01/2018 8:06 AM Electronically signed by: Jesús Granado MD 02/15/2018 10:24 AM
== END 2018-01-27 19:05 | disposition home or self-care (01) | DRG 641 ==
LOC: H.ER 12:54 → H.ERHOLD 17:22 → H.TEL 18:56
PROVIDERS: ADMIT Internal Medicine Pulmonary Disease; ATTEND Internal Medicine Pulmonary Disease
DX: E87.6 Hypokalemia (principal); I50.32 Chronic diastolic (congestive) heart failure; E86.0 Dehydration; R41.82 Altered mental status, unspecified; I11.0 Hypertensive heart disease with heart failure; M17.0 Bilateral primary osteoarthritis of knee; I48.91 Unspecified atrial fibrillation; J44.9 Chronic obstructive pulmonary disease, unspecified; Z86.73 Personal history of transient ischemic attack (TIA), and cerebral infarction without residual deficits; E78.00 Pure hypercholesterolemia, unspecified; E11.9 Type 2 diabetes mellitus without complications; M81.0 Age-related osteoporosis without current pathological fracture; Z87.891 Personal history of nicotine dependence; R53.1 Weakness; R53.81 Other malaise; B36.8 Other specified superficial mycoses

== ENCOUNTER 2018-07-19 02:27 | Emergency (ER) | payer MEDICARE, MEDICAID ==
[2018-07-19 02:27] VITALS: BMI 29.7
--- NOTE | 2018-07-19 03:28 | ED PDOC ---
HPI: CCC, URI, Sore Throat Time Seen by Provider: 07/19/18 03:00 Chief Complaint (Nursing): Cough, Cold, Congestion Chief Complaint (Provider): coughing up blood Additional Complaint(s): 82 y/o F w/ HTN, HL, DM, Afib, CHF, COPD on home O2, dementia who presents coughing up blood today. She developed a mild cough today, productive of some sputum that had blood mixed in it. No blood clots noted. Pt denies C/P, palpitations, dizziness, SOB, fevers, chills, night sweats. Most of history provided by son who is her HCP due to mild dementia. Denies hx of Ca, prior PE or DVT, recent long distance travel. Past Medical History Vital Signs: Last Vital Signs Temp 99.1 F 07/19/18 02:36 Pulse 69 07/19/18 02:36 Resp 17 07/19/18 02:36 BP 164/78 H 07/19/18 02:36 Pulse Ox 95 07/19/18 02:36 - Medical History PMH: Anemia, Anxiety, Arthritis, Atrial Fibrillation, Back Problems, CHF, COPD, CVA, Dementia, Depression, Diabetes, Diverticulitis, HTN, Hypercholesterolemia, Osteoporosis, Pneumonia, TIA Denies: HIV, Chronic Kidney Disease - Surgical History Surgical History: Denies: Pacemaker - Family History Family History: States: Unknown Family Hx - Home Medications Home Medications: Ambulatory Orders Medication Instructions Recorded Apixaban [Eliquis] 2.5 mg PO BID 01/17/18 Esomeprazole Magnesium [Nexium 40 mg PO DAILY 01/17/18 24Hr] Meclizine [Meclizine*] 25 mg PO TID PRN 01/17/18 Metoprolol Tartrate [Lopressor] 50 mg PO Q12 01/17/18 diltiaZEM [Cardizem] 60 mg PO Q8 01/17/18 hydrALAZINE [Apresoline] 25 mg PO BID 01/17/18 Furosemide [Lasix] 20 mg PO DAILY #30 tab 01/24/18 Potassium Chloride 20 meq PO BID #30 tab.er.prt 01/27/18 - Allergies Allergies/Adverse Reactions: Allergies Allergy/AdvReac Type Severity Reaction Status Date / Time iodine Allergy RASH Verified 07/19/18 02:39 Physical Exam - Reviewed Nursing Documentation Reviewed: Yes Vital Signs Reviewed: Yes - Physical Exam Appears: Positive for: Non-toxic Skin: Positive for: Pallor Eye Exam: Positive for: Normal appearance ENT: Positive for: TM Is/Are (occluded by cerumen on Right and normal on Left). Negative for: Sinus Pain/Drainage, Nasal Congestion, Pharyngeal Erythema, Tonsillar Swelling Cardiovascular/Chest: Positive for: Chest Non Tender, Murmur (+III/ JONO heard best at LSB). Negative for: Irregularly Irregular Respiratory: Positive for: Normal Breath Sounds Gastrointestinal/Abdominal: Positive for: Normal Exam Extremity: Positive for: Pedal Edema (2+ pitting edema at b/L LE to mid-calf) Lymphatic: Positive for: Normal Exam Neurologic/Psych: Positive for: Alert, Oriented - Laboratory Results Result Diagrams: 07/19/18 03:48 07/19/18 03:48 - ECG O2 Sat by Pulse Oximetry: 95 Medical Decision Making Medical Decision Making: CBC, BMP, BNP Chest PA and lateral: CXR: mild likely pulmonary vascular congestion BNP: 1030 Lasix 40mg IV x 1 ordered. Pt resting comfortably. Pt to be admitted for observation to hospitalist Dr. Reyna for CHF with hemoptysis Disposition - Clinical Impression Clinical Impression: Hemoptysis - Patient ED Disposition Is Patient to be Admitted: Transfer of Care - Disposition Disposition: Transfer of Care Disposition Time: 06:30 Condition: FAIR Forms: Bo Roblero (Luxembourger) Wells Criteria for PE - Wells Criteria for Pulmonary Embolism P.E is #1 Diagnosis, or Equally Likely: No Heart Rate >100: No Immobilization at least 3 days;Surgery previous 4 weeks: No Previous, objectively diagnosed PE or DVT: No Hemoptysis: Yes Malignancy w/treatment within 6 months, or palliative: No Total Score: 1
[2018-07-19 04:01] LABS: BASO % 0.4 % (0.0-2.0); EOS # 0.1 K/uL (0.0-0.7); EOS % 1.7 % (0.0-4.0); LYMPH # 0.9 K/uL (1.0-4.3); LYMPH % 21.1 % (20.0-40.0); MEAN CELL VOLUME 87.6 fl (81.0-99.0); MEAN CORPUSCULAR HEMOGLOBIN 27.6 pg (27.0-31.0); MEAN CORPUSCULAR HGB CONC 31.5 g/dL (33.0-37.0); MEAN PLATELET VOLUME 7.8 fl (7.2-11.7); MONO # 0.4 K/uL (0.0-0.8); MONO % 9.7 % (0.0-10.0); NEUT % 67.1 % (50.0-75.0); NRBC % 0.1 % (0.0-0.0); RBC 4.34 Mil/uL (3.80-5.20); RED CELL DISTRIBUTION WIDTH 16.2 % (11.5-14.5); WHITE BLOOD COUNT 4.4 K/uL (4.8-10.8)
[2018-07-19 04:06] LABS: ALBUMIN 3.8 g/dL (3.5-5.0); ALT/SGPT 19 U/L (9-52); AST/SGOT 27 U/L (14-36); BLOOD UREA NITROGEN 13 mg/dl (7-17); CALCIUM 9.3 mg/dL (8.4-10.2); GFR NON-AFRICAN AMERICAN > 60
[2018-07-19 04:15] LABS: B-TYPE NATRIURETIC PEPTIDE 1050 pg/ml (0-900)
[2018-07-19 06:39] LABS: SQUAMOUS EPITHIAL 1 /hpf (0-5); URINE BACTERIA RARE (<OCC); URINE BILIRUBIN NEGATIVE (NEGATIVE); URINE BLOOD MODERATE (NEGATIVE); URINE CLARITY SLIGHTY-CLOUDY (Clear); URINE COLOR STRAW (YELLOW); URINE GLUCOSE (UA) NEG (NEGATIVE); URINE LEUKOCYTE ESTERASE TRACE Leu/uL (Negative); URINE PROTEIN 30 mg/dL (NEGATIVE); URINE UROBILINOGEN 0.2-1.0 mg/dL (0.2-1.0)
[2018-07-19 06:47] LABS: INR 1.4; PROTHROMBIN TIME 15.5 Seconds (9.8-13.1)
--- NOTE | 2018-07-19 08:08 | RAD ---
Date of service: 07/19/2018 HISTORY: shortness of breath, cough COMPARISON: 01/25/2018 chest x-ray FINDINGS: LUNGS: Increase opacity left lung base compatible with left basal subsegmental compressive atelectasis associated with a left pleural effusion. Left sub segmental atelectasis is increased since prior exam. Left pleural effusion is similar to increased as well. PLEURA: Left pleural effusion-slightly increased since prior exam. Possible small right pleural effusion as well No pneumothorax appreciated CARDIOVASCULAR: There is presence of aortic atherosclerotic calcification on x-ray. Cardiomegaly-similar pulmonary venous congestion mild and similar. OSSEOUS STRUCTURES: Thoracic spondylosis. Right shoulder arthrosis (left shoulder excluded from field of view). VISUALIZED UPPER ABDOMEN: Normal. OTHER FINDINGS: None. IMPRESSION: The small left pleural effusion increased since prior exam. Interval and/or increase conspicuity of inferred passive compressive subsegmental atelectasis left lung base. The small right pleural effusion-similar is possible. Cardio megaly and mild pulmonary venous congestion-similar
--- NOTE | 2018-07-19 08:12 | RAD ---
HISTORY: shortness of breath, cough COMPARISON: 07/19/2018 at 0326 hr FINDINGS: LUNGS: The prior left opacity left lung base is compatible with left basal subsegmental compressive atelectasis associated with a left pleural effusion. These findings are similar. Left sub segmental atelectasis is similar with the prior exam. Left pleural effusion is similar as well. PLEURA: Left pleural effusion-is similar.. Possible small right pleural effusion as well No pneumothorax appreciated CARDIOVASCULAR: There is presence of aortic atherosclerotic calcification on x-ray. Cardiomegaly-similar pulmonary venous congestion mild and similar. OSSEOUS STRUCTURES: Thoracic spondylosis. Bilateral shoulder arthrosis right greater than left VISUALIZED UPPER ABDOMEN: Normal. OTHER FINDINGS: None. IMPRESSION: The small left pleural effusion-similar.. The prior inferred passive compressive subsegmental atelectasis left lung base appears similar. Possible small right pleural effusion-similar Cardio megaly and mild pulmonary venous congestion-similar
[2018-07-19 08:22] VITALS: RESP 19
--- NOTE | 2018-07-19 09:43 | CP.PCM.CON ---
History of Present Illness - History of Present Illness History of Present Illness: Reason for consult: hemoptysis HPI: 82 year old female PMH HTN, Hyperlipidemia, DM, Afib, CHF, COPD on home O2, dementia presented to the ED with acute one time episode of scant hemoptysis associated with dry cough and Eliquis use at home for Afib. Patient has not had any further episodes since arrival to the emergency department. She has not had any symptoms of pneumonia, afebrile, no WBC, flu neg, no tachycardia, no hypoxia. CXR showed mild pulmonary vascular congestion for which she received lasix and does not have any signs of fluid overload. Appears comfortable on exam, no complaints at this time. Mild hemoptysis is likely due to Eliquis use, and patient can follow up with PCP as outpatient in a week. HD stable, NAD. ROS: per HPI all other symptoms reviewed and negative Past Patient History - Infectious Disease Hx of Infectious Diseases: None - Tetanus Immunizations Tetanus Immunization: Unknown - Past Medical History & Family History Past Medical History?: Yes - Past Social History Smoking Status: Former Smoker - CARDIAC Hx Atrial Fibrillation: Yes Hx Congestive Heart Failure: Yes Hx Hypercholesterolemia: Yes Hx Hypertension: Yes Hx Pacemaker: No - PULMONARY Hx Chronic Obstructive Pulmonary Disease (COPD): Yes Hx Pneumonia: Yes - NEUROLOGICAL Hx Dementia: Yes Hx Transient Ischemic Attacks (TIA): Yes - HEENT Hx HEENT Problems: No - RENAL Hx Chronic Kidney Disease: No - ENDOCRINE/METABOLIC Hx Endocrine Disorders: Yes Hx Diabetes Mellitus Type 2: Yes - HEMATOLOGICAL/ONCOLOGICAL Hx Anemia: Yes Hx Human Immunodeficiency Virus (HIV): No - INTEGUMENTARY Hx Dermatological Problems: Yes Hx Cellulitis: Yes - MUSCULOSKELETAL/RHEUMATOLOGICAL Hx Arthritis: Yes Hx Osteoporosis: Yes - GASTROINTESTINAL Hx Diverticulitis: Yes - GENITOURINARY/GYNECOLOGICAL Hx Genitourinary Disorders: No - PSYCHIATRIC Hx Anxiety: Yes Hx Depression: Yes - SURGICAL HISTORY Hx Surgeries: Yes Hx Herniorrhaphy: Yes - ANESTHESIA Hx Anesthesia: Yes Hx Anesthesia Reactions: No Hx Malignant Hyperthermia: No Meds Allergies/Adverse Reactions: Allergies Allergy/AdvReac Type Severity Reaction Status Date / Time iodine Allergy RASH Verified 07/19/18 02:39 Physical Exam - Constitutional Appears: Non-toxic, No Acute Distress (55) - Head Exam Head Exam: ATRAUMATIC, NORMOCEPHALIC - Eye Exam Eye Exam: EOMI, Normal appearance, PERRL Pupil Exam: NORMAL ACCOMODATION - ENT Exam ENT Exam: Mucous Membranes Moist, Normal Oropharynx - Respiratory Exam Respiratory Exam: Clear to Auscultation Bilateral, NORMAL BREATHING PATTERN - Cardiovascular Exam Cardiovascular Exam: RRR, +S1, +S2 - GI/Abdominal Exam GI & Abdominal Exam: Normal Bowel Sounds, Soft - Extremities Exam Extremities exam: Positive for: normal capillary refill, pedal pulses present - Back Exam Back exam: absent: CVA tenderness (L), CVA tenderness (R) - Neurological Exam Neurological exam: Alert, Reflexes Normal - Psychiatric Exam Psychiatric exam: Normal Affect, Normal Mood - Skin Skin Exam: Dry, Normal Color, Warm Results - Vital Signs Recent Vital Signs: Last Vital Signs Temp 98.2 F 07/19/18 08:22 Pulse 63 07/19/18 08:22 Resp 19 07/19/18 08:22 BP 149/76 07/19/18 08:22 Pulse Ox 100 07/19/18 08:22 - Labs Result Diagrams: 07/19/18 03:48 07/19/18 03:48 Labs: Laboratory Results - last 24 hr 07/19/18 07/19/18 07/19/18 03:48 03:48 06:20 WBC 4.4 L D RBC 4.34 Hgb 12.0 Hct 38.0 MCV 87.6 D MCH 27.6 MCHC 31.5 L RDW 16.2 H Plt Count 162 MPV 7.8 Neut % (Auto) 67.1 Lymph % (Auto) 21.1 [place] % (Auto) 9.7 Eos % (Auto) 1.7 Baso % (Auto) 0.4 Neut # (Auto) 3.0 Lymph # (Auto) 0.9 L [place] # (Auto) 0.4 Eos # (Auto) 0.1 Baso # (Auto) 0.0 PT INR Sodium 141 Potassium 3.6 Chloride 105 Carbon Dioxide 32 H Anion Gap 8 L BUN 13 Creatinine 0.6 L Est GFR ( Amer) > 60 Est GFR (Non-Af Amer) > 60 Random Glucose 101 Calcium 9.3 Total Bilirubin 0.4 AST 27 ALT 19 Alkaline Phosphatase 70 NT-Pro-B Natriuret Pep 1050 H Total Protein 7.6 Albumin 3.8 Globulin 3.8 Albumin/Globulin Ratio 1.0 Urine Color Straw Urine Clarity Slighty-cloudy Urine pH 7.0 Ur Specific [place] 1.009 Urine Protein 30 Urine Glucose (UA) Neg Urine Ketones Negative Urine Blood Moderate Urine Nitrate Negative Urine Bilirubin Negative Urine Urobilinogen 0.2-1.0 Ur Leukocyte Esterase Trace Urine RBC (Auto) 12 H Urine Microscopic WBC 3 Ur Squamous Epith Cells 1 Urine Bacteria Rare Influenza Typ A,B (EIA) 07/19/18 07/19/18 06:20 06:28 WBC RBC Hgb Hct MCV MCH MCHC RDW Plt Count MPV Neut % (Auto) Lymph % (Auto) [place] % (Auto) Eos % (Auto) Baso % (Auto) Neut # (Auto) Lymph # (Auto) [place] # (Auto) Eos # (Auto) Baso # (Auto) PT 15.5 H INR 1.4 Sodium Potassium Chloride Carbon Dioxide Anion Gap BUN Creatinine Est GFR ( Amer) Est GFR (Non-Af Amer) Random Glucose Calcium Total Bilirubin AST ALT Alkaline Phosphatase NT-Pro-B Natriuret Pep Total Protein Albumin Globulin Albumin/Globulin Ratio Urine Color Urine Clarity Urine pH Ur Specific [place] Urine Protein Urine Glucose (UA) Urine Ketones Urine Blood Urine Nitrate Urine Bilirubin Urine Urobilinogen Ur Leukocyte Esterase Urine RBC (Auto) Urine Microscopic WBC Ur Squamous Epith Cells Urine Bacteria Influenza Typ A,B (EIA) Negative for flu a/b Assessment & Plan - Assessment and Plan (Free Text) Plan: 82 year old female PMH HTN, Hyperlipidemia, DM, Afib, CHF, COPD on home O2, dementia presented to the ED with acute one time episode of scant hemoptysis associated with dry cough and Eliquis use at home for Afib and likely bronchitis. Patient has not had any further episodes of hemoptysis since arrival to the emergency department. She has not had any symptoms of pneumonia, afebrile, no WBC, flu neg, no tachycardia, no hypoxia. CXR showed mild pulmonary vascular congestion for which she received lasix and does not have any clinical indications of fluid overload. Appears comfortable on exam, no complaints at t his time. Mild hemoptysis is likely due to bronchitis in setting of Eliquis use, and patient can follow up with PCP as outpatient in a week. HD stable, NAD. Mild Hemoptysis due to Bronchitis in setting of Eliquis use for AFib - recommend d/c home with azithromycin and cough suppressant - follow up with PCP in 5 to 7 days
--- NOTE | 2018-07-19 09:45 | ED PDOC ---
- Laboratory Results Result Diagrams: 07/19/18 03:48 07/19/18 03:48 - ECG O2 Sat by Pulse Oximetry: 100 Disposition - Clinical Impression Clinical Impression: Hemoptysis, Bronchitis - POA Present On Arrival: None - Disposition Disposition: Routine/Home Disposition Time: 09:44 Condition: FAIR
[2018-07-19 10:11] VITALS: PULSE 78; TEMP 97.6; O2SAT 98
[2018-07-19 11:36] VITALS: BP 128/78
== END 2018-07-19 11:36 | disposition home or self-care (01) ==
LOC: H.ER 02:27 → H.ERHOLD 06:19 → UNDOADMOB 06:19 → H.ER 11:36
DX: J40 Bronchitis, not specified as acute or chronic (principal); J04.2 Acute laryngotracheitis
CPT/HCPCS: 71045; 71046; 80053; 81003; 83880; 85025; 85610; 87804; 96374; 99285; J1940

== ENCOUNTER 2018-08-22 14:34 | Inpatient (IN) | payer MEDICAID, MEDICARE ==
[2018-08-22 14:34] VITALS: BMI 29.7
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
[2018-08-22 16:44] LABS: BASO % 0.6 % (0.0-2.0); EOS # 0.1 K/uL (0.0-0.7); EOS % 1.5 % (0.0-4.0); LYMPH # 0.9 K/uL (1.0-4.3); LYMPH % 15.1 % (20.0-40.0); MEAN CORPUSCULAR HEMOGLOBIN 27.8 pg (27.0-31.0); MEAN CORPUSCULAR HGB CONC 31.9 g/dL (33.0-37.0); MEAN PLATELET VOLUME 8.2 fl (7.2-11.7); MONO # 0.5 K/uL (0.0-0.8); MONO % 8.1 % (0.0-10.0); NEUT # 4.3 K/uL (1.8-7.0); NEUT % 74.7 % (50.0-75.0); RBC 4.68 Mil/uL (3.80-5.20); RED CELL DISTRIBUTION WIDTH 16.9 % (11.5-14.5); WHITE BLOOD COUNT 5.7 K/uL (4.8-10.8)
[2018-08-22 16:52] LABS: ALB/GLOB RATIO 1.1 (1.0-2.1); ALBUMIN 4.1 g/dL (3.5-5.0); ALT/SGPT 19 U/L (9-52); AST/SGOT 29 U/L (14-36); BLOOD UREA NITROGEN 11 mg/dl (7-17); CALCIUM 9.7 mg/dL (8.4-10.2); GFR NON-AFRICAN AMERICAN > 60
[2018-08-22 16:59] LABS: INR 1.1; PROTHROMBIN TIME 12.5 Seconds (9.8-13.1)
[2018-08-22 17:02] LABS: PARTIAL THROMBOPLASTIN TIME 42.7 Seconds (25.6-37.1)
[2018-08-22 17:03] LABS: B-TYPE NATRIURETIC PEPTIDE 644 pg/ml (0-900)
--- NOTE | 2018-08-22 17:16 | RAD ---
Date of service: 08/22/2018 HISTORY: Shortness of breath COMPARISON: 07/19/2018 FINDINGS: LUNGS: No active pulmonary disease. PLEURA: No significant pleural effusion identified, no pneumothorax apparent. CARDIOVASCULAR: Atherosclerotic calcifications identified primarily aortic arch. Cardiomegaly. No evidence of acute, significant cardiovascular disease. OSSEOUS STRUCTURES: No significant abnormalities. VISUALIZED UPPER ABDOMEN: Normal. OTHER FINDINGS: None. IMPRESSION: No active disease. No significant interval change compared to the prior examination(s).
[2018-08-22 17:17] LABS: SQUAMOUS EPITHIAL 1 /hpf (0-5); URINE BILIRUBIN NEGATIVE (NEGATIVE); URINE BLOOD MODERATE (NEGATIVE); URINE CLARITY CLEAR (Clear); URINE COLOR COLORLESS (YELLOW); URINE GLUCOSE (UA) NEG (NEGATIVE); URINE LEUKOCYTE ESTERASE NEG Leu/uL (Negative); URINE PROTEIN NEGATIVE (NEGATIVE); URINE UROBILINOGEN 0.2-1.0 mg/dL (0.2-1.0)
--- NOTE | 2018-08-22 17:21 | CT ---
Date of service: 08/22/2018 PROCEDURE: CT HEAD WITHOUT CONTRAST. HISTORY: headache dizziness on NOAC COMPARISON: Noncontrast head CT 01/17/2018. TECHNIQUE: Axial computed tomography images were obtained through the head/brain without intravenous contrast. Radiation dose: Total exam DLP = 791.83 mGy-cm. This CT exam was performed using one or more of the following dose reduction techniques: Automated exposure control, adjustment of the mA and/or kV according to patient size, and/or use of iterative reconstruction technique. FINDINGS: HEMORRHAGE: No intracranial hemorrhage. BRAIN: Good corticomedullary differentiation is seen. Reiterated diffuse cerebral atrophy and chronic microangiopathy. No suspicious extra-axial fluid collection is identified and the midline brain anatomy appears grossly nonfocal as imaged. No mass effect identified. VENTRICLES: Unremarkable. No hydrocephalus. CALVARIUM: Unremarkable. PARANASAL SINUSES: Unremarkable as visualized. No significant inflammatory changes. MASTOID AIR CELLS: Unremarkable as visualized. No inflammatory changes. OTHER FINDINGS: None. IMPRESSION: Stable age related neuro degenerative changes are appreciated which are age-appropriate and not significant altered in the interval. Follow-up CT or MRI are available if clinically warranted.
[2018-08-22] MEDS ORDERED: Potassium Chloride 20 mEq ER Tab PO ONE ×2 (17:38→19:09)
--- NOTE | 2018-08-22 18:01 | CARD ---
APPROVED REPORT Date of service: 08/22/2018 EKG Measurement Heart [id number] <Conclusion> Atrial fibrillation Abnormal ECG
[2018-08-23] MEDS ORDERED: ESOMEPRAZOLE MAGNESIUM 40 MG PO SCH (09:00)
[2018-08-23] MEDS: Potassium Chloride 20 mEq ER Tab PO SCH (09:14)
[2018-08-23] MEDS: Insulin Regular 100 units/ml SC SCH ×4 (09:14→23:04)
[2018-08-23] MEDS: Pantoprazole 40 mg EC Tab PO SCH (09:14)
--- NOTE | 2018-08-23 11:18 | CARD ---
APPROVED REPORT Date of service: 08/22/2018 EKG Measurement Heart [id number] <Conclusion> Sinus rhythm with occasional premature ventricular complexes Otherwise normal ECG
--- NOTE | 2018-08-23 11:52 | CARD ---
APPROVED REPORT Date of service: 08/23/2018 EXAM: Two-dimensional and M-mode echocardiogram with Doppler and color Doppler. Other Information Quality : GoodRhythm : NSR INDICATION Dizziness and Vertigo 2D DIMENSIONS IVSd1.45 (0.7-1.1cm)LVDd4.01 (3.9-5.9cm) LVOT Diameter2.37 (1.8-2.4cm)PWd0.93 (0.7-1.1cm) IVSs1.58 (0.8-1.2cm)LVDs2.65 (2.5-4.0cm) FS (%) 34.0 %PWs1.26 (0.8-1.2cm) M-Mode DIMENSIONS Left Atrium (MM)4.85 (2.5-4.0cm)IVSd1.47 (0.7-1.1cm) Aortic Root2.91 (2.2-3.7cm)LVDd3.53 (4.0-5.6cm) Aortic Cusp Exc.1.53 (1.5-2.0cm)PWd1.65 (0.7-1.1cm) IVSs2.44 cmFS (%) 59 % LVDs1.44 (2.0-3.8cm)PWs1.85 cm Aortic Valve AoV Peak Dsycbsud504.3cm/sAoV VTI45.9cmAO Peak GR.21mmHg LVOT Peak Wkgkpgjd885.7cm/sLVOT VTI26.58cmAO Mean GR.11mmHg HELENA (VMAX)1.98gj8KDR (VTI)1.35cm2 Mitral Valve MV E Tzeocizy634.6cm/sMV DECEL BDNB473cnWV A Houdyoii253.4cm/s MV LSW01rqZ/A ratio1.0MVA (PHT)2.38cm2 TDI Lateral E' Peak V8.88cm/sMedial E' Peak V6.44cm/sE/Lateral E'14.5 E/Medial E'20.0 Tricuspid Valve TR Peak Shpglbiy793af/sRAP CELGTQUY45oaGgTK Peak Gr.44mmHg KBWC36xnSc LEFT VENTRICLE The left ventricle is normal size. There is mild concentric left ventricular hypertrophy. The left ventricular systolic function is normal. The estimated ejection fraction is 60-65% No regional wall motion abnormalities noted.. Transmitral Doppler flow pattern is Grade II-pseudonormal filling dynamics. No left ventricle thrombus noted on this study. There is no ventricular septal defect visualized. There is no left ventricular aneurysm. There is no mass noted in the left ventricle. RIGHT VENTRICLE The right ventricle is normal size. There is normal right ventricular wall thickness. The right ventricular systolic function is normal. ATRIA The left atrium is mild to moderately dilated. The right atrium size is normal. The interatrial septum is intact with no evidence for an atrial septal defect. AORTIC VALVE The aortic valve is normal in structure. No aortic regurgitation is present. There is no aortic valvular stenosis. There is no aortic valvular vegetation. MITRAL VALVE The mitral valve is normal in structure. There is no evidence of mitral valve prolapse. There is no mitral valve stenosis. There is trace mitral valve regurgitation noted. TRICUSPID VALVE The tricuspid valve is normal in structure. There is mild tricuspid valve regurgitation noted. RVSP is calculated at 51 mm Hg. Consistent with mild pulmonary hypertension. There is no tricuspid valve prolapse or vegetation. There is no tricuspid valve stenosis. PULMONIC VALVE The pulmonary valve is normal in structure. There is no pulmonic valvular regurgitation. There is no pulmonic valvular stenosis. GREAT VESSELS The aortic root is normal in size. The ascending aorta is normal in size. The pulmonary artery is normal. The IVC is normal in size and collapses >50% with inspiration. PERICARDIAL EFFUSION There is no pericardial effusion. There is no pleural effusion. <Conclusion> There is mild concentric left ventricular hypertrophy. The estimated ejection fraction is 60-65% Transmitral Doppler flow pattern is Grade II-pseudonormal filling dynamics. The left atrium is mild to moderately dilated. There is trace mitral valve regurgitation noted. There is mild tricuspid valve regurgitation noted. RVSP is calculated at 51 mm Hg. Consistent with mild pulmonary hypertension. The IVC is normal in size and collapses >50% with inspiration.
[2018-08-23 12:17] LABS: HEMOGLOBIN 11.4 g/dL (12.0-16.0); MEAN CELL VOLUME 88.2 fl (81.0-99.0); MEAN CORPUSCULAR HGB CONC 31.8 g/dL (33.0-37.0); RBC 4.06 Mil/uL (3.80-5.20); RED CELL DISTRIBUTION WIDTH 16.9 % (11.5-14.5); WHITE BLOOD COUNT 4.9 K/uL (4.8-10.8)
[2018-08-23 12:40] LABS: ALBUMIN 3.4 g/dL (3.5-5.0); ALT/SGPT 26 U/L (9-52); AST/SGOT 28 U/L (14-36); BLOOD UREA NITROGEN 13 mg/dl (7-17); GFR NON-AFRICAN AMERICAN > 60; HDL CHOLESTEROL 55 MG/DL (30-70); LDL CHOLESTEROL 97 mg/dL (0-129)
[2018-08-23 12:45] LABS: T4 8.71 ug/dl (5.5-11.0)
--- NOTE | 2018-08-23 16:14 | CP.PCM.HP ---
History of Present Illness - History of Present Illness History of Present Illness: CC: Chest pain. 82 y/oF, with multiple chronic medical condition, including : A Fib, HTN, COPD, CHF, CVA, TIA, DMII, Dementia. Pt was brought to [facility] on 08/22/18 to be evaluated by Chest pain on DOA, pain was midsternal, pressure type, non radiating, intermittent, mild intensity 2:10, associated to headache, dizziness with no relief. Worsening symptoms: Found with high BP, in the ER Systolic: 190. Blood in uri ne. Aggravated factor: Movements/exercise. Poor historian. Denied: Fever, chills, n/v/d, abdominal pain, urinary symptoms, syncope, LOC, facial droop, sick contact, recent travel out of [facility]. EKG on 08/22/18: A Fib. Echo: Mild L ventricular hypertrophy, LVEF 60-65%, mild pulmonary hypertension, trace mitral valve regurgitation, mild tricuspid valve regurgitation. CXR: No active disease. EKG today: Sinus rhythm with occasional PVCs CT Head: Age related degenerative neuro changes. Present on Admission - Present on Admission Any Indicators Present on Admission: No Review of Systems - Review of Systems Systems not reviewed;Unavailable: Acuity of Condition, Dementia Past Patient History - Infectious Disease Hx of Infectious Diseases: None - Tetanus Immunizations Tetanus Immunization: Unknown - Past Medical History & Family History Past Medical History?: Yes Pertinent Family History: Unknown - Past Social History Smoking Status: Former Smoker Alcohol: None Drugs: Denies Home Situation {Lives}: With Family - CARDIAC Hx Cardiac Disorders: Yes Hx Atrial Fibrillation: Yes Hx Congestive Heart Failure: Yes Hx Hypercholesterolemia: Yes Hx Hypertension: Yes Hx Pacemaker: No - PULMONARY Hx Respiratory Disorders: Yes Hx Chronic Obstructive Pulmonary Disease (COPD): Yes Hx Pneumonia: Yes - NEUROLOGICAL Hx Neurological Disorder: Yes Hx Dementia: Yes Hx Transient Ischemic Attacks (TIA): Yes - HEENT Hx HEENT Problems: No - RENAL Hx Chronic Kidney Disease: No - ENDOCRINE/METABOLIC Hx Endocrine Disorders: Yes Hx Diabetes Mellitus Type 2: Yes - HEMATOLOGICAL/ONCOLOGICAL Hx Blood Disorders: Yes Hx Anemia: Yes Hx Human Immunodeficiency Virus (HIV): No - INTEGUMENTARY Hx Dermatological Problems: Yes Hx Cellulitis: Yes - MUSCULOSKELETAL/RHEUMATOLOGICAL Hx Musculoskeletal Disorders: Yes Hx Arthritis: Yes Hx Falls: No Hx Osteoporosis: Yes - GASTROINTESTINAL Hx Gastrointestinal Disorders: Yes Hx Diverticulitis: Yes - GENITOURINARY/GYNECOLOGICAL Hx Genitourinary Disorders: No - PSYCHIATRIC Hx Psychophysiologic Disorder: Yes Hx Anxiety: Yes Hx Depression: Yes Hx Substance Use: No - SURGICAL HISTORY Hx Surgeries: Yes Hx Herniorrhaphy: Yes - ANESTHESIA Hx Anesthesia: Yes Hx Anesthesia Reactions: No Hx Malignant Hyperthermia: No Meds Allergies/Adverse Reactions: Allergies Allergy/AdvReac Type Severity Reaction Status Date / Time iodine Allergy RASH Verified 08/22/18 14:36 Physical Exam - Constitutional Appears: Chronically Ill - Head Exam Head Exam: NORMAL INSPECTION - Eye Exam Eye Exam: PERRL - ENT Exam Additional comments: Hard of hearing L ear - Neck Exam Neck exam: Positive for: Normal Inspection - Respiratory Exam Respiratory Exam: Decreased Breath Sounds (at bases) - Cardiovascular Exam Cardiovascular Exam: Irregular Rhythm - GI/Abdominal Exam GI & Abdominal Exam: Normal Bowel Sounds, Soft - Extremities Exam Extremities exam: Positive for: pedal edema, tenderness (knees) - Back Exam Back exam: tenderness - Neurological Exam Neurological exam: CN II-XII Intact Additional comments: Awake, confused, disoriented, follows commands, generalized weakness - Psychiatric Exam Psychiatric exam: Anxious - Skin Skin Exam: Warm Results - Vital Signs Recent Vital Signs: Last Vital Signs Temp 98.4 F 08/23/18 16:06 Pulse 76 08/23/18 16:06 Resp 17 08/23/18 16:06 BP 119/64 08/23/18 16:06 Pulse Ox 94 L 08/23/18 16:06 reviewed J.P. - Labs Result Diagrams: 08/23/18 12:01 08/23/18 12:01 Labs: Laboratory Results - last 24 hr 08/22/18 08/22/18 08/22/18 16:35 16:35 16:35 WBC 5.7 RBC 4.68 Hgb 13.0 Hct 40.8 MCV 87.0 MCH 27.8 MCHC 31.9 L RDW 16.9 H Plt Count 153 MPV 8.2 Neut % (Auto) 74.7 Lymph % (Auto) 15.1 L [place] % (Auto) 8.1 Eos % (Auto) 1.5 Baso % (Auto) 0.6 Neut # (Auto) 4.3 Lymph # (Auto) 0.9 L [place] # (Auto) 0.5 Eos # (Auto) 0.1 Baso # (Auto) 0.0 PT 12.5 INR 1.1 APTT 42.7 H Sodium 142 Potassium 3.3 L Chloride 104 Carbon Dioxide 33 H Anion Gap 8 L BUN 11 Creatinine 0.5 L Est GFR ( Amer) > 60 Est GFR (Non-Af Amer) > 60 POC Glucose (mg/dL) Random Glucose 106 H Calcium 9.7 Phosphorus 3.7 Magnesium 1.9 Total Bilirubin 0.5 AST 29 ALT 19 Alkaline Phosphatase 91 Troponin I < 0.0120 NT-Pro-B Natriuret Pep 644 Total Protein 7.9 Albumin 4.1 Globulin 3.8 Albumin/Globulin Ratio 1.1 Triglycerides Cholesterol LDL Cholesterol Direct HDL Cholesterol Thyroxine (T4) TSH 3rd Generation Urine Color Urine Clarity Urine pH Ur Specific [place] Urine Protein Urine Glucose (UA) Urine Ketones Urine Blood Urine Nitrate Urine Bilirubin Urine Urobilinogen Ur Leukocyte Esterase Urine RBC (Auto) Urine Microscopic WBC Ur Squamous Epith Cells 08/22/18 08/23/18 08/23/18 17:05 05:01 10:51 WBC RBC Hgb Hct MCV MCH MCHC RDW Plt Count MPV Neut % (Auto) Lymph % (Auto) [place] % (Auto) Eos % (Auto) Baso % (Auto) Neut # (Auto) Lymph # (Auto) [place] # (Auto) Eos # (Auto) Baso # (Auto) PT INR APTT Sodium Potassium Chloride Carbon Dioxide Anion Gap BUN Creatinine Est GFR ( Amer) Est GFR (Non-Af Amer) POC Glucose (mg/dL) 92 128 H Random Glucose Calcium Phosphorus Magnesium Total Bilirubin AST ALT Alkaline Phosphatase Troponin I NT-Pro-B Natriuret Pep Total Protein Albumin Globulin Albumin/Globulin Ratio Triglycerides Cholesterol LDL Cholesterol Direct HDL Cholesterol Thyroxine (T4) TSH 3rd Generation Urine Color Colorless Urine Clarity Clear Urine pH 8.0 Ur Specific [place] < 1.005 Urine Protein Negative Urine Glucose (UA) Neg Urine Ketones Negative Urine Blood Moderate Urine Nitrate Negative Urine Bilirubin Negative Urine Urobilinogen 0.2-1.0 Ur Leukocyte Esterase Neg Urine RBC (Auto) 7 H Urine Microscopic WBC < 1 Ur Squamous Epith Cells 1 08/23/18 08/23/18 12:01 12:01 WBC 4.9 RBC 4.06 Hgb 11.4 L Hct 35.8 MCV 88.2 MCH 28.0 MCHC 31.8 L RDW 16.9 H Plt Count 171 MPV Neut % (Auto) Lymph % (Auto) [place] % (Auto) Eos % (Auto) Baso % (Auto) Neut # (Auto) Lymph # (Auto) [place] # (Auto) Eos # (Auto) Baso # (Auto) PT INR APTT Sodium 140 Potassium 3.5 L Chloride 100 Carbon Dioxide 30 Anion Gap 14 BUN 13 Creatinine 0.5 L Est GFR ( Amer) > 60 Est GFR (Non-Af Amer) > 60 POC Glucose (mg/dL) Random Glucose 90 Calcium 9.0 Phosphorus Magnesium Total Bilirubin 0.5 AST 28 ALT 26 Alkaline Phosphatase 65 Troponin I NT-Pro-B Natriuret Pep Total Protein 6.8 Albumin 3.4 L Globulin 3.4 Albumin/Globulin Ratio 1.0 Triglycerides 91 Cholesterol 180 LDL Cholesterol Direct 97 HDL Cholesterol 55 Thyroxine (T4) 8.71 TSH 3rd Generation 0.75 Urine Color Urine Clarity Urine pH Ur Specific [place] Urine Protein Urine Glucose (UA) Urine Ketones Urine Blood Urine Nitrate Urine Bilirubin Urine Urobilinogen Ur Leukocyte Esterase Urine RBC (Auto) Urine Microscopic WBC Ur Squamous Epith Cells reviewed J.P. - EKG Data EKG comments: reviewed J.P. - Imaging and Cardiology Chest x-ray Status: Report reviewed by me (JRajeshP.) Echocardiogram Status: Report reviewed by me CT scan - head Status: Report reviewed by me (J.P.) Assessment & Plan (1) Chest pain Status: Acute Priority: High (2) A-fib Status: Acute (3) Hypertensive urgency Status: Acute Priority: High (4) Diastolic CHF Status: Chronic (5) Headache Status: Acute Priority: High (6) COPD (chronic obstructive pulmonary disease) Status: Chronic Priority: Medium (7) Type 2 diabetes mellitus Status: Chronic Priority: Medium (8) Anxiety Status: Chronic Priority: Medium (9) OA (osteoarthritis) Status: Chronic - Assessment and Plan (Free Text) Plan: F/U U C-S, continue Cardizem, Lasix, Lopressor, Eliquis, Xanax and rest of Tx, PT eval, Cardiac consult. - Date & Time Date: 08/23/18 Time: 12:10
--- NOTE | 2018-08-23 19:45 | CP.PCM.CON ---
History of Present Illness - History of Present Illness History of Present Illness: Consultation for evaluation of chest pain HPI: Juan Manuel is a 32-year-old female who has been seen by me in the past hospitalizations who is presenting as per the admitting H&P with an episode of atypical chest pain and shortness of breath in the past she presented with some pulmonary issues diagnosed during her hospitalization with paroxysmal atrial fibrillation and was initiated on Eliquis does have history of does have a history of hypertension and dementia apparently as per the admitting H&P she was brought in by her son complaining of some dizziness headache uncontrolled hypertension along with vague chest discomfort she is a poor historian I tried to use a manager retention to understand her initial presentation she was somewhat eager to know the results of her testing which was done today with I was presuming includes echocardiogram according to admitting H&P she also was noted to have some kind of blood noted in her diaper otherwise denies any complaints does have hard of hearing denies any chest fever cough syncope facial droop or mental status changes. Review of Systems - Review of Systems Systems not reviewed;Unavailable: Acuity of Condition - Constitutional Constitutional: As Per HPI - EENT Eyes: As Per HPI Ears: As Per HPI Nose/Mouth/Throat: As Per HPI - Breasts Breasts: As Per HPI - Cardiovascular Cardiovascular: As Per HPI - Respiratory Respiratory: As Per HPI - Gastrointestinal Gastrointestinal: As Per HPI - Genitourinary Genitourinary: As Per HPI - Reproductive: Female Reproductive:Female: As Per HPI - Menstruation Menstruation: As Per HPI - Musculoskeletal Musculoskeletal: As Per HPI - Integumentary Integumentary: As Per HPI - Neurological Neurological: As Per HPI - Psychiatric Psychiatric: As Per HPI - Endocrine Endocrine: As Per HPI - Hematologic/Lymphatic Hematologic: As Per HPI Past Patient History - Infectious Disease Hx of Infectious Diseases: None - Tetanus Immunizations Tetanus Immunization: Unknown - Past Medical History & Family History Past Medical History?: Yes - Past Social History Smoking Status: Former Smoker Alcohol: None Drugs: Denies Home Situation {Lives}: With Family - CARDIAC Hx Cardiac Disorders: Yes Hx Atrial Fibrillation: Yes Hx Congestive Heart Failure: Yes Hx Hypercholesterolemia: Yes Hx Hypertension: Yes Hx Pacemaker: No - PULMONARY Hx Respiratory Disorders: Yes Hx Chronic Obstructive Pulmonary Disease (COPD): Yes Hx Pneumonia: Yes - NEUROLOGICAL Hx Neurological Disorder: Yes Hx Dementia: Yes Hx Transient Ischemic Attacks (TIA): Yes - HEENT Hx HEENT Problems: No - RENAL Hx Chronic Kidney Disease: No - ENDOCRINE/METABOLIC Hx Endocrine Disorders: Yes Hx Diabetes Mellitus Type 2: Yes - HEMATOLOGICAL/ONCOLOGICAL Hx Blood Disorders: Yes Hx Anemia: Yes Hx Human Immunodeficiency Virus (HIV): No - INTEGUMENTARY Hx Dermatological Problems: Yes Hx Cellulitis: Yes - MUSCULOSKELETAL/RHEUMATOLOGICAL Hx Musculoskeletal Disorders: Yes Hx Arthritis: Yes Hx Falls: No Hx Osteoporosis: Yes - GASTROINTESTINAL Hx Gastrointestinal Disorders: Yes Hx Diverticulitis: Yes - GENITOURINARY/GYNECOLOGICAL Hx Genitourinary Disorders: No - PSYCHIATRIC Hx Psychophysiologic Disorder: Yes Hx Anxiety: Yes Hx Depression: Yes Hx Substance Use: No - SURGICAL HISTORY Hx Surgeries: Yes Hx Herniorrhaphy: Yes - ANESTHESIA Hx Anesthesia: Yes Hx Anesthesia Reactions: No Hx Malignant Hyperthermia: No Meds Allergies/Adverse Reactions: Allergies Allergy/AdvReac Type Severity Reaction Status Date / Time iodine Allergy RASH Verified 08/22/18 14:36 - Medications Medications: Current Medications Alprazolam (Xanax) 0.25 mg PO Q12 PRN PRN Reason: Anxiety Stop: 08/29/18 22:31 Last Admin: 08/23/18 09:21 Dose: 0.25 mg Apixaban (Eliquis) 5 mg PO BID [facility]; Protocol Last Admin: 08/23/18 16:43 Dose: 5 mg Diltiazem HCl (Cardizem) 60 mg PO Q8 [facility] Last Admin: 08/23/18 16:42 Dose: 60 mg Furosemide (Lasix) 20 mg PO BID [facility] Last Admin: 08/23/18 16:44 Dose: 20 mg Hydralazine HCl (Apresoline) 25 mg PO Q12 [facility] Last Admin: 08/23/18 09:16 Dose: 25 mg Insulin Human Regular (Humulin R) 0 units SC [facility]; Protocol Last Admin: 08/23/18 16:43 Dose: Not Given Meclizine HCl (Antivert) 25 mg PO Q8 PRN PRN Reason: Dizziness Metoprolol Tartrate (Lopressor) 50 mg PO Q12 [facility] Last Admin: 08/23/18 09:13 Dose: 50 mg Pantoprazole Sodium (Protonix Ec Tab) 40 mg PO DAILY [facility] Last Admin: 08/23/18 09:14 Dose: 40 mg Potassium Chloride (K-Dur 20 Meq Er Tab) 20 meq PO DAILY [facility] Last Admin: 08/23/18 09:14 Dose: 20 meq Physical Exam - Constitutional Appears: Well - Head Exam Head Exam: ATRAUMATIC, NORMAL INSPECTION, NORMOCEPHALIC - Eye Exam Eye Exam: EOMI, Normal appearance, PERRL Pupil Exam: NORMAL ACCOMODATION, PERRL - ENT Exam ENT Exam: Mucous Membranes Moist, Normal Exam - Neck Exam Neck exam: Positive for: Normal Inspection - Respiratory Exam Respiratory Exam: Clear to Auscultation Bilateral, NORMAL BREATHING PATTERN - Cardiovascular Exam Cardiovascular Exam: REGULAR RHYTHM, RRR, +S1, +S2, Systolic Murmur - GI/Abdominal Exam GI & Abdominal Exam: Normal Bowel Sounds, Soft. absent: Tenderness - Extremities Exam Extremities exam: Positive for: normal inspection - Back Exam Back exam: NORMAL INSPECTION - Neurological Exam Neurological exam: Alert, CN II-XII Intact, Normal Gait, Oriented x3, Reflexes Normal - Psychiatric Exam Psychiatric exam: Normal Affect, Normal Mood - Skin Skin Exam: Dry, Intact, Normal Color, Warm Results - Vital Signs Recent Vital Signs: Last Vital Signs Temp 98.1 F 08/23/18 16:31 Pulse 76 08/23/18 16:42 Resp 17 08/23/18 16:31 BP 119/64 08/23/18 16:44 Pulse Ox 94 L 08/23/18 16:31 - Labs Result Diagrams: 08/23/18 12:01 08/23/18 12:01 Labs: Laboratory Results - last 24 hr 08/23/18 08/23/18 08/23/18 05:01 10:51 12:01 WBC 4.9 RBC 4.06 Hgb 11.4 L Hct 35.8 MCV 88.2 MCH 28.0 MCHC 31.8 L RDW 16.9 H Plt Count 171 Sodium Potassium Chloride Carbon Dioxide Anion Gap BUN Creatinine Est GFR ( Amer) Est GFR (Non-Af Amer) POC Glucose (mg/dL) 92 128 H Random Glucose Hemoglobin A1c Calcium Total Bilirubin AST ALT Alkaline Phosphatase Total Protein Albumin Globulin Albumin/Globulin Ratio Triglycerides Cholesterol LDL Cholesterol Direct HDL Cholesterol Thyroxine (T4) TSH 3rd Generation 08/23/18 08/23/18 08/23/18 12:01 12:01 16:06 WBC RBC Hgb Hct MCV MCH MCHC RDW Plt Count Sodium 140 Potassium 3.5 L Chloride 100 Carbon Dioxide 30 Anion Gap 14 BUN 13 Creatinine 0.5 L Est GFR ( Amer) > 60 Est GFR (Non-Af Amer) > 60 POC Glucose (mg/dL) 87 Random Glucose 90 Hemoglobin A1c 5.3 Calcium 9.0 Total Bilirubin 0.5 AST 28 ALT 26 Alkaline Phosphatase 65 Total Protein 6.8 Albumin 3.4 L Globulin 3.4 Albumin/Globulin Ratio 1.0 Triglycerides 91 Cholesterol 180 LDL Cholesterol Direct 97 HDL Cholesterol 55 Thyroxine (T4) 8.71 TSH 3rd Generation 0.75 Assessment & Plan (1) Chest pain Assessment and Plan: etiology unclear no prior ischemic w/u known hx of diastolic CHF and afib will plan for ischemic evaluation inpt stress test Status: Acute Priority: High (2) Hypertensive urgency Assessment and Plan: cont hydralazine, metoprolol , cardizem renal duplex Status: Acute Priority: High (3) Afib Assessment and Plan: in NSR cont eliquis and BB Status: Acute Priority: High (4) Diastolic CHF Assessment and Plan: stable cont lasix Status: Chronic Priority: High (5) Hx of TIA (transient ischemic attack) and stroke Status: Chronic Priority: Low
[2018-08-24] MEDS: Insulin Regular 100 units/ml SC SCH ×4 (08:50→22:26)
[2018-08-24] MEDS: Pantoprazole 40 mg EC Tab PO SCH (09:24)
[2018-08-24] MEDS: Potassium Chloride 20 mEq ER Tab PO SCH (09:26)
--- NOTE | 2018-08-24 14:45 | CP.PCM.PN ---
Subjective - Date & Time of Evaluation Date of Evaluation: 08/24/18 Time of Evaluation: 12:45 - Subjective Subjective: F/U CP confused, incoherent, no C/P, no SOB Objective - Vital Signs/Intake and Output Vital Signs (last 24 hours): Temp Pulse Resp BP Pulse Ox 98.3 F 68 18 149/78 97 08/24/18 12:02 08/24/18 12:02 08/24/18 12:02 08/24/18 12:02 08/24/18 12:02 - Medications Medications: Current Medications Acetaminophen (Tylenol 325mg Tab) 650 mg PO Q6 PRN PRN Reason: Headache Last Admin: 08/24/18 03:45 Dose: 650 mg Alprazolam (Xanax) 0.25 mg PO Q12 PRN PRN Reason: Anxiety Stop: 08/29/18 22:31 Last Admin: 08/24/18 00:04 Dose: 0.25 mg Apixaban (Eliquis) 5 mg PO BID [facility]; Protocol Last Admin: 08/24/18 09:24 Dose: 5 mg Diltiazem HCl (Cardizem) 60 mg PO Q8 [facility] Last Admin: 08/24/18 09:24 Dose: 60 mg Furosemide (Lasix) 20 mg PO BID [facility] Last Admin: 08/24/18 09:25 Dose: 20 mg Hydralazine HCl (Apresoline) 25 mg PO Q12 [facility] Last Admin: 08/24/18 09:25 Dose: 25 mg Ceftriaxone Sodium 1 gm/ (Sodium Chloride) 100 mls @ 100 mls/hr IVPB DAILY [facility]; Protocol Insulin Human Regular (Humulin R) 0 units SC [facility]; Protocol Last Admin: 08/24/18 11:40 Dose: Not Given Meclizine HCl (Antivert) 25 mg PO Q8 PRN PRN Reason: Dizziness Metoprolol Tartrate (Lopressor) 50 mg PO Q12 [facility] Last Admin: 08/24/18 09:24 Dose: 50 mg Pantoprazole Sodium (Protonix Ec Tab) 40 mg PO DAILY [facility] Last Admin: 08/24/18 09:24 Dose: 40 mg Potassium Chloride (K-Dur 20 Meq Er Tab) 20 meq PO DAILY [facility] Last Admin: 08/24/18 09:26 Dose: 20 meq - Labs Labs: 08/23/18 12:01 08/23/18 12:01 PT 12.5 Seconds (9.8-13.1) 08/22/18 16:35 INR 1.1 08/22/18 16:35 APTT 42.7 Seconds (25.6-37.1) H 08/22/18 16:35 - Constitutional Appears: No Acute Distress, Chronically Ill - Head Exam Head Exam: NORMAL INSPECTION - Eye Exam Eye Exam: PERRL - ENT Exam Additional comments: Hard of hearing on left side - Neck Exam Neck Exam: Normal Inspection - Respiratory Exam Respiratory Exam: Decreased Breath Sounds (at bases) - Cardiovascular Exam Cardiovascular Exam: Irregular Rhythm - GI/Abdominal Exam GI & Abdominal Exam: Soft, Normal Bowel Sounds - Extremities Exam Extremities Exam: Pedal Edema, Tenderness (knees) - Back Exam Back Exam: tenderness - Neurological Exam Neurological Exam: CN II-XII Intact Additional comments: Confused, disoriented, follows commands, generalized weakness. - Psychiatric Exam Psychiatric exam: Anxious - Skin Skin Exam: Warm Assessment and Plan (1) Chest pain Status: Acute (2) A-fib Status: Acute (3) Hypertensive urgency Status: Acute (4) Diastolic CHF Status: Chronic (5) Headache Status: Acute (6) COPD (chronic obstructive pulmonary disease) Status: Chronic (7) Type 2 diabetes mellitus Status: Chronic (8) Anxiety Status: Chronic (9) OA (osteoarthritis) Status: Chronic - Assessment and Plan (Free Text) Plan: BP stable,B S stable, continue Cardizem , Apresoline Lasix , Lopressor, Eliquis and rest of treatment, Cardiology planning STT
--- NOTE | 2018-08-24 16:49 | CP.PCM.PN ---
Subjective - Date & Time of Evaluation Date of Evaluation: 08/24/18 Time of Evaluation: 16:47 - Subjective Subjective: Berto Mejia DO PGY1 - Internal Medicine [employer] - Cardiology Note for Dr. Rosales Patient was seen and examined at bedside this evening. No acute events reported overnight. Denied chest pain, sob, palpitations on exam. Objective - Vital Signs/Intake and Output Vital Signs (last 24 hours): Temp Pulse Resp BP Pulse Ox 98.4 F 66 17 119/67 96 08/24/18 15:58 08/24/18 15:58 08/24/18 15:58 08/24/18 15:58 08/24/18 15:58 - Medications Medications: Current Medications Acetaminophen (Tylenol 325mg Tab) 650 mg PO Q6 PRN PRN Reason: Headache Last Admin: 08/24/18 03:45 Dose: 650 mg Alprazolam (Xanax) 0.25 mg PO Q12 PRN PRN Reason: Anxiety Stop: 08/29/18 22:31 Last Admin: 08/24/18 00:04 Dose: 0.25 mg Apixaban (Eliquis) 5 mg PO BID [facility]; Protocol Last Admin: 08/24/18 09:24 Dose: 5 mg Diltiazem HCl (Cardizem) 60 mg PO Q8 [facility] Last Admin: 08/24/18 09:24 Dose: 60 mg Furosemide (Lasix) 20 mg PO BID [facility] Last Admin: 08/24/18 09:25 Dose: 20 mg Hydralazine HCl (Apresoline) 25 mg PO Q12 [facility] Last Admin: 08/24/18 09:25 Dose: 25 mg Ceftriaxone Sodium 1 gm/ (Sodium Chloride) 100 mls @ 100 mls/hr IVPB DAILY [facility]; Protocol Insulin Human Regular (Humulin R) 0 units SC [facility]; Protocol Last Admin: 08/24/18 11:40 Dose: Not Given Meclizine HCl (Antivert) 25 mg PO Q8 PRN PRN Reason: Dizziness Metoprolol Tartrate (Lopressor) 50 mg PO Q12 [facility] Last Admin: 08/24/18 09:24 Dose: 50 mg Pantoprazole Sodium (Protonix Ec Tab) 40 mg PO DAILY [facility] Last Admin: 08/24/18 09:24 Dose: 40 mg Potassium Chloride (K-Dur 20 Meq Er Tab) 20 meq PO DAILY [facility] Last Admin: 08/24/18 09:26 Dose: 20 meq - Labs Labs: 08/23/18 12:01 08/23/18 12:01 PT 12.5 Seconds (9.8-13.1) 08/22/18 16:35 INR 1.1 08/22/18 16:35 APTT 42.7 Seconds (25.6-37.1) H 08/22/18 16:35 - Constitutional Appears: Well, Non-toxic, No Acute Distress - Head Exam Head Exam: ATRAUMATIC, NORMOCEPHALIC - Eye Exam Eye Exam: EOMI, PERRL - ENT Exam ENT Exam: Mucous Membranes Moist - Respiratory Exam Respiratory Exam: Clear to Ausculation Bilateral, NORMAL BREATHING PATTERN - Cardiovascular Exam Cardiovascular Exam: RRR, +S1, +S2, Murmur - GI/Abdominal Exam GI & Abdominal Exam: Soft. absent: Tenderness - Extremities Exam Extremities Exam: Normal Inspection. absent: Pedal Edema - Neurological Exam Neurological Exam: Alert, Awake - Psychiatric Exam Psychiatric exam: Normal Affect, Normal Mood - Skin Skin Exam: Dry, Intact, Normal Color, Warm Assessment and Plan (1) Afib Status: Acute (2) Chest pain Status: Acute (3) Diastolic CHF Status: Chronic (4) Hx of TIA (transient ischemic attack) and stroke Status: Chronic (5) Hypertensive urgency Status: Acute - Assessment and Plan (Free Text) Plan: 82F w/ Hx of Afib, Diastolic CHF, TIA - Being evaluated by cardiology for Atypical Chest Pain Atypical Chest Pain: EKG upon admission no ST segment changes, Q waves appreciated ECHO 08/22 EF 60-65% w/ Grade II - pseudonormal filling ECHO 10/09 EF 80% w/ Grade II diastolic dysfunction Initial Troponin on admission negative HTN Urgency: Normotensive throughout the day Can consider Renal Duplex Can consider Losartan CHF - HFpEF BNP upon admission normal Echo normal Afib: HR Stable Continue: Hydralazine 25 Q12 Toprol 50 Q12 Cardizem 60 Q8 Eliquis 5 BID Lasix 20 BID Can consider Renal Duplex NST pending at this time; NPO tonight
[2018-08-25] MEDS: Insulin Regular 100 units/ml SC SCH ×2 (07:56→12:27)
[2018-08-25 08:39] VITALS: BP 155/70; PULSE 66; RESP 20; TEMP 97.7
[2018-08-25] MEDS: Potassium Chloride 20 mEq ER Tab PO SCH (09:20)
[2018-08-25] MEDS: Pantoprazole 40 mg EC Tab PO SCH (09:20)
--- NOTE | 2018-08-25 12:25 | CP.PCM.PN ---
Subjective - Date & Time of Evaluation Date of Evaluation: 08/25/18 Time of Evaluation: 12:21 - Subjective Subjective: Berto Mejia DO PGY1 - Internal Medicine [employer] Technician - Cardiology Note for Dr. Rosales Patient was seen and examined at bedside this morning. Son was present in room who was refusing stress testing on behalf of patient. Educated son on risks vs benefits of stress testing; however son continued to refuse. Patient voicing no complaints at bedside. Objective - Vital Signs/Intake and Output Vital Signs (last 24 hours): Temp Pulse Resp BP Pulse Ox 97.7 F 66 20 155/70 H 95 08/25/18 08:39 08/25/18 08:39 08/25/18 08:39 08/25/18 09:20 08/25/18 08:39 - Medications Medications: Current Medications Acetaminophen (Tylenol 325mg Tab) 650 mg PO Q6 PRN PRN Reason: Headache Last Admin: 08/25/18 00:07 Dose: 650 mg Alprazolam (Xanax) 0.25 mg PO Q12 PRN PRN Reason: Anxiety Stop: 08/29/18 22:31 Last Admin: 08/25/18 00:07 Dose: 0.25 mg Apixaban (Eliquis) 5 mg PO BID [facility]; Protocol Last Admin: 08/25/18 09:20 Dose: 5 mg Diltiazem HCl (Cardizem) 60 mg PO Q8 [facility] Last Admin: 08/25/18 09:20 Dose: 60 mg Furosemide (Lasix) 20 mg PO BID [facility] Last Admin: 08/25/18 09:20 Dose: 20 mg Hydralazine HCl (Apresoline) 25 mg PO Q12 [facility] Last Admin: 08/25/18 09:20 Dose: 25 mg Ceftriaxone Sodium 1 gm/ (Sodium Chloride) 100 mls @ 100 mls/hr IVPB DAILY [facility]; Protocol Last Admin: 08/25/18 09:26 Dose: 100 mls/hr Insulin Human Regular (Humulin R) 0 units SC ACHS [facility]; Protocol Last Admin: 08/25/18 07:56 Dose: Not Given Meclizine HCl (Antivert) 25 mg PO Q8 PRN PRN Reason: Dizziness Metoprolol Tartrate (Lopressor) 50 mg PO Q12 [facility] Last Admin: 08/25/18 09:20 Dose: 50 mg Pantoprazole Sodium (Protonix Ec Tab) 40 mg PO DAILY [facility] Last Admin: 08/25/18 09:20 Dose: 40 mg Potassium Chloride (K-Dur 20 Meq Er Tab) 20 meq PO DAILY [facility] Last Admin: 08/25/18 09:20 Dose: 20 meq - Labs Labs: 08/23/18 12:01 08/23/18 12:01 PT 12.5 Seconds (9.8-13.1) 08/22/18 16:35 INR 1.1 08/22/18 16:35 APTT 42.7 Seconds (25.6-37.1) H 08/22/18 16:35 - Constitutional Appears: Well, Non-toxic, No Acute Distress - Head Exam Head Exam: ATRAUMATIC, NORMOCEPHALIC - Eye Exam Eye Exam: EOMI, PERRL - ENT Exam ENT Exam: Mucous Membranes Moist - Respiratory Exam Respiratory Exam: Clear to Ausculation Bilateral, NORMAL BREATHING PATTERN - Cardiovascular Exam Cardiovascular Exam: RRR, +S1, +S2, Murmur - GI/Abdominal Exam GI & Abdominal Exam: Soft. absent: Tenderness - Extremities Exam Extremities Exam: Normal Inspection. absent: Pedal Edema - Neurological Exam Neurological Exam: Alert, Awake - Psychiatric Exam Psychiatric exam: Normal Affect, Normal Mood - Skin Skin Exam: Dry, Intact, Normal Color, Warm Assessment and Plan (1) Afib Status: Acute (2) Chest pain Status: Acute (3) Diastolic CHF Status: Chronic (4) Hx of TIA (transient ischemic attack) and stroke Status: Chronic (5) Hypertensive urgency Status: Acute - Assessment and Plan (Free Text) Plan: 82F w/ Hx of Afib, Diastolic CHF, TIA - Being evaluated by cardiology for Atypical Chest Pain No complaints of chest pain upon evaluation today Atypical Chest Pain: EKG upon admission no ST segment changes, Q waves appreciated ECHO 08/22 EF 60-65% w/ Grade II - pseudonormal filling ECHO 10/09 EF 80% w/ Grade II diastolic dysfunction Initial Troponin on admission negative HTN Urgency: Normotensive throughout the day Can consider Renal Duplex Can consider Losartan CHF - HFpEF BNP upon admission normal Echo normal Afib: HR Stable Continue: Hydralazine 25 Q12 Toprol 50 Q12 Cardizem 60 Q8 Eliquis 5 BID Lasix 20 BID Can consider Renal Duplex NST refused by son will follow w/ 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
--- NOTE | 2018-08-25 13:57 | CP.PCM.DIS ---
Provider - Provider Date of Admission: 08/22/18 17:43 Attending physician: Jesús Granado MD Consults: 08/22/18 17:44 Cardiology Consult Stat Comment: Consulting Provider: Rik Rosales Consulting Physician: Rik Rosales Reason for Consult: hx aFib, now uncontrolled BP, weakness Time Spent in preparation of Discharge (in minutes): 35 Diagnosis - Discharge Diagnosis (1) Chest pain Status: Acute Priority: High (2) A-fib Status: Acute (3) Hypertensive urgency Status: Acute Priority: High (4) Diastolic CHF Status: Chronic (5) Headache Status: Acute Priority: High (6) COPD (chronic obstructive pulmonary disease) Status: Chronic Priority: Medium (7) Type 2 diabetes mellitus Status: Chronic Priority: Medium (8) Anxiety Status: Chronic Priority: Medium (9) OA (osteoarthritis) Status: Chronic Hospital Course - Lab Results Lab Results: Micro Results 08/22/18 17:05 Urine Random Urine Culture - Final Proteus Mirabilis Most Recent Lab Values WBC 4.9 K/uL (4.8-10.8) 08/23/18 12:01 RBC 4.06 Mil/uL (3.80-5.20) 08/23/18 12:01 Hgb 11.4 g/dL (12.0-16.0) L 08/23/18 12:01 Hct 35.8 % (34.0-47.0) 08/23/18 12:01 MCV 88.2 fl (81.0-99.0) 08/23/18 12:01 MCH 28.0 pg (27.0-31.0) 08/23/18 12:01 MCHC 31.8 g/dL (33.0-37.0) L 08/23/18 12:01 RDW 16.9 % (11.5-14.5) H 08/23/18 12:01 Plt Count 171 K/uL (130-400) 08/23/18 12:01 MPV 8.2 fl (7.2-11.7) 08/22/18 16:35 Neut % (Auto) 74.7 % (50.0-75.0) 08/22/18 16:35 Lymph % (Auto) 15.1 % (20.0-40.0) L 08/22/18 16:35 Kendall % (Auto) 8.1 % (0.0-10.0) 08/22/18 16:35 Eos % (Auto) 1.5 % (0.0-4.0) 08/22/18 16:35 Baso % (Auto) 0.6 % (0.0-2.0) 08/22/18 16:35 Neut # (Auto) 4.3 K/uL (1.8-7.0) 08/22/18 16:35 Lymph # (Auto) 0.9 K/uL (1.0-4.3) L 08/22/18 16:35 Kendall # (Auto) 0.5 K/uL (0.0-0.8) 08/22/18 16:35 Eos # (Auto) 0.1 K/uL (0.0-0.7) 08/22/18 16:35 Baso # (Auto) 0.0 K/uL (0.0-0.2) 08/22/18 16:35 PT 12.5 Seconds (9.8-13.1) 08/22/18 16:35 INR 1.1 08/22/18 16:35 APTT 42.7 Seconds (25.6-37.1) H 08/22/18 16:35 Sodium 140 mmol/l (132-148) 08/23/18 12:01 Potassium 3.5 MMOL/L (3.6-5.0) L 08/23/18 12:01 Chloride 100 mmol/L (98-107) 08/23/18 12:01 Carbon Dioxide 30 mmol/L (22-30) 08/23/18 12:01 Anion Gap 14 (10-20) 08/23/18 12:01 BUN 13 mg/dl (7-17) 08/23/18 12:01 Creatinine 0.5 mg/dl (0.7-1.2) L 08/23/18 12:01 Est GFR ( Amer) > 60 08/23/18 12:01 Est GFR (Non-Af Amer) > 60 08/23/18 12:01 POC Glucose (mg/dL) 116 mg/dL (65-110) H 08/24/18 21:22 Random Glucose 90 mg/dL (65-105) 08/23/18 12:01 Hemoglobin A1c 5.3 % (4.2-6.5) 08/23/18 12:01 Calcium 9.0 mg/dL (8.4-10.2) 08/23/18 12:01 Phosphorus 3.7 mg/dl (2.5-4.5) 08/22/18 16:35 Magnesium 1.9 MG/DL (1.6-2.3) 08/22/18 16:35 Total Bilirubin 0.5 mg/dl (0.2-1.3) 08/23/18 12:01 AST 28 U/L (14-36) 08/23/18 12:01 ALT 26 U/L (9-52) 08/23/18 12:01 Alkaline Phosphatase 65 U/L (38-126) 08/23/18 12:01 Troponin I < 0.0120 ng/mL (0.00-0.120) 08/22/18 16:35 NT-Pro-B Natriuret Pep 644 pg/ml (0-900) 08/22/18 16:35 Total Protein 6.8 G/DL (6.3-8.2) 08/23/18 12:01 Albumin 3.4 g/dL (3.5-5.0) L 08/23/18 12:01 Globulin 3.4 gm/dL (2.2-3.9) 08/23/18 12:01 Albumin/Globulin Ratio 1.0 (1.0-2.1) 08/23/18 12:01 Triglycerides 91 mg/DL (0-149) 08/23/18 12:01 Cholesterol 180 mg/dL (0-199) 08/23/18 12:01 LDL Cholesterol Direct 97 mg/dL (0-129) 08/23/18 12:01 HDL Cholesterol 55 MG/DL (30-70) 08/23/18 12:01 Thyroxine (T4) 8.71 ug/dl (5.5-11.0) 08/23/18 12:01 TSH 3rd Generation 0.75 mIU/ML (0.46-4.68) 08/23/18 12:01 Urine Color Colorless (YELLOW) 08/22/18 17:05 Urine Clarity Clear (Clear) 08/22/18 17:05 Urine pH 8.0 (5.0-8.0) 08/22/18 17:05 Ur Specific [employer] < 1.005 (1.003-1.030) 08/22/18 17:05 Urine Protein Negative mg/dL (NEGATIVE) 08/22/18 17:05 Urine Glucose (UA) Neg mg/dL (NEGATIVE) 08/22/18 17:05 Urine Ketones Negative mg/dL (NEGATIVE) 08/22/18 17:05 Urine Blood Moderate (NEGATIVE) 08/22/18 17:05 Urine Nitrate Negative (NEGATIVE) 08/22/18 17:05 Urine Bilirubin Negative (NEGATIVE) 08/22/18 17:05 Urine Urobilinogen 0.2-1.0 mg/dL (0.2-1.0) 08/22/18 17:05 Ur Leukocyte Esterase Neg Haley/uL (Negative) 08/22/18 17:05 Urine RBC (Auto) 7 /hpf (0-3) H 08/22/18 17:05 Urine Microscopic WBC < 1 /hpf (0-5) 08/22/18 17:05 Ur Squamous Epith Cells 1 /hpf (0-5) 08/22/18 17:05 - Date & Time of H&P Date of H&P: 08/23/18 Time of H&P: 12:10 Discharge Exam - Head Exam Head Exam: ATRAUMATIC, NORMOCEPHALIC - Eye Exam Eye Exam: PERRL - ENT Exam Additional comments: Hard of hearing on left side. - Neck Exam Neck exam: Normal Inspection - Respiratory Exam Respiratory Exam: Decreased Breath Sounds (at bases) - Cardiovascular Exam Cardiovascular Exam: Irregular Rhythm - GI/Abdominal Exam GI & Abdominal Exam: Normal Bowel Sounds, Soft - Extremities Exam Extremities exam: pedal edema, tenderness (knees) - Back Exam Back exam: tenderness - Neurological Exam Neurological exam: CN II-XII Intact Additional comments: Confused, disoriented, follows commands, generalized weakness - Psychiatric Exam Psychiatric exam: Anxious - Skin Skin Exam: Warm Discharge Plan - Discharge Medications Prescriptions: Ciprofloxacin [Cipro] 500 mg PO Q12 #10 tab - Follow Up Plan Condition: GOOD Disposition: HOME/ ROUTINE Patient education suggested?: Yes Instructions: Atrial Fibrillation (DC), High Blood Pressure (DC), Chest Pain (DC) Additional Instructions: Follow up with PMD in one week. Referrals: Jesús Granado MD [Staff Provider] -
--- NOTE | 2018-08-25 16:19 | CP.PCM.PN ---
Subjective - Date & Time of Evaluation Date of Evaluation: 08/25/18 Time of Evaluation: 11:00 - Subjective Subjective: Berto Mejia DO PGY 1- Cardiology Note for Dr. Rosales Objective - Vital Signs/Intake and Output Vital Signs (last 24 hours): Temp Pulse Resp BP Pulse Ox 97.7 F 66 20 155/70 H 95 08/25/18 08:39 08/25/18 08:39 08/25/18 08:39 08/25/18 09:20 08/25/18 08:39 - Medications Medications: Current Medications Acetaminophen (Tylenol 325mg Tab) 650 mg PO Q6 PRN PRN Reason: Headache Last Admin: 08/25/18 00:07 Dose: 650 mg Alprazolam (Xanax) 0.25 mg PO Q12 PRN PRN Reason: Anxiety Stop: 08/29/18 22:31 Last Admin: 08/25/18 00:07 Dose: 0.25 mg Apixaban (Eliquis) 5 mg PO BID [facility]; Protocol Last Admin: 08/25/18 09:20 Dose: 5 mg Diltiazem HCl (Cardizem) 60 mg PO Q8 [facility] Last Admin: 08/25/18 09:20 Dose: 60 mg Furosemide (Lasix) 20 mg PO BID [facility] Last Admin: 08/25/18 09:20 Dose: 20 mg Hydralazine HCl (Apresoline) 25 mg PO Q12 [facility] Last Admin: 08/25/18 09:20 Dose: 25 mg Ceftriaxone Sodium 1 gm/ (Sodium Chloride) 100 mls @ 100 mls/hr IVPB DAILY [facility]; Protocol Last Admin: 08/25/18 09:26 Dose: 100 mls/hr Insulin Human Regular (Humulin R) 0 units SC ACHS [facility]; Protocol Last Admin: 08/25/18 12:27 Dose: Not Given Meclizine HCl (Antivert) 25 mg PO Q8 PRN PRN Reason: Dizziness Metoprolol Tartrate (Lopressor) 50 mg PO Q12 [facility] Last Admin: 08/25/18 09:20 Dose: 50 mg Pantoprazole Sodium (Protonix Ec Tab) 40 mg PO DAILY [facility] Last Admin: 08/25/18 09:20 Dose: 40 mg Potassium Chloride (K-Dur 20 Meq Er Tab) 20 meq PO DAILY [facility] Last Admin: 08/25/18 09:20 Dose: 20 meq - Labs Labs: 08/23/18 12:01 08/23/18 12:01 PT 12.5 Seconds (9.8-13.1) 08/22/18 16:35 INR 1.1 08/22/18 16:35 APTT 42.7 Seconds (25.6-37.1) H 08/22/18 16:35 Assessment and Plan (1) Afib Status: Acute (2) Chest pain Status: Acute (3) Diastolic CHF Status: Chronic (4) Hx of TIA (transient ischemic attack) and stroke Status: Chronic (5) Hypertensive urgency Status: Acute
[2018-08-30 13:55] VITALS: O2SAT 97
== END 2018-08-25 16:10 | disposition home or self-care (01) | DRG 305 ==
LOC: H.ER 14:34 → H.ERHOLD 17:43 → H.TEL 21:45
PROVIDERS: ADMIT Internal Medicine Pulmonary Disease; ATTEND Internal Medicine Pulmonary Disease
DX: I16.0 Hypertensive urgency (principal); I50.32 Chronic diastolic (congestive) heart failure; I11.0 Hypertensive heart disease with heart failure; J44.9 Chronic obstructive pulmonary disease, unspecified; M81.0 Age-related osteoporosis without current pathological fracture; Z86.73 Personal history of transient ischemic attack (TIA), and cerebral infarction without residual deficits; Z79.01 Long term (current) use of anticoagulants; Z87.891 Personal history of nicotine dependence; H91.92 Unspecified hearing loss, left ear; F03.90 Unspecified dementia, unspecified severity, without behavioral disturbance, psychotic disturbance, mood disturbance, and anxiety; Z91.041 Radiographic dye allergy status; M19.90 Unspecified osteoarthritis, unspecified site; F41.9 Anxiety disorder, unspecified; F32.9 Major depressive disorder, single episode, unspecified; E78.00 Pure hypercholesterolemia, unspecified; I48.0 Paroxysmal atrial fibrillation; R07.89 Other chest pain; E11.9 Type 2 diabetes mellitus without complications; I27.20 Pulmonary hypertension, unspecified

== ENCOUNTER 2018-10-14 14:15 | Inpatient (IN) | payer MEDICARE, MEDICAID ==
[2018-10-14 14:16] VITALS: BMI 29.7
--- NOTE | 2018-10-14 16:27 | RAD ---
Date of service: 10/14/2018 HISTORY: Possible admission COMPARISON: Comparison chest dated 08/22/2018 TECHNIQUE: 1 view obtained. FINDINGS: LUNGS: No active pulmonary disease. PLEURA: No significant pleural effusion identified, no pneumothorax apparent. CARDIOVASCULAR: Mild aortic atherosclerotic calcification present. Cardiomegaly. OSSEOUS STRUCTURES: Mild multilevel degenerative spondylosis of the thoracic spine VISUALIZED UPPER ABDOMEN: Normal. OTHER FINDINGS: None. IMPRESSION: No active disease.
[2018-10-14 16:38] LABS: BASO # 0.1 K/uL (0.0-0.2); BASO % 1.1 % (0.0-2.0); EOS # 0.1 K/uL (0.0-0.7); EOS % 1.8 % (0.0-4.0); HEMOGLOBIN 11.7 g/dL (12.0-16.0); LYMPH # 1.3 K/uL (1.0-4.3); LYMPH % 20.3 % (20.0-40.0); MEAN CELL VOLUME 88.9 fl (81.0-99.0); MEAN CORPUSCULAR HGB CONC 32.6 g/dL (33.0-37.0); MEAN PLATELET VOLUME 8.5 fl (7.2-11.7); MONO # 0.7 K/uL (0.0-0.8); MONO % 10.9 % (0.0-10.0); NEUT # 4.3 K/uL (1.8-7.0); NEUT % 65.9 % (50.0-75.0); NRBC % 0.1 % (0.0-0.0); RBC 4.06 Mil/uL (3.80-5.20); RED CELL DISTRIBUTION WIDTH 16.1 % (11.5-14.5); WHITE BLOOD COUNT 6.5 K/uL (4.8-10.8)
[2018-10-14 16:47] LABS: ALB/GLOB RATIO 1.1 (1.0-2.1); ALBUMIN 3.7 g/dL (3.5-5.0); ALT/SGPT 18 U/L (9-52); AST/SGOT 28 U/L (14-36); BLOOD UREA NITROGEN 18 mg/dl (7-17); CALCIUM 9.4 mg/dL (8.4-10.2); GFR NON-AFRICAN AMERICAN > 60
[2018-10-14 16:56] LABS: B-TYPE NATRIURETIC PEPTIDE 434 pg/ml (0-900)
--- NOTE | 2018-10-14 17:13 | ED PDOC ---
Lower Extremity Pain/Injury Time Seen by Provider: 10/14/18 15:11 Chief Complaint (Nursing): Lower Extremity Problem/Injury Chief Complaint (Provider): Bilateral Leg Swelling and Pain History Per: Patient History/Exam Limitations: no limitations Onset/Duration Of Symptoms: Days (x6) Current Symptoms Are (Timing): Still Present Additional Complaint(s): 82 year old female with extensive pmhx including CHF and HTN presents to the ED via EMS for six days of worsening bilateral leg swelling and pain. Patient notes that she was recently switched to be put on a new medication, Bumetanide, which has not helped with the leg swelling. She is unable to ambulate at this time. Otherwise, denies shortness of breath, chest pain, and other symptoms. PMD: Jesús Granado Past Medical History Reviewed: Historical Data, Nursing Documentation, Vital Signs Vital Signs: Last Vital Signs Temp 98.0 F 10/14/18 14:17 Pulse 54 L 10/14/18 14:17 Resp 16 10/14/18 14:17 BP 134/64 10/14/18 14:17 Pulse Ox 98 10/14/18 14:17 - Medical History PMH: Anemia, Anxiety, Arthritis, Atrial Fibrillation, Back Problems, CHF, COPD, CVA, Dementia, Depression, Diabetes, Diverticulitis, HTN, Hypercholesterolemia, Osteoporosis, Pneumonia, TIA Denies: HIV, Chronic Kidney Disease - Surgical History Surgical History: Denies: Pacemaker - Family History Family History: States: Unknown Family Hx - Home Medications Home Medications: Ambulatory Orders Medication Instructions Recorded Apixaban [Eliquis] 2.5 mg PO BID 01/17/18 Esomeprazole Magnesium [Nexium 40 mg PO DAILY 01/17/18 24Hr] Meclizine [Meclizine*] 25 mg PO Q8 PRN 01/17/18 Metoprolol Tartrate [Lopressor] 50 mg PO Q12 01/17/18 diltiaZEM [Cardizem] 60 mg PO Q8 01/17/18 hydrALAZINE [Apresoline] 25 mg PO Q12 01/17/18 Potassium Chloride 20 meq PO DAILY 08/22/18 Bumetanide [Bumex] 1 mg PO BID 10/14/18 - Allergies Allergies/Adverse Reactions: Allergies Allergy/AdvReac Type Severity Reaction Status Date / Time Iodinated Contrast- Oral and Allergy RASH Verified 10/15/18 19:21 IV Dye Review of Systems ROS Statement: Except As Marked, All Systems Reviewed And Found Negative Cardiovascular: Negative for: Chest Pain Respiratory: Negative for: Shortness of Breath Musculoskeletal: Positive for: Leg Pain (bilateral leg swelling and pain) Physical Exam - Reviewed Nursing Documentation Reviewed: Yes Vital Signs Reviewed: Yes - Physical Exam Appears: Positive for: No Acute Distress Head Exam: Positive for: ATRAUMATIC, NORMOCEPHALIC Eye Exam: Positive for: Normal appearance Neck: Positive for: Normal, Painless ROM, Supple Cardiovascular/Chest: Positive for: Regular Rate, Rhythm Respiratory: Positive for: Normal Breath Sounds. Negative for: Respiratory Distress Gastrointestinal/Abdominal: Positive for: Normal Exam, Soft. Negative for: Tenderness Back: Positive for: Normal Inspection Extremity: Positive for: Swelling (bilateral leg swelling up to mid thighs with erythema to distal aspects; swelling of toes with desquamation) Neurological/Psych: Positive for: Awake, Alert, Oriented (x3) - Laboratory Results Result Diagrams: 10/15/18 06:30 10/15/18 06:30 Lab Results: NT-Pro-B Natriuret Pep 434 pg/ml (0-900) 10/14/18 16:34 Total Bilirubin 0.5 mg/dl (0.2-1.3) 10/14/18 16:34 AST 28 U/L (14-36) 10/14/18 16:34 ALT 18 U/L (9-52) 10/14/18 16:34 Alkaline Phosphatase 64 U/L (38-126) 10/14/18 16:34 Total Protein 7.1 G/DL (6.3-8.2) 10/14/18 16:34 Albumin 3.7 g/dL (3.5-5.0) 10/14/18 16:34 Globulin 3.4 gm/dL (2.2-3.9) 10/14/18 16:34 Albumin/Globulin Ratio 1.1 (1.0-2.1) 10/14/18 16:34 - ECG O2 Sat by Pulse Oximetry: 98 (RA) Pulse Ox Interpretation: Normal Medical Decision Making Medical Decision Making: Time: 1531 Impression: workup for fluid overload / CHF exacerbation; patient most likely for admission Initial Plan: --EKG --BNP --CMP --CBC with differential --CXR --Will contact Dr. Granado to determine why patient was switched to new medication --Reevaluation [address] Granado who agrees with bilateral DVT study. Will start patient on Zosyn and Vancomycin with cultures sent to cover for possible cellulitis. Patient to be admitted for further workup of leg swelling. At this time, WBC, BNP, and Trop within normal limits, and CXR unremarkable. 183 EXAM: US for Deep Venous Thrombosis, bilateral Lower Extremity. CLINICAL HISTORY: Bilateral leg swelling TECHNIQUE: Real-time ultrasound scan of the veins of the bilateral lower extremity with color Doppler flow, spectral waveform analysis and compression. COMPARISON: None provided. FINDINGS: DEEP VEINS: The common femoral, superficial femoral, and popliteal veins are echolucent and compressible. There is normal color Doppler flow throughout. The visualized calf veins appear patent. SUPERFICIAL VEINS: The visualized greater saphenous vein is patent. SOFT TISSUES: No popliteal fossa cyst or other abnormalities. IMPRESSION: No deep venous thrombosis evident on bilateral lower extremity examination. Electronically signed on Oct 14, 2018 6:38:55 PM EDT by: Ryan Harry M.D., Certified by [employer], Diagnostic Radiology Scribe Attestation: Documented by Leia Priest, acting as a scribe for Seble Almeida MD. Provider Scribe Attestation: All medical record entries made by the Scribe were at my direction and personally dictated by me. I have reviewed the chart and agree that the record accurately reflects my personal performance of the history, physical exam, medic al decision making, and the department course for this patient. I have also personally directed, reviewed, and agree with the discharge instructions and disposition. Disposition - Clinical Impression Clinical Impression: Diastolic CHF, Lower extremity edema - Disposition Disposition Time: 17:51 Condition: GUARDED
[2018-10-14] MEDS ORDERED: Piperacillin/Tazobact 3.375 GM in Sodium Chloride 0.9% 100 ML IVPB STA (17:34)
[2018-10-14] MEDS ORDERED: Piperacillin/Tazobact 3.375 gm Inj IVPB ONE (18:00)
[2018-10-14] MEDS ORDERED: Vancomycin 1 g Inj ONE (19:25)
[2018-10-15] MEDS ORDERED: Piperacillin/Tazobact 3.375 GM in Sodium Chloride 0.9% 100 ML IVPB SCH (01:00)
[2018-10-15 08:36] VITALS: RESP 20
[2018-10-15 08:45] LABS: INR 1.2; PROTHROMBIN TIME 13.3 Seconds (9.8-13.1)
[2018-10-15 08:46] LABS: HEMOGLOBIN 11.5 g/dL (12.0-16.0); MEAN CELL VOLUME 88.3 fl (81.0-99.0); MEAN CORPUSCULAR HEMOGLOBIN 29.2 pg (27.0-31.0); RBC 3.93 Mil/uL (3.80-5.20); RED CELL DISTRIBUTION WIDTH 15.7 % (11.5-14.5); WHITE BLOOD COUNT 5.7 K/uL (4.8-10.8)
[2018-10-15] MEDS: Potassium Chloride 20 mEq ER Tab PO SCH (08:51)
[2018-10-15] MEDS: Pantoprazole 40 mg EC Tab PO SCH (08:53)
[2018-10-15 08:55] LABS: ALBUMIN 3.3 g/dL (3.5-5.0); ALT/SGPT 20 U/L (9-52); AST/SGOT 31 U/L (14-36); BLOOD UREA NITROGEN 19 mg/dl (7-17); CALCIUM 8.8 mg/dL (8.4-10.2); GFR NON-AFRICAN AMERICAN > 60; HDL CHOLESTEROL 51 MG/DL (30-70)
[2018-10-15 09:05] LABS: LDL CHOLESTEROL 90 mg/dL (0-129)
[2018-10-15] MEDS: Piperacillin/Tazobact 3.375 GM in Sodium Chloride 0.9% 100 ML IVPB SCH ×3 (09:52→21:40)
--- NOTE | 2018-10-15 10:33 | US ---
Date of service: 10/14/2018 PROCEDURE: Bilateral lower extremity venous duplex Doppler. HISTORY: BL leg swelling COMPARISON: None available. TECHNIQUE: Bilateral common femoral, superficial femoral, popliteal and posterior tibial veins were evaluated. Flow was assessed with color Doppler, compressibility, assessment of phasic flow and augmentation response. FINDINGS: COMMON FEMORAL VEIN: Right CFV: Unremarkable. Left CFV: Unremarkable. SUPERFICIAL FEMORAL VEIN: Right SFV: Unremarkable. Left SFV: Unremarkable. POPLITEAL VEIN: Right Popliteal: Unremarkable. Left Popliteal: Unremarkable. POSTERIOR TIBIAL VEIN: Right PTV: Unremarkable. Left PTV: Unremarkable. OTHER FINDINGS: None. IMPRESSION: No evidence of deep venous thrombosis.
--- NOTE | 2018-10-15 14:34 | CP.PCM.HP ---
History of Present Illness - History of Present Illness History of Present Illness: CC: Pain BLE. 82 y/o F, with multiple chronic medical condition including: CHF, COPD, HTN, A Fib, CVA, TIA, DM,Lumbago, O/A R-L Knee, Dementia. Pt was brought to [facility] [place] on 10/14/18, via EMS, for evaluation of pain in BLE , described as constant, moderate intensity 4:10, associated to swelling/redness from 6 day [employer]. Pt taking Bumetanide with no relief. Worsening symptoms: Unable to ambulate, weakness b/l legs. Aggravated factor: Walking. NO: SOB, orthopnea, palpitations, C/P, syncope, Fever, chills, n/v/d, abdominal pain, , fall, cough, sick contact, recent travel out of [facility]. Ext U-S: No DVT. EKG: Sinus Bradycardia with 1st degree of AV block with PAC. CXR: No active disease. Pro- BNP: 434 Present on Admission - Present on Admission Any Indicators Present on Admission: Yes Decubitus Ulcer Present: Yes Decubitus Ulcer Location: L buttock Decubitus Ulcer Stage: II Review of Systems - Review of Systems Systems not reviewed;Unavailable: Acuity of Condition, Dementia Past Patient History - Infectious Disease Hx of Infectious Diseases: None - Tetanus Immunizations Tetanus Immunization: Unknown - Past Medical History & Family History Past Medical History?: Yes Pertinent Family History: Unknown - Past Social History Smoking Status: Former Smoker Alcohol: None Drugs: Denies Home Situation {Lives}: With Family - CARDIAC Hx Cardiac Disorders: Yes Hx Atrial Fibrillation: Yes Hx Congestive Heart Failure: Yes Hx Hypercholesterolemia: Yes Hx Hypertension: Yes Hx Peripheral Edema: Yes - PULMONARY Hx Respiratory Disorders: Yes Hx Chronic Obstructive Pulmonary Disease (COPD): Yes Hx Pneumonia: Yes - NEUROLOGICAL Hx Neurological Disorder: Yes Hx Dementia: Yes Hx Transient Ischemic Attacks (TIA): Yes - HEENT Hx HEENT Problems: Yes Other/Comment: eyeglasses - RENAL Hx Chronic Kidney Disease: No - ENDOCRINE/METABOLIC Hx Endocrine Disorders: Yes Hx Diabetes Mellitus Type 2: Yes - HEMATOLOGICAL/ONCOLOGICAL Hx Blood Disorders: Yes Hx AIDS: No Hx Anemia: Yes Hx Human Immunodeficiency Virus (HIV): No - INTEGUMENTARY Hx Dermatological Problems: Yes Hx Cellulitis: Yes - MUSCULOSKELETAL/RHEUMATOLOGICAL Hx Musculoskeletal Disorders: Yes Hx Back Pain: Yes Hx Falls: Yes Hx Osteoporosis: Yes - GASTROINTESTINAL Hx Gastrointestinal Disorders: Yes Hx Diverticulitis: Yes - GENITOURINARY/GYNECOLOGICAL Hx Genitourinary Disorders: No - PSYCHIATRIC Hx Psychophysiologic Disorder: Yes Hx Anxiety: Yes Hx Substance Use: No - SURGICAL HISTORY Hx Surgeries: Yes Hx Herniorrhaphy: Yes (hernia repair) - ANESTHESIA Hx Anesthesia: Yes Hx Anesthesia Reactions: No Hx Malignant Hyperthermia: No Meds Allergies/Adverse Reactions: Allergies Allergy/AdvReac Type Severity Reaction Status Date / Time Iodinated Contrast- Oral and Allergy RASH Verified 10/15/18 19:21 IV Dye Physical Exam - Constitutional Appears: Chronically Ill - Head Exam Head Exam: NORMAL INSPECTION - Eye Exam Eye Exam: PERRL - ENT Exam Additional comments: Hard of hearing - Neck Exam Neck exam: Positive for: Normal Inspection - Respiratory Exam Respiratory Exam: Decreased Breath Sounds (at bases) - Cardiovascular Exam Cardiovascular Exam: REGULAR RHYTHM - GI/Abdominal Exam GI & Abdominal Exam: Normal Bowel Sounds, Soft - Extremities Exam Extremities exam: Positive for: tenderness (R L knee) Additional comments: 2+ non pitting edema, Redness, warmth, swelling legs , swelling of toes with desquamation.chronic venous stasis changes R L legs - Back Exam Back exam: tenderness Additional comments: Pressure ulcer L medial buttock, stage II. Redness on sacrum. - Neurological Exam Additional comments: Awake, forgetful, generalized weakness. no focal motor/sensory deficit. - Skin Skin Exam: Warm Results - Vital Signs Recent Vital Signs: Last Vital Signs Temp 97.2 F L 10/15/18 08:36 Pulse 69 10/15/18 08:51 Resp 20 10/15/18 08:36 BP 151/76 H 10/15/18 08:51 Pulse Ox 93 L 10/15/18 08:36 reviewed J.PRajesh - Labs Result Diagrams: 10/15/18 06:30 10/15/18 06:30 Labs: Laboratory Results - last 24 hr 10/14/18 10/14/18 10/14/18 16:34 16:34 23:05 WBC 6.5 RBC 4.06 Hgb 11.7 L Hct 36.1 MCV 88.9 MCH 29.0 MCHC 32.6 L RDW 16.1 H Plt Count 156 MPV 8.5 Neut % (Auto) 65.9 Lymph % (Auto) 20.3 [place] % (Auto) 10.9 H Eos % (Auto) 1.8 Baso % (Auto) 1.1 Neut # (Auto) 4.3 Lymph # (Auto) 1.3 [place] # (Auto) 0.7 Eos # (Auto) 0.1 Baso # (Auto) 0.1 PT INR Sodium 143 Potassium 3.7 Chloride 104 Carbon Dioxide 32 H Anion Gap 11 BUN 18 H Creatinine 0.6 L Est GFR ( Amer) > 60 Est GFR (Non-Af Amer) > 60 POC Glucose (mg/dL) 95 Random Glucose 122 H Calcium 9.4 Total Bilirubin 0.5 AST 28 ALT 18 Alkaline Phosphatase 64 NT-Pro-B Natriuret Pep 434 Total Protein 7.1 Albumin 3.7 Globulin 3.4 Albumin/Globulin Ratio 1.1 Triglycerides Cholesterol LDL Cholesterol Direct HDL Cholesterol Thyroxine (T4) TSH 3rd Generation 10/15/18 10/15/18 10/15/18 06:30 06:30 06:30 WBC 5.7 RBC 3.93 Hgb 11.5 L Hct 34.7 MCV 88.3 MCH 29.2 MCHC 33.0 RDW 15.7 H Plt Count 139 MPV Neut % (Auto) Lymph % (Auto) [place] % (Auto) Eos % (Auto) Baso % (Auto) Neut # (Auto) Lymph # (Auto) [place] # (Auto) Eos # (Auto) Baso # (Auto) PT 13.3 H INR 1.2 Sodium 142 Potassium 3.7 Chloride 105 Carbon Dioxide 31 H Anion Gap 10 BUN 19 H Creatinine 0.7 Est GFR ( Amer) > 60 Est GFR (Non-Af Amer) > 60 POC Glucose (mg/dL) Random Glucose 93 Calcium 8.8 Total Bilirubin 0.6 AST 31 ALT 20 Alkaline Phosphatase 70 NT-Pro-B Natriuret Pep Total Protein 6.6 Albumin 3.3 L Globulin 3.3 Albumin/Globulin Ratio 1.0 Triglycerides 119 D Cholesterol 181 LDL Cholesterol Direct 90 HDL Cholesterol 51 Thyroxine (T4) 8.30 TSH 3rd Generation 3.78 10/15/18 07:02 WBC RBC Hgb Hct MCV MCH MCHC RDW Plt Count MPV Neut % (Auto) Lymph % (Auto) [place] % (Auto) Eos % (Auto) Baso % (Auto) Neut # (Auto) Lymph # (Auto) [place] # (Auto) Eos # (Auto) Baso # (Auto) PT INR Sodium Potassium Chloride Carbon Dioxide Anion Gap BUN Creatinine Est GFR ( Amer) Est GFR (Non-Af Amer) POC Glucose (mg/dL) 98 Random Glucose Calcium Total Bilirubin AST ALT Alkaline Phosphatase NT-Pro-B Natriuret Pep Total Protein Albumin Globulin Albumin/Globulin Ratio Triglycerides Cholesterol LDL Cholesterol Direct HDL Cholesterol Thyroxine (T4) TSH 3rd Generation reviewed J.P. - Imaging and Cardiology Chest x-ray Status: Report reviewed by me (RicoP.) Venous US Status: Report reviewed by me (Dottie.P.) Assessment & Plan (1) Bilateral lower leg cellulitis Status: Acute Priority: High (2) HTN (hypertension) Status: Chronic Priority: High (3) Knee osteoarthritis Status: Chronic Priority: Medium (4) Generalized weakness Status: Chronic Priority: High (5) COPD (chronic obstructive pulmonary disease) Status: Chronic Priority: Medium (6) Hx of chronic congestive heart failure Status: Acute (7) Paroxysmal A-fib Status: Chronic (8) Type 2 diabetes mellitus Status: Chronic Priority: Medium (9) Hx of TIA (transient ischemic attack) and stroke Status: Chronic Priority: Low (10) Dyslipidemia Status: Chronic Priority: Medium (11) Depression Status: Chronic Priority: Medium (12) Anxiety Status: Chronic Priority: Medium - Assessment and Plan (Free Text) Plan: F/U Blood C-S, Zosyn, Vanco, Continue Bumex, K Dur, Cardizem, Apresoline, Eliquis, Xanax and rest of Tx. PT/OT eval. - Date & Time Date: 10/15/18
--- NOTE | 2018-10-15 16:41 | CARD ---
APPROVED REPORT Date of service: 10/14/2018 EKG Measurement Heart [id number] <Conclusion> Sinus bradycardia with 1st degree AV block with premature atrial complexes Otherwise normal ECG
[2018-10-16 00:06] VITALS: PULSE 66
[2018-10-16] MEDS: Piperacillin/Tazobact 3.375 GM in Sodium Chloride 0.9% 100 ML IVPB SCH ×2 (03:54→10:09)
[2018-10-16] MEDS: Pantoprazole 40 mg EC Tab PO SCH (10:07)
[2018-10-16] MEDS: Potassium Chloride 20 mEq ER Tab PO SCH (10:07)
--- NOTE | 2018-10-16 15:33 | CP.PCM.DIS ---
Provider - Provider Date of Admission: 10/14/18 17:51 Attending physician: Jesús Rascon MD Consults: 10/15/18 09:00 Case Management Referral Routine Comment: Physician Instructions: Reason For Exam: needs assistance at home Reason for Referral: Discharge Planning Nursing Referral for Palliative Care Routine Comment: Consulting Provider: Danielle Greenberg Physician Instructions: Reason For Exam: palliative score 3 Nursing Referral for Wound Care Routine Comment: incontinent Physician Instructions: Reason For Exam: Sacral ulcer 0.5 x 0.5 xm/ L buttocks Diagnosis - Discharge Diagnosis (1) Bilateral lower leg cellulitis Status: Acute Priority: High (2) HTN (hypertension) Status: Chronic Priority: High (3) Knee osteoarthritis Status: Chronic Priority: Medium (4) Generalized weakness Status: Chronic Priority: High (5) COPD (chronic obstructive pulmonary disease) Status: Chronic Priority: Medium (6) Hx of chronic congestive heart failure Status: Acute (7) Paroxysmal A-fib Status: Chronic (8) Type 2 diabetes mellitus Status: Chronic Priority: Medium (9) Hx of TIA (transient ischemic attack) and stroke Status: Chronic Priority: Low (10) Dyslipidemia Status: Chronic Priority: Medium (11) Depression Status: Chronic Priority: Medium (12) Anxiety Status: Chronic Priority: Medium Hospital Course - Lab Results Lab Results: Micro Results 10/14/18 17:45 Blood-Venous Blood Culture - Preliminary NO GROWTH AFTER 24 HOURS Most Recent Lab Values WBC 5.7 K/uL (4.8-10.8) 10/15/18 06:30 RBC 3.93 Mil/uL (3.80-5.20) 10/15/18 06:30 Hgb 11.5 g/dL (12.0-16.0) L 10/15/18 06:30 Hct 34.7 % (34.0-47.0) 10/15/18 06:30 MCV 88.3 fl (81.0-99.0) 10/15/18 06:30 MCH 29.2 pg (27.0-31.0) 10/15/18 06:30 MCHC 33.0 g/dL (33.0-37.0) 10/15/18 06:30 RDW 15.7 % (11.5-14.5) H 10/15/18 06:30 Plt Count 139 K/uL (130-400) 10/15/18 06:30 MPV 8.5 fl (7.2-11.7) 10/14/18 16:34 Neut % (Auto) 65.9 % (50.0-75.0) 10/14/18 16:34 Lymph % (Auto) 20.3 % (20.0-40.0) 10/14/18 16:34 [place] % (Auto) 10.9 % (0.0-10.0) H 10/14/18 16:34 Eos % (Auto) 1.8 % (0.0-4.0) 10/14/18 16:34 Baso % (Auto) 1.1 % (0.0-2.0) 10/14/18 16:34 Neut # (Auto) 4.3 K/uL (1.8-7.0) 10/14/18 16:34 Lymph # (Auto) 1.3 K/uL (1.0-4.3) 10/14/18 16:34 [place] # (Auto) 0.7 K/uL (0.0-0.8) 10/14/18 16:34 Eos # (Auto) 0.1 K/uL (0.0-0.7) 10/14/18 16:34 Baso # (Auto) 0.1 K/uL (0.0-0.2) 10/14/18 16:34 PT 13.3 Seconds (9.8-13.1) H 10/15/18 06:30 INR 1.2 10/15/18 06:30 Sodium 142 mmol/l (132-148) 10/15/18 06:30 Potassium 3.7 MMOL/L (3.6-5.0) 10/15/18 06:30 Chloride 105 mmol/L (98-107) 10/15/18 06:30 Carbon Dioxide 31 mmol/L (22-30) H 10/15/18 06:30 Anion Gap 10 (10-20) 10/15/18 06:30 BUN 19 mg/dl (7-17) H 10/15/18 06:30 Creatinine 0.7 mg/dl (0.7-1.2) 10/15/18 06:30 Est GFR ( Amer) > 60 10/15/18 06:30 Est GFR (Non-Af Amer) > 60 10/15/18 06:30 POC Glucose (mg/dL) 136 mg/dL (65-110) H 10/16/18 05:08 Random Glucose 93 mg/dL (65-105) 10/15/18 06:30 Hemoglobin A1c 5.6 % (4.2-6.5) 10/15/18 06:30 Calcium 8.8 mg/dL (8.4-10.2) 10/15/18 06:30 Total Bilirubin 0.6 mg/dl (0.2-1.3) 10/15/18 06:30 AST 31 U/L (14-36) 10/15/18 06:30 ALT 20 U/L (9-52) 10/15/18 06:30 Alkaline Phosphatase 70 U/L (38-126) 10/15/18 06:30 NT-Pro-B Natriuret Pep 434 pg/ml (0-900) 10/14/18 16:34 Total Protein 6.6 G/DL (6.3-8.2) 10/15/18 06:30 Albumin 3.3 g/dL (3.5-5.0) L 10/15/18 06:30 Globulin 3.3 gm/dL (2.2-3.9) 10/15/18 06:30 Albumin/Globulin Ratio 1.0 (1.0-2.1) 10/15/18 06:30 Triglycerides 119 mg/DL (0-149) D 10/15/18 06:30 Cholesterol 181 mg/dL (0-199) 10/15/18 06:30 LDL Cholesterol Direct 90 mg/dL (0-129) 10/15/18 06:30 HDL Cholesterol 51 MG/DL (30-70) 10/15/18 06:30 Thyroxine (T4) 8.30 ug/dl (5.5-11.0) 10/15/18 06:30 TSH 3rd Generation 3.78 mIU/ML (0.46-4.68) 10/15/18 06:30 Discharge Exam - Head Exam Head Exam: NORMAL INSPECTION Discharge Plan - Discharge Medications Prescriptions: Cephalexin [Keflex] 500 mg PO TID #27 capsule - Follow Up Plan Condition: GUARDED Disposition: HOME/ ROUTINE Instructions: Dependent Edema (DC), Swelling Additional Instructions: follow up with dr rascon 1 week [facility] visiting nurse services [phone] Referrals: Jesús Rascon MD [Staff Provider] -
[2018-10-16 16:42] VITALS: BP 163/68; TEMP 97.1; O2SAT 96
== END 2018-10-16 17:00 | disposition home health service (06) | DRG 603 ==
LOC: H.ER 14:15 → H.ERHOLD 17:51 → H.MEDSURG1 22:01
PROVIDERS: ADMIT Internal Medicine Pulmonary Disease; ATTEND Internal Medicine Pulmonary Disease
DX: L03.115 Cellulitis of right lower limb (principal); I50.32 Chronic diastolic (congestive) heart failure; L03.116 Cellulitis of left lower limb; I11.0 Hypertensive heart disease with heart failure; I48.0 Paroxysmal atrial fibrillation; L89.322 Pressure ulcer of left buttock, stage 2; M81.0 Age-related osteoporosis without current pathological fracture; E11.9 Type 2 diabetes mellitus without complications; F03.90 Unspecified dementia, unspecified severity, without behavioral disturbance, psychotic disturbance, mood disturbance, and anxiety; I44.30 Unspecified atrioventricular block; M17.0 Bilateral primary osteoarthritis of knee; I87.8 Other specified disorders of veins; J44.9 Chronic obstructive pulmonary disease, unspecified; E78.5 Hyperlipidemia, unspecified; E78.00 Pure hypercholesterolemia, unspecified; F41.9 Anxiety disorder, unspecified; F32.9 Major depressive disorder, single episode, unspecified; Z86.73 Personal history of transient ischemic attack (TIA), and cerebral infarction without residual deficits; Z79.01 Long term (current) use of anticoagulants; Z87.01 Personal history of pneumonia (recurrent); Z87.891 Personal history of nicotine dependence